=== PATIENT | female | born 1945 | race Caucasian/White ===

== ENCOUNTER → 2017-09-01 07:27 | Outpatient (CLI) | payer OTHER, SELFPAY ==
[2017-09-01 08:50] LABS: BUN Creatinine Ratio 25.4 (6-22); Calcium 8.9 mg/dL (8.4-10.2); Glucose 58 mg/dL (80-110); HEMOLYSIS < 15 (0-50); Potassium 3.4 mmol/L (3.4-5.1); Sodium 138 mmol/L (137-145)
== END ==
PROVIDERS: PCP Nurse Practitioner; Visit Provider Student in an Organized Health Care Education/Training Program
DX: I50.32 Chronic diastolic (congestive) heart failure (principal)
CPT/HCPCS: 36415; 80048; 83880

== ENCOUNTER → 2017-09-06 11:27 | Outpatient (CLI) | payer OTHER, SELFPAY ==
--- NOTE | 2017-09-06 | DI.RAD.S_ITS ---
PROCEDURE: XR CHEST 2V INDICATIONS: ESRD/LAB TECHNIQUE: 2 views of the chest were acquired. COMPARISON: [facility], , CHEST 1 VIEW, 09/22/2015, 19:28. [facility], , CHEST 1 VIEW, 09/06/2016, 0:11. [facility], , XR CHEST 1V, 08/09/2017, 16:41. FINDINGS: Surgical changes and devices: None. Lungs and pleura: No pleural effusions or pneumothorax. Increased bilateral widespread patchy groundglass opacities primarily involving the lung bases.. Mediastinum: Mediastinal contours are normal. Heart size is normal. Bones and chest wall: No suspicious bony abnormalities. Soft tissues appear unremarkable. IMPRESSION: Increased patchy and groundglass bibasilar opacities suggestive of pulmonary edema versus aspiration/atelectasis. Recommend clinical correlation to exclude superimposed infection. If further assessment is necessary, short interval serial chest radiographs could be performed. Dictated by: Juan Wray M.D. on 09/06/2017 at 14:30 Approved by: Juan Wray M.D. on 09/06/2017 at 14:32
[2017-09-06 12:56] LABS: Hepatitis B Surface Antigen NEGATIVE s/c (NEGATIVE)
[2017-09-06 13:09] LABS: Hep C Virus Ab w/Reflex Quant NEGATIVE s/c (NEGATIVE)
[2017-09-07 14:12] LABS: Hepatitis B Core Antibody Nonreactive (Nonreactive)
[2017-09-07 14:29] LABS: Hepatitis B Surf AB Imm QUANT < 5 mIU/mL (> 9)
== END ==
PROVIDERS: PCP Nurse Practitioner; Visit Provider Student in an Organized Health Care Education/Training Program
DX: N18.6 End stage renal disease (principal); R91.8 Other nonspecific abnormal finding of lung field
CPT/HCPCS: 36415; 71046; 86317; 86704; 86803; 87340

== ENCOUNTER → 2017-09-30 07:18 | Outpatient (CLI) | payer OTHER, SELFPAY ==
[2017-09-30 09:02] LABS: Hemoglobin A1C% w Est Avg Glu 6.7 % (4.0-6.0)
[2017-09-30 09:03] LABS: Add Manual Diff / Slide Review NO; Basophils Percent Auto 1.1 % (0-2); Eosinophils Percent Auto 2.5 % (2-4); Hematocrit 33.2 % (36-46); Hemoglobin 11.2 g/dL (12.0-16.0); Lymphocytes Percent Auto 14.7 % (25-40); Mean Corpuscular HGB Conc 33.8 % (30-36); Mean Corpuscular Hemoglobin 30.1 PG (26-34); Mean Corpuscular Volume 89.1 fL (80-100); Monocytes Percent Auto 11.8 % (3-14); Neutrophils Absolute Auto 3800 /uL (3000-5900); Neutrophils Percent Auto 69.9 % (50-75); Platelet Count 238 X10^3/uL (150-400); Red Blood Cell Count 3.73 X10^6/uL (4.0-5.2); Red Cell Distribution Width 15.4 % (11.6-14.8); White Blood Cell Count 5.5 X10^3/uL (4.5-11.0)
[2017-09-30 09:23] LABS: Alanine Aminotransferase 32 IU/L (9-52); Albumin 3.9 g/dL (3.5-5.0); Albumin Globulin Ratio 1.4 (1.0-2.8); Alkaline Phosphatase 98 U/L (38-126); Aspartate Aminotransferase 18 IU/L (14-36); BUN Creatinine Ratio 11.1 (6-22); Bilirubin Total 0.7 mg/dL (0.2-1.3); Blood Urea Nitrogen 21 mg/dL (7-17); Calcium 9.3 mg/dL (8.4-10.2); Carbon Dioxide 29 mmol/L (22-32); Chloride 94 mmol/L (98-107); Estimated Glomerular Filt Rate 25.8 mL/min (>60); Globulin 2.8 g/dL (1.7-4.1); Glucose 121 mg/dL (80-110); HEMOLYSIS 16 (0-50); Potassium 4.3 mmol/L (3.4-5.1); Sodium 136 mmol/L (137-145); Total Protein 6.7 g/dL (6.3-8.2)
== END ==
PROVIDERS: PCP Nurse Practitioner; Visit Provider Nurse Practitioner
DX: E11.22 Type 2 diabetes mellitus with diabetic chronic kidney disease (principal); N18.4 Chronic kidney disease, stage 4 (severe); Z79.4 Long term (current) use of insulin
CPT/HCPCS: 36415; 80053; 83036; 85025

== ENCOUNTER → 2018-01-04 07:10 | Outpatient (CLI) | payer OTHER, SELFPAY ==
[2018-01-04 09:26] LABS: Hemoglobin A1C% w Est Avg Glu 6.3 % (4.0-6.0)
[2018-01-04 09:44] LABS: BUN Creatinine Ratio 10.3 (6-22); Blood Urea Nitrogen 37 mg/dL (7-17); Calcium 8.9 mg/dL (8.4-10.2); Carbon Dioxide 32 mmol/L (22-32); Chloride 98 mmol/L (98-107); Estimated Glomerular Filt Rate 12.4 mL/min (>60); Glucose 91 mg/dL (80-110); HEMOLYSIS < 15 (0-50); Potassium 4.4 mmol/L (3.4-5.1); Sodium 144 mmol/L (137-145)
== END ==
PROVIDERS: PCP Nurse Practitioner; Visit Provider Nurse Practitioner
DX: E11.22 Type 2 diabetes mellitus with diabetic chronic kidney disease (principal); N18.6 End stage renal disease; Z99.2 Dependence on renal dialysis; Z79.4 Long term (current) use of insulin
CPT/HCPCS: 36415; 80048; 83036

== ENCOUNTER 2018-04-18 07:48 | Emergency (ER) | payer MEDICARE, SELFPAY ==
[2018-04-18 07:52] VITALS: BP 127/47; PULSE 94; RESP 14; TEMP 36.8; O2SAT 98
--- NOTE | 2018-04-18 07:57 | ED.WEAKNESS ---
HPI - Weakness General Chief complaint: Neuro Symptoms/Deficit Stated complaint: Weakness Time Seen by Provider: 04/18/18 07:55 Source: patient and EMS Mode of arrival: EMS Limitations: no limitations History of Present Illness HPI Narrative: This is a 73-year-old female comes to the emergency department with complaint of weakness. Patient states that she was getting out of bed when she slipped. She states she sort of did a slide to the floor. She denies any trauma to her head, no neck or back pain. She states she was feeling weakness particularly on her left side. States her hand was not working right she was having trouble using a spoon. She states when she went to bed she was not having this issue and when she woke up this morning it was present. Patient states that she did a lot of moving of boxes and thinks that that might have been the cause of her symptoms. Patient states that she does not normally lift that much removed that much. She is a end-stage renal disease patient on hemodialysis on Tuesday, and Tuesday. She has not been missing any dialysis she is due to have it at 9:00 a.m. today. She denies any headaches, no vision changes, no difficulty with speech although she is very thirsty. She denies any chest pain or pressure, no shortness of breath. Denies any nausea, vomiting or other new GI symptoms. She does state that she has her carvedilol secondary to hypotension. Related Data Home Medications Medication Instructions Recorded Confirmed fluticasone-salmeterol [Advair 1 puff INH BID #0 09/06/16 04/18/18 Diskus] gabapentin 200 mg PO DAILY #0 09/06/16 04/18/18 aspirin [Aspir-81] 81 mg PO DAILY 08/09/17 04/18/18 atorvastatin 20 mg PO QPM 08/09/17 04/18/18 carvedilol 6.25 mg PO BID 08/09/17 04/18/18 ciprofloxacin HCl 125 mg PO BEDTIME 08/09/17 04/18/18 docusate sodium 100 mg PO DAILY 08/09/17 04/18/18 lamotrigine 150 mg PO DAILY 08/09/17 04/18/18 omeprazole 40 mg PO BID 08/09/17 04/18/18 trazodone 150 mg PO BEDTIME 08/09/17 04/18/18 calcium acetate 1 cap PO DAILY 04/18/18 04/18/18 citalopram 20 mg PO DAILY 04/18/18 04/18/18 cranberry 1 dose PO DAILY 04/18/18 04/18/18 febuxostat [Uloric] 80 mg PO DAILY 04/18/18 04/18/18 furosemide 80 mg PO BID 04/18/18 04/18/18 iron 1 tab PO DAILY 04/18/18 04/18/18 multivitamin [Daily-Christiano] 1 tab PO DAILY 04/18/18 04/18/18 oxybutynin chloride 15 mg PO DAILY 04/18/18 04/18/18 potassium chloride 10 meq PO DAILY 04/18/18 04/18/18 Allergies Allergy/AdvReac Type Severity Reaction Status Date / Time NSAIDS (Non-Steroidal AdvReac Severe CAUSED Verified 08/09/17 16:58 Anti-Inflamma KIDNEY [NSAIDS (NON-STEROIDAL DISEASE ANTI-INFLAMMA] Review of Systems Review of Systems All systems reviewed & are unremarkable except as noted in HPI and below Constitutional Denies chills, Denies fever(s), Denies frequent falls, Denies headache(s), Denies lethargy and Denies weakness ENT Ears, Nose, Mouth, and Throat: Denies headache(s), Denies disequilibrium and Denies other (facial droop) Cardiovascular Denies chest pain, Denies irregular heart rhythm, Denies lightheadedness, Denies palpitations, Denies dyspnea and Denies dyspnea on exertion Respiratory Denies chest congestion, Denies cough, Denies dyspnea and Denies dyspnea on exertion Gastrointestinal Gastrointestinal: Denies abdominal pain, Denies change in bowel habits, Denies diarrhea, Denies nausea and Denies vomiting Musculoskeletal Reports muscle weakness and Denies numbness Neurologic Reports as per HPI, Denies abnormal speech, Denies confusion, Denies frequent falls, Denies headache(s), Reports focal weakness (left sided weakness), Denies numbness, Denies sensory deficit, Denies paresthesias, Denies disequilibrium and Denies weakness Psychiatric Denies confusion Endocrine Denies palpitations PFSH Medical History Bipolar 1 disorder (Acute) CKD (chronic kidney disease) stage 4, GFR 15-29 ml/min (Acute) Dyslipidemia (Acute) Hypertension (Acute) Surgically constructed arteriovenous fistula (Acute) Surgical History H/O: (Acute) S/P cholecystectomy (Acute) Social History Smoking Status: Never smoker Exam Narrative Exam Narrative: GEN: Obese, well-appearing female, alert and oriented x 3, patient appears to be in mild distress. HEENT: Atraumatic, pupils are equal round reactive to light, extraocular movements are intact, nares are clear, no facial droop. HEART: Regular rate and rhythm without murmur, clicks, rubs. LUNGS:Lungs clear to auscultation, no wheezes, rales, crackles, chest moves symmetrically ABD:bowel sounds normal, soft, non-tender, no guarding, rebound, rigidity, no masses noted, no hepatosplenomegaly :No CVA tenderness MSCL: Non-tender, no muscle atrophy, muscles strength 5/5 upper and lower extremities, full range of motion. Patient has a fistula left upper extremity with a thrill. NEURO:CN 2-12 intact, sensation normal, finger nose finger test normal, heel hennessy test normal Initial Vital Signs Initial Vital Signs: Vital Signs Temperature 98.3 F 04/18/18 07:52 Pulse Rate 94 H 04/18/18 07:52 Respiratory Rate 14 04/18/18 07:52 Blood Pressure 127/47 L 04/18/18 07:52 Pulse Oximetry 98 04/18/18 07:52 Scores NIH Stroke Scale Level of Conciousness: Alert, keenly responsive Ask month/age: Answers both questions correctly. Open/close eyes, close hand: Performs both tasks correctly Best gaze horizontal: Normal Visual billingsley: No visual loss Facial palsy: Normal symetrical movement Left arm drift: No drift for full 10 sec Right arm drift: No drift for full 10 sec Left leg drift: No drift for full 10 sec Right leg drift: No drift for full 10 sec Limb ataxia: Absent Sensory on face/arms/legs: Normal, no sensory loss Best language: No aphasia, normal Dysarthria: Normal Extinction or inattention: No abnormality Total NIH Stroke scale score: 0 Course Orders Ordered: ED Orders 04/18/18 07:56 EKG-12 Lead Stat 04/18/18 08:00 CT head/brain wo con Stat 04/18/18 08:30 Basic Metabolic Panel Stat Complete Blood Count AUTO DIFF Stat Partial Thromboplastin Time Stat Prothrombin Time INR Stat 04/18/18 09:00 Urinalysis and Microscopic Stat Urine Culture Stat Urine Drug Screen, Rapid Stat Discontinued Medications Dextrose (D50w) 25 gm IV NOW ONE Stop: 04/18/18 10:31 Last Admin: 04/18/18 11:00 Dose: 25 gm Calcium Gluconate 4.65 meq/ (Sodium Chloride) 60 mls @ 120 mls/hr IV NOW ONE Stop: 04/18/18 10:31 Last Admin: 04/18/18 10:56 Dose: 120 mls/hr Insulin Human Regular (Humulin R) 10 unit IV NOW ONE Stop: 04/18/18 10:31 Last Admin: 04/18/18 10:56 Dose: 10 unit Sodium Polystyrene Sulfonate (Kayexalate) 30 gm PO NOW ONE Stop: 04/18/18 10:31 Last Admin: 04/18/18 10:57 Dose: 30 gm Vital Signs - 8 hr 04/18/18 07:52 04/18/18 11:22 Temperature 98.3 F Pulse Rate 94 H 102 H Respiratory Rate 14 24 Blood Pressure 127/47 L Blood Pressure [Left Arm] 120/66 Pulse Oximetry 98 93 MDM - Weakness Lab Data Attestation: I reviewed the patient's lab results. Result diagrams: 04/18/18 08:30 04/18/18 08:30 Lab Results 04/18/18 04/18/18 04/18/18 Range/Units 08:30 08:30 08:30 WBC 10.2 (4.5-11.0) X10^3/uL RBC 3.25 L (4.0-5.2) X10^6/uL Hgb 10.8 L (12.0-16.0) g/dL Hct 32.6 L (36-46) % MCV 100.3 H (80-100) fL MCH 33.3 (26-34) PG MCHC 33.2 (30-36) % RDW 13.6 (11.6-14.8) % Plt Count 289 (150-400) X10^3/uL Neut % (Auto) 79.6 H (50-75) % Lymph % (Auto) 10.6 L (25-40) % [place] % (Auto) 8.2 (3-14) % Eos % (Auto) 0.9 L (2-4) % Baso % (Auto) 0.7 (0-2) % Neut # (Auto) 8100 H (0373-2177) /uL PT 11.3 (10.1-12.7) SECONDS INR 1.0 (0.9-1.3) APTT 30 (26.4-36.2) SECONDS Sodium 135 L (137-145) mmol/L Potassium 7.3 H* (3.4-5.1) mmol/L Chloride 95 L (98-107) mmol/L Carbon Dioxide 22 (22-32) mmol/L BUN 97 H (7-17) mg/dL Creatinine 8.90 H* (0.52-1.04) mg/dL Estimated GFR 4.3 L (>60) mL/min BUN/Creatinine Ratio 10.9 (6-22) Glucose 142 H (80-110) mg/dL Calcium 8.7 (8.4-10.2) mg/dL Urine Color Urine Appearance Urine pH (4.5-8.0) Ur Specific [place] (1.000-1.035) Urine Protein (Negative) Urine Glucose (UA) (Negative) g/dL Urine Ketones (NEGATIVE) Urine Occult Blood (Negative) Urine Nitrate (Negative) Urine Bilirubin (NEGATIVE) Urine Urobilinogen (0.2) E.U./dL Ur Leukocyte Esterase (NEGATIVE) Urine RBC (0-5/HPF) Urine WBC (0-5/HPF) Urine Bacteria (None) Ur Culture Indicated? Micro UA Comment Urine Opiates Screen (Negative) Ur Oxycodone Screen (Negative) Urine Methadone Screen (Negative) Ur Barbiturates Screen (Negative) U Tricyclic Antidepress (Negative) Ur Phencyclidine Scrn (Negative) Ur Amphetamines Screen (Negative) U Methamphetamines Scrn (Negative) Ur MDMA Scrn (Ecstasy) (Negative) U Benzodiazepines Scrn (Negative) Urine Cocaine Screen (Negative) U Marijuana (THC) Screen (Negative) 04/18/18 04/18/18 Range/Units 09:00 09:00 WBC (4.5-11.0) X10^3/uL RBC (4.0-5.2) X10^6/uL Hgb (12.0-16.0) g/dL Hct (36-46) % MCV (80-100) fL MCH (26-34) PG MCHC (30-36) % RDW (11.6-14.8) % Plt Count (150-400) X10^3/uL Neut % (Auto) (50-75) % Lymph % (Auto) (25-40) % [place] % (Auto) (3-14) % Eos % (Auto) (2-4) % Baso % (Auto) (0-2) % Neut # (Auto) (4023-3331) /uL PT (10.1-12.7) SECONDS INR (0.9-1.3) APTT (26.4-36.2) SECONDS Sodium (137-145) mmol/L Potassium (3.4-5.1) mmol/L Chloride (98-107) mmol/L Carbon Dioxide (22-32) mmol/L BUN (7-17) mg/dL Creatinine (0.52-1.04) mg/dL Estimated GFR (>60) mL/min BUN/Creatinine Ratio (6-22) Glucose (80-110) mg/dL Calcium (8.4-10.2) mg/dL Urine Color Yellow Urine Appearance Cloudy Urine pH 7.0 (4.5-8.0) Ur Specific [place] 1.015 (1.000-1.035) Urine Protein 1+ H (Negative) Urine Glucose (UA) Negative (Negative) g/dL Urine Ketones Negative (NEGATIVE) Urine Occult Blood 2+ H (Negative) Urine Nitrate Negative (Negative) Urine Bilirubin Negative (NEGATIVE) Urine Urobilinogen 0.2 (0.2) E.U./dL Ur Leukocyte Esterase 3+ H (NEGATIVE) Urine RBC 5-10/hpf H (0-5/HPF) Urine WBC >100/hpf H (0-5/HPF) Urine Bacteria Many (>30) H (None) Ur Culture Indicated? Specimen cultured Micro UA Comment Not Reportable Urine Opiates Screen Negative (Negative) Ur Oxycodone Screen Negative (Negative) Urine Methadone Screen Negative (Negative) Ur Barbiturates Screen Negative (Negative) U Tricyclic Antidepress Negative (Negative) Ur Phencyclidine Scrn Negative (Negative) Ur Amphetamines Screen Negative (Negative) U Methamphetamines Scrn Negative (Negative) Ur MDMA Scrn (Ecstasy) Negative (Negative) U Benzodiazepines Scrn Negative (Negative) Urine Cocaine Screen Negative (Negative) U Marijuana (THC) Screen Negative (Negative) Imaging Data CT scan - head: Radiologist's impression: [address] [address] [address] Scan Report Signed Patient: Manju Bergman MR#: [id number] : 1945 Acct:[id number] Age/Sex: 73 / F Date of Service: 04/18/18 Loc: ED Accession Number: [id number] Procedure: CT head/brain wo con Ordering Provider: Rody Yates D.O. PROCEDURE: CT HEAD/BRAIN WO CON INDICATIONS: weakness, patient states left sided arm, resolving TECHNIQUE: Noncontrast 4.5 mm thick angled axial sections acquired from the foramen magnum to the vertex, with coronal and sagittal reformats. For radiation dose reduction, the following was used: automated exposure control, adjustment of mA and/or kV according to patient size. COMPARISON: [facility], CT, HEAD WITHOUT CONTRAST, 09/05/2016, 23:54. [facility], CT, HEAD WITHOUT CONTRAST, 09/26/2015, 15:01. [facility], CT, HEAD WITHOUT CONTRAST, 04/29/2015, 3:09. FINDINGS: Image quality: Excellent. CSF spaces: Basal cisterns are patent. No extra-axial fluid collections. The ventricles are symmetric in size and shape. Brain: No intracranial bleeds or masses. There is cerebral volume loss for age, with resultant ventricular and sulcal prominence. There are periventricular and deep white matter chronic small vessel ischemic changes. There is intracranial internal carotid artery atherosclerosis. Skull and face: Calvarium and visualized facial bones appear intact, without suspicious lesions. Sinuses: Visualized sinuses and mastoids are clear. IMPRESSION: No acute intracranial abnormality. Dictated by: Anca Rand M.D. on 04/18/2018 at 8:56 Approved by: Anca Rand M.D. on 04/18/2018 at 8:57 ECG Data Attestation: I personally reviewed and interpreted this ECG as follows: Interpretation: Ventricular rate of 93 QRS of 168 QTC of 476. Patient has prior EKGs with wide QRS at 1:49 a.m. an similar rate in the 60s. They all appeared to be sinus rhythm. [facility] Narrative Medical decision making narrative: Patient's lab work shows an elevated potassium which is not unexpected given she is supposed to have dialysis this morning. It is high enough that it is concerning for possibly the cause of some of her symptoms Um and her EKG today did show with a little bit different than her past EKGs. Patient's urine also shows signs of infection. Patient is on Cipro every other day we discussed waiting for urine culture before changing any antibiotics she is not having any other major symptoms that are clearly caused from a urinary infection. Patient's head CT is negative. Otherwise she is asymptomatic and not having any other symptoms, her NIH is 0. Discussed her findings with her and her daughter plan to contact her account general manager to see if they can dialyze her today versus if she would need to be admitted as it seems like she would benefit from dialysis sooner rather than later. Patient was given calcium gluconate, IV insulin 10 units, D5 1 amp IV, Kayexalate p.o. discussed with patient she does not want to be resuscitated if she had a cardiac arrest, she does not want electric shock. She is comfortable with the plan to transfer for hemodialysis. Dr. Lombardi the electrical assembly supervisor at [facility] accepts. Patient has been stable while here in the department. Critical Care Time Critical Care Time: Yes Total Critical Care Time: 90 Attestation: The high probability of a clinically significant, sudden or life threatening deterioration of the [cardiac] system(s) required my full and direct attention, intervention and personal management. The aggregate critical care time was [90] minutes. This time is in addition to time spent performing reported procedures but includes the following: [x] Data Review and interpretation [x] Patient assessment and monitoring of vital signs [x] Documentation [x] Medication orders and management Discharge Plan Departure Patient Disposition: [facility] Clinical Impression: Weakness, UTI (urinary tract infection), Hyperkalemia, ESRD (end stage renal disease) on dialysis Discharge Date/Time: 04/18/18 12:07 Interventions: ED Discharge Assessment Last Done: 04/18/18 12:05 Prescriptions: No Action fluticasone-salmeterol [Advair Diskus] 250 MCG/50 MCG blister with device 1 puff INH BID Qty: 0 RF: 0 gabapentin 100 MG capsule 200 mg PO DAILY Qty: 0 RF: 0 atorvastatin 20 mg Tablet 20 mg PO QPM RF: 0 docusate sodium 100 mg Capsule 100 mg PO DAILY RF: 0 lamotrigine 150 mg Tablet 150 mg PO DAILY RF: 0 carvedilol 6.25 mg Tablet 6.25 mg PO BID RF: 0 ciprofloxacin HCl 250 mg Tablet 125 mg PO BEDTIME RF: 0 omeprazole 40 mg Capsule,Delayed Release(Dr/Ec) 40 mg PO BID RF: 0 aspirin [Aspir-81] 81 mg Tablet,Delayed Release (Dr/Ec) 81 mg PO DAILY RF: 0 trazodone 150 mg Tablet 150 mg PO BEDTIME RF: 0 multivitamin [Daily-Christiano] Tablet 1 tab PO DAILY RF: 0 oxybutynin chloride 15 mg tablet extended release 24hr 15 mg PO DAILY RF: 0 potassium chloride 10 mEq tablet extended release 10 meq PO DAILY RF: 0 citalopram 20 mg tablet 20 mg PO DAILY RF: 0 furosemide 80 mg tablet 80 mg PO BID RF: 0 febuxostat [Uloric] 80 mg tablet 80 mg PO DAILY RF: 0 calcium acetate 1 cap PO DAILY RF: 0 cranberry 1 dose PO DAILY RF: 0 iron 1 tab PO DAILY RF: 0 Referrals: Karen Mustafa ARNP [Primary Care Provider] -
--- NOTE | 2018-04-18 08:00 | DI.CT.S_ITS ---
PROCEDURE: CT HEAD/BRAIN WO CON INDICATIONS: weakness, patient states left sided arm, resolving TECHNIQUE: Noncontrast 4.5 mm thick angled axial sections acquired from the foramen magnum to the vertex, with coronal and sagittal reformats. For radiation dose reduction, the following was used: automated exposure control, adjustment of mA and/or kV according to patient size. COMPARISON: [facility], CT, HEAD WITHOUT CONTRAST, 09/05/2016, 23:54. [facility], CT, HEAD WITHOUT CONTRAST, 09/26/2015, 15:01. [facility], CT, HEAD WITHOUT CONTRAST, 04/29/2015, 3:09. FINDINGS: Image quality: Excellent. CSF spaces: Basal cisterns are patent. No extra-axial fluid collections. The ventricles are symmetric in size and shape. Brain: No intracranial bleeds or masses. There is cerebral volume loss for age, with resultant ventricular and sulcal prominence. There are periventricular and deep white matter chronic small vessel ischemic changes. There is intracranial internal carotid artery atherosclerosis. Skull and face: Calvarium and visualized facial bones appear intact, without suspicious lesions. Sinuses: Visualized sinuses and mastoids are clear. IMPRESSION: No acute intracranial abnormality. Dictated by: Anca Rand M.D. on 04/18/2018 at 8:56 Approved by: Anca Rand M.D. on 04/18/2018 at 8:57
--- NOTE | 2018-04-18 08:04 | ED_ITS ---
HPI - Weakness General Chief complaint: Neuro Symptoms/Deficit Stated complaint: Weakness Time Seen by Provider: 04/18/18 07:55 Source: patient and EMS Mode of arrival: EMS Limitations: no limitations History of Present Illness HPI Narrative: This is a 73-year-old female comes to the emergency department with complaint of weakness. Patient states that she was getting out of bed when she slipped. She states she sort of did a slide to the floor. She denies any trauma to her head, no neck or back pain. She states she was feeling weakness particularly on her left side. States her hand was not working right she was having trouble using a spoon. She states when she went to bed she was not having this issue and when she woke up this morning it was present. Patient states that she did a lot of moving of boxes and thinks that that might have been the cause of her symptoms. Patient states that she does not normally lift that much removed that much. She is a end-stage renal disease patient on hemodialysis on Tuesday, and Tuesday. She has not been missing any dialysis she is due to have it at 9:00 a.m. today. She denies any headaches, no vision changes, no difficulty with speech although she is very thirsty. She denies any chest pain or pressure, no shortness of breath. Denies any nausea, vomiting or other new GI symptoms. She does state that she has her carvedilol secondary to hypotension. Related Data Home Medications Medication Instructions Recorded Confirmed fluticasone-salmeterol [Advair 1 puff INH BID #0 09/06/16 04/18/18 Diskus] gabapentin 200 mg PO DAILY #0 09/06/16 04/18/18 aspirin [Aspir-81] 81 mg PO DAILY 08/09/17 04/18/18 atorvastatin 20 mg PO QPM 08/09/17 04/18/18 carvedilol 6.25 mg PO BID 08/09/17 04/18/18 ciprofloxacin HCl 125 mg PO BEDTIME 08/09/17 04/18/18 docusate sodium 100 mg PO DAILY 08/09/17 04/18/18 lamotrigine 150 mg PO DAILY 08/09/17 04/18/18 omeprazole 40 mg PO BID 08/09/17 04/18/18 trazodone 150 mg PO BEDTIME 08/09/17 04/18/18 calcium acetate 1 cap PO DAILY 04/18/18 04/18/18 citalopram 20 mg PO DAILY 04/18/18 04/18/18 cranberry 1 dose PO DAILY 04/18/18 04/18/18 febuxostat [Uloric] 80 mg PO DAILY 04/18/18 04/18/18 furosemide 80 mg PO BID 04/18/18 04/18/18 iron 1 tab PO DAILY 04/18/18 04/18/18 multivitamin [Daily-Christiano] 1 tab PO DAILY 04/18/18 04/18/18 oxybutynin chloride 15 mg PO DAILY 04/18/18 04/18/18 potassium chloride 10 meq PO DAILY 04/18/18 04/18/18 Allergies Allergy/AdvReac Type Severity Reaction Status Date / Time NSAIDS (Non-Steroidal AdvReac Severe CAUSED Verified 08/09/17 16:58 Anti-Inflamma KIDNEY [NSAIDS (NON-STEROIDAL DISEASE ANTI-INFLAMMA] Review of Systems Review of Systems All systems reviewed & are unremarkable except as noted in HPI and below Constitutional Denies chills, Denies fever(s), Denies frequent falls, Denies headache(s), Denies lethargy and Denies weakness ENT Ears, Nose, Mouth, and Throat: Denies headache(s), Denies disequilibrium and Denies other (facial droop) Cardiovascular Denies chest pain, Denies irregular heart rhythm, Denies lightheadedness, Denies palpitations, Denies dyspnea and Denies dyspnea on exertion Respiratory Denies chest congestion, Denies cough, Denies dyspnea and Denies dyspnea on exertion Gastrointestinal Gastrointestinal: Denies abdominal pain, Denies change in bowel habits, Denies diarrhea, Denies nausea and Denies vomiting Musculoskeletal Reports muscle weakness and Denies numbness Neurologic Reports as per HPI, Denies abnormal speech, Denies confusion, Denies frequent falls, Denies headache(s), Reports focal weakness (left sided weakness), Denies numbness, Denies sensory deficit, Denies paresthesias, Denies disequilibrium and Denies weakness Psychiatric Denies confusion Endocrine Denies palpitations PFSH Medical History Bipolar 1 disorder (Acute) CKD (chronic kidney disease) stage 4, GFR 15-29 ml/min (Acute) Dyslipidemia (Acute) Hypertension (Acute) Surgically constructed arteriovenous fistula (Acute) Surgical History H/O: (Acute) S/P cholecystectomy (Acute) Social History Smoking Status: Never smoker Exam Narrative Exam Narrative: GEN: Obese, well-appearing female, alert and oriented x 3, patient appears to be in mild distress. HEENT: Atraumatic, pupils are equal round reactive to light, extraocular movements are intact, nares are clear, no facial droop. HEART: Regular rate and rhythm without murmur, clicks, rubs. LUNGS:Lungs clear to auscultation, no wheezes, rales, crackles, chest moves symmetrically ABD:bowel sounds normal, soft, non-tender, no guarding, rebound, rigidity, no masses noted, no hepatosplenomegaly :No CVA tenderness MSCL: Non-tender, no muscle atrophy, muscles strength 5/5 upper and lower extremities, full range of motion. Patient has a fistula left upper extremity with a thrill. NEURO:CN 2-12 intact, sensation normal, finger nose finger test normal, heel hennessy test normal Initial Vital Signs Initial Vital Signs: Vital Signs Temperature 98.3 F 04/18/18 07:52 Pulse Rate 94 H 04/18/18 07:52 Respiratory Rate 14 04/18/18 07:52 Blood Pressure 127/47 L 04/18/18 07:52 Pulse Oximetry 98 04/18/18 07:52 Scores NIH Stroke Scale Level of Conciousness: Alert, keenly responsive Ask month/age: Answers both questions correctly. Open/close eyes, close hand: Performs both tasks correctly Best gaze horizontal: Normal Visual billingsley: No visual loss Facial palsy: Normal symetrical movement Left arm drift: No drift for full 10 sec Right arm drift: No drift for full 10 sec Left leg drift: No drift for full 10 sec Right leg drift: No drift for full 10 sec Limb ataxia: Absent Sensory on face/arms/legs: Normal, no sensory loss Best language: No aphasia, normal Dysarthria: Normal Extinction or inattention: No abnormality Total NIH Stroke scale score: 0 Course Orders Ordered: ED Orders 04/18/18 07:56 EKG-12 Lead Stat 04/18/18 08:00 CT head/brain wo con Stat 04/18/18 08:30 Basic Metabolic Panel Stat Complete Blood Count AUTO DIFF Stat Partial Thromboplastin Time Stat Prothrombin Time INR Stat 04/18/18 09:00 Urinalysis and Microscopic Stat Urine Culture Stat Urine Drug Screen, Rapid Stat Discontinued Medications Dextrose (D50w) 25 gm IV NOW ONE Stop: 04/18/18 10:31 Last Admin: 04/18/18 11:00 Dose: 25 gm Calcium Gluconate 4.65 meq/ (Sodium Chloride) 60 mls @ 120 mls/hr IV NOW ONE Stop: 04/18/18 10:31 Last Admin: 04/18/18 10:56 Dose: 120 mls/hr Insulin Human Regular (Humulin R) 10 unit IV NOW ONE Stop: 04/18/18 10:31 Last Admin: 04/18/18 10:56 Dose: 10 unit Sodium Polystyrene Sulfonate (Kayexalate) 30 gm PO NOW ONE Stop: 04/18/18 10:31 Last Admin: 04/18/18 10:57 Dose: 30 gm Vital Signs - 8 hr 04/18/18 07:52 04/18/18 11:22 Temperature 98.3 F Pulse Rate 94 H 102 H Respiratory Rate 14 24 Blood Pressure 127/47 L Blood Pressure [Left Arm] 120/66 Pulse Oximetry 98 93 MDM - Weakness Lab Data Attestation: I reviewed the patient's lab results. Result diagrams: 04/18/18 08:30 04/18/18 08:30 Lab Results 04/18/18 04/18/18 04/18/18 Range/Units 08:30 08:30 08:30 WBC 10.2 (4.5-11.0) X10^3/uL RBC 3.25 L (4.0-5.2) X10^6/uL Hgb 10.8 L (12.0-16.0) g/dL Hct 32.6 L (36-46) % MCV 100.3 H (80-100) fL MCH 33.3 (26-34) PG MCHC 33.2 (30-36) % RDW 13.6 (11.6-14.8) % Plt Count 289 (150-400) X10^3/uL Neut % (Auto) 79.6 H (50-75) % Lymph % (Auto) 10.6 L (25-40) % [place] % (Auto) 8.2 (3-14) % Eos % (Auto) 0.9 L (2-4) % Baso % (Auto) 0.7 (0-2) % Neut # (Auto) 8100 H (2472-7563) /uL PT 11.3 (10.1-12.7) SECONDS INR 1.0 (0.9-1.3) APTT 30 (26.4-36.2) SECONDS Sodium 135 L (137-145) mmol/L Potassium 7.3 H* (3.4-5.1) mmol/L Chloride 95 L (98-107) mmol/L Carbon Dioxide 22 (22-32) mmol/L BUN 97 H (7-17) mg/dL Creatinine 8.90 H* (0.52-1.04) mg/dL Estimated GFR 4.3 L (>60) mL/min BUN/Creatinine Ratio 10.9 (6-22) Glucose 142 H (80-110) mg/dL Calcium 8.7 (8.4-10.2) mg/dL Urine Color Urine Appearance Urine pH (4.5-8.0) Ur Specific Fenton (1.000-1.035) Urine Protein (Negative) Urine Glucose (UA) (Negative) g/dL Urine Ketones (NEGATIVE) Urine Occult Blood (Negative) Urine Nitrate (Negative) Urine Bilirubin (NEGATIVE) Urine Urobilinogen (0.2) E.U./dL Ur Leukocyte Esterase (NEGATIVE) Urine RBC (0-5/HPF) Urine WBC (0-5/HPF) Urine Bacteria (None) Ur Culture Indicated? Micro UA Comment Urine Opiates Screen (Negative) Ur Oxycodone Screen (Negative) Urine Methadone Screen (Negative) Ur Barbiturates Screen (Negative) U Tricyclic Antidepress (Negative) Ur Phencyclidine Scrn (Negative) Ur Amphetamines Screen (Negative) U Methamphetamines Scrn (Negative) Ur MDMA Scrn (Ecstasy) (Negative) U Benzodiazepines Scrn (Negative) Urine Cocaine Screen (Negative) U Marijuana (THC) Screen (Negative) 04/18/18 04/18/18 Range/Units 09:00 09:00 WBC (4.5-11.0) X10^3/uL RBC (4.0-5.2) X10^6/uL Hgb (12.0-16.0) g/dL Hct (36-46) % MCV (80-100) fL MCH (26-34) PG MCHC (30-36) % RDW (11.6-14.8) % Plt Count (150-400) X10^3/uL Neut % (Auto) (50-75) % Lymph % (Auto) (25-40) % [place] % (Auto) (3-14) % Eos % (Auto) (2-4) % Baso % (Auto) (0-2) % Neut # (Auto) (9761-7209) /uL PT (10.1-12.7) SECONDS INR (0.9-1.3) APTT (26.4-36.2) SECONDS Sodium (137-145) mmol/L Potassium (3.4-5.1) mmol/L Chloride (98-107) mmol/L Carbon Dioxide (22-32) mmol/L BUN (7-17) mg/dL Creatinine (0.52-1.04) mg/dL Estimated GFR (>60) mL/min BUN/Creatinine Ratio (6-22) Glucose (80-110) mg/dL Calcium (8.4-10.2) mg/dL Urine Color Yellow Urine Appearance Cloudy Urine pH 7.0 (4.5-8.0) Ur Specific Fenton 1.015 (1.000-1.035) Urine Protein 1+ H (Negative) Urine Glucose (UA) Negative (Negative) g/dL Urine Ketones Negative (NEGATIVE) Urine Occult Blood 2+ H (Negative) Urine Nitrate Negative (Negative) Urine Bilirubin Negative (NEGATIVE) Urine Urobilinogen 0.2 (0.2) E.U./dL Ur Leukocyte Esterase 3+ H (NEGATIVE) Urine RBC 5-10/hpf H (0-5/HPF) Urine WBC >100/hpf H (0-5/HPF) Urine Bacteria Many (>30) H (None) Ur Culture Indicated? Specimen cultured Micro UA Comment Not Reportable Urine Opiates Screen Negative (Negative) Ur Oxycodone Screen Negative (Negative) Urine Methadone Screen Negative (Negative) Ur Barbiturates Screen Negative (Negative) U Tricyclic Antidepress Negative (Negative) Ur Phencyclidine Scrn Negative (Negative) Ur Amphetamines Screen Negative (Negative) U Methamphetamines Scrn Negative (Negative) Ur MDMA Scrn (Ecstasy) Negative (Negative) U Benzodiazepines Scrn Negative (Negative) Urine Cocaine Screen Negative (Negative) U Marijuana (THC) Screen Negative (Negative) Imaging Data CT scan - head: Radiologist's impression: [address] [address] [address] Scan Report Signed Patient: Manju Bergman MR#: [id number] : 1945 Acct:[id number] Age/Sex: 73 / F Date of Service: 04/18/18 Loc: ED Accession Number: [id number] Procedure: CT head/brain wo con Ordering Provider: Rody Yates D.O. PROCEDURE: CT HEAD/BRAIN WO CON INDICATIONS: weakness, patient states left sided arm, resolving TECHNIQUE: Noncontrast 4.5 mm thick angled axial sections acquired from the foramen magnum to the vertex, with coronal and sagittal reformats. For radiation dose reduction, the following was used: automated exposure control, adjustment of mA and/or kV according to patient size. COMPARISON: [facility], CT, HEAD WITHOUT CONTRAST, 09/05/2016, 23:54. [facility], CT, HEAD WITHOUT CONTRAST, 09/26/2015, 15:01. [facility], CT, HEAD WITHOUT CONTRAST, 04/29/2015, 3:09. FINDINGS: Image quality: Excellent. CSF spaces: Basal cisterns are patent. No extra-axial fluid collections. The ventricles are symmetric in size and shape. Brain: No intracranial bleeds or masses. There is cerebral volume loss for age , with resultant ventricular and sulcal prominence. There are periventricular and deep white matter chronic small vessel ischemic changes. There is intracranial internal carotid artery atherosclerosis. Skull and face: Calvarium and visualized facial bones appear intact, without suspicious lesions. Sinuses: Visualized sinuses and mastoids are clear. IMPRESSION: No acute intracranial abnormality. Dictated by: Anca Rand M.D. on 04/18/2018 at 8:56 Approved by: Anca Rand M.D. on 04/18/2018 at 8:57 ECG Data Attestation: I personally reviewed and interpreted this ECG as follows: Interpretation: Ventricular rate of 93 QRS of 168 QTC of 476. Patient has prior EKGs with wide QRS at 1:49 a.m. an similar rate in the 60s. They all appeared to be sinus rhythm. [facility] Narrative Medical decision making narrative: Patient's lab work shows an elevated potassium which is not unexpected given she is supposed to have dialysis this morning. It is high enough that it is concerning for possibly the cause of some of her symptoms Um and her EKG today did show with a little bit different than her past EKGs. Patient's urine also shows signs of infection. Patient is on Cipro every other day we discussed waiting for urine culture before changing any antibiotics she is not having any other major symptoms that are clearly caused from a urinary infection. Patient's head CT is negative. Otherwise she is asymptomatic and not having any other symptoms, her NIH is 0. Discussed her findings with her and her daughter plan to contact her chemical applicator to see if they can dialyze her today versus if she would need to be admitted as it seems like she would benefit from dialysis sooner rather than later. Patient was given calcium gluconate, IV insulin 10 units, D5 1 amp IV, Kayexalate p.o. discussed with patient she does not want to be resuscitated if she had a cardiac arrest, she does not want electric shock. She is comfortable with the plan to transfer for hemodialysis. Dr. Lombardi the regional wildlife agent at [facility] accepts. Patient has been stable while here in the department. Critical Care Time Critical Care Time: Yes Total Critical Care Time: 90 Attestation: The high probability of a clinically significant, sudden or life threatening deterioration of the [cardiac] system(s) required my full and direct attention, intervention and personal management. The aggregate critical care time was [90] minutes. This time is in addition to time spent performing reported procedures but includes the following: [x] Data Review and interpretation [x] Patient assessment and monitoring of vital signs [x] Documentation [x] Medication orders and management Discharge Plan Departure Patient Disposition: [facility] Clinical Impression: Weakness, UTI (urinary tract infection), Hyperkalemia, ESRD (end stage renal disease) on dialysis Discharge Date/Time: 04/18/18 12:07 Interventions: ED Discharge Assessment Last Done: 04/18/18 12:05 Prescriptions: No Action fluticasone-salmeterol [Advair Diskus] 250 MCG/50 MCG blister with device 1 puff INH BID Qty: 0 RF: 0 gabapentin 100 MG capsule 200 mg PO DAILY Qty: 0 RF: 0 atorvastatin 20 mg Tablet 20 mg PO QPM RF: 0 docusate sodium 100 mg Capsule 100 mg PO DAILY RF: 0 lamotrigine 150 mg Tablet 150 mg PO DAILY RF: 0 carvedilol 6.25 mg Tablet 6.25 mg PO BID RF: 0 ciprofloxacin HCl 250 mg Tablet 125 mg PO BEDTIME RF: 0 omeprazole 40 mg Capsule,Delayed Release(Dr/Ec) 40 mg PO BID RF: 0 aspirin [Aspir-81] 81 mg Tablet,Delayed Release (Dr/Ec) 81 mg PO DAILY RF: 0 trazodone 150 mg Tablet 150 mg PO BEDTIME RF: 0 multivitamin [Daily-Christiano] Tablet 1 tab PO DAILY RF: 0 oxybutynin chloride 15 mg tablet extended release 24hr 15 mg PO DAILY RF: 0 potassium chloride 10 mEq tablet extended release 10 meq PO DAILY RF: 0 citalopram 20 mg tablet 20 mg PO DAILY RF: 0 furosemide 80 mg tablet 80 mg PO BID RF: 0 febuxostat [Uloric] 80 mg tablet 80 mg PO DAILY RF: 0 calcium acetate 1 cap PO DAILY RF: 0 cranberry 1 dose PO DAILY RF: 0 iron 1 tab PO DAILY RF: 0 Referrals: Karen Mustafa ARNP [Primary Care Provider] -
[2018-04-18 08:46] LABS: Add Manual Diff / Slide Review NO; Basophils Percent Auto 0.7 % (0-2); Eosinophils Percent Auto 0.9 % (2-4); Hematocrit 32.6 % (36-46); Hemoglobin 10.8 g/dL (12.0-16.0); Lymphocytes Percent Auto 10.6 % (25-40); Mean Corpuscular HGB Conc 33.2 % (30-36); Mean Corpuscular Hemoglobin 33.3 PG (26-34); Mean Corpuscular Volume 100.3 fL (80-100); Monocytes Percent Auto 8.2 % (3-14); Neutrophils Absolute Auto 8100 /uL (1500-7000); Neutrophils Percent Auto 79.6 % (50-75); Platelet Count 289 X10^3/uL (150-400); Red Blood Cell Count 3.25 X10^6/uL (4.0-5.2); Red Cell Distribution Width 13.6 % (11.6-14.8); White Blood Cell Count 10.2 X10^3/uL (4.5-11.0)
[2018-04-18 08:53] LABS: Prothrombin Time 11.3 SECONDS (10.1-12.7)
[2018-04-18 08:56] LABS: BUN Creatinine Ratio 10.9 (6-22); Blood Urea Nitrogen 97 mg/dL (7-17); Calcium 8.7 mg/dL (8.4-10.2); Carbon Dioxide 22 mmol/L (22-32); Chloride 95 mmol/L (98-107); Estimated Glomerular Filt Rate 4.3 mL/min (>60); Glucose 142 mg/dL (80-110); HEMOLYSIS < 15 (0-50); PTT Partial Thromboplastin Tim 30 SECONDS (26.4-36.2); Sodium 135 mmol/L (137-145)
[2018-04-18 09:09] LABS: Potassium 7.3 mmol/L (3.4-5.1)
[2018-04-18 09:19] LABS: Urine Amphetamines Negative (Negative); Urine Barbiturates Negative (Negative); Urine Benzodiazepines Negative (Negative); Urine Cocaine Negative (Negative); Urine MDMA Negative (Negative); Urine Methadone Negative (Negative); Urine Methamphetamines Negative (Negative); Urine Morphine/Opi cutoff 2000 Negative (Negative); Urine Oxycodone Negative (Negative); Urine Phencyclidine Negative (Negative); Urine Tetrahydrocannabinol Negative (Negative); Urine Tricyclic Antidepressant Negative (Negative)
[2018-04-18 09:22] LABS: Appearance Urine UA CLOUDY; Bilirubin Urine UA NEGATIVE (NEGATIVE); Color Urine UA YELLOW; Glucose Urine UA NEGATIVE (Negative); Ketones Urine UA NEGATIVE (NEGATIVE); Leukocyte Esterase Urine UA 3+ (NEGATIVE); Nitrite Urine UA NEGATIVE (Negative); Occult Blood Urine UA 2+ (Negative); Protein Urine UA 1+ (Negative); Specific Gravity Urine UA 1.015 (1.000-1.035); Urobilinogen Urine UA 0.2 E.U./dL (0.2)
[2018-04-18 09:30] LABS: Bacteria Urine Many (>30); Culture Indicated Urine Specimen Cultured; RBC Urine 5-10/HPF (0-5/HPF); WBC Urine >100/HPF (0-5/HPF)
--- NOTE | 2018-04-18 09:58 | PC.NURSE ---
dialysis shunt l arm
[2018-04-18] MEDS: INSULIN REGULAR 100 UNIT/ML 3 ML VIAL 10 UNIT IV (10:56)
[2018-04-18] MEDS: CALCIUM GLUCONATE 4.65 MEQ in SODIUM CHLORIDE 0.9% 50 ML 120 ML IV (10:56)
[2018-04-18] MEDS: SODIUM POLYSTYRENE SULFON/SORB 15 GM/60 ML CUP 30 GM PO (10:57)
[2018-04-18] MEDS: DEXTROSE 50 % IN WATER 25 GM/50 ML SYRINGE IV (11:00)
[2018-04-18 11:22] VITALS: BP 120/66; PULSE 102; RESP 24; O2SAT 93
--- NOTE | 2018-04-18 12:06 | PC.NURSE ---
clothes/ cell phone/ cane
--- NOTE | 2018-04-18 12:08 | PC.NURSE ---
report to ambulance / and called [facility] [phone]
--- NOTE | 2018-04-18 12:13 | PC.NURSE ---
report to rajeev in icu at [facility]
== END 2018-04-18 12:07 | disposition short-term general hospital (02) ==
PROVIDERS: Emergency Provider Emergency Medicine; PCP Nurse Practitioner
DX: G81.94 Hemiplegia, unspecified affecting left nondominant side (principal); N39.0 Urinary tract infection, site not specified; E87.5 Hyperkalemia; N18.6 End stage renal disease; Z99.2 Dependence on renal dialysis
CPT/HCPCS: 36591; 70450; 80048; 80305; 81001; 85025; 85610; 85730; 87077; 87086; 87186; 93005; 96365; 96375; 99283; 99285; J0610

== ENCOUNTER → 2018-04-28 09:18 | Outpatient (CLI) | payer MEDICARE, SELFPAY ==
[2018-04-28 10:16] LABS: BUN Creatinine Ratio 11.1 (6-22); Blood Urea Nitrogen 51 mg/dL (7-17); Carbon Dioxide 26 mmol/L (22-32); Chloride 97 mmol/L (98-107); Estimated Glomerular Filt Rate 9.3 mL/min (>60); Glucose 128 mg/dL (80-110); HEMOLYSIS < 15 (0-50); Sodium 139 mmol/L (137-145)
[2018-04-28 10:28] LABS: Hemoglobin A1C% w Est Avg Glu 6.3 % (4.0-6.0)
== END ==
PROVIDERS: PCP Nurse Practitioner; Visit Provider Nurse Practitioner
DX: E11.22 Type 2 diabetes mellitus with diabetic chronic kidney disease (principal); N18.6 End stage renal disease; Z99.2 Dependence on renal dialysis; Z79.4 Long term (current) use of insulin
CPT/HCPCS: 36415; 80048; 83036

== ENCOUNTER 2018-05-02 10:00 | Emergency (ER) | payer MEDICARE, SELFPAY ==
[2018-05-02 10:09] VITALS: BP 115/68; PULSE 78; RESP 18; TEMP 36.6; O2SAT 94; BMI 48.3
--- NOTE | 2018-05-02 10:13 | ED.RECABL ---
HPI - Recheck/Abnormal Lab/Rx General Chief Complaint: Recheck/Abnormal Lab/Rx Stated Complaint: Dizziness Time Seen by Provider: 05/02/18 10:04 Source: patient Mode of arrival: EMS Limitations: no limitations History of Present Illness HPI narrative: Patient is a 73-year-old female on dialysis who receives treatments on Tuesday and Saturdays. She received a full treatment last Tuesday. She states that for several weeks if not the past month she has had dizziness with standing. She saw her primary doctor and also her workers compensation legal secretary yesterday. She states that her primary doctor was taking her off of the Cipro, carvedilol and potassium. Her workers compensation legal secretary plan was to take less fluid off during her dialysis treatments. Patient states that today she was at the dialysis center. She had not received any dialysis when they were getting low blood pressure readings. EMS was called. EMS stated that they never had a hypotension reading during their time with her. Patient has no change in any of her symptoms today. Related Data Home Medications Medication Instructions Recorded Confirmed fluticasone-salmeterol [Advair 1 puff INH BID #0 09/06/16 04/18/18 Diskus] gabapentin 200 mg PO DAILY #0 09/06/16 04/18/18 aspirin [Aspir-81] 81 mg PO DAILY 08/09/17 04/18/18 atorvastatin 20 mg PO QPM 08/09/17 04/18/18 carvedilol 6.25 mg PO BID 08/09/17 04/18/18 ciprofloxacin HCl 125 mg PO BEDTIME 08/09/17 04/18/18 docusate sodium 100 mg PO DAILY 08/09/17 04/18/18 lamotrigine 150 mg PO DAILY 08/09/17 04/18/18 omeprazole 40 mg PO BID 08/09/17 04/18/18 trazodone 150 mg PO BEDTIME 08/09/17 04/18/18 calcium acetate 1 cap PO DAILY 04/18/18 04/18/18 citalopram 20 mg PO DAILY 04/18/18 04/18/18 cranberry 1 dose PO DAILY 04/18/18 04/18/18 febuxostat [Uloric] 80 mg PO DAILY 04/18/18 04/18/18 furosemide 80 mg PO BID 04/18/18 04/18/18 iron 1 tab PO DAILY 04/18/18 04/18/18 multivitamin [Daily-Christiano] 1 tab PO DAILY 04/18/18 04/18/18 oxybutynin chloride 15 mg PO DAILY 04/18/18 04/18/18 potassium chloride 10 meq PO DAILY 04/18/18 04/18/18 Allergies Allergy/AdvReac Type Severity Reaction Status Date / Time NSAIDS (Non-Steroidal AdvReac Severe CAUSED Verified 05/02/18 10:09 Anti-Inflamma KIDNEY [NSAIDS (NON-STEROIDAL DISEASE ANTI-INFLAMMA] Review of Systems Constitutional Denies fever(s) and Denies headache(s) ENT Ears, Nose, Mouth, and Throat: Denies vertigo, Reports dizziness, Denies headache(s) and Reports disequilibrium Cardiovascular Denies chest pain, Denies syncope and Denies dyspnea Respiratory Denies dyspnea Gastrointestinal Gastrointestinal: Denies abdominal pain Integumentary/Breasts Denies rash Neurologic Denies confusion, Denies vertigo, Reports dizziness, Denies syncope, Denies headache(s) and Reports disequilibrium Psychiatric Denies confusion [facility] Social History Smoking Status: Never smoker Exam Initial Vital Signs Initial Vital Signs: Vital Signs Temperature 97.9 F 05/02/18 10:09 Pulse Rate 78 05/02/18 10:09 Respiratory Rate 18 05/02/18 10:09 Blood Pressure 115/68 05/02/18 10:09 Pulse Oximetry 94 05/02/18 10:09 Const General: cooperative, comfortable, well developed, well groomed and No acute distress Orientation: alert, awake and oriented x3 Resp Effort & Inspection: normal respiratory effort Auscultation: clear to auscultation bilaterally Cardio Rate: regular rate Rhythm: regular rhythm GI Inspection: non-distended Palpation: soft Skin Lesions: no lesions Rashes: no rashes Neuro General: alert, awake and oriented x3 Extrem Other: Dialysis fistula left upper extremity with a good thrill Psych Appearance: grossly normal and well kempt Course Vital Signs - 8 hr 05/02/18 10:09 Temperature 97.9 F Pulse Rate 78 Respiratory Rate 18 Blood Pressure 115/68 Pulse Oximetry 94 MDM - Recheck/Abnormal Lab/Rx MDM Narrative Medical decision making narrative: Patient was not orthostatic. Blood pressure 132/45 laying with a heart rate of 88. Blood pressure 126/52 with a heart rate of 77 sitting blood pressure 114/49 with a heart rate of 80 standing. Patient ambulated around the emergency department at any problems. Here in the emergency department blood pressure is never less than 110 systolic. Patient is seen her primary doctor and also her workers compensation legal secretary regarding her symptoms as recent as yesterday. They have made changes to some of her medications and her dialysis to try to help the symptoms. Will hold on making any further changes today. Will discharge the patient. She was given return precautions. She expressed understanding and agreement with plan. Discharge Plan Departure Patient Disposition: Home Clinical Impression: Hypotension, End stage renal disease on dialysis Instructions: DI for Orthostatic Hypotension Activity Restrictions/Additional Instructions: I recommend that you keep going to your dialysis as directed. Make all other medicine changes that you have already discussed with your primary doctor and also your kidney doctor. Return to the emergency department for any new or worsening symptoms Prescriptions: No Action fluticasone-salmeterol [Advair Diskus] 250 MCG/50 MCG blister with device 1 puff INH BID Qty: 0 RF: 0 gabapentin 100 MG capsule 200 mg PO DAILY Qty: 0 RF: 0 atorvastatin 20 mg Tablet 20 mg PO QPM RF: 0 docusate sodium 100 mg Capsule 100 mg PO DAILY RF: 0 lamotrigine 150 mg Tablet 150 mg PO DAILY RF: 0 carvedilol 6.25 mg Tablet 6.25 mg PO BID RF: 0 ciprofloxacin HCl 250 mg Tablet 125 mg PO BEDTIME RF: 0 omeprazole 40 mg Capsule,Delayed Release(Dr/Ec) 40 mg PO BID RF: 0 aspirin [Aspir-81] 81 mg Tablet,Delayed Release (Dr/Ec) 81 mg PO DAILY RF: 0 trazodone 150 mg Tablet 150 mg PO BEDTIME RF: 0 multivitamin [Daily-Chritsiano] Tablet 1 tab PO DAILY RF: 0 oxybutynin chloride 15 mg tablet extended release 24hr 15 mg PO DAILY RF: 0 potassium chloride 10 mEq tablet extended release 10 meq PO DAILY RF: 0 citalopram 20 mg tablet 20 mg PO DAILY RF: 0 furosemide 80 mg tablet 80 mg PO BID RF: 0 febuxostat [Uloric] 80 mg tablet 80 mg PO DAILY RF: 0 calcium acetate 1 cap PO DAILY RF: 0 cranberry 1 dose PO DAILY RF: 0 iron 1 tab PO DAILY RF: 0
[2018-05-02 11:00] VITALS: PULSE 70; RESP 15
--- NOTE | 2018-05-02 11:05 | PC.NURSE ---
1045 orthostatics completed and were negative. Pt experienced minimal dizziness during process and no EKG changes were seen on the monitor. Laying vitals: 13/45 88; sitting vitals 126/52 77; standing vitals 114/49 80. After patient walded down cantu and back (without dizziness and at normal pace per patient) vitals were 110/42 72.
--- NOTE | 2018-05-02 11:08 | PC.NURSE ---
phone number for dialysis to patient to arrange for re-scheduling of dialysis
[2018-05-02 11:19] VITALS: BP 102/39; PULSE 77; RESP 17; O2SAT 97
[2018-05-02 11:25] VITALS: BP 102/39
== END 2018-05-02 11:24 | disposition home or self-care (01) ==
PROVIDERS: Emergency Provider Emergency Medicine; PCP Nurse Practitioner
DX: N18.6 End stage renal disease (principal); I95.9 Hypotension, unspecified; Z99.2 Dependence on renal dialysis
CPT/HCPCS: 99282

== ENCOUNTER → 2018-08-02 07:15 | Outpatient (CLI) | payer MEDICARE, SELFPAY ==
[2018-08-02 09:10] LABS: Alanine Aminotransferase 21 IU/L (9-52); Albumin 4.3 g/dL (3.5-5.0); Albumin Globulin Ratio 1.5 (1.0-2.8); Alkaline Phosphatase 108 U/L (38-126); Aspartate Aminotransferase 20 IU/L (14-36); BUN Creatinine Ratio 7.5 (6-22); Bilirubin Total 0.4 mg/dL (0.2-1.3); Blood Urea Nitrogen 33 mg/dL (7-17); Carbon Dioxide 28 mmol/L (22-32); Chloride 95 mmol/L (98-107); Cholesterol 147 mg/dL (140-199); Estimated Glomerular Filt Rate 9.8 mL/min (>60); Globulin 2.8 g/dL (1.7-4.1); Glucose 110 mg/dL (80-110); HDL Cholesterol 49 mg/dL (40-60); HEMOLYSIS < 15 (0-50); LDL Cholesterol Calculated 76 mg/dL (<100); Potassium 4.4 mmol/L (3.4-5.1); Sodium 138 mmol/L (137-145); Total Protein 7.1 g/dL (6.3-8.2); Triglycerides 112 mg/dL (35-150)
== END ==
PROVIDERS: PCP Nurse Practitioner; Visit Provider Nurse Practitioner
DX: E11.22 Type 2 diabetes mellitus with diabetic chronic kidney disease (principal); N18.6 End stage renal disease; Z99.2 Dependence on renal dialysis; Z79.4 Long term (current) use of insulin
CPT/HCPCS: 36415; 80053; 80061; 83036

== ENCOUNTER → 2018-08-25 11:57 | Outpatient (CLI) | payer MEDICARE, SELFPAY ==
--- NOTE | 2018-08-25 | DI.MG.S_ITS ---
BILATERAL DIGITAL SCREENING MAMMOGRAM 3D/2D WITH CAD: 08/25/2018 CLINICAL: Routine screening. Comparison is made to exams dated: 07/28/2017 mammogram, 05/18/2016 mammogram, and 05/15/2015 mammogram - [facility]. The tissue of both breasts is heterogeneously dense. This may lower the sensitivity of mammography. Current study was also evaluated with a Computer Aided Detection (CAD) system. No significant masses, calcifications, or other findings are seen in either breast. There has been no significant interval change. IMPRESSION: NEGATIVE There is no mammographic evidence of malignancy. A 1 year screening mammogram is recommended. This exam was interpreted at Station ID: [id number]. NOTE: For mammograms, a report in lay terms will be sent to the patient. Approximately 15% of breast malignancies will not be visualized mammographically. In the management of a palpable breast mass, a negative mammogram must not discourage biopsy of a clinically suspicious lesion. Electronically Signed By: Marta acn/helene:08/25/2018 14:16:31 letter sent: Normal Exam ACR BI-RADS Category 1: Negative [id number]
== END ==
PROVIDERS: PCP Nurse Practitioner; Visit Provider Nurse Practitioner
DX: Z12.31 Encounter for screening mammogram for malignant neoplasm of breast (principal)
CPT/HCPCS: 77063; 77067

== ENCOUNTER → 2019-05-30 07:12 | Outpatient (CLI) | payer MEDICARE, SELFPAY ==
[2019-05-30 08:35] LABS: Hemoglobin A1C% w Est Avg Glu 7.7 % (4.0-6.0)
== END ==
PROVIDERS: PCP Nurse Practitioner; Referring Provider Nurse Practitioner; Visit Provider Nurse Practitioner
DX: E11.22 Type 2 diabetes mellitus with diabetic chronic kidney disease (principal); N18.6 End stage renal disease; Z99.2 Dependence on renal dialysis; Z79.4 Long term (current) use of insulin
CPT/HCPCS: 36415; 83036

== ENCOUNTER → 2019-09-07 07:08 | Outpatient (CLI) | payer MEDICARE, SELFPAY ==
[2019-09-07 08:19] LABS: Hemoglobin A1C% w Est Avg Glu 7.4 % (4.0-6.0)
[2019-09-07 08:20] LABS: Cholesterol 135 mg/dL (140-199); HDL Cholesterol 59 mg/dL (40-60); LDL Cholesterol Calculated 55 mg/dL (<100); Triglycerides 107 mg/dL (35-150); Uric Acid 3.4 mg/dL (2.5-6.2)
== END ==
PROVIDERS: PCP Nurse Practitioner; Referring Provider Physician Assistant Medical; Visit Provider Physician Assistant Medical
DX: E11.42 Type 2 diabetes mellitus with diabetic polyneuropathy (principal); M1A.09X0 Idiopathic chronic gout, multiple sites, without tophus (tophi)
CPT/HCPCS: 36415; 80061; 83036; 84550

== ENCOUNTER 2019-12-26 08:40 | Emergency (ER) | payer MEDICARE, SELFPAY ==
[2019-12-26] VITALS (11 sets, daily range): BP systolic 92–145; BP diastolic 39–65; PULSE 62–74; RESP 18; TEMP 36.4; O2SAT 93–99
--- NOTE | 2019-12-26 10:01 | ED.ABDPAIN ---
HPI - Abdominal Pain General Chief Complaint: Abdominal Pain Stated Complaint: dyalysis pt/constipation x2 days Time Seen by Provider: 12/26/19 09:12 Source: patient Mode of arrival: Wheelchair Limitations: no limitations History of Present Illness HPI narrative: 74-year-old woman with complaints of severe rectal pain and constipation. She did have a small very hard partial bowel movement yesterday. She has been passing gas. She is finding that she is having so much pain that is difficult for her to try to pass any stool. Her sales service technician had given her some lactulose that she has been using it sparingly worried about diarrhea as a consequence. Patient is a dialysis patient and dialyzes Tuesday and Tuesday. Aside from the rectal pain and discomfort from constipation she has no additional concerns at this time Related Data Home Medications Medication Instructions Recorded Confirmed fluticasone propion-salmeterol 1 puff INH BID #0 09/06/16 04/18/18 [Advair Diskus] gabapentin 200 mg PO DAILY #0 09/06/16 04/18/18 aspirin [Aspir-81] 81 mg PO DAILY 08/09/17 04/18/18 atorvastatin 20 mg PO QPM 08/09/17 04/18/18 carvedilol 6.25 mg PO BID 08/09/17 04/18/18 ciprofloxacin HCl 125 mg PO BEDTIME 08/09/17 04/18/18 docusate sodium 100 mg PO DAILY 08/09/17 04/18/18 lamotrigine 150 mg PO DAILY 08/09/17 04/18/18 omeprazole 40 mg PO BID 08/09/17 04/18/18 trazodone 150 mg PO BEDTIME 08/09/17 04/18/18 calcium acetate 1 cap PO DAILY 04/18/18 04/18/18 citalopram 20 mg PO DAILY 04/18/18 04/18/18 cranberry 1 dose PO DAILY 04/18/18 04/18/18 febuxostat [Uloric] 80 mg PO DAILY 04/18/18 04/18/18 furosemide 80 mg PO BID 04/18/18 04/18/18 iron 1 tab PO DAILY 04/18/18 04/18/18 multivitamin [Daily-Christiano] 1 tab PO DAILY 04/18/18 04/18/18 oxybutynin chloride 15 mg PO DAILY 04/18/18 04/18/18 potassium chloride 10 meq PO DAILY 04/18/18 04/18/18 Previous Rx's Medication Instructions Recorded oxycodone-acetaminophen [Percocet] 1 tab PO Q6H PRN #10 tab 12/26/19 Allergies Allergy/AdvReac Type Severity Reaction Status Date / Time NSAIDS (Non-Steroidal AdvReac Severe CAUSED Verified 05/02/18 10:09 Anti-Inflamma KIDNEY [NSAIDS (NON-STEROIDAL DISEASE ANTI-INFLAMMA] Review of Systems Review of Systems Narrative: Pertinent positive and negative findings as per HPI Remainder of review of systems is otherwise unremarkable for Constitutional: Fevers, chills, weakness ENT: No sore throat, neck pain, ear pain CV: Chest pain, palpitations, dyspnea on exertion Respiratory: Cough, wheeze, dyspnea GI: Nausea, vomiting, diarrhea, : Dysuria, hematuria, flank pain MS: Muscle weakness, numbness, joint swelling or warmth Patient History Medical History (Updated 12/26/19 @ 12:07 by Kourtney Alvarado MD) Bipolar 1 disorder (Acute) CKD (chronic kidney disease) stage 4, GFR 15-29 ml/min (Acute) Dyslipidemia (Acute) Hypertension (Acute) Renal failure (ARF), acute on chronic (Acute) Surgically constructed arteriovenous fistula (Acute) Surgical History H/O: (Acute) S/P cholecystectomy (Acute) Social History Smoking Status: Never smoker Smoking Status: Never smoker alcohol intake frequency: 0-2 drinks per day Substance Use Type: does not use Exam Narrative Exam Narrative: General: Alert appropriate in no acute distress Respiratory: Able to speak in full sentences, no obvious respiratory distress Skin: No obvious rashes, warm and dry Neurologic: Grossly intact no obvious asymmetries or abnormalities Psych, appropriate insight and affect, cooperative Rectal exam: She has a 3 cm thrombosed external hemorrhoid Initial Vital Signs Initial Vital Signs: Vital Signs Temperature 97.6 F 12/26/19 09:20 Pulse Rate 74 12/26/19 09:20 Respiratory Rate 18 12/26/19 09:20 Blood Pressure 142/62 H 12/26/19 09:20 Pulse Oximetry 94 12/26/19 09:20 Procedures [facility] [place] Procedure Name of Procedure: Evacuation of thrombosed hemorrhoid Location: 3 cm external hemorrhoid Technique/Description of procedure performed: 8 cc of 1% lidocaine with epinephrine was injected at the base of the hemorrhoid. Area was cleaned with water and chlorhexidine swab Eleven blade scalpel was used to incise the hemorrhoid and approximately 5 cc clot was removed Patient tolerated procedure: Well Complications: none Course Orders Ordered: Discontinued Medications Hydromorphone HCl (Dilaudid) 1 mg IM NOW ONE Stop: 12/26/19 10:16 Last Admin: 12/26/19 10:30 Dose: 1 mg Documented by: NAHUM Mineral Oil (Mineral Oil Enema) 1 each SC NOW ONE Stop: 12/26/19 12:04 Vital Signs Vital signs: Vital Signs - 8 hr 12/26/19 09:20 12/26/19 10:06 12/26/19 10:30 Temperature 97.6 F Pulse Rate 74 69 68 Respiratory Rate 18 Blood Pressure 142/62 H Pulse Oximetry 94 97 95 12/26/19 10:31 12/26/19 11:00 12/26/19 11:01 Temperature Pulse Rate 68 68 Respiratory Rate Blood Pressure 145/65 H 126/57 L Pulse Oximetry 94 95 12/26/19 11:30 12/26/19 11:31 12/26/19 12:01 Temperature Pulse Rate 63 62 71 Respiratory Rate Blood Pressure 118/53 L 104/44 L Pulse Oximetry 94 93 MDM - Abdominal Pain Medical Records Attestation: I reviewed the patient's medical records. [facility] Narrative Medical decision making narrative: Increasing constipation is 74-year-old woman on dialysis with thrombosed hemorrhoid causing exquisite pain exacerbating the constipation. Clot is extravasated from the hemorrhoid today patient tolerated this well. A mineral oil enema was done in the emergency department to soften up some of the firm stool in the rectum. She has lactulose available at home as prescribed by her sales service technician. Will ask her to drink 45 cc of the lactulose as soon as she gets home to try to do a more thorough bowel cleanse to try and prevent further straining and exacerbation of her already inflamed hemorrhoids. Because of the severe perianal pain will give her a short course of narcotic along with a discussion of continuing to use 15 cc of lactulose daily to twice a day to prevent recurrent constipation and make sure she is having soft bowel movements while those hemorrhoids are continuing to heal She is safe for home discharge Discharge Plan Departure Patient Disposition: Home Clinical Impression: External hemorrhoid, thrombosed Constipation Qualifiers: Constipation type: unspecified constipation type Qualified Code(s): K59.00 - Constipation, unspecified Instructions: DI for Hemorrhoids Activity Restrictions/Additional Instructions: Thank you for coming in today I am sorry that you are hurting so much. This severe pain that you are experiencing is because of a blood clot that was in 1 of your external hemorrhoids. I was able to get most of that clot out today and I think that will help with the dramatic pain. You do still have irritated both internal and external hemorrhoids. You are also still constipated. We have given you a mineral oil enema in the emergency department to try to remove some of the really hard stool. When you get home today please drink 45ml (3 times the daily dose) of the lactulose/Enulose to try and clean out your entire bowel. The goal is loose runny stool for today. I will send you home with a prescription for Percocet. You can take 1 every 6 hours as needed for severe pain. This will make your constipation worse. Please make sure that you take 15 mL of lactulose/Enulose every day that you use a narcotic to prevent constipation. Similarly, for the next week you need to use the lactulose/Enulose at least once a day to keep your stool soft and allow your hemorrhoids to heal. If you still having had a bowel movement during the day please do a 2nd dose of the 15 mg of Enulose at night too I wish you the very best Prescriptions: New oxycodone-acetaminophen [Percocet] 5-325 mg tablet 1 tab PO Q6H PRN (Reason: pain) Qty: 10 RF: 0 No Action fluticasone propion-salmeterol [Advair Diskus] 250 MCG/50 MCG blister with device 1 puff INH BID Qty: 0 RF: 0 gabapentin 100 MG capsule 200 mg PO DAILY Qty: 0 RF: 0 atorvastatin 20 mg Tablet 20 mg PO QPM RF: 0 docusate sodium 100 mg Capsule 100 mg PO DAILY RF: 0 lamotrigine 150 mg Tablet 150 mg PO DAILY RF: 0 carvedilol 6.25 mg Tablet 6.25 mg PO BID RF: 0 ciprofloxacin HCl 250 mg Tablet 125 mg PO BEDTIME RF: 0 omeprazole 40 mg Capsule,Delayed Release(Dr/Ec) 40 mg PO BID RF: 0 aspirin [Aspir-81] 81 mg Tablet,Delayed Release (Dr/Ec) 81 mg PO DAILY RF: 0 trazodone 150 mg Tablet 150 mg PO BEDTIME RF: 0 multivitamin [Daily-Christiano] Tablet 1 tab PO DAILY RF: 0 oxybutynin chloride 15 mg tablet extended release 24hr 15 mg PO DAILY RF: 0 potassium chloride 10 mEq tablet extended release 10 meq PO DAILY RF: 0 citalopram 20 mg tablet 20 mg PO DAILY RF: 0 furosemide 80 mg tablet 80 mg PO BID RF: 0 febuxostat [Uloric] 80 mg tablet 80 mg PO DAILY RF: 0 calcium acetate 1 cap PO DAILY RF: 0 cranberry 1 dose PO DAILY RF: 0 iron 1 tab PO DAILY RF: 0 Referrals: Karen Mustafa ARNP [Primary Care Provider] -
[2019-12-26] MEDS: HYDROMORPHONE 1 MG INJ IM (10:30)
[2019-12-26] MEDS: MINERAL OIL 1 EACH ENEMA PR (12:16)
== END 2019-12-26 13:06 | disposition home or self-care (01) ==
PROVIDERS: Emergency Provider Emergency Medicine; PCP Nurse Practitioner
DX: K64.5 Perianal venous thrombosis (principal); K59.00 Constipation, unspecified
CPT/HCPCS: 46083; 96372; 99283; 99284; J1170

== ENCOUNTER 2019-12-27 13:01 | Emergency (ER) | payer MEDICARE, SELFPAY ==
[2019-12-27 13:10] VITALS: BP 124/74; PULSE 71; RESP 18; TEMP 36.7; O2SAT 95; BMI 49.6
--- NOTE | 2019-12-27 13:44 | ED.ABDPAIN ---
HPI - Abdominal Pain General Chief Complaint: Abdominal Pain Stated Complaint: Hemmorhoid pain Time Seen by Provider: 12/27/19 13:29 Source: patient Mode of arrival: EMS Limitations: no limitations History of Present Illness HPI narrative: Patient is a 74-year-old female on dialysis who presents with abdominal pain constipation. She was actually seen evaluated here yesterday she had a hemorrhoid lanced and was given an enema which was unsuccessful and discharged home with lactulose. She says she feels pressure and stool in her bottom but it cannot come out. She sees skid nielson on her pad. She has increased abdominal pain she denies any nausea or vomiting. She is quite uncomfortable and in significant amount of pain. MD complaint: abdominal pain Pain Consistency: constant Severity: severe Quality: fullness Related Data Home Medications Medication Instructions Recorded Confirmed fluticasone propion-salmeterol 1 puff INH BID #0 09/06/16 04/18/18 [Advair Diskus] gabapentin 200 mg PO DAILY #0 09/06/16 04/18/18 aspirin [Aspir-81] 81 mg PO DAILY 08/09/17 04/18/18 atorvastatin 20 mg PO QPM 08/09/17 04/18/18 carvedilol 6.25 mg PO BID 08/09/17 04/18/18 ciprofloxacin HCl 125 mg PO BEDTIME 08/09/17 04/18/18 docusate sodium 100 mg PO DAILY 08/09/17 04/18/18 lamotrigine 150 mg PO DAILY 08/09/17 04/18/18 omeprazole 40 mg PO BID 08/09/17 04/18/18 trazodone 150 mg PO BEDTIME 08/09/17 04/18/18 calcium acetate 1 cap PO DAILY 04/18/18 04/18/18 citalopram 20 mg PO DAILY 04/18/18 04/18/18 cranberry 1 dose PO DAILY 04/18/18 04/18/18 febuxostat [Uloric] 80 mg PO DAILY 04/18/18 04/18/18 furosemide 80 mg PO BID 04/18/18 04/18/18 iron 1 tab PO DAILY 04/18/18 04/18/18 multivitamin [Daily-Christiano] 1 tab PO DAILY 04/18/18 04/18/18 oxybutynin chloride 15 mg PO DAILY 04/18/18 04/18/18 potassium chloride 10 meq PO DAILY 04/18/18 04/18/18 Previous Rx's Medication Instructions Recorded oxycodone-acetaminophen [Percocet] 1 tab PO Q6H PRN #10 tab 12/26/19 Allergies Allergy/AdvReac Type Severity Reaction Status Date / Time NSAIDS (Non-Steroidal AdvReac Severe CAUSED Verified 05/02/18 10:09 Anti-Inflamma KIDNEY [NSAIDS (NON-STEROIDAL DISEASE ANTI-INFLAMMA] Review of Systems Review of Systems Narrative: GENERAL: Denies chills, fatigue, malaise, fever, sweats, travel HEENT: Denies sinus pain, ear pain, sore throat, difficulty swallowing, neck pain RESPIRATORY: Denies dyspnea, cough, wheezing, hemoptysis, sputum. CARDIOVASCULAR: Denies chest pain, palpitations, orthopnea, edema GASTROINTESTINAL: See HPI Denies nausea, vomiting, diarrhea, melena. : Denies dysuria, frequency, incontinence, hematuria, urinary retention, flank pain. MUSCULOSKELETAL: Denies weakness, joint pain, or bony pain SKIN: No rash, no erythema, no pruritus NEUROLOGIC: Denies weakness, dizziness, headache, numbness, change in speech, confusion PSYCHIATRIC: No concerning psychosocial issues. 12 point review of systems is negative except for those stated above and HPI Patient History Medical History Bipolar 1 disorder (Acute) CKD (chronic kidney disease) stage 4, GFR 15-29 ml/min (Acute) Dyslipidemia (Acute) Hypertension (Acute) Renal failure (ARF), acute on chronic (Acute) Surgically constructed arteriovenous fistula (Acute) Surgical History H/O: (Acute) S/P cholecystectomy (Acute) Social History Smoking Status: Never smoker Smoking Status: Never smoker alcohol intake frequency: 0-2 drinks per day Substance Use Type: does not use Exam Initial Vital Signs Initial Vital Signs: Vital Signs Temperature 98.1 F 12/27/19 13:10 Pulse Rate 71 12/27/19 13:10 Respiratory Rate 18 12/27/19 13:10 Blood Pressure 124/74 12/27/19 13:10 Pulse Oximetry 95 12/27/19 13:10 GENERAL: Well-appearing, well-nourished and in no acute distress. HEENT: Head atraumatic,EOMI, pupils reactive, face symmetric, moist mucous membranes CARDIOVASCULAR: Regular rate and rhythm without murmurs, rubs or gallops. RESPIRATORY: Breath sounds equal bilaterally, no wheezes rales or rhonchi. ABDOMEN: Soft, mildly tender RECTAL: Hemoccult-positive, no hemorrhoids, nontender EXTREMITIES: Normal range of motion, no clubbing or edema. Neurovascularly intact NEUROLOGICAL: Alert and oriented x4.Normal gait and speech. Cranial nerves II through XII grossly intact. SKIN: Warm, dry, no laceration, no petechiae, no rashes or lesions. Course Orders Ordered: Discontinued Medications Hydromorphone HCl (Dilaudid) 0.5 mg IV NOW ONE Stop: 12/27/19 13:54 Last Admin: 12/27/19 14:11 Dose: 0.5 mg Documented by: JAMEY Lidocaine HCl (Urojet) 5 ml TOP NOW ONE Stop: 12/27/19 16:21 Last Admin: 12/27/19 16:41 Dose: 5 ml Documented by: JAMEY Mineral Oil (Mineral Oil Enema) 1 each NE NOW ONE Stop: 12/27/19 13:54 Last Admin: 12/27/19 14:11 Dose: 1 each Documented by: JAMEY Vital Signs Vital signs: Vital Signs - 8 hr 12/27/19 13:10 Temperature 98.1 F Pulse Rate 71 Respiratory Rate 18 Blood Pressure 124/74 Pulse Oximetry 95 MDM - Abdominal Pain Lab Data Attestation: I reviewed the patient's lab results. Result diagrams: 12/27/19 14:05 12/27/19 14:05 Labs: Lab Results 12/27/19 12/27/19 Range/Units 14:05 14:05 WBC 10.3 (4.5-11.0) X10^3/uL RBC 3.12 L (4.0-5.2) X10^6/uL Hgb 10.4 L (12.0-16.0) g/dL Hct 30.8 L (36-46) % MCV 98.7 (80-100) fL MCH 33.2 (26-34) PG MCHC 33.7 (30-36) % RDW 13.9 (11.6-14.8) % Plt Count 302 (150-400) X10^3/uL Neut % (Auto) 72.7 (50-75) % Lymph % (Auto) 16.1 L (25-40) % [place] % (Auto) 9.1 (3-14) % Eos % (Auto) 1.3 L (2-4) % Baso % (Auto) 0.8 (0-2) % Neut # (Auto) 7500 H (7369-2152) /uL Lymph # (Auto) 1700 (4103-5806) /uL [place] # (Auto) 900 (0-900) /uL Eos # (Auto) 100 (0-450) /uL Baso # (Auto) 100 (0-100) /uL Sodium 129 L (137-145) mmol/L Potassium 4.8 (3.4-5.1) mmol/L Chloride 91 L (98-107) mmol/L Carbon Dioxide 24 (22-32) mmol/L BUN 37 H (7-17) mg/dL Creatinine 5.93 H (0.52-1.04) mg/dL Estimated GFR 6.9 L (>60) mL/min BUN/Creatinine Ratio 6.2 (6-22) Glucose 148 H (80-110) mg/dL Calcium 9.9 (8.4-10.2) mg/dL Total Bilirubin 0.7 (0.2-1.3) mg/dL AST 30 (14-36) IU/L ALT 15 (<35) IU/L Alkaline Phosphatase 79 (38-126) U/L Total Protein 6.9 (6.3-8.2) g/dL Albumin 4.0 (3.5-5.0) g/dL Globulin 2.9 (1.7-4.1) g/dL Albumin/Globulin Ratio 1.4 (1.0-2.8) Lipase 13 L (23-300) U/L MDM Narrative Medical decision making narrative: Patient had large bowel movement with enema. However she still feels like something is in her rectum. After evaluation she actually has a small prolapsed rectum in no stool is felt. Sugars placed over the prolapse and it quickly resolved. Patient overall feels much better. Discharge Plan Departure Patient Disposition: Home Clinical Impression: Partial rectal prolapse Constipation Qualifiers: Constipation type: unspecified constipation type Qualified Code(s): K59.00 - Constipation, unspecified Discharge Date/Time: 12/27/19 17:18 Instructions: Rectal Prolapse Activity Restrictions/Additional Instructions: *You have been diagnosed with constipation and rectal prolapse *What to do: Recommend taking daily stool softeners every day. Lactulose will likely make you have diarrhea recommend taking that on off dialysis days *Continue to take medications as directed *Follow up with your primary care provider in 2-3 days *Return to ER if you should have increased pain nausea, vomiting, or any new, worsening or concerning symptoms Prescriptions: No Action fluticasone propion-salmeterol [Advair Diskus] 250 MCG/50 MCG blister with device 1 puff INH BID Qty: 0 RF: 0 gabapentin 100 MG capsule 200 mg PO DAILY Qty: 0 RF: 0 atorvastatin 20 mg Tablet 20 mg PO QPM RF: 0 docusate sodium 100 mg Capsule 100 mg PO DAILY RF: 0 lamotrigine 150 mg Tablet 150 mg PO DAILY RF: 0 carvedilol 6.25 mg Tablet 6.25 mg PO BID RF: 0 ciprofloxacin HCl 250 mg Tablet 125 mg PO BEDTIME RF: 0 omeprazole 40 mg Capsule,Delayed Release(Dr/Ec) 40 mg PO BID RF: 0 aspirin [Aspir-81] 81 mg Tablet,Delayed Release (Dr/Ec) 81 mg PO DAILY RF: 0 trazodone 150 mg Tablet 150 mg PO BEDTIME RF: 0 oxycodone-acetaminophen [Percocet] 5-325 mg tablet 1 tab PO Q6H PRN (Reason: pain) Qty: 10 RF: 0 multivitamin [Daily-Christiano] Tablet 1 tab PO DAILY RF: 0 oxybutynin chloride 15 mg tablet extended release 24hr 15 mg PO DAILY RF: 0 potassium chloride 10 mEq tablet extended release 10 meq PO DAILY RF: 0 citalopram 20 mg tablet 20 mg PO DAILY RF: 0 furosemide 80 mg tablet 80 mg PO BID RF: 0 febuxostat [Uloric] 80 mg tablet 80 mg PO DAILY RF: 0 calcium acetate 1 cap PO DAILY RF: 0 cranberry 1 dose PO DAILY RF: 0 iron 1 tab PO DAILY RF: 0 Referrals: Karen Mustafa ARNP [Primary Care Provider] -
[2019-12-27] MEDS: HYDROMORPHONE 0.5 MG INJ IV (14:11)
[2019-12-27] MEDS: MINERAL OIL 1 EACH ENEMA PR (14:11)
[2019-12-27 14:13] LABS: Add Manual Diff / Slide Review NO; Basophils Absolute Auto 100 /uL (0-100); Basophils Percent Auto 0.8 % (0-2); Eosinophils Absolute Auto 100 /uL (0-450); Eosinophils Percent Auto 1.3 % (2-4); Hematocrit 30.8 % (36-46); Hemoglobin 10.4 g/dL (12.0-16.0); Lymphocytes Absolute Auto 1700 /uL (1100-4500); Lymphocytes Percent Auto 16.1 % (25-40); Mean Corpuscular HGB Conc 33.7 % (30-36); Mean Corpuscular Hemoglobin 33.2 PG (26-34); Mean Corpuscular Volume 98.7 fL (80-100); Monocytes Absolute Auto 900 /uL (0-900); Monocytes Percent Auto 9.1 % (3-14); Neutrophils Absolute Auto 7500 /uL (1500-7000); Neutrophils Percent Auto 72.7 % (50-75); Platelet Count 302 X10^3/uL (150-400); Red Blood Cell Count 3.12 X10^6/uL (4.0-5.2); Red Cell Distribution Width 13.9 % (11.6-14.8); White Blood Cell Count 10.3 X10^3/uL (4.5-11.0)
[2019-12-27 14:32] LABS: Alanine Aminotransferase 15 IU/L (<35); Albumin Globulin Ratio 1.4 (1.0-2.8); Alkaline Phosphatase 79 U/L (38-126); Aspartate Aminotransferase 30 IU/L (14-36); BUN Creatinine Ratio 6.2 (6-22); Bilirubin Total 0.7 mg/dL (0.2-1.3); Blood Urea Nitrogen 37 mg/dL (7-17); Calcium 9.9 mg/dL (8.4-10.2); Carbon Dioxide 24 mmol/L (22-32); Chloride 91 mmol/L (98-107); Estimated Glomerular Filt Rate 6.9 mL/min (>60); Globulin 2.9 g/dL (1.7-4.1); Glucose 148 mg/dL (80-110); Lipase 13 U/L (23-300); Potassium 4.8 mmol/L (3.4-5.1); Sodium 129 mmol/L (137-145); Total Protein 6.9 g/dL (6.3-8.2)
[2019-12-27 14:33] LABS: HEMOLYSIS 65 (0-50)
[2019-12-27] MEDS: LIDOCAINE 2% (UROJET) 5 ML GEL TOP (16:41)
[2019-12-27 17:16] VITALS: BP 163/69; PULSE 52; RESP 12; O2SAT 95
== END 2019-12-27 17:18 | disposition home or self-care (01) ==
PROVIDERS: Emergency Provider Emergency Medicine; PCP Nurse Practitioner
DX: K62.3 Rectal prolapse (principal); K59.00 Constipation, unspecified; N18.9 Chronic kidney disease, unspecified; Z99.2 Dependence on renal dialysis
CPT/HCPCS: 36415; 80053; 83690; 85025; 96374; 99284; J1170

== ENCOUNTER → 2020-01-07 07:09 | Outpatient (CLI) | payer MEDICARE, SELFPAY ==
[2020-01-07 08:12] LABS: Hemoglobin A1C% w Est Avg Glu 6.8 % (4.0-6.0)
== END ==
PROVIDERS: PCP Nurse Practitioner; Referring Provider Nurse Practitioner; Visit Provider Nurse Practitioner
DX: E11.22 Type 2 diabetes mellitus with diabetic chronic kidney disease (principal); N18.6 End stage renal disease; Z99.2 Dependence on renal dialysis; Z79.4 Long term (current) use of insulin
CPT/HCPCS: 36415; 83036

== ENCOUNTER → 2020-01-14 07:10 | Outpatient (CLI) | payer MEDICARE, SELFPAY ==
[2020-01-14 07:44] LABS: Add Manual Diff / Slide Review NO; Basophils Absolute Auto 100 /uL (0-100); Basophils Percent Auto 1.1 % (0-2); Eosinophils Absolute Auto 300 /uL (0-450); Eosinophils Percent Auto 4.8 % (2-4); Hematocrit 30.7 % (36-46); Hemoglobin 10.2 g/dL (12.0-16.0); Lymphocytes Absolute Auto 1500 /uL (1100-4500); Lymphocytes Percent Auto 23.5 % (25-40); Mean Corpuscular HGB Conc 33.2 % (30-36); Mean Corpuscular Hemoglobin 32.5 PG (26-34); Mean Corpuscular Volume 97.8 fL (80-100); Monocytes Absolute Auto 700 /uL (0-900); Monocytes Percent Auto 10.8 % (3-14); Neutrophils Absolute Auto 3700 /uL (1500-7000); Neutrophils Percent Auto 59.8 % (50-75); Platelet Count 304 X10^3/uL (150-400); Red Blood Cell Count 3.14 X10^6/uL (4.0-5.2); White Blood Cell Count 6.3 X10^3/uL (4.5-11.0)
[2020-01-14 08:02] LABS: BUN Creatinine Ratio 6.7 (6-22); Blood Urea Nitrogen 36 mg/dL (7-17); Calcium 9.9 mg/dL (8.4-10.2); Carbon Dioxide 32 mmol/L (22-32); Chloride 97 mmol/L (98-107); Estimated Glomerular Filt Rate 7.7 mL/min (>60); Glucose 129 mg/dL (80-110); HEMOLYSIS < 15 (0-50); Potassium 4.5 mmol/L (3.4-5.1); Sodium 136 mmol/L (137-145)
== END ==
PROVIDERS: PCP Nurse Practitioner; Referring Provider Nurse Practitioner; Visit Provider Nurse Practitioner
DX: R42 Dizziness and giddiness (principal)
CPT/HCPCS: 36415; 80048; 85025

== ENCOUNTER 2020-04-04 12:57 | Emergency (ER) | payer MEDICARE, SELFPAY ==
[2020-04-04] VITALS (19 sets, daily range): BP systolic 79–130; BP diastolic 56–92; PULSE 67–94; RESP 20–31; TEMP 37.8; O2SAT 88–98
--- NOTE | 2020-04-04 13:02 | DI.CT.S_ITS ---
PROCEDURE: CT HEAD/BRAIN WO CON INDICATIONS: altered, possible fall TECHNIQUE: Noncontrast 4.5 mm thick angled axial sections acquired from the foramen magnum to the vertex, with coronal and sagittal reformats. For radiation dose reduction, the following was used: automated exposure control, adjustment of mA and/or kV according to patient size. COMPARISON: [facility], MR, BRAIN W&WO CONTRAST, 08/21/2013, 15:44. [facility], CT, HEAD WITHOUT CONTRAST, 09/26/2015, 15:01. [facility], CT, HEAD WITHOUT CONTRAST, 09/05/2016, 23:54. [facility], CR, XR CHEST 1V, 04/04/2020, 13:04. [facility], CT, CT HEAD/BRAIN WO CON, 04/18/2018, 8:37. FINDINGS: Image quality: Excellent. CSF spaces: Basal cisterns are patent. No extra-axial fluid collections. The ventricles are symmetric in size and shape. Brain: No intracranial bleeds or masses. There is cerebral volume loss for age, with resultant ventricular and sulcal prominence. There are periventricular and deep white matter chronic small vessel ischemic changes. There is intracranial internal carotid artery atherosclerosis. Skull and face: Calvarium and visualized facial bones appear intact, without suspicious lesions. Sinuses: Visualized sinuses and mastoids are clear. IMPRESSION: No acute intracranial process is seen. No acute intracranial hemorrhage is seen. Note is made of age-appropriate brain parenchymal volume loss and chronic small vessel ischemic changes. Dictated by: Ananda Maza M.D. on 04/04/2020 at 12:27 Approved by: Ananda Maza M.D. on 04/04/2020 at 12:29
--- NOTE | 2020-04-04 13:02 | DI.RAD.S_ITS ---
PROCEDURE: XR CHEST 1V INDICATIONS: weakness TECHNIQUE: One view of the chest was acquired. COMPARISON: [facility], CR, CHEST 1 VIEW, 09/06/2016, 0:11. [facility], CR, XR CHEST 1V, 08/09/2017, 16:41. [facility], CR, XR CHEST 2V, 09/06/2017, 11:32. FINDINGS: Surgical changes and devices: None. Lungs and pleura: An incomplete inspiratory result is noted, causing a crowded appearance to the lung markings. Generalized interstitial prominence is seen. No pneumothorax or significant pleural effusions are seen. Mediastinum: The cardiac contours are mildly enlarged. The aorta demonstrates calcification and tortuosity. Bones and chest wall: No suspicious bony lesions. Age-appropriate bony degenerative changes are seen. Overlying soft tissues appear unremarkable. IMPRESSION: Low lung volumes with generalized interstitial prominence. There is mild cardiomegaly. Please correlate with patient presentation, physical examination findings, and laboratory values for congestive heart failure. Dictated by: Ananda Maza M.D. on 04/04/2020 at 12:25 Approved by: Ananda Maza M.D. on 04/04/2020 at 12:26
[2020-04-04 13:18] LABS: Add Manual Diff / Slide Review NO; Basophils Absolute Auto 200 /uL (0-100); Eosinophils Absolute Auto 0 /uL (0-450); Eosinophils Percent Auto 0.2 % (2-4); Hematocrit 39.3 % (36-46); Lymphocytes Absolute Auto 1600 /uL (1100-4500); Lymphocytes Percent Auto 10.3 % (25-40); Mean Corpuscular Hemoglobin 32.6 PG (26-34); Mean Corpuscular Volume 98.7 fL (80-100); Monocytes Absolute Auto 1400 /uL (0-900); Monocytes Percent Auto 8.9 % (3-14); Neutrophils Absolute Auto 12100 /uL (1500-7000); Neutrophils Percent Auto 79.6 % (50-75); Platelet Count 306 X10^3/uL (150-400); Red Blood Cell Count 3.98 X10^6/uL (4.0-5.2); Red Cell Distribution Width 15.1 % (11.6-14.8); White Blood Cell Count 15.1 X10^3/uL (4.5-11.0)
[2020-04-04 13:31] LABS: Alanine Aminotransferase 15 IU/L (<35); Albumin 4.3 g/dL (3.5-5.0); Albumin Globulin Ratio 1.5 (1.0-2.8); Alkaline Phosphatase 105 U/L (38-126); Aspartate Aminotransferase 18 IU/L (14-36); BUN Creatinine Ratio 6.2 (6-22); Bilirubin Total 0.5 mg/dL (0.2-1.3); Blood Urea Nitrogen 43 mg/dL (7-17); Calcium 10.3 mg/dL (8.4-10.2); Carbon Dioxide 28 mmol/L (22-32); Chloride 94 mmol/L (98-107); Creatine Kinase 22 U/L (30-135); Estimated Glomerular Filt Rate 5.7 mL/min (>60); Globulin 2.9 g/dL (1.7-4.1); Glucose 137 mg/dL (80-110); HEMOLYSIS < 15 (0-50); Magnesium 2.7 mg/dL (1.6-2.3); Sodium 133 mmol/L (137-145); Total Protein 7.2 g/dL (6.3-8.2)
[2020-04-04 13:33] LABS: Potassium 5.7 mmol/L (3.4-5.1)
--- NOTE | 2020-04-04 13:39 | ED_ITS ---
HPI - Altered Mental Status General Chief Complaint: Altered Mental Status Stated Complaint: confusion Time Seen by Provider: 04/04/20 13:00 Source: EMS Mode of arrival: EMS Limitations: altered mental status History of Present Illness HPI narrative: 75-year-old female nonsmoker with history of chronic kidney disease, receives dialysis Tuesday presents by EMS for evaluation of altered mental status and confusion. She had done her normal dialysis on Tuesday and made a phone call to her daughter last night which suggested she had fallen on the ground. It is unclear how long she was on the ground but her daughter checked on her today when she was running late for [place] festivities and found her to be confused. EMS arrived to found her standing, using a cane and completely naked, acting very confused and stating that her was outside playing with friends (she does not live with her ) and that another friend was in the backyard playing with her children which is also not the case. She denies any specific pain or injury and is otherwise well and free of complaint, or so had seen based on her report. MD complaint: altered mental status and confusion Onset (ago): hour(s) Timing confirmed by: family member Severity: moderate Consistency of symptoms: unknown Associated symptoms: denies other symptoms Related Data Home Medications Medication Instructions Recorded Confirmed fluticasone propion-salmeterol 1 puff INH BID #0 09/06/16 04/18/18 [Advair Diskus] gabapentin 200 mg PO DAILY #0 09/06/16 04/18/18 aspirin [Aspir-81] 81 mg PO DAILY 08/09/17 04/18/18 atorvastatin 20 mg PO QPM 08/09/17 04/18/18 carvedilol 6.25 mg PO BID 08/09/17 04/18/18 ciprofloxacin HCl 125 mg PO BEDTIME 08/09/17 04/18/18 docusate sodium 100 mg PO DAILY 08/09/17 04/18/18 lamotrigine 150 mg PO DAILY 08/09/17 04/18/18 omeprazole 40 mg PO BID 08/09/17 04/18/18 trazodone 150 mg PO BEDTIME 08/09/17 04/18/18 calcium acetate 1 cap PO DAILY 04/18/18 04/18/18 citalopram 20 mg PO DAILY 04/18/18 04/18/18 cranberry 1 dose PO DAILY 04/18/18 04/18/18 febuxostat [Uloric] 80 mg PO DAILY 04/18/18 04/18/18 furosemide 80 mg PO BID 04/18/18 04/18/18 iron 1 tab PO DAILY 04/18/18 04/18/18 multivitamin [Daily-Christiano] 1 tab PO DAILY 04/18/18 04/18/18 oxybutynin chloride 15 mg PO DAILY 04/18/18 04/18/18 potassium chloride 10 meq PO DAILY 04/18/18 04/18/18 Previous Rx's Medication Instructions Recorded oxycodone-acetaminophen [Percocet] 1 tab PO Q6H PRN #10 tab 12/26/19 Allergies Allergy/AdvReac Type Severity Reaction Status Date / Time NSAIDS (Non-Steroidal AdvReac Severe CAUSED Verified 05/02/18 10:09 Anti-Inflamma KIDNEY [NSAIDS (NON-STEROIDAL DISEASE ANTI-INFLAMMA] Review of Systems Review of Systems Narrative: patient is confused, ROS is per her,m she has no complaints Constitutional Constitutional: Denies chills, Denies fatigue, Denies fever(s), Denies frequent falls, Denies lethargy and Denies weakness Eyes Eyes: Denies change in vision, Denies eye discharge, Denies irritation and Denies loss of vision ENT Ears, Nose, Mouth, and Throat: Denies change in voice, Denies dizziness, Denies neck pain, Denies sore throat and Denies throat swelling Cardiovascular Cardiovascular: Denies chest pain, Denies irregular heart rhythm, Denies lightheadedness, Denies palpitations, Denies dyspnea, Denies dyspnea on exertion and Denies orthopnea Respiratory Respiratory: Denies cough, Denies dyspnea, Denies dyspnea on exertion and Denies wheezing Gastrointestinal Gastrointestinal: Denies abdominal pain, Denies change in bowel habits, Denies diarrhea, Denies nausea and Denies vomiting Musculoskeletal Musculoskeletal: Denies neck pain and Denies numbness Integumentary/Breasts Skin/Breast: Denies pruritus, Denies erythema, Denies rash and Denies wounds Neurologic Neurologic: Denies behavioral changes, Denies confusion, Denies dizziness, Denies frequent falls, Denies loss of vision, Denies numbness and Denies weakness Psychiatric Psychiatric: Denies anxiety, Denies behavioral changes, Denies confusion, Denies depression, Denies homicidal ideation and Denies suicidal ideation Endocrine Endocrine: Denies fatigue, Denies flushing and Denies palpitations Hematologic/Lymphatic Hematologic/Lymphatic: Denies easy bruising Allergic/Immunologic Allergic/Immunologic: Denies urticaria, Denies throat swelling and Denies wheezing Patient History Medical History (Updated 04/04/20 @ 19:30 by Anthony Padilla DO) Bipolar 1 disorder CKD (chronic kidney disease) stage 4, GFR 15-29 ml/min Dyslipidemia Hypertension Renal failure (ARF), acute on chronic Surgically constructed arteriovenous fistula Surgical History H/O: S/P cholecystectomy Social History Smoking Status: Never smoker Smoking Status: Never smoker alcohol intake frequency: 0-2 drinks per day Substance Use Type: does not use Exam Narrative Exam Narrative: GENERAL: [75] year old patient appears stated age. Well- nourished, well-developed patient, in mild distress. Confused HEAD: Atraumatic. Normocephalic. EYES: Pupils equal round and reactive. Extraocular motions intact. No scleral icterus. No injection or drainage. ENT: Nose without bleeding, purulent drainage. Throat without erythema, tonsillar hypertrophy or exudate. Airway patent. NECK: Trachea midline. Non tender CARDIOVASCULAR: Regular rate and rhythm without murmurs, gallops, or rubs. RESPIRATORY: Crackles in bilateral bases GASTROINTESTINAL: Abdomen soft, non-tender, nondistended. EXTREMITIES: 1+ edema in bilateral lower extremities BACK: Nontender without deformity or crepitance. No flank tenderness. NEURO: Awake, no focal findings. SKIN: No rash or erythema of visible areas Initial Vital Signs Initial Vital Signs: Vital Signs Blood Pressure 117/56 L 04/04/20 13:01 Course Orders Ordered: ED Orders 04/04/20 13:00 Complete Blood Count AUTO DIFF Stat Comprehensive Metabolic Panel Stat Magnesium Stat NT-proBNP (BNP-Adult 18+) Stat Procalcitonin Stat Prothrombin Time INR Stat Troponin & CK Cardiac Panel Stat 04/04/20 13:02 CT head/brain wo con Stat XR chest 1V Stat 04/04/20 13:29 COVID19 Stat 04/04/20 13:45 Lactate (Lactic Acid) Stat 04/04/20 13:50 Blood Culture Stat Discontinued Medications Ceftriaxone Sodium/Dextrose (Rocephin) 2 gm in 50 mls @ 100 mls/hr IV NOW ONE Stop: 04/04/20 14:50 Last Infusion: 04/04/20 15:02 Dose: 0 mls/hr Documented by: Admin: 04/04/20 14:26 Dose: 100 mls/hr Documented by: JANESSA Reevaluation(s) Reevaluation #1: patient continues to have desaturations when off nasal cannula, down to the mid 80s. She does not use oxygen at home. Consultations Consultation #1: call to on-call nephrology, recommends transfer and will likely need HD tomorrow Consultation #2: hospitalist at [facility] ([place]) happy to accept. Vital Signs Vital signs: Vital Signs - 8 hr 04/04/20 13:01 04/04/20 13:14 04/04/20 13:27 Temperature Pulse Rate 94 H 87 Respiratory Rate 27 H Blood Pressure 117/56 L 117/56 L 124/60 Pulse Oximetry 88 L 91 04/04/20 13:30 04/04/20 13:53 04/04/20 14:00 Temperature Pulse Rate 81 83 78 Respiratory Rate 20 31 H 26 H Blood Pressure 119/60 113/92 H Pulse Oximetry 91 91 98 04/04/20 14:01 04/04/20 14:08 04/04/20 14:19 Temperature 100.0 F H Pulse Rate 78 79 Respiratory Rate 27 H 28 H Blood Pressure 79/57 L 130/60 Pulse Oximetry 98 97 04/04/20 14:30 04/04/20 14:41 04/04/20 14:50 Temperature Pulse Rate 79 76 78 Respiratory Rate 27 H 28 H Blood Pressure 125/57 L 118/56 L Pulse Oximetry 97 98 97 04/04/20 15:00 04/04/20 15:30 04/04/20 15:56 Temperature Pulse Rate 68 80 73 Respiratory Rate 27 H 26 H Blood Pressure 82/59 L Pulse Oximetry 98 97 96 04/04/20 16:00 04/04/20 16:26 04/04/20 16:27 Temperature Pulse Rate 67 75 76 Respiratory Rate 27 H 28 H Blood Pressure 113/58 L Pulse Oximetry 97 98 97 04/04/20 16:30 Temperature Pulse Rate 74 Respiratory Rate 24 Blood Pressure Pulse Oximetry 98 MDM - Altered Mental Status Lab Data Result diagrams: 04/04/20 13:00 04/04/20 13:00 Labs: Lab Results 04/04/20 04/04/20 04/04/20 Range/Units 13:00 13:00 13:00 WBC 15.1 H (4.5-11.0) X10^3/uL RBC 3.98 L (4.0-5.2) X10^6/uL Hgb 13.0 (12.0-16.0) g/dL Hct 39.3 (36-46) % MCV 98.7 (80-100) fL MCH 32.6 (26-34) PG MCHC 33.0 (30-36) % RDW 15.1 H (11.6-14.8) % Plt Count 306 (150-400) X10^3/uL Neut % (Auto) 79.6 H (50-75) % Lymph % (Auto) 10.3 L (25-40) % [place] % (Auto) 8.9 (3-14) % Eos % (Auto) 0.2 L (2-4) % Baso % (Auto) 1.0 (0-2) % Neut # (Auto) 23195 H (4645-6152) /uL Lymph # (Auto) 1600 (2595-4308) /uL [place] # (Auto) 1400 H (0-900) /uL Eos # (Auto) 0 (0-450) /uL Baso # (Auto) 200 H (0-100) /uL PT 12.0 (10.1-12.7) SECONDS INR 1.0 (0.9-1.3) Sodium 133 L (137-145) mmol/L Potassium 5.7 H (3.4-5.1) mmol/L Chloride 94 L (98-107) mmol/L Carbon Dioxide 28 (22-32) mmol/L BUN 43 H (7-17) mg/dL Creatinine 6.96 H (0.52-1.04) mg/dL Estimated GFR 5.7 L (>60) mL/min BUN/Creatinine Ratio 6.2 (6-22) Glucose 137 H (80-110) mg/dL Lactate (0.7-2.1) mmol/L Calcium 10.3 H (8.4-10.2) mg/dL Magnesium 2.7 H (1.6-2.3) mg/dL Total Bilirubin 0.5 (0.2-1.3) mg/dL AST 18 (14-36) IU/L ALT 15 (<35) IU/L Alkaline Phosphatase 105 (38-126) U/L Total Creatine Kinase 22 L (30-135) U/L CK-MB (CK-2) TNP CK-MB (CK-2) Rel Index TNP Troponin I < 0.012 (0.01-0.034) ng/mL NT-Pro-B Natriuret Pep 99229 H (<450) pg/mL Total Protein 7.2 (6.3-8.2) g/dL Albumin 4.3 (3.5-5.0) g/dL Globulin 2.9 (1.7-4.1) g/dL Albumin/Globulin Ratio 1.5 (1.0-2.8) Procalcitonin (<0.5) ng/mL COVID-19 PCR (Negative) 04/04/20 04/04/20 04/04/20 Range/Units 13:00 13:29 13:45 WBC (4.5-11.0) X10^3/uL RBC (4.0-5.2) X10^6/uL Hgb (12.0-16.0) g/dL Hct (36-46) % MCV (80-100) fL MCH (26-34) PG MCHC (30-36) % RDW (11.6-14.8) % Plt Count (150-400) X10^3/uL Neut % (Auto) (50-75) % Lymph % (Auto) (25-40) % [place] % (Auto) (3-14) % Eos % (Auto) (2-4) % Baso % (Auto) (0-2) % Neut # (Auto) (2699-1235) /uL Lymph # (Auto) (6138-9011) /uL [place] # (Auto) (0-900) /uL Eos # (Auto) (0-450) /uL Baso # (Auto) (0-100) /uL PT (10.1-12.7) SECONDS INR (0.9-1.3) Sodium (137-145) mmol/L Potassium (3.4-5.1) mmol/L Chloride (98-107) mmol/L Carbon Dioxide (22-32) mmol/L BUN (7-17) mg/dL Creatinine (0.52-1.04) mg/dL Estimated GFR (>60) mL/min BUN/Creatinine Ratio (6-22) Glucose (80-110) mg/dL Lactate 1.9 (0.7-2.1) mmol/L Calcium (8.4-10.2) mg/dL Magnesium (1.6-2.3) mg/dL Total Bilirubin (0.2-1.3) mg/dL AST (14-36) IU/L ALT (<35) IU/L Alkaline Phosphatase (38-126) U/L Total Creatine Kinase (30-135) U/L CK-MB (CK-2) CK-MB (CK-2) Rel Index Troponin I (0.01-0.034) ng/mL NT-Pro-B Natriuret Pep (<450) pg/mL Total Protein (6.3-8.2) g/dL Albumin (3.5-5.0) g/dL Globulin (1.7-4.1) g/dL Albumin/Globulin Ratio (1.0-2.8) Procalcitonin 0.54 H (<0.5) ng/mL COVID-19 PCR Negative (Negative) Critical Care Time Critical Care Time Critical Care Time: Yes Total Critical Care Time: 35 Attestation: The high probability of a clinically significant, sudden or life threatening deterioration of the [CV] system(s) required my full and direct attention, intervention and personal management. The aggregate critical care time was [35] minutes. This time is in addition to time spent performing reported procedures but includes the following: [x] Data Review and interpretation [x] Patient assessment and monitoring of vital signs [x] Documentation [x] Medication orders and management Discharge Plan Departure Patient Disposition: [facility] Clinical Impression: Acute hyperkalemia Pulmonary edema Qualifiers: Chronicity: acute Qualified Code(s): J81.0 - Acute pulmonary edema Prescriptions: No Action fluticasone propion-salmeterol [Advair Diskus] 250 MCG/50 MCG blister with device 1 puff INH BID Qty: 0 RF: 0 gabapentin 100 MG capsule 200 mg PO DAILY Qty: 0 RF: 0 atorvastatin 20 mg Tablet 20 mg PO QPM RF: 0 docusate sodium 100 mg Capsule 100 mg PO DAILY RF: 0 lamotrigine 150 mg Tablet 150 mg PO DAILY RF: 0 carvedilol 6.25 mg Tablet 6.25 mg PO BID RF: 0 ciprofloxacin HCl 250 mg Tablet 125 mg PO BEDTIME RF: 0 omeprazole 40 mg Capsule,Delayed Release(Dr/Ec) 40 mg PO BID RF: 0 aspirin [Aspir-81] 81 mg Tablet,Delayed Release (Dr/Ec) 81 mg PO DAILY RF: 0 trazodone 150 mg Tablet 150 mg PO BEDTIME RF: 0 oxycodone-acetaminophen [Percocet] 5-325 mg tablet 1 tab PO Q6H PRN (Reason: pain) Qty: 10 RF: 0 multivitamin [Daily-Christiano] Tablet 1 tab PO DAILY RF: 0 oxybutynin chloride 15 mg tablet extended release 24hr 15 mg PO DAILY RF: 0 potassium chloride 10 mEq tablet extended release 10 meq PO DAILY RF: 0 citalopram 20 mg tablet 20 mg PO DAILY RF: 0 furosemide 80 mg tablet 80 mg PO BID RF: 0 febuxostat [Uloric] 80 mg tablet 80 mg PO DAILY RF: 0 calcium acetate 1 cap PO DAILY RF: 0 cranberry 1 dose PO DAILY RF: 0 iron 1 tab PO DAILY RF: 0 Referrals: Karen Mustafa ARNP [Primary Care Provider] -
[2020-04-04 13:42] LABS: NT-proBNP (BNP-Adult 18+) 17100 pg/mL (<450); Troponin I < 0.012 ng/mL (0.01-0.034)
[2020-04-04 13:46] LABS: Procalcitonin 0.54 ng/mL (<0.5)
[2020-04-04 13:50] LABS: COVID19 -Nasal RAPID Negative (Negative)
--- NOTE | 2020-04-04 13:55 | PC.NURSE ---
Patient O2 saturation 88%-90% on room air. Patient placed on 2L NC and oxygenation improved to 97%.
[2020-04-04 14:08] LABS: Lactate (Lactic Acid) 1.9 mmol/L (0.7-2.1)
--- NOTE | 2020-04-04 14:10 | PC.NURSE ---
Patient BP 79/57. No change in mentation and HR remains at 78 bpm. Provider notified and aware of findings. No new orders at this time. Will continue to monitor.
[2020-04-04] MEDS: CEFTRIAXONE 2 GM/50 ML FROZ.PIGGY IV (14:26)
== END 2020-04-04 17:00 | disposition short-term general hospital (02) ==
PROVIDERS: Emergency Provider Emergency Medicine; PCP Nurse Practitioner
DX: E87.5 Hyperkalemia (principal); J81.0 Acute pulmonary edema; N17.9 Acute kidney failure, unspecified; I12.9 Hypertensive chronic kidney disease with stage 1 through stage 4 chronic kidney disease, or unspecified chronic kidney disease; N18.9 Chronic kidney disease, unspecified; Z99.2 Dependence on renal dialysis; F31.9 Bipolar disorder, unspecified; E78.5 Hyperlipidemia, unspecified
CPT/HCPCS: 36415; 70450; 71045; 80053; 82550; 83605; 83735; 83880; 84145; 84484; 85025; 85610; 87040; 87635; 96365; 99285; 99291; J0696

== ENCOUNTER 2020-04-10 16:09 | Emergency (ER) | payer MEDICARE, SELFPAY ==
[2020-04-10 16:33] VITALS: BP 179/77; PULSE 70; RESP 19; TEMP 36.6; O2SAT 97
--- NOTE | 2020-04-10 16:45 | DI.RAD.S_ITS ---
PROCEDURE: XR CHEST 1V INDICATIONS: chest pain TECHNIQUE: One view of the chest was acquired. COMPARISON: [facility], CR, XR CHEST 1V, 04/04/2020, 13:04. FINDINGS: Surgical changes and devices: None. Lungs and pleura: Lungs are clear. No pleural effusions or pneumothorax. Mediastinum: Mediastinal contours appear normal. Heart size is enlarged. Bones and chest wall: No suspicious bony lesions. Overlying soft tissues appear unremarkable. IMPRESSION: No acute cardiopulmonary pathology. Dictated by: Eduin Ram M.D. on 04/10/2020 at 17:11 Approved by: Eduin Ram M.D. on 04/10/2020 at 17:12
[2020-04-10 17:24] VITALS: PULSE 68; RESP 24; O2SAT 94
[2020-04-10 17:30] VITALS: BP 118/57; PULSE 68; RESP 22; O2SAT 92
[2020-04-10 17:32] LABS: Alanine Aminotransferase 23 IU/L (<35); Albumin 4.1 g/dL (3.5-5.0); Albumin Globulin Ratio 1.4 (1.0-2.8); Alkaline Phosphatase 101 U/L (38-126); Aspartate Aminotransferase 33 IU/L (14-36); BUN Creatinine Ratio 6.8 (6-22); Bilirubin Total 0.6 mg/dL (0.2-1.3); Blood Urea Nitrogen 28 mg/dL (7-17); Calcium 8.7 mg/dL (8.4-10.2); Carbon Dioxide 33 mmol/L (22-32); Chloride 91 mmol/L (98-107); Creatine Kinase 89 U/L (30-135); Estimated Glomerular Filt Rate 10.5 mL/min (>60); Globulin 2.9 g/dL (1.7-4.1); Glucose 115 mg/dL (80-110); HEMOLYSIS < 15 (0-50); Potassium 3.9 mmol/L (3.4-5.1); Sodium 132 mmol/L (137-145)
[2020-04-10 17:36] LABS: Add Manual Diff / Slide Review NO; Basophils Absolute Auto 100 /uL (0-100); Eosinophils Absolute Auto 200 /uL (0-450); Eosinophils Percent Auto 2.8 % (2-4); Hematocrit 34.6 % (36-46); Hemoglobin 11.6 g/dL (12.0-16.0); Lymphocytes Absolute Auto 900 /uL (1100-4500); Lymphocytes Percent Auto 9.9 % (25-40); Mean Corpuscular HGB Conc 33.5 % (30-36); Mean Corpuscular Hemoglobin 32.5 PG (26-34); Mean Corpuscular Volume 96.8 fL (80-100); Monocytes Absolute Auto 900 /uL (0-900); Monocytes Percent Auto 10.3 % (3-14); Neutrophils Absolute Auto 6600 /uL (1500-7000); Platelet Count 303 X10^3/uL (150-400); Red Blood Cell Count 3.57 X10^6/uL (4.0-5.2); Red Cell Distribution Width 14.7 % (11.6-14.8); White Blood Cell Count 8.6 X10^3/uL (4.5-11.0)
[2020-04-10 17:38] LABS: INR 1.1 (0.9-1.3); Prothrombin Time 12.4 SECONDS (10.1-12.7)
[2020-04-10 17:41] LABS: PTT Partial Thromboplastin Tim 31 SECONDS (26.4-36.2)
--- NOTE | 2020-04-10 17:41 | PC.NURSE ---
Pt fell this morning 0400, was assisted by son and went to dialysis as scheduled. Dizziness present before she fell. Bruising present on top of nose. Left sided extremity pain. Bilateral knee pain.
[2020-04-10 17:43] LABS: Troponin I < 0.012 ng/mL (0.01-0.034)
[2020-04-10 18:00] VITALS: PULSE 74; RESP 18; O2SAT 92
--- NOTE | 2020-04-10 18:13 | ED.FALL ---
HPI - Fall General Chief Complaint: Fall Stated Complaint: fall, left sided pains Time Seen by Provider: 04/10/20 18:13 Source: patient and family Mode of arrival: Wheelchair Limitations: no limitations History of Present Illness HPI Narrative: This is a 75-year-old female comes emergency department with complaint of fall. Patient states she has chronic balance issues. She felt sort of dizzy and had increasing sensation of dizziness and shock through the back of her head. Patient states that she did lose consciousness but she did fall the floor. She describes herself as a very large woman and states that she does not think she broke anything but she hurts all over. She describes generalized back pain and neck pain but states it does not hurt in the bony areas. She denies a headache. She denies current vision changes. No chest pain or shortness of breath. No nausea, no vomiting. No new GI or urinary symptoms. She states she has chronic enlargement of her legs but they have not been swollen and she states that is more her body habitus than swelling. Patient was late for her dialysis today because of her fall, she spent about 20 minutes on the floor before family member arrived to take her to dialysis. They assisted her up she did go to dialysis she had an almost is entirety except for 15 minutes. The staff discussed the events of today with her director of public health, Dr. Wilde, and was instructed to come for evaluation. Patient was just recently discharged in the last 2 days from [facility] for metabolic encephalopathy and had a diagnosis of diverticulitis and is currently taking Cipro and Flagyl and they had stopped her Lasix. Patient denies any anticoagulants. She denies any new numbness, tingling or weakness in her extremities, no facial droop or difficulty with speech. Related Data Home Medications Medication Instructions Recorded Confirmed fluticasone propion-salmeterol 1 puff INH BID #0 09/06/16 04/18/18 [Advair Diskus] gabapentin 200 mg PO DAILY #0 09/06/16 04/18/18 aspirin [Aspir-81] 81 mg PO DAILY 08/09/17 04/18/18 atorvastatin 20 mg PO QPM 08/09/17 04/18/18 carvedilol 6.25 mg PO BID 08/09/17 04/18/18 ciprofloxacin HCl 125 mg PO BEDTIME 08/09/17 04/18/18 docusate sodium 100 mg PO DAILY 08/09/17 04/18/18 lamotrigine 150 mg PO DAILY 08/09/17 04/18/18 omeprazole 40 mg PO BID 08/09/17 04/18/18 trazodone 150 mg PO BEDTIME 08/09/17 04/18/18 calcium acetate 1 cap PO DAILY 04/18/18 04/18/18 citalopram 20 mg PO DAILY 04/18/18 04/18/18 cranberry 1 dose PO DAILY 04/18/18 04/18/18 febuxostat [Uloric] 80 mg PO DAILY 04/18/18 04/18/18 furosemide 80 mg PO BID 04/18/18 04/18/18 iron 1 tab PO DAILY 04/18/18 04/18/18 multivitamin [Daily-Christiano] 1 tab PO DAILY 04/18/18 04/18/18 oxybutynin chloride 15 mg PO DAILY 04/18/18 04/18/18 potassium chloride 10 meq PO DAILY 04/18/18 04/18/18 Previous Rx's Medication Instructions Recorded oxycodone-acetaminophen [Percocet] 1 tab PO Q6H PRN #10 tab 12/26/19 lidocaine [Lidoderm] 1 patch TOPICAL DAILY #15 ea 04/10/20 Allergies Allergy/AdvReac Type Severity Reaction Status Date / Time NSAIDS (Non-Steroidal AdvReac Severe CAUSED Verified 05/02/18 10:09 Anti-Inflamma KIDNEY [NSAIDS (NON-STEROIDAL DISEASE ANTI-INFLAMMA] Review of Systems Review of Systems ROS Unobtainable: All systems reviewed & are unremarkable except as noted in HPI and below Patient History Medical History (Updated 04/10/20 @ 19:39 by Rody Yates DO) Bipolar 1 disorder CKD (chronic kidney disease) stage 4, GFR 15-29 ml/min Dyslipidemia Hypertension Renal failure (ARF), acute on chronic Surgically constructed arteriovenous fistula Surgical History H/O: S/P cholecystectomy Social History Smoking Status: Never smoker Smoking Status: Never smoker alcohol intake frequency: 0-2 drinks per day Substance Use Type: does not use Exam Narrative Exam Narrative: GEN: Patient appears in mild distress. Patient is sitting in a wheelchair. HEAD: No evidence of trauma, no raccoon/[place] sign. NECK: Nontender, painless range of motion, trachea midline Negative for Nexus criteria, there is no mid line tenderness, distracting injury, altered mental status, neuro deficit, recent EtOH. EYES: PERRLA, EOMI ENT: External inspection normal, trachea is midline, TM's are normal no hemotypanum, Nares are clear, no dental or oral injury, airway is normal and with normal occlusion, No bony tenderness RESP: Chest is nontender and has symmetric movement, no ecchymosis, breath sounds are normal no crackles, wheezes or rales CVS: Heart sounds are normal, no murmur noted, No JVD. ABG/GI: Nontender, soft, normal bowel sounds, no distention, no organomegaly, pelvic rock is negative. NEURO: Oriented AOx3, neuro is grossly intact, sensation and motor is normal all 4 extremities moving, cranial nerves II through XII are intact, GCS is 15 PSYCH: Normal mood and affect SKIN: Intact, warm and dry, no crepitus and without decubitus BACK: No CVA tenderness, no vertebral tenderness, no step-off's, no crepitus EXT: Atraumatic, hips are nontender, no pedal edema, normal color and temperature, normal range of motion of upper extremities. Initial Vital Signs Initial Vital Signs: Vital Signs Temperature 98 F 04/10/20 16:33 Pulse Rate 70 04/10/20 16:33 Respiratory Rate 19 04/10/20 16:33 Blood Pressure 179/77 H 04/10/20 16:33 Pulse Oximetry 97 04/10/20 16:33 Scores GCS Lizeth coma scale eye opening: Spontaneous Lizeth coma scale verbal response: Orientated Lizeth coma scale motor response: [place]bey commands [place] coma scale total score: 15 Course Orders Ordered: Discontinued Medications Acetaminophen (Acetaminophen 325 Mg Tablet) 975 mg PO NOW ONE Stop: 04/10/20 18:43 Last Admin: 04/10/20 18:54 Dose: 975 mg Documented by: BELEM Lidocaine (Lidocaine Patch 1 Each Adh..Patch) 1 each TOP NOW ONE Stop: 04/10/20 19:51 Last Admin: 04/10/20 20:08 Dose: 1 each Documented by: MAIA Vital Signs Vital signs: Vital Signs - 8 hr 04/10/20 16:33 04/10/20 17:24 04/10/20 17:30 Temperature 98 F Pulse Rate 70 68 68 Respiratory Rate 19 24 22 Blood Pressure 179/77 H 118/57 L Pulse Oximetry 97 94 92 04/10/20 18:00 Temperature Pulse Rate 74 Respiratory Rate 18 Blood Pressure Pulse Oximetry 92 MDM - Fall Lab Data Attestation: I reviewed the patient's lab results. Result diagrams: 04/10/20 17:10 04/10/20 17:10 Labs: Lab Results 04/10/20 04/10/20 04/10/20 Range/Units 17:10 17:10 17:10 WBC 8.6 (4.5-11.0) X10^3/uL RBC 3.57 L (4.0-5.2) X10^6/uL Hgb 11.6 L (12.0-16.0) g/dL Hct 34.6 L (36-46) % MCV 96.8 (80-100) fL MCH 32.5 (26-34) PG MCHC 33.5 (30-36) % RDW 14.7 (11.6-14.8) % Plt Count 303 (150-400) X10^3/uL Neut % (Auto) 76.0 H (50-75) % Lymph % (Auto) 9.9 L (25-40) % [place] % (Auto) 10.3 (3-14) % Eos % (Auto) 2.8 (2-4) % Baso % (Auto) 1.0 (0-2) % Neut # (Auto) 6600 (0792-1896) /uL Lymph # (Auto) 900 L (7609-3315) /uL [place] # (Auto) 900 (0-900) /uL Eos # (Auto) 200 (0-450) /uL Baso # (Auto) 100 (0-100) /uL PT 12.4 (10.1-12.7) SECONDS INR 1.1 (0.9-1.3) APTT 31 (26.4-36.2) SECONDS Sodium 132 L (137-145) mmol/L Potassium 3.9 D (3.4-5.1) mmol/L Chloride 91 L (98-107) mmol/L Carbon Dioxide 33 H (22-32) mmol/L BUN 28 H (7-17) mg/dL Creatinine 4.13 H (0.52-1.04) mg/dL Estimated GFR 10.5 L (>60) mL/min BUN/Creatinine Ratio 6.8 (6-22) Glucose 115 H (80-110) mg/dL Calcium 8.7 (8.4-10.2) mg/dL Total Bilirubin 0.6 (0.2-1.3) mg/dL AST 33 (14-36) IU/L ALT 23 (<35) IU/L Alkaline Phosphatase 101 (38-126) U/L Total Creatine Kinase 89 (30-135) U/L CK-MB (CK-2) TNP CK-MB (CK-2) Rel Index TNP Troponin I < 0.012 (0.01-0.034) ng/mL Total Protein 7.0 (6.3-8.2) g/dL Albumin 4.1 (3.5-5.0) g/dL Globulin 2.9 (1.7-4.1) g/dL Albumin/Globulin Ratio 1.4 (1.0-2.8) Imaging Data Chest x-ray: Radiologist's Impression: [address] [id number] ReportSigned Patient: Manju Bergman GMR#: [id number]: 3Acct:[id number]/Sex: 75 / FDate of Service: 04/10/20Loc: EDAccession Number: [id number] Procedure: XR chest 1V Ordering Provider: Vee Bang D.O. PROCEDURE: XR CHEST 1V INDICATIONS: chest pain TECHNIQUE: One view of the chest was acquired. COMPARISON: [facility], , XR CHEST 1V, 04/04/2020, 13:04. FINDINGS: Surgical changes and devices: None. Lungs and pleura: Lungs are clear. No pleural effusions or pneumothorax. Mediastinum: Mediastinal contours appear normal. Heart size is enlarged. Bones and chest wall: No suspicious bony lesions. Overlying soft tissues appear unremarkable. IMPRESSION: No acute cardiopulmonary pathology. Dictated by: Eduin Ram M.D. on 04/10/2020 at 17:11 Approved by: Eduin Ram M.D. on 04/10/2020 at 17:12 ECG Data Attestation: I personally reviewed and interpreted this ECG as follows: Prior ECG tracings: available for review Interpretation: And a rate of 71, ME 220, QRS of 118 QTC 480. Left axis deviation. First-degree AV block. Patient has prior EKG from 08/09/2017 which appears similar. MDM Narrative Medical decision making narrative: 75-year-old female comes with complaint of dizziness and fall. Patient states the dizziness has resolved. She states this has been a chronic situation and does not appear to be acutely worsened. She has been a little bit more frail state with a recent hospitalization for metabolic encephalopathy. Patient feels safe to return home. Her imaging does not show any acute changes. Patient has anemia which appears baseline, no leukocytosis but a little bit of a left shift. Patient's renal function appears improved electrolytes she has mild hyponatremia, no hyper or hypokalemia. Troponin is negative. Patient had Tylenol here in the department which she found helpful. We did discuss trying some Lidoderm patches as she is uncomfortable and adding a narcotic pain medication it may increase her fall risk. Patient feels comfortable with this plan and plan to discharge home at this time. Discharge Plan Departure Patient Disposition: Home Clinical Impression: Fall, Dizziness Instructions: How to Prevent Falls Activity Restrictions/Additional Instructions: Follow-up with your physician in the next week for recheck. You may take Tylenol up to 1000 mg every 8 hours as needed for pain. Use lidocaine patches as prescribed remove the initial patch when you replace it with a new one. Return to the emergency department for severe headaches, new vision changes, altered recent mental status, passing out or recurrent falls, new chest pain, shortness of breath, persistent vomiting, new back, neck pain, numbness tingling or weakness or other new or concerning symptoms. Prescriptions: New lidocaine [Lidoderm] 5 % adhesive patch,medicated 1 patch topical DAILY Qty: 15 RF: 0 No Action fluticasone propion-salmeterol [Advair Diskus] 250 MCG/50 MCG blister with device 1 puff INH BID Qty: 0 RF: 0 gabapentin 100 MG capsule 200 mg PO DAILY Qty: 0 RF: 0 atorvastatin 20 mg Tablet 20 mg PO QPM RF: 0 docusate sodium 100 mg Capsule 100 mg PO DAILY RF: 0 lamotrigine 150 mg Tablet 150 mg PO DAILY RF: 0 carvedilol 6.25 mg Tablet 6.25 mg PO BID RF: 0 ciprofloxacin HCl 250 mg Tablet 125 mg PO BEDTIME RF: 0 omeprazole 40 mg Capsule,Delayed Release(Dr/Ec) 40 mg PO BID RF: 0 aspirin [Aspir-81] 81 mg Tablet,Delayed Release (Dr/Ec) 81 mg PO DAILY RF: 0 trazodone 150 mg Tablet 150 mg PO BEDTIME RF: 0 oxycodone-acetaminophen [Percocet] 5-325 mg tablet 1 tab PO Q6H PRN (Reason: pain) Qty: 10 RF: 0 multivitamin [Daily-Christiano] Tablet 1 tab PO DAILY RF: 0 oxybutynin chloride 15 mg tablet extended release 24hr 15 mg PO DAILY RF: 0 potassium chloride 10 mEq tablet extended release 10 meq PO DAILY RF: 0 citalopram 20 mg tablet 20 mg PO DAILY RF: 0 furosemide 80 mg tablet 80 mg PO BID RF: 0 febuxostat [Uloric] 80 mg tablet 80 mg PO DAILY RF: 0 calcium acetate 1 cap PO DAILY RF: 0 cranberry 1 dose PO DAILY RF: 0 iron 1 tab PO DAILY RF: 0 Referrals: Karen Mustafa ARNP [Primary Care Provider] -
--- NOTE | 2020-04-10 18:30 | DI.CT.S_ITS ---
PROCEDURE: CT HEAD/BRAIN WO CON INDICATIONS: fall, ? hit head TECHNIQUE: Noncontrast 4.5 mm thick angled axial sections acquired from the foramen magnum to the vertex, with coronal and sagittal reformats. For radiation dose reduction, the following was used: automated exposure control, adjustment of mA and/or kV according to patient size. COMPARISON: [facility], CT, CT HEAD/BRAIN WO CON, 04/04/2020, 13:02. FINDINGS: Image quality: Excellent. CSF spaces: Basal cisterns are patent. No extra-axial fluid collections. The ventricles are symmetric in size and shape. Brain: No intracranial bleeds or masses. There is cerebral volume loss for age, with resultant ventricular and sulcal prominence. There are periventricular and deep white matter chronic small vessel ischemic changes. There is intracranial internal carotid artery atherosclerosis. Skull and face: Calvarium and visualized facial bones appear intact, without suspicious lesions. Sinuses: Visualized sinuses and mastoids are clear. IMPRESSION: No CT evidence of acute intracranial pathology. No significant changes from previous study. No gross acute skull fracture. Dictated by: Eduin Ram M.D. on 04/10/2020 at 18:46 Approved by: Eduni Ram M.D. on 04/10/2020 at 18:47
[2020-04-10] MEDS: ACETAMINOPHEN 325 MG TABLET 975 MG PO (18:54)
[2020-04-10] MEDS: LIDOCAINE PATCH 1 EACH ADH..PATCH TOP (20:08)
== END 2020-04-10 20:08 | disposition home or self-care (01) ==
PROVIDERS: Emergency Medicine; Emergency Provider Emergency Medicine; PCP Nurse Practitioner
DX: S09.90XA Unspecified injury of head, initial encounter (principal); R42 Dizziness and giddiness; W19.XXXA Unspecified fall, initial encounter; N18.4 Chronic kidney disease, stage 4 (severe); Z99.2 Dependence on renal dialysis; E78.5 Hyperlipidemia, unspecified; I10 Essential (primary) hypertension; F31.9 Bipolar disorder, unspecified; R07.9 Chest pain, unspecified
CPT/HCPCS: 36415; 70450; 71045; 80053; 82550; 84484; 85025; 85610; 85730; 93005; 99283; 99284

== ENCOUNTER 2020-07-03 14:53 | Emergency (ER) | payer MEDICARE, SELFPAY ==
[2020-07-03] VITALS (11 sets, daily range): BP systolic 109–142; BP diastolic 46–59; PULSE 64–73; RESP 15–24; O2SAT 92–94
--- NOTE | 2020-07-03 14:59 | DI.RAD.S_ITS ---
PROCEDURE: XR CHEST 1V INDICATIONS: chest pain TECHNIQUE: One view of the chest was acquired. COMPARISON: [facility], CR, XR CHEST 1V, 04/10/2020, 16:47. [facility], CR, XR CHEST 1V, 04/04/2020, 13:04. FINDINGS: Surgical changes and devices: None. Lungs and pleura: Lungs are clear. No pleural effusions or pneumothorax. Mediastinum: Mediastinal contours appear normal but the pulmonary arteries bilaterally appear prominent in size as has been previously the case.. Heart size is normal. Bones and chest wall: No suspicious bony lesions. Overlying soft tissues appear unremarkable. IMPRESSION: A definite source of acute chest pain is not found. Suspect pulmonary artery hypertension given the prominence of the pulmonary arteries centrally, better seen on the right than the left. Dictated by: Cristino Hernandez M.D. on 07/03/2020 at 15:42 Approved by: Cristino Hernandez M.D. on 07/03/2020 at 15:43
[2020-07-03 15:22] LABS: Add Manual Diff / Slide Review NO; Basophils Absolute Auto 100 /uL (0-100); Eosinophils Absolute Auto 100 /uL (0-450); Eosinophils Percent Auto 2.2 % (2-4); Hematocrit 30.3 % (36-46); Hemoglobin 10.2 g/dL (12.0-16.0); Lymphocytes Absolute Auto 700 /uL (1100-4500); Lymphocytes Percent Auto 11.2 % (25-40); Mean Corpuscular HGB Conc 33.7 % (30-36); Mean Corpuscular Hemoglobin 32.2 PG (26-34); Mean Corpuscular Volume 95.6 fL (80-100); Monocytes Absolute Auto 600 /uL (0-900); Monocytes Percent Auto 9.8 % (3-14); Neutrophils Absolute Auto 4700 /uL (1500-7000); Neutrophils Percent Auto 75.8 % (50-75); Platelet Count 237 X10^3/uL (150-400); Red Blood Cell Count 3.17 X10^6/uL (4.0-5.2); Red Cell Distribution Width 15.9 % (11.6-14.8); White Blood Cell Count 6.2 X10^3/uL (4.5-11.0)
[2020-07-03 15:27] LABS: INR 1.1 (0.9-1.3); Prothrombin Time 12.4 SECONDS (10.1-12.7)
[2020-07-03 15:29] LABS: PTT Partial Thromboplastin Tim 36 SECONDS (26.4-36.2)
[2020-07-03 15:33] LABS: Alanine Aminotransferase 14 IU/L (<35); Albumin 3.9 g/dL (3.5-5.0); Albumin Globulin Ratio 1.7 (1.0-2.8); Alkaline Phosphatase 104 U/L (38-126); Aspartate Aminotransferase 18 IU/L (14-36); Bilirubin Total 0.5 mg/dL (0.2-1.3); Blood Urea Nitrogen 15 mg/dL (7-17); Calcium 8.6 mg/dL (8.4-10.2); Carbon Dioxide 32 mmol/L (22-32); Chloride 93 mmol/L (98-107); Creatine Kinase 47 U/L (30-135); Estimated Glomerular Filt Rate 15.2 mL/min (>60); Globulin 2.3 g/dL (1.7-4.1); Glucose 210 mg/dL (80-110); HEMOLYSIS < 15 (0-50); Lipase 22 U/L (23-300); Magnesium 1.8 mg/dL (1.6-2.3); Potassium 4.4 mmol/L (3.4-5.1); Sodium 132 mmol/L (137-145); Total Protein 6.2 g/dL (6.3-8.2)
--- NOTE | 2020-07-03 15:39 | PC.NURSE ---
Was at home after dialysis and was getting up out of chair. Had syncopal episode, reports she hit her head on the coffee table. Has bump on top left of head, skin intact. Reports neck pain on the left and dizziness when she turns her head. C collar placed. Denies need for pain medicine at this time.
[2020-07-03 15:43] LABS: Troponin I < 0.012 ng/mL (0.01-0.034)
--- NOTE | 2020-07-03 16:00 | DI.RAD.S_ITS ---
PROCEDURE: XR KNEE LT 3V INDICATIONS: left knee pain, fall TECHNIQUE: 3 views of the knee were acquired. COMPARISON: [facility], , KNEE 3V LEFT, 09/06/2016, 0:11. FINDINGS: Bones: No acute fractures or dislocations. No suspicious bony lesions. Mild joint space narrowing is seen in the medial femorotibial compartment. Enthesophyte is seen at the distal quadriceps tendon insertion. Soft tissues: No joint effusion. No suspicious soft tissue calcifications. Arterial vascular calcifications are present. IMPRESSION: No acute osseous abnormality. If clinical suspicion and/or symptoms persist, additional imaging with repeat plain films, or advanced imaging (e.g. CT, MRI) may be helpful for further assessment. Dictated by: Sammy Wilson M.D. on 07/03/2020 at 15:41 Approved by: Sammy Wilson M.D. on 07/03/2020 at 15:42
--- NOTE | 2020-07-03 16:00 | DI.RAD.S_ITS ---
PROCEDURE: XR KNEE RT 3V INDICATIONS: right knee pain, fall TECHNIQUE: 3 views of the knee were acquired. COMPARISON: [facility], , KNEE 3V LEFT, 09/06/2016, 0:11. FINDINGS: Bones: No acute fractures or dislocations. No suspicious bony lesions. There is mild narrowing of the medial femorotibial compartment. An enthesophyte is seen at the distal quadriceps tendon insertion. Soft tissues: No joint effusion. No suspicious soft tissue calcifications. Arterial vascular calcifications are present. IMPRESSION: No acute osseous abnormality. If clinical suspicion and/or symptoms persist, additional imaging with repeat plain films, or advanced imaging (e.g. CT, MRI) may be helpful for further assessment. Dictated by: Sammy Wilson M.D. on 07/03/2020 at 15:43 Approved by: Sammy Wilson M.D. on 07/03/2020 at 15:44
--- NOTE | 2020-07-03 16:00 | DI.CT.S_ITS ---
PROCEDURE: CT HEAD/BRAIN WO CON INDICATIONS: Trauma, fall and hit head on coffee table TECHNIQUE: Noncontrast 4.5 mm thick angled axial sections acquired from the foramen magnum to the vertex, with coronal and sagittal reformats. For radiation dose reduction, the following was used: automated exposure control, adjustment of mA and/or kV according to patient size. COMPARISON: None. FINDINGS: Image quality: Excellent. CSF spaces: Basal cisterns are patent. No extra-axial fluid collections. Ventricles are normal in size and shape. Brain: No midline shift. No intracranial masses or hemorrhage. [place]-white matter interface is normal. Skull and face: Calvarium and visualized facial bones are intact, without suspicious lesions. Sinuses: Visualized sinuses and mastoids are clear. IMPRESSION: No acute intracranial abnormality. Dictated by: Hoang De León M.D. on 07/03/2020 at 16:26 Approved by: Hoang De León M.D. on 07/03/2020 at 16:28
--- NOTE | 2020-07-03 16:00 | DI.CT.S_ITS ---
PROCEDURE: CT CERVICAL SPINE WO CON INDICATIONS: fall, hit head on coffee table, mid cervial tenderness TECHNIQUE: Noncontrast 3 mm thick sections acquired from the skull base to the T4 level. Sagittal and coronal reformats were then constructed. For radiation dose reduction, the following was used: automated exposure control, adjustment of mA and/or kV according to patient size. COMPARISON: None. FINDINGS: Image quality: Excellent. Bones: Straightening of the usual cervical lordosis. Otherwise normal alignment without listhesis. The facets are congruent without subluxation or dislocation. There is no fracture demonstrated. Soft tissues: Prevertebral soft tissues are normal in thickness. No paravertebral hematomas. IMPRESSION: No CT evidence of acute traumatic cervical spine injury. Dictated by: Hoang De León M.D. on 07/03/2020 at 16:28 Approved by: Hoang De León M.D. on 07/03/2020 at 16:32
--- NOTE | 2020-07-03 16:00 | DI.RAD.S_ITS ---
PROCEDURE: XR HIP W PEL IF DONE SHALONDA MIN 4V INDICATIONS: left hip/groin pain TECHNIQUE: AP view of the pelvis and frogleg lateral views of each hip. COMPARISON: None. FINDINGS: Bones: No acute fractures or dislocations. Pelvic ring appears intact. No suspicious bony lesions. Mild joint space narrowing and marginal osteophyte formation is seen in both hips. Soft tissues: The visualized bowel gas pattern is normal. No suspicious soft tissue calcifications. Arterial vascular calcifications are present. IMPRESSION: No acute osseous abnormality. Mild symmetric hip osteoarthrosis bilaterally. If clinical suspicion and/or symptoms persist, additional imaging with repeat plain films, or advanced imaging (e.g. CT, MRI) may be helpful for further assessment. Dictated by: Sammy Wilson M.D. on 07/03/2020 at 15:39 Approved by: Sammy Wilson M.D. on 07/03/2020 at 15:40
[2020-07-03] MEDS: ACETAMINOPHEN 325 MG TABLET 650 MG PO (16:33)
--- NOTE | 2020-07-03 20:27 | ED_ITS ---
HPI - Syncope <KEESHA Platt - Last Filed: 07/03/20 21:18> General Chief Complaint: Syncope Stated Complaint: syncope Time Seen by Provider: 07/03/20 15:34 Source: patient and EMS Mode of arrival: EMS Limitations: no limitations History of Present Illness HPI narrative: This is a 75-year-old female, nonsmoker, with past medical history significant for hyperlipidemia, renal failure who is on dialysis 3 times a week, hyponatremia, pneumonia, multiple falls and near syncope presents to ED with EMS after she had syncope. Patient reports usually she does not feel well after dialysis treatment which she received today and described as freezing to and exhausted. She had something to eat at home and slept in a chair bundled in a blanket. She states had a fall from syncopal episode whe she stood up and hit her head very hard on a coffee table. She had difficult time getting up and crawled to get her phone to make a phone call to get help. Patient required 3 persons EMS assistance. She reports pain in right upper head, left side neck, bilteral knee, mid chest wall and left hip/groin. Patient usually uses a walker for ambulation. Patient denies having chest pain, breathing difficulty, lightheadedness before the fall. She lives alone. Patient takes baby aspirin daily. Related Data Home Medications Medication Instructions Recorded Confirmed fluticasone propion-salmeterol 1 puff INH BID #0 09/06/16 04/18/18 [Advair Diskus] gabapentin 200 mg PO DAILY #0 09/06/16 04/18/18 aspirin [Aspir-81] 81 mg PO DAILY 08/09/17 04/18/18 atorvastatin 20 mg PO QPM 08/09/17 04/18/18 carvedilol 6.25 mg PO BID 08/09/17 04/18/18 ciprofloxacin HCl 125 mg PO BEDTIME 08/09/17 04/18/18 docusate sodium 100 mg PO DAILY 08/09/17 04/18/18 lamotrigine 150 mg PO DAILY 08/09/17 04/18/18 omeprazole 40 mg PO BID 08/09/17 04/18/18 trazodone 150 mg PO BEDTIME 08/09/17 04/18/18 calcium acetate 1 cap PO DAILY 04/18/18 04/18/18 citalopram 20 mg PO DAILY 04/18/18 04/18/18 cranberry 1 dose PO DAILY 04/18/18 04/18/18 febuxostat [Uloric] 80 mg PO DAILY 04/18/18 04/18/18 furosemide 80 mg PO BID 04/18/18 04/18/18 iron 1 tab PO DAILY 04/18/18 04/18/18 multivitamin [Daily-Christiano] 1 tab PO DAILY 04/18/18 04/18/18 oxybutynin chloride 15 mg PO DAILY 04/18/18 04/18/18 potassium chloride 10 meq PO DAILY 04/18/18 04/18/18 Previous Rx's Medication Instructions Recorded oxycodone-acetaminophen [Percocet] 1 tab PO Q6H PRN #10 tab 12/26/19 lidocaine [Lidoderm] 1 patch TOPICAL DAILY #15 ea 04/10/20 Allergies Allergy/AdvReac Type Severity Reaction Status Date / Time NSAIDS (Non-Steroidal AdvReac Severe CAUSED Verified 07/03/20 14:58 Anti-Inflamma KIDNEY [NSAIDS (NON-STEROIDAL DISEASE ANTI-INFLAMMA] Review of Systems <KEESHA Platt - Last Filed: 07/03/20 21:18> Review of Systems Narrative: General: See HPI HEENT: See HPI Respiratory: Denies dyspnea, cough, wheezing, hemoptysis, sputum. Cardiovascular: Denies chest pain, palpitations, orthopnea, edema. Gastrointestinal: Denies nausea, vomiting, abdominal pain, diarrhea, constipation, melena. : Denies dysuria, frequency, incontinence, hematuria, urinary retention. Musculoskeletal: See HPI Skin: Denies rash, skin lesions, or other. Neurologic: See HPI Psychiatric: No concerning psychosocial issues. 12-point review of systems is negative except for those stated above. Patient History <KEESHA Platt - Last Filed: 07/03/20 21:18> Medical History Bipolar 1 disorder CKD (chronic kidney disease) stage 4, GFR 15-29 ml/min Dyslipidemia Hypertension Renal failure (ARF), acute on chronic Surgically constructed arteriovenous fistula Surgical History H/O: S/P cholecystectomy Social History Smoking Status: Never smoker Smoking Status: Never smoker alcohol intake frequency: 0-2 drinks per day Substance Use Type: does not use Exam <KEESHA Platt - Last Filed: 07/03/20 21:18> Narrative Exam Narrative: GEN: Alert, oriented x 3, obese, and in no acute distress. Patient has rigid C-collar in placed by EMS prior to coming into ED. Head: Left parietal lobe swelling which is tender to palpate. EYES: Pupils are equal, round, and reactive to light and accommodation. Extraocular muscles are intact bilaterally. There is no subconjunctival hemorrhage, exudate and sclera non-icteric. ENT: Bilateral auditory canals and tympanic membranes clear without drainage or hemotympanum. Hearing grossly intact. Nose without bleeding, purulent discharge or deviation. Facial sinuses nontender to palpate. Mucous membrane moist, no mucosal lesion. Throat without erythema, tonsillar hypertrophy or exudate. Uvula in midline, airway patent. Neck: Trachea in midline. No JVD, non-tender without lymphadenopathy. No masses or thyroid megaly. Left and mid cervical tenderness to palpate. CARDIAC: Normal regular rate and rhythm without murmurs, gallops, or rubs. Mid chest wall tenderness to palpate. No peripheral edema, cyanosis or pallor. Capillary refill is less than 2 seconds. RESPIRATORY: Lungs are clear to auscultate bilaterally. No cough, wheezes, rales, or rhonchi. No stridor, respiratory distress, increase work of breathing, or accessary muscle used. ABD: Abdomen soft, nontender and non-distended. No guarding or rebound tenderness to palpate. Bowel sounds are normal in all 4 quadrants. There is no palpable masses or organomegaly. EXT: Bilateral knee pain without significant swelling, deformity, crepitus, or ecchymosis. Patient has equal strength and sensation bilaterally in upper and lower extremities. Bilateral hip tenderness with deep palpation and squeeze. Le ft groin pain with leg raise. SKIN: Warm, dry, normal color for patient. No erythema, lesions or rash over visible areas. BACK: Nontender without deformity or crepitance. No flank tenderness. NEUROLOGICAL: Alert and oriented to place, time and person. Sensation and motor function intact bilaterally. No facial droops, dysphasia. PSYCHIATRIC: Good judgement and reason, without hallucinations, abnormal affect or abnormal behaviors during the examination. Patient is not suicidal. Initial Vital Signs Initial Vital Signs: Vital Signs Pulse Rate 72 07/03/20 14:58 Respiratory Rate 22 07/03/20 14:58 Pulse Oximetry 94 07/03/20 14:58 <Kourtney Alvarado MD - Last Filed: 07/06/20 05:24> Initial Vital Signs Initial Vital Signs: Vital Signs Pulse Rate 72 07/03/20 14:58 Respiratory Rate 22 07/03/20 14:58 Pulse Oximetry 94 07/03/20 14:58 Scores <KEESHA Platt - Last Filed: 07/03/20 21:18> GCS [place] coma scale eye opening: Spontaneous Lizeth coma scale verbal response: Orientated [place] coma scale motor response: Obey commands [place] coma scale total score: 15 Course <KEESHA Platt - Last Filed: 07/03/20 21:18> Orders Ordered: Discontinued Medications Acetaminophen (Acetaminophen 325 Mg Tablet) 650 mg PO NOW ONE Stop: 07/03/20 16:01 Last Admin: 07/03/20 16:33 Dose: 650 mg Documented by: BELEM Vital Signs Vital signs: Vital Signs - 8 hr 07/03/20 14:58 07/03/20 14:59 07/03/20 15:00 Pulse Rate 72 66 67 Respiratory Rate 22 19 15 Blood Pressure 129/56 L Pulse Oximetry 94 92 94 07/03/20 15:30 07/03/20 16:00 07/03/20 16:01 Pulse Rate 66 65 65 Respiratory Rate 19 22 22 Blood Pressure 116/46 L 109/51 L Pulse Oximetry 07/03/20 16:35 07/03/20 16:37 07/03/20 17:00 Pulse Rate 66 64 Respiratory Rate 22 20 18 Blood Pressure 112/47 L 116/51 L Pulse Oximetry 07/03/20 17:17 07/03/20 17:19 Pulse Rate 69 73 Respiratory Rate 22 24 Blood Pressure 125/54 L 142/59 H Pulse Oximetry <Kourtney Alvarado MD - Last Filed: 07/06/20 05:24> Orders Ordered: Discontinued Medications Acetaminophen (Acetaminophen 325 Mg Tablet) 650 mg PO NOW ONE Stop: 07/03/20 16:01 Last Admin: 07/03/20 16:33 Dose: 650 mg Documented by: BELEM Vital Signs Vital signs: Vital Signs - 8 hr 07/03/20 14:58 07/03/20 14:59 07/03/20 15:00 Pulse Rate 72 66 67 Respiratory Rate 22 19 15 Blood Pressure 129/56 L Pulse Oximetry 94 92 94 07/03/20 15:30 07/03/20 16:00 07/03/20 16:01 Pulse Rate 66 65 65 Respiratory Rate 19 22 22 Blood Pressure 116/46 L 109/51 L Pulse Oximetry 07/03/20 16:35 07/03/20 16:37 07/03/20 17:00 Pulse Rate 66 64 Respiratory Rate 22 20 18 Blood Pressure 112/47 L 116/51 L Pulse Oximetry 07/03/20 17:17 07/03/20 17:19 Pulse Rate 69 73 Respiratory Rate 22 24 Blood Pressure 125/54 L 142/59 H Pulse Oximetry MDM - Syncope <KEESHA Platt - Last Filed: 07/03/20 21:18> Differential Diagnosis Differential diagnosis: Likely syncope due to orthostatic hypotension and other (Dehydration, ICH, abnormal labs, fractures/contusion in ribs, pelvis, knees; C- spine fracture, neck strain, arrhythmia) Medical Records Attestation: I reviewed the patient's medical records. Lab Data Attestation: I reviewed the patient's lab results. Result diagrams: 07/03/20 15:14 07/03/20 15:14 Labs: Lab Results 07/03/20 07/03/20 07/03/20 Range/Units 15:14 15:14 15:14 WBC 6.2 (4.5-11.0) X10^3/uL RBC 3.17 L (4.0-5.2) X10^6/uL Hgb 10.2 L (12.0-16.0) g/dL Hct 30.3 L (36-46) % MCV 95.6 (80-100) fL MCH 32.2 (26-34) PG MCHC 33.7 (30-36) % RDW 15.9 H (11.6-14.8) % Plt Count 237 (150-400) X10^3/uL Neut % (Auto) 75.8 H (50-75) % Lymph % (Auto) 11.2 L (25-40) % [place] % (Auto) 9.8 (3-14) % Eos % (Auto) 2.2 (2-4) % Baso % (Auto) 1.0 (0-2) % Neut # (Auto) 4700 (9263-8313) /uL Lymph # (Auto) 700 L (0627-3495) /uL [place] # (Auto) 600 (0-900) /uL Eos # (Auto) 100 (0-450) /uL Baso # (Auto) 100 (0-100) /uL PT 12.4 (10.1-12.7) SECONDS INR 1.1 (0.9-1.3) APTT 36 D (26.4-36.2) SECONDS Sodium 132 L (137-145) mmol/L Potassium 4.4 (3.4-5.1) mmol/L Chloride 93 L (98-107) mmol/L Carbon Dioxide 32 (22-32) mmol/L BUN 15 (7-17) mg/dL Creatinine 2.99 H (0.52-1.04) mg/dL Estimated GFR 15.2 L (>60) mL/min BUN/Creatinine Ratio 5.0 L (6-22) Glucose 210 H (80-110) mg/dL Calcium 8.6 (8.4-10.2) mg/dL Magnesium 1.8 (1.6-2.3) mg/dL Total Bilirubin 0.5 (0.2-1.3) mg/dL AST 18 (14-36) IU/L ALT 14 (<35) IU/L Alkaline Phosphatase 104 (38-126) U/L Total Creatine Kinase 47 (30-135) U/L CK-MB (CK-2) TNP CK-MB (CK-2) Rel Index TNP Troponin I < 0.012 (0.01-0.034) ng/mL Total Protein 6.2 L (6.3-8.2) g/dL Albumin 3.9 (3.5-5.0) g/dL Globulin 2.3 (1.7-4.1) g/dL Albumin/Globulin Ratio 1.7 (1.0-2.8) Lipase 22 L (23-300) U/L Imaging Data CT scan - head: Radiologist's Impression: [address] [id number] Scan ReportSigned Patient: Manju Bergman GMR#: [id number]: 1945cct:[id number]/Sex: 75 / FDate of Service: 07/03/20Loc: EDAccession Number: [id number] Procedure: CT head/brain wo con Ordering Provider: Gene McraeP PROCEDURE: CT HEAD/BRAIN WO CON INDICATIONS: Trauma, fall and hit head on coffee table TECHNIQUE: Noncontrast 4.5 mm thick angled axial sections acquired from the foramen magnum to the vertex, with coronal and sagittal reformats. For radiation dose reduction, the following was used: automated exposure control, adjustment of mA and/or kV according to patient size. COMPARISON: None. FINDINGS: Image quality: Excellent. CSF spaces: Basal cisterns are patent. No extra-axial fluid collections. Ventricles are normal in size and shape. Brain: No midline shift. No intracranial masses or hemorrhage. [place]-white matter interface is normal. Skull and face: Calvarium and visualized facial bones are intact, without suspicious lesions. Sinuses: Visualized sinuses and mastoids are clear. IMPRESSION: No acute intracranial abnormality. Dictated by: Hoang De León M.D. on 07/03/2020 at 16:26 Approved by: Hoang De León M.D. on 07/03/2020 at 16:28 CT-C spine: Radiologist's Impression: [address] [id number] Scan ReportSigned Patient: Manju Bergman GMR#: [id number]: 3Acct:[id number]/Sex: 75 / FDate of Service: 07/03/20Loc: EDAccession Number: [id number] Procedure: CT cervical spine wo con Ordering Provider: Gene Mcrae [facility] PROCEDURE: CT CERVICAL SPINE WO CON INDICATIONS: fall, hit head on coffee table, mid cervial tenderness TECHNIQUE: Noncontrast 3 mm thick sections acquired from the skull base to the T4 level. Sagittal and coronal reformats were then constructed. For radiation dose reduction, the following was used: automated exposure control, adjustment of mA and/or kV according to patient size. COMPARISON: None. FINDINGS: Image quality: Excellent. Bones: Straightening of the usual cervical lordosis. Otherwise normal alignment without listhesis. The facets are congruent without subluxation or dislocation. There is no fracture demonstrated. Soft tissues: Prevertebral soft tissues are normal in thickness. No paravertebral hematomas. IMPRESSION: No CT evidence of acute traumatic cervical spine injury. Dictated by: Hoang De León M.D. on 07/03/2020 at 16:28 Approved by: Hoang De León M.D. on 07/03/2020 at 16:32 Chest x-ray: Radiologist's Impression: [address] [id number] ReportSigned Patient: Manju Bergman GMR#: [id number]: 3Acct:[id number]/Sex: 75 / FDate of Service: 07/03/20Loc: EDAccession Number: [id number] Procedure: XR chest 1V Ordering Provider: Kourtney Alvarado MD PROCEDURE: XR CHEST 1V INDICATIONS: chest pain TECHNIQUE: One view of the chest was acquired. COMPARISON: [facility], CR, XR CHEST 1V, 04/10/2020, 16:47. [facility], , XR CHEST 1V, 04/04/2020, 13:04. FINDINGS: Surgical changes and devices: None. Lungs and pleura: Lungs are clear. No pleural effusions or pneumothorax. Mediastinum: Mediastinal contours appear normal but the pulmonary arteries bilaterally appear prominent in size as has been previously the case.. Heart size is normal. Bones and chest wall: No suspicious bony lesions. Overlying soft tissues appear unremarkable. IMPRESSION: A definite source of acute chest pain is not found. Suspect pulmonary artery hypertension given the prominence of the pulmonary arteries centrally, better seen on the right than the left. Dictated by: Cristino Hernandez M.D. on 07/03/2020 at 15:42 Approved by: Cristino Hernandez M.D. on 07/03/2020 at 15:43 XR-Hip/pelvis: Radiologist's Impression: [address] [id number] ReportSigned Patient: Manju Bergman R#: [id number]: 1945cct:[id number]/Sex: 75 / FDate of Service: 07/03/20Lo: EDAccession Number: [id number] Procedure: XR hip w pel if done SHALONDA 3to4V Ordering Provider: Gene McraeP PROCEDURE: XR HIP W PEL IF DONE SHALONDA MIN 4V INDICATIONS: left hip/groin pain TECHNIQUE: AP view of the pelvis and frogleg lateral views of each hip. COMPARISON: None. FINDINGS: Bones: No acute fractures or dislocations. Pelvic ring appears intact. No suspicious bony lesions. Mild joint space narrowing and marginal osteophyte formation is seen in both hips. Soft tissues: The visualized bowel gas pattern is normal. No suspicious soft tissue calcifications. Arterial vascular calcifications are present. IMPRESSION: No acute osseous abnormality. Mild symmetric hip osteoarthrosis bilaterally. If clinical suspicion and/or symptoms persist, additional imaging with repeat plain films, or advanced imaging (e.g. CT, MRI) may be helpful for further assessment. Dictated by: Sammy Wilson M.D. on 07/03/2020 at 15:39 Approved by: Sammy Wilson M.D. on 07/03/2020 at 15:40 XR-Knee RT: Radiologist's Impression: [address] [id number] ReportSigned Patient: Manju Bergman GMR#: [id number]: 3Acct:[id number]/Sex: 75 / FDate of Service: 07/03/20Loc: EDAccession Number: [id number] Procedure: XR knee RT 3V Ordering Provider: Gene Mcrae [facility] PROCEDURE: XR KNEE RT 3V INDICATIONS: right knee pain, fall TECHNIQUE: 3 views of the knee were acquired. COMPARISON: [facility], KNEE 3V LEFT, 09/06/2016, 0:11. FINDINGS: Bones: No acute fractures or dislocations. No suspicious bony lesions. There is mild narrowing of the medial femorotibial compartment. An enthesophyte is seen at the distal quadriceps tendon insertion. Soft tissues: No joint effusion. No suspicious soft tissue calcifications. Arterial vascular calcifications are present. IMPRESSION: No acute osseous abnormality. If clinical suspicion and/or symptoms persist, additional imaging with repeat plain films, or advanced imaging (e.g. CT, MRI) may be helpful for further assessment. Dictated by: Sammy Wilson M.D. on 07/03/2020 at 15:43 Approved by: Sammy Wilson M.D. on 07/03/2020 at 15:44 XR-Knee LT: Radiologist's Impression: [address] [id number] ReportSigned Patient: Manju Bergman GMR#: [id number]: 1945cct:[id number]/Sex: 75 / FDate of Service: 07/03/20Loc: EDAccession Number: [id number] Procedure: XR knee LT 3V Ordering Provider: Gene Mcrae PROCEDURE: XR KNEE LT 3V INDICATIONS: left knee pain, fall TECHNIQUE: 3 views of the knee were acquired. COMPARISON: [facility], , KNEE 3V LEFT, 09/06/2016, 0:11. FINDINGS: Bones: No acute fractures or dislocations. No suspicious bony lesions. Mild joint space narrowing is seen in the medial femorotibial compartment. Enthesophyte is seen at the distal quadriceps tendon insertion. Soft tissues: No joint effusion. No suspicious soft tissue calcifications. Arterial vascular calcifications are present. IMPRESSION: No acute osseous abnormality. If clinical suspicion and/or symptoms persist, additional imaging with repeat plain films, or advanced imaging (e.g. CT, MRI) may be helpful for further assessment. Dictated by: Sammy Wilson M.D. on 07/03/2020 at 15:41 Approved by: Sammy Wilson M.D. on 07/03/2020 at 15:42 ECG Data Attestation: I personally reviewed and interpreted this ECG as follows: Prior ECG tracings: available for review Interpretation: Sinus rhythm with sinus arrhythmia with first-degree AV block rate at 62. LA interval 212, QRS duration 124, QT/QTC 404/410 Q-waves in septal and lateral leads. No acute ST elevation Similar to previous EKG in March 2020. [facility] Narrative Medical decision making narrative: This is a 75-year-old female who has past medical history significant for renal failure and goes to dialysis for 3 times a week, hypertension, hyperlipidemia, frequent falls and syncopal episode presents to ED with local EMS after she had another syncopal episode after dialysis at home and had closed head injury after hitting her head on a coffee table with mid cervical and left neck tenderness with mother musculoskeletal pain with palpation during exam. Patient is alert and oriented x4 and neurologically intact. EKG sinus rhythm with first-degree AV block without acute ST changes or EKG changes from previous EKG tracing. Anemia with H&H 10.2/30.3 which is near patient's baseline. No leukocytosis. Normal coag. Mild sodium of 132 and chloride of 93. Creatinine of 2.99 which has improved from previous kidney function test which was 4.13. BUN 15. Estimated GFR today's 15.2. Serum glucose 210. Cardiac enzymes were negative. CT of head and neck with negative for acute findings. Imaging tests on chest, bilateral knees, hips and pelvis also negative for acute findings. Patient was able to flex and rotate neck after C-collar removed without difficulty. No neurological deficit in upper extremities. She was able to ambulate a few steps with a walker in ED. provided Tylenol for pain management which patient found to be helpful. Patient feels comfortable with going home with return precautions. Discussed with patient that using a walker may be more stable and try to take time with changing in positions. Return precautions discussed and she verbalized understanding in agreement with the treatment plan. <Kourtney Alvarado MD - Last Filed: 07/06/20 05:24> Lab Data Labs: Lab Results 07/03/20 07/03/20 07/03/20 Range/Units 15:14 15:14 15:14 WBC 6.2 (4.5-11.0) X10^3/uL RBC 3.17 L (4.0-5.2) X10^6/uL Hgb 10.2 L (12.0-16.0) g/dL Hct 30.3 L (36-46) % MCV 95.6 (80-100) fL MCH 32.2 (26-34) PG MCHC 33.7 (30-36) % RDW 15.9 H (11.6-14.8) % Plt Count 237 (150-400) X10^3/uL Neut % (Auto) 75.8 H (50-75) % Lymph % (Auto) 11.2 L (25-40) % [place] % (Auto) 9.8 (3-14) % Eos % (Auto) 2.2 (2-4) % Baso % (Auto) 1.0 (0-2) % Neut # (Auto) 4700 (3886-4925) /uL Lymph # (Auto) 700 L (7843-3517) /uL [place] # (Auto) 600 (0-900) /uL Eos # (Auto) 100 (0-450) /uL Baso # (Auto) 100 (0-100) /uL PT 12.4 (10.1-12.7) SECONDS INR 1.1 (0.9-1.3) APTT 36 D (26.4-36.2) SECONDS Sodium 132 L (137-145) mmol/L Potassium 4.4 (3.4-5.1) mmol/L Chloride 93 L (98-107) mmol/L Carbon Dioxide 32 (22-32) mmol/L BUN 15 (7-17) mg/dL Creatinine 2.99 H (0.52-1.04) mg/dL Estimated GFR 15.2 L (>60) mL/min BUN/Creatinine Ratio 5.0 L (6-22) Glucose 210 H (80-110) mg/dL Calcium 8.6 (8.4-10.2) mg/dL Magnesium 1.8 (1.6-2.3) mg/dL Total Bilirubin 0.5 (0.2-1.3) mg/dL AST 18 (14-36) IU/L ALT 14 (<35) IU/L Alkaline Phosphatase 104 (38-126) U/L Total Creatine Kinase 47 (30-135) U/L CK-MB (CK-2) TNP CK-MB (CK-2) Rel Index TNP Troponin I < 0.012 (0.01-0.034) ng/mL Total Protein 6.2 L (6.3-8.2) g/dL Albumin 3.9 (3.5-5.0) g/dL Globulin 2.3 (1.7-4.1) g/dL Albumin/Globulin Ratio 1.7 (1.0-2.8) Lipase 22 L (23-300) U/L Discharge Plan Departure Patient Disposition: Home Clinical Impression: Fall Qualifiers: Encounter type: initial encounter Qualified Code(s): W19.XXXA - Unspecified fall, initial encounter CHI (closed head injury) Qualifiers: Encounter type: initial encounter Qualified Code(s): S09.90XA - Unspecified injury of head, initial encounter Syncope Qualifiers: Syncope type: unspecified Qualified Code(s): R55 - Syncope and collapse Neck strain Qualifiers: Encounter type: initial encounter Qualified Code(s): S16.1XXA - Strain of muscle, fascia and tendon at neck level, initial encounter Instructions: DI for Syncope in Adults (Fainting), How to Prevent Falls, DI for Closed Head Injury, DI for Neck Pain, DI for Musculoskeletal Pain Activity Restrictions/Additional Instructions: You have been diagnosed with [syncope episode likely dehydration after dialysis cause closed head injury, neck strain, musculoskeletal pain. CT test of head and neck was negative. No acute findings in chest x-ray, bilateral hips/pelvis, bilateral knees.]. What to do: *Take your medications as directed. You can take [id number] Tylenol as needed for discomfort. *Follow up with your primary care provider in 2-3 days, call for an appointment. Let them know you were seen in the ED and that we asked you to be seen in follow up. *Return to ED if you have any new, worsening, or concerning symptoms, such as [chest pain, breathing difficulty, unusual behaviors, seizure activities, weakness/numbness/ tingling to extremities, syncope or any acute concerns]. Prescriptions: No Action fluticasone propion-salmeterol [Advair Diskus] 250 MCG/50 MCG blister with device 1 puff INH BID Qty: 0 RF: 0 gabapentin 100 MG capsule 200 mg PO DAILY Qty: 0 RF: 0 atorvastatin 20 mg Tablet 20 mg PO QPM RF: 0 docusate sodium 100 mg Capsule 100 mg PO DAILY RF: 0 lamotrigine 150 mg Tablet 150 mg PO DAILY RF: 0 carvedilol 6.25 mg Tablet 6.25 mg PO BID RF: 0 ciprofloxacin HCl 250 mg Tablet 125 mg PO BEDTIME RF: 0 omeprazole 40 mg Capsule,Delayed Release(Dr/Ec) 40 mg PO BID RF: 0 aspirin [Aspir-81] 81 mg Tablet,Delayed Release (Dr/Ec) 81 mg PO DAILY RF: 0 trazodone 150 mg Tablet 150 mg PO BEDTIME RF: 0 oxycodone-acetaminophen [Percocet] 5-325 mg tablet 1 tab PO Q6H PRN (Reason: pain) Qty: 10 RF: 0 multivitamin [Daily-Christiano] Tablet 1 tab PO DAILY RF: 0 oxybutynin chloride 15 mg tablet extended release 24hr 15 mg PO DAILY RF: 0 potassium chloride 10 mEq tablet extended release 10 meq PO DAILY RF: 0 citalopram 20 mg tablet 20 mg PO DAILY RF: 0 furosemide 80 mg tablet 80 mg PO BID RF: 0 febuxostat [Uloric] 80 mg tablet 80 mg PO DAILY RF: 0 calcium acetate 1 cap PO DAILY RF: 0 cranberry 1 dose PO DAILY RF: 0 iron 1 tab PO DAILY RF: 0 lidocaine [Lidoderm] 5 % adhesive patch,medicated 1 patch topical DAILY Qty: 15 RF: 0 Referrals: Karen Mustafa ARNP [Primary Care Provider] - <Kourtney Alvarado MD - Last Filed: 07/06/20 05:24> [facility] Att[facility]: I was immediately available in the department for consultation throughout this patient's visit. I agree with documentation as above. Kourtney Alvarado MD
== END 2020-07-03 17:48 | disposition home or self-care (01) ==
PROVIDERS: Emergency Medicine; Emergency Provider Nurse Practitioner Family; PCP Nurse Practitioner
DX: R55 Syncope and collapse (principal); N17.9 Acute kidney failure, unspecified; N18.9 Chronic kidney disease, unspecified; Z99.2 Dependence on renal dialysis; R29.6 Repeated falls; I44.0 Atrioventricular block, first degree; S16.1XXA Strain of muscle, fascia and tendon at neck level, initial encounter; S09.90XA Unspecified injury of head, initial encounter; W18.30XA Fall on same level, unspecified, initial encounter; W22.09XA Striking against other stationary object, initial encounter; Y92.009 Unspecified place in unspecified non-institutional (private) residence as the place of occurrence of the external cause
CPT/HCPCS: 36415; 70450; 71045; 72125; 73522; 73562; 80053; 82550; 83690; 83735; 84484; 85025; 85610; 85730; 93005; 93010; 99284

== ENCOUNTER → 2020-08-29 06:55 | Outpatient (CLI) | payer MEDICARE, SELFPAY ==
[2020-08-29 08:05] LABS: Add Manual Diff / Slide Review NO; Basophils Absolute Auto 100 /uL (0-100); Eosinophils Absolute Auto 100 /uL (0-450); Eosinophils Percent Auto 2.5 % (2-4); Hematocrit 33.6 % (36-46); Hemoglobin 11.2 g/dL (12.0-16.0); Lymphocytes Absolute Auto 1100 /uL (1100-4500); Lymphocytes Percent Auto 22.7 % (25-40); Mean Corpuscular HGB Conc 33.3 % (30-36); Mean Corpuscular Hemoglobin 32.2 PG (26-34); Mean Corpuscular Volume 96.7 fL (80-100); Monocytes Absolute Auto 600 /uL (0-900); Monocytes Percent Auto 12.5 % (3-14); Neutrophils Absolute Auto 3000 /uL (1500-7000); Neutrophils Percent Auto 61.3 % (50-75); Platelet Count 246 X10^3/uL (150-400); Red Blood Cell Count 3.48 X10^6/uL (4.0-5.2); Red Cell Distribution Width 15.7 % (11.6-14.8); White Blood Cell Count 4.9 X10^3/uL (4.5-11.0)
[2020-08-29 08:14] LABS: Hemoglobin A1C% w Est Avg Glu 6.2 % (4.0-6.0)
[2020-08-29 08:17] LABS: Alanine Aminotransferase 18 IU/L (<35); Albumin 4.3 g/dL (3.5-5.0); Albumin Globulin Ratio 1.7 (1.0-2.8); Alkaline Phosphatase 120 U/L (38-126); Aspartate Aminotransferase 22 IU/L (14-36); BUN Creatinine Ratio 5.1 (6-22); Bilirubin Total 0.4 mg/dL (0.2-1.3); Blood Urea Nitrogen 21 mg/dL (7-17); Calcium 9.8 mg/dL (8.4-10.2); Carbon Dioxide 30 mmol/L (22-32); Chloride 93 mmol/L (98-107); Cholesterol 91 mg/dL (140-199); Estimated Glomerular Filt Rate 10.5 mL/min (>60); Globulin 2.6 g/dL (1.7-4.1); Glucose 135 mg/dL (80-110); HDL Cholesterol 60 mg/dL (40-60); HEMOLYSIS < 15 (0-50); LDL Cholesterol Calculated 15 mg/dL (<100); Potassium 3.9 mmol/L (3.4-5.1); Sodium 134 mmol/L (137-145); Total Protein 6.9 g/dL (6.3-8.2); Triglycerides 82 mg/dL (35-150)
== END ==
PROVIDERS: PCP Nurse Practitioner; Referring Provider Nurse Practitioner; Visit Provider Nurse Practitioner
DX: E11.22 Type 2 diabetes mellitus with diabetic chronic kidney disease (principal); N18.6 End stage renal disease; Z99.2 Dependence on renal dialysis; Z79.4 Long term (current) use of insulin
CPT/HCPCS: 36415; 80053; 80061; 83036; 85025

== ENCOUNTER 2020-11-19 02:25 | Emergency (ER) | payer MEDICARE, SELFPAY ==
[2020-11-19] VITALS (48 sets, daily range): BP systolic 100–147; BP diastolic 54–97; PULSE 59–109; RESP 15–36; TEMP 36.6; O2SAT 81–100; BMI 42.9
--- NOTE | 2020-11-19 02:20 | ED.WEAKNESS ---
HPI - Weakness <Anthony DO Randy - Last Filed: 11/20/20 01:34> General Chief complaint: Fall Stated complaint: GLF, on floor since 1300 Time Seen by Provider: 11/19/20 02:25 History of Present Illness HPI Narrative: 75-year-old female nonsmoker with history of end-stage renal disease with dialysis on Tuesdays and Saturdays, hypertension, hyperlipidemia presents by EMS for evaluation. She had gone to her normally scheduled dialysis earlier today and got home around 03 10. She had ambulated to the bathroom and had a syncopal episode which resulted in her lying on the ground. She was not wearing her alert button and as a result has been crawling around on the floor and unable to get up for the past 15 hours or so. It is unclear she hit her head but assumed given some dried blood on her glasses. There is no obvious injury. She complains of multiple superficial abrasions on her elbows and knees and complains largely of right hip pain. She was found many feet away from where she had her fall and had been crawling around much of the day. She denies fever or chills. She denies chest pain or shortness of breath. She is not dizzy nor weak or lightheaded. She does not make urine. She denies any numbness, tingling or weakness of her extremities. Patient activated as a modified trauma given her age greater than 65 and suspected injury Related Data Home Medications Medication Instructions Recorded Confirmed gabapentin 100 mg capsule 300 mg PO 3XW #0 09/06/16 11/19/20 aspirin 81 mg tablet,delayed 81 mg PO DAILY 08/09/17 11/19/20 release (Aspir-) atorvastatin 20 mg tablet 20 mg PO QPM 08/09/17 11/19/20 docusate sodium 100 mg capsule 100 mg PO DAILY 08/09/17 11/19/20 lamotrigine 150 mg tablet 100 mg PO DAILY 08/09/17 11/19/20 omeprazole 40 mg capsule,delayed 40 mg PO BID 08/09/17 11/19/20 release citalopram 20 mg tablet 20 mg PO DAILY 04/18/18 11/19/20 cranberry 2 dose PO DAILY 04/18/18 11/19/20 oxybutynin chloride 15 mg 15 mg PO DAILY 04/18/18 11/19/20 tablet,extended release 24 hr Dialyvite 1 tab PO DAILY 11/19/20 11/19/20 fluticasone 250 mcg-salmeterol 50 2 inh INHALATION PRN PRN 11/19/20 11/19/20 mcg/dose blistr powdr for inhalation (Advair Diskus) gabapentin 100 mg capsule 200 mg PO 4XW 11/19/20 11/19/20 insulin glargine 100 unit/mL (3 See Rx Instructions .ROUTE .COMPLEX 11/19/20 11/19/20 mL) subcutaneous pen (Lantus Solostar U-100 Insulin) insulin lispro protamine-lispro 7 unit SUBCUT BEDTIME 11/19/20 11/19/20 100 unit/mL (75-25) subcutaneous pen (Humalog Mix 75-25 KwikPen) ketoconazole 2 % topical cream 1 applic TOPICAL BID 11/19/20 11/19/20 lactulose 10 gram/15 mL oral 45 ml PO TID 11/19/20 11/19/20 solution (Enulose) midodrine 10 mg tablet 20 mg PO TID 11/19/20 11/19/20 patiromer calcium sorbitex 8.4 8.4 g PO DAILY 11/19/20 11/19/20 gram oral powder packet (Veltassa) ropinirole 1 mg tablet 1 mg PO TID 11/19/20 11/19/20 sevelamer carbonate 800 mg tablet 1,600 mg PO TID 11/19/20 11/19/20 trazodone 150 mg tablet 150 mg PO BEDTIME 11/19/20 11/19/20 Allergies Allergy/AdvReac Type Severity Reaction Status Date / Time NSAIDS (Non-Steroidal AdvReac Severe CAUSED Verified 07/03/20 14:58 Anti-Inflamma KIDNEY [NSAIDS (NON-STEROIDAL DISEASE ANTI-INFLAMMA] Review of Systems <Anthony Padilla, DO - Last Filed: 11/20/20 01:34> Review of Systems Narrative: GENERAL: See HPI HEENT: Denies sinus pain, ear pain, sore throat, difficulty swallowing, dizziness. RESPIRATORY: Denies dyspnea, cough, wheezing, hemoptysis, sputum. CARDIOVASCULAR: Denies chest pain, palpitations, orthopnea, edema, GASTROINTESTINAL: Denies nausea, vomiting, abdominal pain, diarrhea, constipation, melena. : Denies dysuria, frequency, incontinence, hematuria, urinary retention. MUSCULOSKELETAL: See HPI SKIN: Denies rash, skin lesions, or other NEUROLOGIC: Denies weakness, headache, numbness, change in speech, confusion, seizures, incoordination. PSYCHIATRIC: No concerning psychosocial issues. 12 point review of systems is negative except for those stated above Patient History <Anthony Padilla DO - Last Filed: 11/20/20 01:34> Medical History (Updated 11/19/20 @ 17:23 by Christian Acosta DO) Bipolar 1 disorder CKD (chronic kidney disease) stage 4, GFR 15-29 ml/min Dyslipidemia Hypertension Renal failure (ARF), acute on chronic Surgically constructed arteriovenous fistula Surgical History H/O: S/P cholecystectomy Social History household members: none Smoking Status: Never smoker Exam <Anthony Padilla DO - Last Filed: 11/20/20 01:34> Narrative Exam Narrative: GENERAL: [75] year old patient appears stated age. Well-developed patient, in mild distress. GCS 15 HEAD: Atraumatic. Normocephalic. No obvious contusion, laceration or abrasion, there is dried blood noted on her glasses EYES: Pupils equal round and reactive. Extraocular motions intact. No scleral icterus. No injection or drainage. ENT: Nose without bleeding, purulent drainage. Throat without erythema, tonsillar hypertrophy or exudate. Airway patent. NECK: Trachea midline. Non tender CARDIOVASCULAR: Regular rate and rhythm without murmurs, gallops, or rubs. RESPIRATORY: Clear to auscultation. Breath sounds equal bilaterally. No wheezes, rales, or rhonchi. GASTROINTESTINAL: Abdomen soft, non-tender, nondistended. EXTREMITIES: Superficial abrasions on bilateral elbows. No edema or joint tenderness. Patient has full, painless range of motion of right hip, no shortening or external rotation BACK: Nontender without deformity or crepitance. No flank tenderness. NEURO: AOx3. SKIN: No rash or erythema of visible areas Initial Vital Signs Initial Vital Signs: Vital Signs Temperature 97.8 F 11/19/20 02:25 Pulse Rate 74 11/19/20 02:25 Respiratory Rate 17 11/19/20 02:25 Blood Pressure 147/65 H 11/19/20 02:25 Pulse Oximetry 98 11/19/20 02:25 <Christian Acosta DO - Last Filed: 11/19/20 17:23> Initial Vital Signs Initial Vital Signs: Vital Signs Temperature 97.8 F 11/19/20 02:25 Pulse Rate 74 11/19/20 02:25 Respiratory Rate 17 11/19/20 02:25 Blood Pressure 147/65 H 11/19/20 02:25 Pulse Oximetry 98 11/19/20 02:25 Course <Anthony Padilla DO - Last Filed: 11/20/20 01:34> Orders Ordered: Discontinued Medications Hydrocodone Bitart/Acetaminophen (Hydrocodone/Acet 5/325 Tablet) 1 tab PO NOW ONE Stop: 11/19/20 06:41 Last Admin: 11/19/20 06:59 Dose: 1 tab Documented by: HAILEY Hydrocodone Bitart/Acetaminophen (Hydrocodone/Acet 5/325 Tablet) 1 tab PO NOW ONE Stop: 11/19/20 11:41 Last Admin: 11/19/20 11:43 Dose: 1 tab Documented by: TONY Ondansetron HCl (Ondansetron 4 Mg/2 Ml Inj) 4 mg IV NOW ONE Stop: 11/19/20 10:24 Last Admin: 11/19/20 10:33 Dose: 4 mg Documented by: TONY Pantoprazole Sodium (Pantoprazole 40 Mg Vial) 40 mg IV NOW ONE Stop: 11/19/20 10:24 Last Admin: 11/19/20 10:33 Dose: 40 mg Documented by: TONY Reevaluation(s) Reevaluation #1: patient requesting to try to ambulate. With assistants at her side (not helping, just ready if she needs it) she is able to make it a lap in the ED with a few stops for dizziness or SOB, but makes it without incident or assistance Reevaluation #2: patient becomes too dizzy and weak to make it to the bathroom, requests bedside commode. Consultations Consultation #1: call to Nephrology at [facility]. Recommends against fluid hydration given lack of ability to transfer for HD. Recommends holding in ED, repeating labs over the day Time: 04:09 Consultation #2: call to cardiology. Dr. Lin agrees there is no acute concern for troponin. No specific recommendations or treatments, just trend enzymes. Time: 04:18 Consultation #3: call to [place] [facility]. Request fax to Vital Signs Vital signs: Vital Signs - 8 hr 11/19/20 09:30 11/19/20 09:31 11/19/20 09:55 Pulse Rate 88 88 89 Respiratory Rate 23 Blood Pressure 135/67 131/60 Pulse Oximetry 96 95 96 11/19/20 10:00 11/19/20 10:30 11/19/20 11:00 Pulse Rate 89 86 88 Respiratory Rate 21 18 Blood Pressure 128/63 128/58 L Pulse Oximetry 97 95 93 11/19/20 11:30 11/19/20 11:31 11/19/20 12:00 Pulse Rate 83 84 84 Respiratory Rate Blood Pressure 123/60 Pulse Oximetry 94 93 95 11/19/20 12:01 11/19/20 12:30 11/19/20 13:00 Pulse Rate 84 86 86 Respiratory Rate 24 Blood Pressure 134/77 Pulse Oximetry 92 99 98 11/19/20 13:34 11/19/20 13:35 11/19/20 14:00 Pulse Rate 93 H 95 H 90 Respiratory Rate 28 H Blood Pressure 125/59 L Pulse Oximetry 92 100 96 11/19/20 14:30 11/19/20 15:15 11/19/20 15:17 Pulse Rate 85 109 H 88 Respiratory Rate 22 15 Blood Pressure 133/97 H Pulse Oximetry 95 85 L 96 11/19/20 15:30 11/19/20 15:31 11/19/20 16:00 Pulse Rate 86 81 85 Respiratory Rate 20 20 Blood Pressure 113/77 Pulse Oximetry 100 99 91 11/19/20 16:05 11/19/20 16:30 11/19/20 16:31 Pulse Rate 86 85 84 Respiratory Rate 18 Blood Pressure 102/58 L Pulse Oximetry 98 98 96 <Christian Acosta DO - Last Filed: 11/19/20 17:23> Orders Ordered: Discontinued Medications Hydrocodone Bitart/Acetaminophen (Hydrocodone/Acet 5/325 Tablet) 1 tab PO NOW ONE Stop: 11/19/20 06:41 Last Admin: 11/19/20 06:59 Dose: 1 tab Documented by: HAILEY Hydrocodone Bitart/Acetaminophen (Hydrocodone/Acet 5/325 Tablet) 1 tab PO NOW ONE Stop: 11/19/20 11:41 Last Admin: 11/19/20 11:43 Dose: 1 tab Documented by: TONY Ondansetron HCl (Ondansetron 4 Mg/2 Ml Inj) 4 mg IV NOW ONE Stop: 11/19/20 10:24 Last Admin: 11/19/20 10:33 Dose: 4 mg Documented by: TONY Pantoprazole Sodium (Pantoprazole 40 Mg Vial) 40 mg IV NOW ONE Stop: 11/19/20 10:24 Last Admin: 11/19/20 10:33 Dose: 40 mg Documented by: TONY Vital Signs Vital signs: Vital Signs - 8 hr 11/19/20 09:30 11/19/20 09:31 11/19/20 09:55 Pulse Rate 88 88 89 Respiratory Rate 23 Blood Pressure 135/67 131/60 Pulse Oximetry 96 95 96 11/19/20 10:00 11/19/20 10:30 11/19/20 11:00 Pulse Rate 89 86 88 Respiratory Rate 21 18 Blood Pressure 128/63 128/58 L Pulse Oximetry 97 95 93 11/19/20 11:30 11/19/20 11:31 11/19/20 12:00 Pulse Rate 83 84 84 Respiratory Rate Blood Pressure 123/60 Pulse Oximetry 94 93 95 11/19/20 12:01 11/19/20 12:30 11/19/20 13:00 Pulse Rate 84 86 86 Respiratory Rate 24 Blood Pressure 134/77 Pulse Oximetry 92 99 98 11/19/20 13:34 11/19/20 13:35 11/19/20 14:00 Pulse Rate 93 H 95 H 90 Respiratory Rate 28 H Blood Pressure 125/59 L Pulse Oximetry 92 100 96 11/19/20 14:30 11/19/20 15:15 11/19/20 15:17 Pulse Rate 85 109 H 88 Respiratory Rate 22 15 Blood Pressure 133/97 H Pulse Oximetry 95 85 L 96 11/19/20 15:30 11/19/20 15:31 11/19/20 16:00 Pulse Rate 86 81 85 Respiratory Rate 20 20 Blood Pressure 113/77 Pulse Oximetry 100 99 91 11/19/20 16:05 11/19/20 16:30 11/19/20 16:31 Pulse Rate 86 85 84 Respiratory Rate 18 Blood Pressure 102/58 L Pulse Oximetry 98 98 96 MDM - Weakness <Anthony Padilla, DO - Last Filed: 11/20/20 01:34> Lab Data Result diagrams: 11/19/20 02:50 11/19/20 15:54 Labs: Lab Results 11/19/20 11/19/20 11/19/20 Range/Units 02:50 02:50 04:15 WBC 11.1 H (4.5-11.0) X10^3/uL RBC 4.29 (4.0-5.2) X10^6/uL Hgb 13.5 (12.0-16.0) g/dL Hct 41.2 (36-46) % MCV 96.1 (80-100) fL MCH 31.4 (26-34) PG MCHC 32.7 (30-36) % RDW 15.8 H (11.6-14.8) % Plt Count 282 (150-400) X10^3/uL Neut % (Auto) 82.0 H (50-75) % Lymph % (Auto) 9.5 L (25-40) % [place] % (Auto) 7.7 (3-14) % Eos % (Auto) 0.2 L (2-4) % Baso % (Auto) 0.6 (0-2) % Neut # (Auto) 9100 H (1481-1763) /uL Lymph # (Auto) 1000 L (2064-6040) /uL [place] # (Auto) 900 (0-900) /uL Eos # (Auto) 0 (0-450) /uL Baso # (Auto) 100 (0-100) /uL Sodium 134 L (137-145) mmol/L Potassium 4.3 (3.4-5.1) mmol/L Chloride 96 L (98-107) mmol/L Carbon Dioxide 24 (22-32) mmol/L BUN 32 H (7-17) mg/dL Creatinine 4.72 H (0.52-1.04) mg/dL Estimated GFR 9.0 L (>60) mL/min BUN/Creatinine Ratio 6.8 (6-22) Glucose 221 H (80-110) mg/dL Calcium 10.0 (8.4-10.2) mg/dL Phosphorus 2.6 L (2.8-4.1) mg/dL Magnesium 2.0 (1.6-2.3) mg/dL Total Bilirubin 0.6 (0.2-1.3) mg/dL AST 116 H (14-36) IU/L ALT 44 H (<35) IU/L Alkaline Phosphatase 104 (38-126) U/L Total Creatine Kinase 4701 H (30-135) U/L CK-MB (CK-2) 11.70 H (<2.37) ng/mL CK-MB (CK-2) Rel Index 0.2 L (1.5-5.0) % Troponin I 0.149 H* (0.01-0.034) ng/mL NT-Pro-B Natriuret Pep 73157 H (<450) pg/mL Total Protein 6.7 (6.3-8.2) g/dL Albumin 4.1 (3.5-5.0) g/dL Globulin 2.6 (1.7-4.1) g/dL Albumin/Globulin Ratio 1.6 (1.0-2.8) Lipase 31 (23-300) U/L SARS-CoV-2 (PCR) Negative (Negative) 11/19/20 11/19/20 11/19/20 Range/Units 05:15 11:15 15:54 WBC (4.5-11.0) X10^3/uL RBC (4.0-5.2) X10^6/uL Hgb (12.0-16.0) g/dL Hct (36-46) % MCV (80-100) fL MCH (26-34) PG MCHC (30-36) % RDW (11.6-14.8) % Plt Count (150-400) X10^3/uL Neut % (Auto) (50-75) % Lymph % (Auto) (25-40) % [place] % (Auto) (3-14) % Eos % (Auto) (2-4) % Baso % (Auto) (0-2) % Neut # (Auto) (2643-8552) /uL Lymph # (Auto) (4631-9664) /uL [place] # (Auto) (0-900) /uL Eos # (Auto) (0-450) /uL Baso # (Auto) (0-100) /uL Sodium 135 L 134 L 133 L (137-145) mmol/L Potassium 4.6 4.9 4.8 (3.4-5.1) mmol/L Chloride 97 L 95 L 94 L (98-107) mmol/L Carbon Dioxide 24 24 25 (22-32) mmol/L BUN 34 H 40 H 44 H (7-17) mg/dL Creatinine 4.90 H 5.38 H 5.72 H (0.52-1.04) mg/dL Estimated GFR 8.6 L 7.7 L 7.2 L (>60) mL/min BUN/Creatinine Ratio 6.9 7.4 7.7 (6-22) Glucose 168 H 246 H 203 H (80-110) mg/dL Calcium 10.0 10.2 10.1 (8.4-10.2) mg/dL Phosphorus (2.8-4.1) mg/dL Magnesium (1.6-2.3) mg/dL Total Bilirubin (0.2-1.3) mg/dL AST (14-36) IU/L ALT (<35) IU/L Alkaline Phosphatase (38-126) U/L Total Creatine Kinase 7249 H D 7384 H 6616 H (30-135) U/L CK-MB (CK-2) 16.50 H D 20.70 H 19.70 H (<2.37) ng/mL CK-MB (CK-2) Rel Index 0.2 L 0.3 L 0.3 L (1.5-5.0) % Troponin I 0.191 H* 0.220 H* 0.224 H* (0.01-0.034) ng/mL NT-Pro-B Natriuret Pep (<450) pg/mL Total Protein (6.3-8.2) g/dL Albumin (3.5-5.0) g/dL Globulin (1.7-4.1) g/dL Albumin/Globulin Ratio (1.0-2.8) Lipase (23-300) U/L SARS-CoV-2 (PCR) (Negative) Point of Care Testing Glucose POC [address] scan - head: Radiologist Impression: No acute intracranial process Chest x-ray: Radiologist Impression: Severe cardiomegaly with bilateral pulmonary vascular prominence ECG Data Interpretation: Normal sinus rhythm with rate of 78, nonspecific interventricular conduction delay with QRS 126, no obvious ST segmental elevations or depressions, no T-wave abnormalities. Unchanged from prior <Christian AcostaDO - Last Filed: 11/19/20 17:23> Lab Data Labs: Lab Results 11/19/20 11/19/20 11/19/20 Range/Units 02:50 02:50 04:15 WBC 11.1 H (4.5-11.0) X10^3/uL RBC 4.29 (4.0-5.2) X10^6/uL Hgb 13.5 (12.0-16.0) g/dL Hct 41.2 (36-46) % MCV 96.1 (80-100) fL MCH 31.4 (26-34) PG MCHC 32.7 (30-36) % RDW 15.8 H (11.6-14.8) % Plt Count 282 (150-400) X10^3/uL Neut % (Auto) 82.0 H (50-75) % Lymph % (Auto) 9.5 L (25-40) % [place] % (Auto) 7.7 (3-14) % Eos % (Auto) 0.2 L (2-4) % Baso % (Auto) 0.6 (0-2) % Neut # (Auto) 9100 H (9961-9063) /uL Lymph # (Auto) 1000 L (5673-8834) /uL [place] # (Auto) 900 (0-900) /uL Eos # (Auto) 0 (0-450) /uL Baso # (Auto) 100 (0-100) /uL Sodium 134 L (137-145) mmol/L Potassium 4.3 (3.4-5.1) mmol/L Chloride 96 L (98-107) mmol/L Carbon Dioxide 24 (22-32) mmol/L BUN 32 H (7-17) mg/dL Creatinine 4.72 H (0.52-1.04) mg/dL Estimated GFR 9.0 L (>60) mL/min BUN/Creatinine Ratio 6.8 (6-22) Glucose 221 H (80-110) mg/dL Calcium 10.0 (8.4-10.2) mg/dL Phosphorus 2.6 L (2.8-4.1) mg/dL Magnesium 2.0 (1.6-2.3) mg/dL Total Bilirubin 0.6 (0.2-1.3) mg/dL AST 116 H (14-36) IU/L ALT 44 H (<35) IU/L Alkaline Phosphatase 104 (38-126) U/L Total Creatine Kinase 4701 H (30-135) U/L CK-MB (CK-2) 11.70 H (<2.37) ng/mL CK-MB (CK-2) Rel Index 0.2 L (1.5-5.0) % Troponin I 0.149 H* (0.01-0.034) ng/mL NT-Pro-B Natriuret Pep 83027 H (<450) pg/mL Total Protein 6.7 (6.3-8.2) g/dL Albumin 4.1 (3.5-5.0) g/dL Globulin 2.6 (1.7-4.1) g/dL Albumin/Globulin Ratio 1.6 (1.0-2.8) Lipase 31 (23-300) U/L SARS-CoV-2 (PCR) Negative (Negative) 11/19/20 11/19/20 11/19/20 Range/Units 05:15 11:15 15:54 WBC (4.5-11.0) X10^3/uL RBC (4.0-5.2) X10^6/uL Hgb (12.0-16.0) g/dL Hct (36-46) % MCV (80-100) fL MCH (26-34) PG MCHC (30-36) % RDW (11.6-14.8) % Plt Count (150-400) X10^3/uL Neut % (Auto) (50-75) % Lymph % (Auto) (25-40) % [place] % (Auto) (3-14) % Eos % (Auto) (2-4) % Baso % (Auto) (0-2) % Neut # (Auto) (9825-3792) /uL Lymph # (Auto) (6715-7686) /uL [place] # (Auto) (0-900) /uL Eos # (Auto) (0-450) /uL Baso # (Auto) (0-100) /uL Sodium 135 L 134 L 133 L (137-145) mmol/L Potassium 4.6 4.9 4.8 (3.4-5.1) mmol/L Chloride 97 L 95 L 94 L (98-107) mmol/L Carbon Dioxide 24 24 25 (22-32) mmol/L BUN 34 H 40 H 44 H (7-17) mg/dL Creatinine 4.90 H 5.38 H 5.72 H (0.52-1.04) mg/dL Estimated GFR 8.6 L 7.7 L 7.2 L (>60) mL/min BUN/Creatinine Ratio 6.9 7.4 7.7 (6-22) Glucose 168 H 246 H 203 H (80-110) mg/dL Calcium 10.0 10.2 10.1 (8.4-10.2) mg/dL Phosphorus (2.8-4.1) mg/dL Magnesium (1.6-2.3) mg/dL Total Bilirubin (0.2-1.3) mg/dL AST (14-36) IU/L ALT (<35) IU/L Alkaline Phosphatase (38-126) U/L Total Creatine Kinase 7249 H D 7384 H 6616 H (30-135) U/L CK-MB (CK-2) 16.50 H D 20.70 H 19.70 H (<2.37) ng/mL CK-MB (CK-2) Rel Index 0.2 L 0.3 L 0.3 L (1.5-5.0) % Troponin I 0.191 H* 0.220 H* 0.224 H* (0.01-0.034) ng/mL NT-Pro-B Natriuret Pep (<450) pg/mL Total Protein (6.3-8.2) g/dL Albumin (3.5-5.0) g/dL Globulin (1.7-4.1) g/dL Albumin/Globulin Ratio (1.0-2.8) Lipase (23-300) U/L SARS-CoV-2 (PCR) (Negative) Point of Care Testing Glucose POC 176 MDM Narrative Medical decision making narrative: Dr acosta: Received turned over. Reviewed patient's history and physical. I performed my own independent evaluation. Currently waiting for transfer for dialysis/rhabdo my lysis and elevating troponins. Patient has had no chest pain and no shortness of breath since arrival here to the ER. She actually has improved somewhat and has been able to ambulate to the bathroom with a walker. She normally only uses a cane. Was seen by social work. Was seen by Physical therapy who stated that she does need a walker in order to ambulate. Patient is still feeling somewhat weak. We have been monitoring her labs throughout the day. Her potassium has remained unremarkable. Her CK initially increased but that seems to have plateaued. Her troponin also increased but this plateaued as well. She had no significant changes on her EKG. I did discuss the case with hospitalist at [facility]. They have accepted the patient in transfer. Patient understands the need for transport. She understands the need to be at a facility that has dialysis/cardiology/nephrology. Patient is currently stable for transport Discharge Plan Departure Patient Disposition: [facility] Clinical Impression: End stage renal disease on dialysis Rhabdomyolysis Qualifiers: Rhabdomyolysis type: non-traumatic Qualified Code(s): M62.82 - Rhabdomyolysis Prescriptions: No Action gabapentin 100 MG capsule 300 mg PO 3XW Qty: 0 RF: 0 atorvastatin 20 mg Tablet 20 mg PO QPM RF: 0 docusate sodium 100 mg Capsule 100 mg PO DAILY RF: 0 lamotrigine 150 mg Tablet 100 mg PO DAILY RF: 0 omeprazole 40 mg Capsule,Delayed Release(Dr/Ec) 40 mg PO BID RF: 0 aspirin [Aspir-81] 81 mg Tablet,Delayed Release (Dr/Ec) 81 mg PO DAILY RF: 0 fluticasone propion-salmeterol [Advair Diskus] 250-50 mcg/dose blister with device 2 inh INHALATION PRN PRN (Reason: Shortness Of Breath Or Wheezing) RF: 0 ropinirole 1 mg tablet 1 mg PO TID RF: 0 gabapentin 100 mg capsule 200 mg PO 4XW RF: 0 ketoconazole 2 % cream 1 applic TOPICAL BID RF: 0 midodrine 10 mg tablet 20 mg PO TID RF: 0 insulin lispro protamin-lispro [Humalog Mix 75-25 KwikPen] 100 unit/mL (75-25) Insulin Pen 7 unit SUBCUT BEDTIME RF: 0 lactulose [Enulose] 10 gram/15 mL solution 45 ml PO TID RF: 0 Lantus Solostar U-100 Insulin 100 unit/mL (3 mL) Insulin Pen See Rx Instructions .ROUTE .COMPLEX RF: 0 sevelamer carbonate 800 mg tablet 1,600 mg PO TID RF: 0 Veltassa 8.4 gram powder in packet 8.4 g PO DAILY RF: 0 Dialyvite 1 tab PO DAILY RF: 0 trazodone 150 mg tablet 150 mg PO BEDTIME RF: 0 oxybutynin chloride 15 mg tablet extended release 24hr 15 mg PO DAILY RF: 0 citalopram 20 mg tablet 20 mg PO DAILY RF: 0 cranberry 2 dose PO DAILY RF: 0 Referrals: Karen Mustafa ARNP [Primary Care Provider] -
--- NOTE | 2020-11-19 02:36 | DI.CT.S_ITS ---
PROCEDURE: CT HEAD/BRAIN WO CON INDICATIONS: fall with possible head injury TECHNIQUE: Noncontrast 4.5 mm thick angled axial sections acquired from the foramen magnum to the vertex, with coronal and sagittal reformats. For radiation dose reduction, the following was used: automated exposure control, adjustment of mA and/or kV according to patient size. COMPARISON: [facility], CT, CT HEAD/BRAIN WO CON, 07/03/2020, 16:08. FINDINGS: Image quality: Excellent. CSF spaces: Basal cisterns are patent. No extra-axial fluid collections. The ventricles are symmetric in size and shape. Brain: No intracranial bleeds or masses. There is cerebral volume loss for age, with resultant ventricular and sulcal prominence. There are periventricular and deep white matter chronic small vessel ischemic changes. There is intracranial internal carotid artery atherosclerosis. Skull and face: Calvarium and visualized facial bones appear intact, without suspicious lesions. Sinuses: Visualized sinuses and mastoids are clear. IMPRESSION: 1. No acute intracranial process. 2. Moderate atrophy and chronic microvascular ischemic changes. The above findings are concordant with preliminary report. Dictated by: Elysia Villalobos M.D. on 11/19/2020 at 7:34 Approved by: Elysia Villalobos M.D. on 11/19/2020 at 7:35
--- NOTE | 2020-11-19 02:36 | DI.RAD.S_ITS ---
PROCEDURE: XR CHEST 1V INDICATIONS: fall with possible injury TECHNIQUE: One view of the chest was acquired. COMPARISON: Located [facility], CR, XR CHEST 1V, 07/03/2020, 15:13. Located Within [facility], CR, XR CHEST 1V, 04/10/2020, 16:47. FINDINGS: Surgical changes and devices: None. Lungs and pleura: Prominent interstitial markings. No pleural effusions or pneumothorax. Mediastinum: Mediastinal contours appear unchanged. Prominent hilar markings. Calcifications at the aortic arch. Heart size is enlarged. Bones and chest wall: No suspicious bony lesions. No fracture identified. Overlying soft tissues appear unremarkable. IMPRESSION: No fracture identified. Pulmonary vasculature engorgement. Cardiomegaly. This report is concordant with the overnight preliminary interpretation. Dictated by: Alberto Paz M.D. on 11/19/2020 at 8:05 Approved by: Alberto Paz M.D. on 11/19/2020 at 8:07
--- NOTE | 2020-11-19 02:36 | DI.CT.S_ITS ---
PROCEDURE: CT PEL WO CON INDICATIONS: fall with hip injury TECHNIQUE: Noncontrast 3 mm axial sections acquired through the bony pelvis, with coronal and sagittal reformatting. COMPARISON: None. FINDINGS: Image quality: Excellent. Bones: Decreased mineralization. No fractures. Moderate, symmetric degenerative joint space loss and spurring in the femoroacetabular joints. Mild spurring and sclerosis at both sacroiliac joints. Soft tissues: No soft tissue hematoma. Increased quantity of solid rectal stool. Partially imaged normal appendix. Prior hysterectomy. Heavy multivessel atherosclerotic calcification. IMPRESSION: 1. No pelvic or hip fracture. 2. No significant soft tissue injury or fluid collection. 3. Heavy atherosclerotic calcification. 4. Concordant with preliminary report. Dictated by: Marta Ibrahim M.D. on 11/19/2020 at 8:19 Approved by: Marta Ibrahim M.D. on 11/19/2020 at 8:27
[2020-11-19 03:01] LABS: Add Manual Diff / Slide Review NO; Basophils Absolute Auto 100 /uL (0-100); Basophils Percent Auto 0.6 % (0-2); Eosinophils Absolute Auto 0 /uL (0-450); Eosinophils Percent Auto 0.2 % (2-4); Hematocrit 41.2 % (36-46); Hemoglobin 13.5 g/dL (12.0-16.0); Lymphocytes Absolute Auto 1000 /uL (1100-4500); Lymphocytes Percent Auto 9.5 % (25-40); Mean Corpuscular HGB Conc 32.7 % (30-36); Mean Corpuscular Hemoglobin 31.4 PG (26-34); Mean Corpuscular Volume 96.1 fL (80-100); Monocytes Absolute Auto 900 /uL (0-900); Monocytes Percent Auto 7.7 % (3-14); Neutrophils Absolute Auto 9100 /uL (1500-7000); Platelet Count 282 X10^3/uL (150-400); Red Blood Cell Count 4.29 X10^6/uL (4.0-5.2); Red Cell Distribution Width 15.8 % (11.6-14.8); White Blood Cell Count 11.1 X10^3/uL (4.5-11.0)
[2020-11-19 03:11] LABS: Alanine Aminotransferase 44 IU/L (<35); Albumin 4.1 g/dL (3.5-5.0); Albumin Globulin Ratio 1.6 (1.0-2.8); Alkaline Phosphatase 104 U/L (38-126); Aspartate Aminotransferase 116 IU/L (14-36); BUN Creatinine Ratio 6.8 (6-22); Bilirubin Total 0.6 mg/dL (0.2-1.3); Blood Urea Nitrogen 32 mg/dL (7-17); Carbon Dioxide 24 mmol/L (22-32); Chloride 96 mmol/L (98-107); Globulin 2.6 g/dL (1.7-4.1); Glucose 221 mg/dL (80-110); HEMOLYSIS < 15 (0-50); Lipase 31 U/L (23-300); Phosphorous 2.6 mg/dL (2.8-4.1); Potassium 4.3 mmol/L (3.4-5.1); Sodium 134 mmol/L (137-145); Total Protein 6.7 g/dL (6.3-8.2)
[2020-11-19 03:25] LABS: NT-proBNP (BNP-Adult 18+) 34300 pg/mL (<450)
[2020-11-19 03:27] LABS: Creatine Kinase 4701 U/L (30-135)
[2020-11-19 03:43] LABS: CKMB % Relative Index 0.2 % (1.5-5.0)
[2020-11-19 03:44] LABS: Troponin I 0.149 ng/mL (0.01-0.034)
[2020-11-19 05:01] LABS: COVID19 - ADMIT (NP swab/PCR) Negative (Negative)
--- NOTE | 2020-11-19 05:22 | PC.NURSE ---
Got pt up with the assistance of a walker after standing for a few second tokk to small step and became dizzy and had to lean on me and bed to prevent from falling she proceeded to sit back in the chair.
--- NOTE | 2020-11-19 05:28 | PC.NURSE ---
pt ambulated around the [place] of the ER with walker, she was steady through lap but did need to rest twice during lap.
[2020-11-19 05:30] LABS: BUN Creatinine Ratio 6.9 (6-22); Blood Urea Nitrogen 34 mg/dL (7-17); Carbon Dioxide 24 mmol/L (22-32); Chloride 97 mmol/L (98-107); Estimated Glomerular Filt Rate 8.6 mL/min (>60); Glucose 168 mg/dL (80-110); HEMOLYSIS 15 (0-50); Potassium 4.6 mmol/L (3.4-5.1); Sodium 135 mmol/L (137-145)
[2020-11-19 05:48] LABS: Creatine Kinase 7249 U/L (30-135)
[2020-11-19 06:05] LABS: CKMB % Relative Index 0.2 % (1.5-5.0)
[2020-11-19 06:06] LABS: Troponin I 0.191 ng/mL (0.01-0.034)
[2020-11-19] MEDS: HYDROCODONE/ACET 5/325 TABLET 1 TAB PO ×2 (06:59→11:43)
[2020-11-19] MEDS: ONDANSETRON 4 MG/2 ML INJ IV (10:33)
[2020-11-19] MEDS: PANTOPRAZOLE 40 MG VIAL IV (10:33)
[2020-11-19 11:37] LABS: BUN Creatinine Ratio 7.4 (6-22); Blood Urea Nitrogen 40 mg/dL (7-17); Calcium 10.2 mg/dL (8.4-10.2); Carbon Dioxide 24 mmol/L (22-32); Chloride 95 mmol/L (98-107); Estimated Glomerular Filt Rate 7.7 mL/min (>60); Glucose 246 mg/dL (80-110); Potassium 4.9 mmol/L (3.4-5.1); Sodium 134 mmol/L (137-145)
[2020-11-19 11:58] LABS: HEMOLYSIS 15 (0-50)
[2020-11-19 12:02] LABS: Creatine Kinase 7384 U/L (30-135)
[2020-11-19 12:14] LABS: CKMB % Relative Index 0.3 % (1.5-5.0)
--- NOTE | 2020-11-19 14:25 | PT.IIE ---
Medical History (Last Reviewed 11/19/20 @ 02:41 by Anthony Padilla DO) Bipolar 1 disorder CKD (chronic kidney disease) stage 4, GFR 15-29 ml/min Dyslipidemia Hypertension Renal failure (ARF), acute on chronic Surgically constructed arteriovenous fistula Physical Therapy Inpatient Evaluation/Re-Eval M1 PT/OT-IP Prior Functional Status Start: 11/19/20 16:06 Freq: Status: Active Protocol: Document 11/19/20 14:25 AB (Rec: 11/19/20 16:25 AB [id number]) Medical Review Prior Functional Status Medical History Reviewed Yes Communication able to make needs known Mobility and Gait pt stated that she is modified independent with all mobilities and ambulation using SPC indoors but occasionally without AD; uses a 4WW for outdoor mobility pt stated that she is able to drive and go to dialysis 3x/ week Social History Household Members none Living Arrangements House Number of Floors (Floors) One Floor Number of Stairs To Enter/Railing? 1 step to enter Home Environment Standard Height Toilet,Tub/ Shower Home Equipment Four Wheel Walker,Straight Cane,Shower Seat without Backrest,Hand Held Shower,Grab Bars Near Toilet,Grab Bars In Shower Additional Social History Comment pt sleeps on a recliner M2 PT-IP Current Condition Start: 11/19/20 16:06 Freq: Status: Active Protocol: Document 11/19/20 14:25 AB (Rec: 11/19/20 16:25 AB [id number]) Physical Therapy Current Condition Current Condition Evaluation Date 11/19/20 Treatment Diagnosis rhabdomyolysis; difficulty in walking Onset Date 11/19/20 Precautions Other Precautions falls M3 PT-IP Subjective Start: 11/19/20 16:06 Freq: Status: Active Protocol: Document 11/19/20 14:25 AB (Rec: 11/19/20 16:25 AB [id number]) Subjective Physical Therapy Visit Type Type Initial Evaluation Visit Start Time 14:25 Visit Stop Time 14:50 Total Visit Minutes 25 Notes PT eval ordered from ER to determine pt's mobility assistance and safety for d/c home. per Dr. Acosta, recommending pt to go to another facility for dialysis but at this time, no beds are available and if unsuccessful, pt might just need to go home and go for dialysis outpt and needs PT eval to assess. asked the doctor regarding troponin concerns and stated that troponin is high due to pt needing dialysis and that pt is not having an UT and cleared to do PT. Number of VAPOR COATER Visits 0 Physical Therapy Visit Comments Patient Comments pt is agreeable to do PT; stated that she still feels shaky M4 PT-IP Mobility and Gait Start: 11/19/20 16:06 Freq: Status: Active Protocol: Document 11/19/20 14:25 AB (Rec: 11/19/20 16:25 AB [id number]) PT-Transfer Assessment Sit to and From Stand Sit to and from Stand Standby Assistance,1 Person Assistance Equipment Transfer Assistive Device Gait Belt,Front Wheeled Walker Orthotic/Prosthetic Devices or Brace: No Transfer Ability Level of Assist Standby Assistance,Use of Upper Extremities Comments Mobility Comments pt sitting on chair. completed sit to stand SBA. ambulated ~ 50 ft using FWW SBA. pt has a 4WW at home and stated that it will not fit inside the house but the FWW will fit in. agreed to use FWW at home. informed pt that one can be dispensed to her if pt goes home. assisted pt on chair and positioned. call light and table placed within reach. informed nurse Ayah regarding pt's mobility and need of FWW if pt goes home. Gait Assessment Gait Gait Assistance Required: Standby Assistance Distance (Feet) 50 Able to Maintain Weight Bearing Status Yes During Gait Assistive Devices Assistive Device Gait Belt,Front Wheeled Walker Orthotic/Prosthetic Devices or Brace: No Gait Deviations General Gait Pattern Decreased Stride Length, Decreased Feet Clearance,Step- to Gait Factors Limiting Gait Function Factors Limiting Gait Function Decreased Activity Tolerance, Decreased Strength,Poor Balance Comments Gait Comments pls refer to mobility section for details PT-Balance Assessment Sitting Balance and Reactions Static Sitting Balance Ability Good Dynamic Sitting Balance Ability Good Standing Balance and Reactions Static Standing Balance Ability Fair Dynamic Standing Balance Ability Fair Device Used FWW M5 PT-IP Objective Assessments Start: 11/19/20 16:06 Freq: Status: Active Protocol: Document 11/19/20 14:25 AB (Rec: 11/19/20 16:25 AB [id number]) Orientation Orientation/Cognition Level of Alertness Alert Orientation Name,Place,Situation Language Function Ability No Deficits Noted Safety Awareness Understands Safety Issues Memory Description No Deficits Noted Gross Range of Motion Lower Extremity ROM Assessment Within Functional Limits Strength Lower Extremity Strength Assessment Within Functional Limits Muscle Tone Muscle Tone WNL Yes M6 PT-IP Treatment Start: 11/19/20 16:06 Freq: Status: Active Protocol: Document 11/19/20 14:25 AB (Rec: 11/19/20 16:25 AB [id number]) Physical Therapy Treatment Education Education Provided Safety M7 PT-IP Assessment and Plan Start: 11/19/20 16:06 Freq: Status: Active Protocol: Document 11/19/20 14:25 AB (Rec: 11/19/20 16:25 AB [id number]) PT Summary Assessment and Plan Potential Rehabilitation Potential Fair Status of Condition at Evaluation Stable Summary Impairments Pain,ROM,Strength,Balance, Coordination,Sensation,Tone, Cognition,Bed Mobility, Transfers,Gait,Activity Tolerance Assessment Summary Received PT eval to determine pt's mobility assistance and safety to d/c home. pt requiring SBA with mobility using FWW. recommending use of FWW at this time. Pt agreed and stated that she feels steadier with the FWW. informed nurse and understood that FWW should be dispensed to pt if pt goes home instead of going to another facility. pt stated that her daughter will be able to assist her if needed but cannot stay with her. If pt stays here in the hospital, PT to continue to improve activity tolerance and ambulation training to improve independence. Goals Bed Mobility Goal Independent Transfer Goal Independent,Front Wheeled Walker,Four Wheeled Walker Gait Goal Independent,Front Wheel Walker ,Four Wheel Walker Gait Distance 150 Other Goals up/down 1 step using FWW/4WW SBA ambulation using SPC 75 ft mod I Days to Meet Goals 5 Frequency of Treatment Frequency Of Treatment Once a Day Treatment Plan Physical Therapy Treatment Plan Bed Mobility Training,Transfer Training,Gait Training, Therapeutic Exercise,Balance Retraining,Discharge Planning, Neuromuscular Re-ed, Coordination Retraining Recommendations To Nursing Amount of Assist Needed 1 Person Assist Discharge Recommendations PT Discharge Recommendations Home with Assistance,Home Health Equipment Needed for Home Before FWW Discharge Transportation Needs at Discharge Private Vehicle,Wheelchair/ Cabulance
--- NOTE | 2020-11-19 14:32 | CM.SWNOTE ---
CASH CHECKER Note CASH CHECKER receives consult and enters room. Patient presents to the ED with concern after recent GLF. Patient is 75 y/o female with hx of end-stage renal disease with scheduled dialysis three days a week. Patient endorses that she has dialysis scheduled for tomorrow. Patient endorses she has a FWW with seat at home for ambulation and has had her home assessed by OT for safety. Patient endorses she has done HH before and is not interested in HH. CASH CHECKER discusses caregivers at home and CASH CHECKER provides patient with senior resource guide and list of DME providers. Patient endorses that she drives independently but does not feel comfortable driving right now due to her current weakness. Patient endorses that she has good friends and supports, patient endorses her daughter lives near by and can drive her if needed. CASH CHECKER discusses that patient is awaiting a PT to evaulate her and the ED provider will assess if patient can d/c to home or transfer to another hospital. Patient endorses she would like to find out today to coordinate or reschedule her dialysis appt tomorrow. Plan: CASH CHECKER to f/u with patient after PT eval and with ED provider for POC DRAKE Nguyen
[2020-11-19 16:13] LABS: BUN Creatinine Ratio 7.7 (6-22); Blood Urea Nitrogen 44 mg/dL (7-17); Calcium 10.1 mg/dL (8.4-10.2); Carbon Dioxide 25 mmol/L (22-32); Chloride 94 mmol/L (98-107); Estimated Glomerular Filt Rate 7.2 mL/min (>60); Glucose 203 mg/dL (80-110); HEMOLYSIS 18 (0-50); Potassium 4.8 mmol/L (3.4-5.1); Sodium 133 mmol/L (137-145)
[2020-11-19 16:27] LABS: Troponin I 0.224 ng/mL (0.01-0.034)
[2020-11-19 16:28] LABS: Creatine Kinase 6616 U/L (30-135)
[2020-11-19 16:44] LABS: CKMB % Relative Index 0.3 % (1.5-5.0)
== END 2020-11-19 17:37 | disposition short-term general hospital (02) ==
PROVIDERS: Emergency Medicine; Emergency Provider Emergency Medicine; PCP Nurse Practitioner
DX: N18.6 End stage renal disease (principal); Z99.2 Dependence on renal dialysis; M62.82 Rhabdomyolysis; Z20.822 Contact with and (suspected) exposure to COVID-19
CPT/HCPCS: 36415; 70450; 71045; 72192; 80048; 80053; 82550; 82553; 82962; 83690; 83735; 83880; 84100; 84484; 85025; 87635; 93005; 96374; 96375; 97161; 99285; C9803; C9113; J2405

== ENCOUNTER 2020-11-25 11:30 | Emergency (ER) | payer MEDICARE, SELFPAY ==
[2020-11-25] VITALS (61 sets, daily range): BP systolic 62–163; BP diastolic 27–90; PULSE 34–90; RESP 16–40; TEMP 36.6; O2SAT 86–98; BMI 43.2
--- NOTE | 2020-11-25 12:03 | ED_ITS ---
HPI - Arrhythmia/Palpitations General Chief Complaint: Arrhythmia/Palpitations Stated Complaint: Bradycardia Time Seen by Provider: 11/25/20 11:36 Source: patient and EMS Mode of arrival: EMS History of Present Illness HPI narrative: Patient is a 75-year-old female who is brought in by EMS for evaluation of fatigue. Patient was seen in this emergency department approximately 1 week ago after sustaining a fall at home. She did have rhab domyolysis. She is end-stage renal disease on dialysis. She was eventually transferred to [facility] where she was discharged yesterday early afternoon. During that time she did receive dialysis. She did have a short course of dialysis yesterday just remove extra fluid. She is scheduled to have dialysis today. She was also being worked up for a low heart rate. She does have a monitor on for this. She states that yesterday she was discharged feeling just like what she is feeling today. She is stating that she is having some chest discomfort and shortness of breath but the shortness of breath is not new for her. Related Data Home Medications Medication Instructions Recorded Confirmed gabapentin 100 mg capsule 300 mg PO 3XW #0 09/06/16 11/19/20 aspirin 81 mg tablet,delayed 81 mg PO DAILY 08/09/17 11/19/20 release (Aspir-) atorvastatin 20 mg tablet 20 mg PO QPM 08/09/17 11/19/20 docusate sodium 100 mg capsule 100 mg PO DAILY 08/09/17 11/19/20 lamotrigine 150 mg tablet 100 mg PO DAILY 08/09/17 11/19/20 omeprazole 40 mg capsule,delayed 40 mg PO BID 08/09/17 11/19/20 release citalopram 20 mg tablet 20 mg PO DAILY 04/18/18 11/19/20 cranberry 2 dose PO DAILY 04/18/18 11/19/20 oxybutynin chloride 15 mg 15 mg PO DAILY 04/18/18 11/19/20 tablet,extended release 24 hr Dialyvite 1 tab PO DAILY 11/19/20 11/19/20 fluticasone 250 mcg-salmeterol 50 2 inh INHALATION PRN PRN 11/19/20 11/19/20 mcg/dose blistr powdr for inhalation (Advair Diskus) gabapentin 100 mg capsule 200 mg PO 4XW 11/19/20 11/19/20 insulin glargine 100 unit/mL (3 See Rx Instructions .ROUTE .COMPLEX 11/19/20 11/19/20 mL) subcutaneous pen (Lantus Solostar U-100 Insulin) insulin lispro protamine-lispro 7 unit SUBCUT BEDTIME 11/19/20 11/19/20 100 unit/mL (75-25) subcutaneous pen (Humalog Mix 75-25 KwikPen) ketoconazole 2 % topical cream 1 applic TOPICAL BID 11/19/20 11/19/20 lactulose 10 gram/15 mL oral 45 ml PO TID 11/19/20 11/19/20 solution (Enulose) midodrine 10 mg tablet 20 mg PO TID 11/19/20 11/19/20 patiromer calcium sorbitex 8.4 8.4 g PO DAILY 11/19/20 11/19/20 gram oral powder packet (Veltassa) ropinirole 1 mg tablet 1 mg PO TID 11/19/20 11/19/20 sevelamer carbonate 800 mg tablet 1,600 mg PO TID 11/19/20 11/19/20 trazodone 150 mg tablet 150 mg PO BEDTIME 11/19/20 11/19/20 Allergies Allergy/AdvReac Type Severity Reaction Status Date / Time NSAIDS (Non-Steroidal AdvReac Severe CAUSED Verified 07/03/20 14:58 Anti-Inflamma KIDNEY [NSAIDS (NON-STEROIDAL DISEASE ANTI-INFLAMMA] Review of Systems Constitutional Constitutional: Reports as per HPI, Reports chills, Reports fatigue and Denies fever(s) Cardiovascular Cardiovascular: Reports as per HPI Respiratory Respiratory: Reports as per HPI Gastrointestinal Gastrointestinal: Reports system reviewed and no additional complaints, except as documented Musculoskeletal Musculoskeletal: Reports system reviewed and no additional complaints, except as documented Integumentary/Breasts Skin/Breast: Reports system reviewed and no additional complaints, except as documented Neurologic Neurologic: Reports system reviewed and no additional complaints, except as documented Endocrine Endocrine: Reports fatigue Hematologic/Lymphatic On Anticoagulants: No Allergic/Immunologic Allergic/Immunologic: Reports system reviewed and no additional complaints, except as documented Patient History Medical History (Updated 11/25/20 @ 14:44 by Christian Acosta DO) Bipolar 1 disorder CKD (chronic kidney disease) stage 4, GFR 15-29 ml/min Dyslipidemia Hypertension Renal failure (ARF), acute on chronic Surgically constructed arteriovenous fistula Surgical History H/O: S/P cholecystectomy Social History household members: none Smoking Status: Never smoker Smoking Status: Never smoker alcohol intake frequency: 0-2 drinks per day Substance Use Type: does not use Exam Initial Vital Signs Initial Vital Signs: Vital Signs Pulse Rate 38 L 11/25/20 11:39 Respiratory Rate 33 H 11/25/20 11:39 Pulse Oximetry 92 11/25/20 11:39 Const General: cooperative and comfortable HENMT Head: normal to inspection and normocephalic Eyes General: appearance normal, both eyes and all related structures Resp Effort & Inspection: normal respiratory effort Auscultation: clear to auscultation bilaterally Cardio Rate: bradycardic Rhythm: regular rhythm Skin General: no rashes or lesions noted Neuro General: patient alert, patient awake and patient oriented x3 Extrem General: capillary refill normal Psych Appearance: well kempt Course Orders Ordered: ED Orders 11/25/20 11:38 EKG-12 Lead Stat 11/25/20 12:12 COVID19 -Nasal swab/Pre-Proc Stat 11/25/20 12:43 Complete Blood Count AUTO DIFF Stat Lactate (Lactic Acid) Stat 11/25/20 13:29 Comprehensive Metabolic Panel Stat Ethanol (ETOH) Stat Lipase Stat 11/25/20 13:43 CT angio chest abdomen pelvis Stat CT head/brain wo con Stat Dopamine HCl/Dextrose (Dopamine 400 Mg-D5w 250 Ml) 400 mg in 250 mls @ 21.432 mls/hr IV TITRATE JASON; Protocol Last Titration: 11/25/20 14:27 Dose: 5 mcg/kg/min, 21.432 mls/hr Documented by: Titration: 11/25/20 14:22 Dose: 2 mcg/kg/min, 8.573 mls/hr Documented by: Titration: 11/25/20 13:41 Dose: 0 mcg/kg/min, 0 mls/hr Documented by: Admin: 11/25/20 13:34 Dose: 5 mcg/kg/min, 21.432 mls/hr Documented by: ZULEIMA Discontinued Medications Albuterol (Albuterol 2.5 Mg/3 Ml Neb (Adult)) 5 mg INH NOW ONE Stop: 11/25/20 14:09 Last Admin: 11/25/20 14:31 Dose: 5 mg Documented by: ZULEIMA Atropine Sulfate (Atropine 1 Mg/10 Ml Syringe) 0.5 mg IV NOW ONE Stop: 11/25/20 12:36 Last Admin: 11/25/20 12:37 Dose: 0.5 mg Documented by: NAHUM Atropine Sulfate (Atropine 1 Mg/10 Ml Syringe) 0.5 mg IV NOW ONE Stop: 11/25/20 13:06 Last Admin: 11/25/20 13:01 Dose: 0.5 mg Documented by: NAHUM Calcium Gluconate 4.65 meq/ (Sodium Chloride) 60 mls @ 180 mls/hr IV NOW ONE Stop: 11/25/20 14:27 Last Titration: 11/25/20 15:01 Dose: Infused Documented by: Insulin Human Regular (Insulin Regular 100 Unit/Ml 3 Ml Vial) 5 unit IV NOW ONE Stop: 11/25/20 14:10 Last Admin: 11/25/20 14:34 Dose: 5 unit Documented by: Vital Signs Vital signs: Vital Signs - 8 hr 11/25/20 11:39 11/25/20 11:40 11/25/20 11:45 Temperature 97.9 F Pulse Rate 38 L 38 L 37 L Respiratory Rate 33 H 30 H 29 H Blood Pressure 99/37 L Pulse Oximetry 92 90 L 88 L 11/25/20 11:50 11/25/20 11:55 11/25/20 12:00 Temperature Pulse Rate 38 L 35 L 36 L Respiratory Rate 25 H 27 H 26 H Blood Pressure Pulse Oximetry 92 87 L 96 11/25/20 12:02 11/25/20 12:05 11/25/20 12:10 Temperature Pulse Rate 36 L 36 L 36 L Respiratory Rate 30 H 28 H 26 H Blood Pressure 91/45 L Pulse Oximetry 97 96 96 11/25/20 12:15 11/25/20 12:20 11/25/20 12:25 Temperature Pulse Rate 35 L 35 L 35 L Respiratory Rate 26 H 27 H 24 Blood Pressure Pulse Oximetry 97 97 97 11/25/20 12:30 11/25/20 12:31 11/25/20 12:35 Temperature Pulse Rate 34 L 35 L 35 L Respiratory Rate 26 H 25 H 24 Blood Pressure 67/29 L Pulse Oximetry 97 97 98 11/25/20 12:37 11/25/20 12:40 11/25/20 12:45 Temperature Pulse Rate 45 L 47 L 46 L Respiratory Rate 26 H 27 H 25 H Blood Pressure 75/38 L Pulse Oximetry 98 96 96 11/25/20 12:46 11/25/20 12:58 11/25/20 13:00 Temperature Pulse Rate 45 L 44 L 45 L Respiratory Rate 25 H 27 H 28 H Blood Pressure 106/47 L 69/44 L Pulse Oximetry 95 94 94 11/25/20 13:05 11/25/20 13:06 11/25/20 13:10 Temperature Pulse Rate 46 L 45 L 44 L Respiratory Rate 27 H 26 H 25 H Blood Pressure 74/38 L Pulse Oximetry 94 95 93 11/25/20 13:11 11/25/20 13:15 11/25/20 13:16 Temperature Pulse Rate 45 L 45 L 44 L Respiratory Rate 26 H 24 25 H Blood Pressure 109/64 109/51 L Pulse Oximetry 94 96 95 11/25/20 13:20 11/25/20 13:21 11/25/20 13:25 Temperature Pulse Rate 43 L 44 L 42 L Respiratory Rate 23 24 24 Blood Pressure 73/38 L Pulse Oximetry 94 92 96 11/25/20 13:26 11/25/20 13:30 11/25/20 13:35 Temperature Pulse Rate 43 L 41 L 41 L Respiratory Rate 24 25 H 25 H Blood Pressure 81/40 L 62/27 L Pulse Oximetry 96 94 95 11/25/20 13:36 11/25/20 13:40 11/25/20 13:41 Temperature Pulse Rate 42 L 69 74 Respiratory Rate 24 29 H 27 H Blood Pressure 97/52 L 163/60 H Pulse Oximetry 94 91 87 L 11/25/20 13:45 11/25/20 13:50 11/25/20 13:55 Temperature Pulse Rate 80 54 L 50 L Respiratory Rate 29 H 26 H 25 H Blood Pressure 136/60 135/60 Pulse Oximetry 87 L 88 L 89 L 11/25/20 13:57 11/25/20 14:00 11/25/20 14:05 Temperature Pulse Rate 53 L 51 L 48 L Respiratory Rate 32 H 29 H 30 H Blood Pressure 72/36 L 79/41 L Pulse Oximetry 91 91 95 11/25/20 14:10 11/25/20 14:14 11/25/20 14:15 Temperature Pulse Rate 43 L 49 L 47 L Respiratory Rate 25 H 28 H 26 H Blood Pressure 90/30 L Pulse Oximetry 95 96 95 11/25/20 14:20 11/25/20 14:23 11/25/20 14:25 Temperature Pulse Rate 46 L 45 L 44 L Respiratory Rate 26 H 25 H 23 Blood Pressure 69/29 L Pulse Oximetry 95 96 96 11/25/20 14:27 11/25/20 14:30 11/25/20 14:35 Temperature Pulse Rate 45 L 67 89 Respiratory Rate 23 26 H 27 H Blood Pressure 80/41 L 93/46 L Pulse Oximetry 95 93 91 11/25/20 14:39 11/25/20 14:40 11/25/20 14:41 Temperature Pulse Rate 87 87 86 Respiratory Rate 27 H 29 H 28 H Blood Pressure 123/90 132/73 Pulse Oximetry 93 92 92 11/25/20 14:45 11/25/20 14:50 11/25/20 14:55 Temperature Pulse Rate 90 88 87 Respiratory Rate 40 H 28 H 29 H Blood Pressure 136/61 126/58 L 124/56 L Pulse Oximetry 91 90 L 89 L 11/25/20 15:00 11/25/20 15:01 Temperature 98 F Pulse Rate 83 83 Respiratory Rate 28 H 27 H Blood Pressure 140/61 Pulse Oximetry 88 L 88 L MDM - Arrhythmia/Palpitations Medical Records Attestation: I reviewed the patient's medical records. Lab Data Attestation: I reviewed the patient's lab results. Result diagrams: 11/25/20 12:43 11/25/20 13:29 Labs: Lab Results 11/25/20 11/25/20 11/25/20 Range/Units 12:12 12:43 12:43 WBC 12.3 H (4.5-11.0) X10^3/uL RBC 3.45 L (4.0-5.2) X10^6/uL Hgb 11.0 L (12.0-16.0) g/dL Hct 34.4 L (36-46) % MCV 99.8 D (80-100) fL MCH 31.9 (26-34) PG MCHC 32.0 (30-36) % RDW 16.3 H (11.6-14.8) % Plt Count 216 (150-400) X10^3/uL Neut % (Auto) 75.2 H (50-75) % Lymph % (Auto) 12.0 L (25-40) % [place] % (Auto) 12.0 (3-14) % Eos % (Auto) 0.2 L (2-4) % Baso % (Auto) 0.6 (0-2) % Neut # (Auto) 9200 H (3476-5572) /uL Lymph # (Auto) 1500 (4363-7904) /uL [place] # (Auto) 1500 H (0-900) /uL Eos # (Auto) 0 (0-450) /uL Baso # (Auto) 100 (0-100) /uL Sodium (137-145) mmol/L Potassium (3.4-5.1) mmol/L Chloride (98-107) mmol/L Carbon Dioxide (22-32) mmol/L BUN (7-17) mg/dL Creatinine (0.52-1.04) mg/dL Estimated GFR (>60) mL/min BUN/Creatinine Ratio (6-22) Glucose (80-110) mg/dL Lactate 3.2 H (0.7-2.1) mmol/L Calcium (8.4-10.2) mg/dL Total Bilirubin (0.2-1.3) mg/dL AST (14-36) IU/L ALT (<35) IU/L Alkaline Phosphatase (38-126) U/L Total Protein (6.3-8.2) g/dL Albumin (3.5-5.0) g/dL Globulin (1.7-4.1) g/dL Albumin/Globulin Ratio (1.0-2.8) Lipase (23-300) U/L Ethyl Alcohol ( - 10) mg/dL SARS-CoV-2 (PCR) Negative (Negative) 11/25/20 Range/Units 13:29 WBC (4.5-11.0) X10^3/uL RBC (4.0-5.2) X10^6/uL Hgb (12.0-16.0) g/dL Hct (36-46) % MCV (80-100) fL MCH (26-34) PG MCHC (30-36) % RDW (11.6-14.8) % Plt Count (150-400) X10^3/uL Neut % (Auto) (50-75) % Lymph % (Auto) (25-40) % [place] % (Auto) (3-14) % Eos % (Auto) (2-4) % Baso % (Auto) (0-2) % Neut # (Auto) (6338-0936) /uL Lymph # (Auto) (2933-8431) /uL [place] # (Auto) (0-900) /uL Eos # (Auto) (0-450) /uL Baso # (Auto) (0-100) /uL Sodium 129 L (137-145) mmol/L Potassium 6.7 H* D (3.4-5.1) mmol/L Chloride 91 L (98-107) mmol/L Carbon Dioxide 26 (22-32) mmol/L BUN 61 H (7-17) mg/dL Creatinine 7.01 H (0.52-1.04) mg/dL Estimated GFR 5.7 L (>60) mL/min BUN/Creatinine Ratio 8.7 (6-22) Glucose 198 H (80-110) mg/dL Lactate (0.7-2.1) mmol/L Calcium 10.1 (8.4-10.2) mg/dL Total Bilirubin 0.6 (0.2-1.3) mg/dL AST 203 H (14-36) IU/L ALT 236 H (<35) IU/L Alkaline Phosphatase 154 H (38-126) U/L Total Protein 6.1 L (6.3-8.2) g/dL Albumin 3.7 (3.5-5.0) g/dL Globulin 2.4 (1.7-4.1) g/dL Albumin/Globulin Ratio 1.5 (1.0-2.8) Lipase 38 (23-300) U/L Ethyl Alcohol < 10 ( - 10) mg/dL SARS-CoV-2 (PCR) (Negative) Point of Care Testing Glucose POC [address] scan - head: Radiologist's Impresson: [address] [id number] Scan ReportSigned Patient: Manju Bergman GMR#: [id number]: [id number]:[id number]/Sex: 75 / FDate of Service: 11/25/20Lo: EDAccession Number: [id number] Procedure: CT head/brain wo con Ordering Provider: Christian Acosta D.O. PROCEDURE: CT HEAD/BRAIN WO CON INDICATIONS: Headache TECHNIQUE: Noncontrast 4.5 mm thick angled axial sections acquired from the foramen magnum to the vertex, with coronal and sagittal reformats. For radiation dose reduction, the following was used: automated exposure control, adjustment of mA and/or kV according to patient size. COMPARISON: None. FINDINGS: Image quality: Excellent. CSF spaces: Basal cisterns are patent. No extra-axial fluid collections. The ventricles are symmetric in size and shape. Brain: No intracranial bleeds or masses. There is cerebral volume loss for age, with resultant ventricular and sulcal prominence. There are periventricular and deep white matter chronic small vessel ischemic changes. There is intracranial internal carotid artery atherosclerosis. Skull and face: Calvarium and visualized facial bones appear intact, without s uspicious lesions. Sinuses: Visualized sinuses and mastoids are clear. IMPRESSION: No acute finding. Dictated by: Hoang De León M.D. on 11/25/2020 at 14:29 Approved by: Hoang De León M.D. on 11/25/2020 at 14:29 CT chest/abd/pelvis: Radiologist's Impresson: [address] Scan ReportSigned Patient: Manju Bergman [facility]#: [id number]: 1945cct:[id number]/Sex: 75 / FDate of Service: 11/25/20Lo: EDAccession Number: [id number] Procedure: CT angio chest abdomen pelvis Ordering Provider: Christian Acosta D.O. PROCEDURE: CT ANGIO CHEST ABDOMEN PELVIS INDICATIONS: Back pain TECHNIQUE: Precontrast 5 mm thick sections acquired from the lung apices to the iliac crests. After the administration of intravenous contrast, 2.5 mm thick sections again acquired from the lung apices to the iliac crests. Maximum intensity projection (MIP) oblique sa gittal and coronal reformats were then acquired. For radiation dose reduction, the following was used: automated exposure control. COMPARISON: CT, THORAX WITHOUT CONTRAST, 01/30/2014, 9:44. CT, ABDOMEN/PELVIS WITH CONTRAST, 08/17/2013, 16:37. FINDINGS: Image quality: Excellent. AORTA: Intramural hematoma: Absent Maximum hematoma thickness: Not applicable Focal contrast enhancement: Intramural blood pool (< 2 mm neck or imperceptible communication with aortic lumen): Absent. Ulcer-like projection (broad communication with aortic lumen > 3 mm): Absent . Dissection: Absent Jack classification: Not applicable Maximum aortic diameter: No aneurysmal dilatation found. Periaortic hematoma: Absent . CHEST: Lungs and pleura: No acute airspace opacities. No pleural effusions or pneumothorax. Central and peripheral airways are patent and normal in caliber. Mediastinum: Heart size is normal. No pericardial effusion. No mediastinal or hilar adenopathy by size criteria. Central pulmonary arteries are normal in size. Esophagus is normal in caliber. No hiatal hernias. Bones and chest wall: No axillary adenopathy by size criteria. Thyroid gland is not well seen . No suspicious bony lesions. No vertebral body compression fractures. ABDOMEN: Vasculature: Celiac trunk and mesenteric arteries are patent. Renal arteries are also patent. Solid organs: Liver is moderately enlarged in size and normal in enhancement. Gallbladder is surgically absent. Biliary system is non dilated. Pancreas enhances normally. Spleen is normal in size and enhancement. No adrenal nodules. Both kidneys are normal in size and enhancement, without hydronephrosis. Peritoneum and bowel: No free fluid or air. Bowel loops are normal in caliber and wall thickness. Nodes and vessels: No retroperitoneal or mesenteric adenopathy by size criteria. Inferior vena cava is normal in morphology. Miscellaneous: No ventral hernias. PELVIS: Genitourinary: Bladder wall thickness is normal. Miscellaneous: No inguinal hernias or adenopathy. No ventral hernias. Bones: No suspicious bony lesions. No vertebral body compression fractures. IMPRESSION: No aneurysm, dissection, or embolic disease is found. No underlying infection or neoplasm is found. Note is made of mild to moderate hepatomegaly with the maximal craniocaudad length of the liver measured at 20.8 cm. Dictated by: Cristino Hernandez M.D. on 11/25/2020 at 14:54 Approved by: Cristino Hernandez M.D. on 11/25/2020 at 15:00 ECG Data Attestation: I personally reviewed and interpreted this ECG as follows: Interpretation: Junctional rhythm Ventricular rate of 38 Left axis deviation QRS duration [address] T wave changes MDM Narrative Medical decision making narrative: Patient arrived bradycardic. Initially blood pressure had a systolic in the mid 90s had a mean arterial pressure in the mid 60s. She was alert oriented x3. Stated that she was feeling fatigued. No ch est pain. She states she was feeling today like which she was feeling yesterday when she was discharged from the hospital. It appeared that she did have issues with bradycardia while at [facility]. She does have a heart monitor on her anterior chest which she states that was placed because of this bradycardia. She was not bradycardic when she was here 1 week ago. She did get dialyzed yest erday. Was only a partial treatment. It appears that this was just to remove fluid. During her time here in the emergency department she did have episodes of hypotension. She was never altered during this time. She was given 0.5 mg atropine which did improve her heart rate to the mid 40s and improve her systolic blood pressure to the mid 90s. We were able to place a midline in the left upper extremity. She did require a 2nd dose of 0.5 mg of atropine when she again became hypotensive and bradycardic.. Initial labs that were drawn were hemolyzed. They had to be repeated. She was started on dopamine. This did improve her vital signs somewhat. She then developed a sudden onset of headache and upper back pain. Her heart rate then increased to the 70s and she became hypertensive. The dopamine was subsequently stopped. Head CT was ordered. A CT scan of the chest abdomen pelvis was ordered for dissection. When she returned from the CT scan she was again bradycardic and hypotensive. The dopamine was restarted. We then received her lab results. She was hyperkalemic. For calcium gluconate was ordered. Patient was given insulin. We will hold on glucose for now because she was hyperglycemic to begin with. She was also started on an albuterol neb. Attempted to contact multiple places to include [facility], [facility], [facility], [facility] where she was just discharged from, [facility] and [facility]. All of which had no ICU/cardiac bed availability. I then discussed the case with Dr. Mcduffie with the intensive care unit at [facility] who accepts the patient in transfer. Will send the patient by air. Patient is currently stable for transport. Patient did express the desire for a DNR/DNI but was okay with medications and treatment for her current symptoms and also dialysis. Critical Care Time Critical Care Time Critical Care Time: Yes Total Critical Care Time: 75 Attestation: The high probability of a clinically significant, sudden or life threatening deterioration of the cardiovascular system(s) required my full and direct attention, intervention and personal management. The aggregate critical care time was 75 minutes. This time is in addition to time spent performing reported procedures but includes the following: [x] Data Review and interpretation [x] Patient assessment and monitoring of vital signs [x] Documentation [x] Medication orders and management Discharge Plan Departure Patient Disposition: [facility] Clinical Impression: Hyperkalemia, End stage renal disease on dialysis, Third degree heart block, Bradycardia, Fatigue, Hypotension Prescriptions: No Action gabapentin 100 MG capsule 300 mg PO 3XW Qty: 0 RF: 0 atorvastatin 20 mg Tablet 20 mg PO QPM RF: 0 docusate sodium 100 mg Capsule 100 mg PO DAILY RF: 0 lamotrigine 150 mg Tablet 100 mg PO DAILY RF: 0 omeprazole 40 mg Capsule,Delayed Release(Dr/Ec) 40 mg PO BID RF: 0 aspirin [Aspir-81] 81 mg Tablet,Delayed Release (Dr/Ec) 81 mg PO DAILY RF: 0 fluticasone propion-salmeterol [Advair Diskus] 250-50 mcg/dose blister with device 2 inh INHALATION PRN PRN (Reason: Shortness Of Breath Or Wheezing) RF: 0 ropinirole 1 mg tablet 1 mg PO TID RF: 0 gabapentin 100 mg capsule 200 mg PO 4XW RF: 0 ketoconazole 2 % cream 1 applic TOPICAL BID RF: 0 midodrine 10 mg tablet 20 mg PO TID RF: 0 insulin lispro protamin-lispro [Humalog Mix 75-25 KwikPen] 100 unit/mL (75-25) Insulin Pen 7 unit SUBCUT BEDTIME RF: 0 lactulose [Enulose] 10 gram/15 mL solution 45 ml PO TID RF: 0 Lantus Solostar U-100 Insulin 100 unit/mL (3 mL) Insulin Pen See Rx Instructions .ROUTE .COMPLEX RF: 0 sevelamer carbonate 800 mg tablet 1,600 mg PO TID RF: 0 Veltassa 8.4 gram powder in packet 8.4 g PO DAILY RF: 0 Dialyvite 1 tab PO DAILY RF: 0 trazodone 150 mg tablet 150 mg PO BEDTIME RF: 0 oxybutynin chloride 15 mg tablet extended release 24hr 15 mg PO DAILY RF: 0 citalopram 20 mg tablet 20 mg PO DAILY RF: 0 cranberry 2 dose PO DAILY RF: 0 Referrals: Karen Mustafa ARNP [Primary Care Provider] -
[2020-11-25 12:34] LABS: COVID19 -Nasal RAPID Negative (Negative)
[2020-11-25] MEDS: ATROPINE 1 MG/10 ML SYRINGE 0.5 MG IV ×2 (12:37→13:01)
[2020-11-25 12:50] LABS: Add Manual Diff / Slide Review NO; Basophils Absolute Auto 100 /uL (0-100); Basophils Percent Auto 0.6 % (0-2); Eosinophils Absolute Auto 0 /uL (0-450); Eosinophils Percent Auto 0.2 % (2-4); Hematocrit 34.4 % (36-46); Lymphocytes Absolute Auto 1500 /uL (1100-4500); Mean Corpuscular Hemoglobin 31.9 PG (26-34); Mean Corpuscular Volume 99.8 fL (80-100); Monocytes Absolute Auto 1500 /uL (0-900); Neutrophils Absolute Auto 9200 /uL (1500-7000); Neutrophils Percent Auto 75.2 % (50-75); Platelet Count 216 X10^3/uL (150-400); Red Blood Cell Count 3.45 X10^6/uL (4.0-5.2); Red Cell Distribution Width 16.3 % (11.6-14.8); White Blood Cell Count 12.3 X10^3/uL (4.5-11.0)
--- NOTE | 2020-11-25 13:14 | PC.NURSE ---
Yokasta Leiva at bedside for PICC insertion. Pt moved to trauma 1. BP at this time 109/64 HR 45 after 0.5mg atropine given x 2. Dopamine ordered and primed. Pt drowsy yet rousable to verbal. ETCO2 41. Pt denies h/o SARAH BETH however has intermittent pauses of apnea. RR 24
[2020-11-25] MEDS: DOPAMINE HCL IN DEXTROSE 5 % 400 MG/250 ML PLAST..BAG 21.432 MG IV (13:34)
[2020-11-25 13:35] LABS: Lactate (Lactic Acid) 3.2 mmol/L (0.7-2.1)
--- NOTE | 2020-11-25 13:43 | DI.CT.S_ITS ---
PROCEDURE: CT HEAD/BRAIN WO CON INDICATIONS: Headache TECHNIQUE: Noncontrast 4.5 mm thick angled axial sections acquired from the foramen magnum to the vertex, with coronal and sagittal reformats. For radiation dose reduction, the following was used: automated exposure control, adjustment of mA and/or kV according to patient size. COMPARISON: None. FINDINGS: Image quality: Excellent. CSF spaces: Basal cisterns are patent. No extra-axial fluid collections. The ventricles are symmetric in size and shape. Brain: No intracranial bleeds or masses. There is cerebral volume loss for age, with resultant ventricular and sulcal prominence. There are periventricular and deep white matter chronic small vessel ischemic changes. There is intracranial internal carotid artery atherosclerosis. Skull and face: Calvarium and visualized facial bones appear intact, without suspicious lesions. Sinuses: Visualized sinuses and mastoids are clear. IMPRESSION: No acute finding. Dictated by: Hoang De León M.D. on 11/25/2020 at 14:29 Approved by: Hoang De León M.D. on 11/25/2020 at 14:29
--- NOTE | 2020-11-25 13:43 | DI.CT.S_ITS ---
PROCEDURE: CT ANGIO CHEST ABDOMEN PELVIS INDICATIONS: Back pain TECHNIQUE: Precontrast 5 mm thick sections acquired from the lung apices to the iliac crests. After the administration of intravenous contrast, 2.5 mm thick sections again acquired from the lung apices to the iliac crests. Maximum intensity projection (MIP) oblique sagittal and coronal reformats were then acquired. For radiation dose reduction, the following was used: automated exposure control. COMPARISON: CT, THORAX WITHOUT CONTRAST, 01/30/2014, 9:44. CT, ABDOMEN/PELVIS WITH CONTRAST, 08/17/2013, 16:37. FINDINGS: Image quality: Excellent. AORTA: Intramural hematoma: Absent Maximum hematoma thickness: Not applicable Focal contrast enhancement: Intramural blood pool (< 2 mm neck or imperceptible communication with aortic lumen): Absent. Ulcer-like projection (broad communication with aortic lumen > 3 mm): Absent . Dissection: Absent [place] classification: Not applicable Maximum aortic diameter: No aneurysmal dilatation found. Periaortic hematoma: Absent . CHEST: Lungs and pleura: No acute airspace opacities. No pleural effusions or pneumothorax. Central and peripheral airways are patent and normal in caliber. Mediastinum: Heart size is normal. No pericardial effusion. No mediastinal or hilar adenopathy by size criteria. Central pulmonary arteries are normal in size. Esophagus is normal in caliber. No hiatal hernias. Bones and chest wall: No axillary adenopathy by size criteria. Thyroid gland is not well seen . No suspicious bony lesions. No vertebral body compression fractures. ABDOMEN: Vasculature: Celiac trunk and mesenteric arteries are patent. Renal arteries are also patent. Solid organs: Liver is moderately enlarged in size and normal in enhancement. Gallbladder is surgically absent. Biliary system is non dilated. Pancreas enhances normally. Spleen is normal in size and enhancement. No adrenal nodules. Both kidneys are normal in size and enhancement, without hydronephrosis. Peritoneum and bowel: No free fluid or air. Bowel loops are normal in caliber and wall thickness. Nodes and vessels: No retroperitoneal or mesenteric adenopathy by size criteria. Inferior vena cava is normal in morphology. Miscellaneous: No ventral hernias. PELVIS: Genitourinary: Bladder wall thickness is normal. Miscellaneous: No inguinal hernias or adenopathy. No ventral hernias. Bones: No suspicious bony lesions. No vertebral body compression fractures. IMPRESSION: No aneurysm, dissection, or embolic disease is found. No underlying infection or neoplasm is found. Note is made of mild to moderate hepatomegaly with the maximal craniocaudad length of the liver measured at 20.8 cm. Dictated by: Cristino Hernandez M.D. on 11/25/2020 at 14:54 Approved by: Cristino Hernandez M.D. on 11/25/2020 at 15:00
--- NOTE | 2020-11-25 13:45 | PC.NURSE ---
PICC successfully inserted in [place]. 1334: dopamine started per MAR at 5mcg/kg/min. Within 5 min pt started to desaturate while on 2L O2 from 99% to 87%. BP increased to 163/60 from 60's systolic and pt c/o intense occipital head and midline neck and upper back pain. dopamine stopped and Dr Acosta made aware. immeadiate transfer to CT.
[2020-11-25 13:55] LABS: Alanine Aminotransferase 236 IU/L (<35); Albumin 3.7 g/dL (3.5-5.0); Albumin Globulin Ratio 1.5 (1.0-2.8); Alkaline Phosphatase 154 U/L (38-126); Aspartate Aminotransferase 203 IU/L (14-36); BUN Creatinine Ratio 8.7 (6-22); Bilirubin Total 0.6 mg/dL (0.2-1.3); Blood Urea Nitrogen 61 mg/dL (7-17); Calcium 10.1 mg/dL (8.4-10.2); Carbon Dioxide 26 mmol/L (22-32); Chloride 91 mmol/L (98-107); Estimated Glomerular Filt Rate 5.7 mL/min (>60); Ethanol (ETOH) < 10 mg/dL; Globulin 2.4 g/dL (1.7-4.1); Glucose 198 mg/dL (80-110); HEMOLYSIS < 15 (0-50); Lipase 38 U/L (23-300); Sodium 129 mmol/L (137-145); Total Protein 6.1 g/dL (6.3-8.2)
[2020-11-25 13:59] LABS: Potassium 6.7 mmol/L (3.4-5.1)
[2020-11-25] MEDS: ALBUTEROL 2.5 MG/3 ML NEB (ADULT) 5 MG INH (14:31)
[2020-11-25] MEDS: INSULIN REGULAR 100 UNIT/ML 3 ML VIAL IV (14:34)
[2020-11-25] MEDS: CALCIUM GLUCONATE 4.65 MEQ in SODIUM CHLORIDE 0.9% 50 ML 180 ML IV (14:38)
--- NOTE | 2020-11-25 14:53 | PC.NURSE ---
Called and spoke with daughter; verbalized understanding and agreement of plan of care to transfer to [facility] via [facility].
--- NOTE | 2020-11-25 15:17 | PC.NURSE ---
called to place picc. Unable to pass line up basicllic vein. Midline placed. After CT midline not working unable to draw blood or infuse flush. Replaced Bard midline, which is 8cm 20g power line. Line flushed well and able to draw back blood with no problems. Heather DE LA ROSA nurse
[2020-11-25 15:25] LABS: Reflexed Lactate in 2 Hours Y
--- NOTE | 2020-11-25 17:15 | PC.NURSE ---
Pt departed ED at 1530 with [facility] with Dopamine infusion running at 5 mcg/kg/min.
== END 2020-11-25 15:30 | disposition short-term general hospital (02) ==
PROVIDERS: Emergency Provider Emergency Medicine; PCP Nurse Practitioner
DX: I44.2 Atrioventricular block, complete (principal); E87.5 Hyperkalemia; N18.6 End stage renal disease; Z99.2 Dependence on renal dialysis; R00.1 Bradycardia, unspecified; R53.83 Other fatigue; I95.9 Hypotension, unspecified; Z20.822 Contact with and (suspected) exposure to COVID-19; R06.02 Shortness of breath; R51.9 Headache, unspecified
CPT/HCPCS: 70450; 71275; 74174; 80053; 80320; 82962; 83605; 83690; 85025; 87635; 93005; 93010; 96374; 96375; 99285; 99291; 99292; C9803; J0461; J0610; J7613

== ENCOUNTER 2021-01-11 07:14 | Inpatient (IN) | payer MEDICARE, SELFPAY ==
[2021-01-11] VITALS (27 sets, daily range): BP systolic 96–183; BP diastolic 37–76; PULSE 65–97; RESP 12–28; TEMP 35.7–37.5; O2SAT 91–100; BMI 42.4; BMI 47.7
--- NOTE | 2021-01-11 07:23 | DI.CT.S_ITS ---
PROCEDURE: CT ABDOMEN PELVIS WO CON INDICATIONS: epigastric buldge, abdominal pain TECHNIQUE: Axial sections were acquired from the lung bases to the pubic symphysis. Coronal and sagittal reformats were performed. For radiation dose reduction, the following was used: automated exposure control, adjustment of mA and/or kV according to patient size. COMPARISON: None. FINDINGS: Lower thorax: Heart size enlarged. Pacer wires noted. Liver: Normal in size and attenuation. No contour deformity present. Biliary system: Cholecystectomy. No intra or extrahepatic bile duct dilation. Pancreas: Unremarkable without mass or inflammation evident. Spleen: Normal in size and density. Adrenals: Normal morphology and density. Reproductive system: Unremarkable as visualized. Urinary system: Bilateral renal atrophy without hydronephrosis. Small bilateral renal likely cysts measure less than 1.5 cm. Gastrointestinal system: The bowel appears unremarkable with no evidence of bowel obstruction or inflammation. The stomach appears unremarkable. Appendix: No findings to suggest acute appendicitis. Peritoneal spaces: No mesenteric or retroperitoneal adenopathy. No free air. No free fluid. Vasculature: Aortic atherosclerotic vascular calcification noted without evidence of aneurysm. Diffuse atherosclerotic vascular calcification of the smaller visceral vessels in the abdomen noted as well. Musculoskeletal: Midline epigastric ventral hernia contains of a loop of small bowel without evidence of incarceration. Hernia sac measures 7.5 cm. Small ovoid subcutaneous nodules noted in the lower ventral abdominal pannus measuring up to 1.9 x 1.2 cm, consistent with subcutaneous lymph nodes. Degenerative disc disease and arthropathy noted in lower lumbar spine. IMPRESSION: 1. Abdominal midline epigastric ventral hernia contains a loop of small bowel without evidence of obstruction or incarceration. 2. Cardiomegaly diffuse atherosclerotic vascular calcification without aneurysm. 3. Subcutaneous ovoid lymph nodes in ventral abdominal pannus measure up to 1.9 x 1.2 cm Approved by: Nawaf Chan M.D. on 01/11/2021 at 7:41
--- NOTE | 2021-01-11 07:25 | DI.RAD.S_ITS ---
PROCEDURE: XR CHEST 1V INDICATIONS: chest pain TECHNIQUE: One view of the chest was acquired. COMPARISON: [facility], CR, XR CHEST 1V, 11/19/2020, 2:47. FINDINGS: Surgical changes and devices: Are right-sided dual-chamber pacemaker present. Lungs and pleura: Left basilar atelectasis and infiltrate ExoSeal aerated with blunting left costophrenic angle. Right lung and pleural space clear. Mediastinum: Heart size enlarged, and there is mild vascular congestion present. No auto text arch Bones and chest wall: No suspicious bony lesions. Overlying soft tissues appear unremarkable. IMPRESSION: Cardiomegaly, mild vascular congestion and left pleural effusion with basilar atelectasis and infiltrate. Approved by: Nawaf Chan M.D. on 01/11/2021 at 7:42
[2021-01-11] MEDS: MORPHINE 2 MG/ML INJ IV (07:37)
[2021-01-11] MEDS: ONDANSETRON 4 MG/2 ML INJ IV (07:37)
--- NOTE | 2021-01-11 07:39 | ED_ITS ---
HPI - Abdominal Pain General Chief Complaint: Abdominal Pain Stated Complaint: Abd pain x 2 days Time Seen by Provider: 01/11/21 07:15 Source: patient, EMS and other Mode of arrival: EMS Limitations: no limitations History of Present Illness HPI narrative: Patient is a 75-year-old female with history of bradycardia, pacemaker, end-stage renal disease on dialysis (T,, Sa Dr. Crane), presenting today with abdominal bulge. She states it started 2 days ago. sHe is currently in a rehab facility trying to get her strength back after falling in November, then seen a week later needing a pacemaker for bradycardia she has been increasing her exercise. She thinks maybe that is what caused this bulge in her epigastric area. She says it is become intensely painful. She is still having bowel movements she is not nauseous or vomiting. But there is an obvious bulge in her abdomen. She denies any dizziness lightheadedness or chest pain. Not had any fever or chills. She previously had cholecystectomy this may be related. She says that she has had a very small bulge since her cholecystectomy a number of years ago however has been stable until 2 days ago. It is exquisitely tender. She denies is any nausea or vomiting. Related Data Home Medications Medication Instructions Recorded Confirmed gabapentin 100 mg capsule 300 mg PO 3XW #0 09/06/16 01/11/21 aspirin 81 mg tablet,delayed 81 mg PO DAILY 08/09/17 01/11/21 release (Aspir-) atorvastatin 20 mg tablet 20 mg PO QPM 08/09/17 01/11/21 docusate sodium 100 mg capsule 100 mg PO DAILY 08/09/17 01/11/21 lamotrigine 150 mg tablet 100 mg PO DAILY 08/09/17 01/11/21 omeprazole 40 mg capsule,delayed 40 mg PO BID 08/09/17 01/11/21 release citalopram 20 mg tablet 20 mg PO DAILY 04/18/18 01/11/21 cranberry 2 dose PO DAILY 04/18/18 01/11/21 oxybutynin chloride 15 mg 15 mg PO DAILY 04/18/18 01/11/21 tablet,extended release 24 hr Dialyvite 1 tab PO DAILY 11/19/20 01/11/21 fluticasone 250 mcg-salmeterol 50 2 inh INHALATION PRN PRN 11/19/20 01/11/21 mcg/dose blistr powdr for inhalation (Advair Diskus) gabapentin 100 mg capsule 200 mg PO 4XW 11/19/20 01/11/21 insulin glargine 100 unit/mL (3 See Rx Instructions .ROUTE .COMPLEX 11/19/20 01/11/21 mL) subcutaneous pen (Lantus Solostar U-100 Insulin) insulin lispro protamine-lispro 7 unit SUBCUT BEDTIME 11/19/20 01/11/21 100 unit/mL (75-25) subcutaneous pen (Humalog Mix 75-25 KwikPen) lactulose 10 gram/15 mL oral 45 ml PO TID 11/19/20 01/11/21 solution (Enulose) midodrine 10 mg tablet 20 mg PO TID 11/19/20 01/11/21 patiromer calcium sorbitex 8.4 8.4 g PO DAILY 11/19/20 01/11/21 gram oral powder packet (Veltassa) ropinirole 1 mg tablet 1 mg PO TID 11/19/20 01/11/21 sevelamer carbonate 800 mg tablet 1,600 mg PO TID 11/19/20 01/11/21 trazodone 150 mg tablet 150 mg PO BEDTIME 11/19/20 01/11/21 Allergies Allergy/AdvReac Type Severity Reaction Status Date / Time NSAIDS (Non-Steroidal AdvReac Severe CAUSED Verified 07/03/20 14:58 Anti-Inflamma KIDNEY [NSAIDS (NON-STEROIDAL DISEASE ANTI-INFLAMMA] Review of Systems Review of Systems Narrative: GENERAL: Denies chills, fatigue, malaise, fever, sweats, travel HEENT: Denies sinus pain, ear pain, sore throat, difficulty swallowing, neck pain RESPIRATORY: Denies dyspnea, cough, wheezing, hemoptysis, sputum. CARDIOVASCULAR: Denies chest pain, palpitations, orthopnea, edema GASTROINTESTINAL: See HPI : Denies dysuria, frequency, incontinence, hematuria, urinary retention, flank pain. MUSCULOSKELETAL: Denies weakness, joint pain, or bony pain SKIN: No rash, no erythema, no pruritus NEUROLOGIC: Denies weakness, dizziness, headache, numbness, change in speech, confusion PSYCHIATRIC: No concerning psychosocial issues. 12 point review of systems is negative except for those stated above and HPI Patient History Medical History (Updated 01/11/21 @ 11:10 by Angel Smith MD) Bipolar 1 disorder CKD (chronic kidney disease) stage 4, GFR 15-29 ml/min Dyslipidemia Hypertension Renal failure (ARF), acute on chronic Surgically constructed arteriovenous fistula Surgical History H/O: S/P cholecystectomy Social History household members: none Smoking Status: Never smoker alcohol intake: never Smoking Status: Never smoker alcohol intake frequency: 0-2 drinks per day Substance Use Type: does not use Exam Initial Vital Signs Initial Vital Signs: Vital Signs Temperature 98.2 F 01/11/21 07:15 Pulse Rate 84 01/11/21 07:15 Respiratory Rate 18 01/11/21 07:15 Blood Pressure 151/68 H 01/11/21 07:15 Pulse Oximetry 95 01/11/21 07:15 GENERAL: Alert 75-year-old female BMI 42 HEENT: Head atraumatic,EOMI, pupils reactive, face symmetric, moist mucous membranes CARDIOVASCULAR: Regular rate and rhythm without murmurs, rubs or gallops. RESPIRATORY: Breath sounds equal bilaterally, no wheezes rales or rhonchi. ABDOMEN: Soft, obvious large epigastric bulge that is non pulsatile, but tender to touch EXTREMITIES: Normal range of motion, no clubbing or edema. Neurovascularly intact NEUROLOGICAL: Alert and oriented x4.Normal gait and speech. Cranial nerves II through XII grossly intact. SKIN: Warm, dry, no laceration, no petechiae, no rashes or lesions. Course Orders Ordered: ED Orders 01/11/21 07:23 CT abdomen pelvis wo con Stat 01/11/21 07:24 EKG-12 Lead Stat 01/11/21 07:25 XR chest 1V Stat 01/11/21 07:59 Complete Blood Count AUTO DIFF Stat Comprehensive Metabolic Panel Stat Lactate (Lactic Acid) Stat Lipase Stat 01/11/21 09:37 COVID19 - ADMIT ([employer] swab/PCR) Stat Al Hydrox/Mg Hydrox/Simethicone (Mag Hydrox/Alum/Simeth 30 Ml Udc) 30 ml PO Q6HR PRN PRN Reason: Dyspepsia Albuterol (Albuterol 2.5 Mg/3 Ml Neb (Adult)) 2.5 mg INH NOW PRN PRN Reason: Coughing, Wheezing, Dyspnea Albuterol (Albuterol 2.5 Mg/3 Ml Neb (Adult)) 2.5 mg INH Q4HRWA [facility] Albuterol (Albuterol 2.5 Mg/3 Ml Neb (Adult)) 2.5 mg INH Q2H PRN PRN Reason: Shortness Of Breath Or Wheezing Aspirin (Aspirin Ec 81 Mg Tablet) 81 mg PO DAILY [facility] Atorvastatin Calcium (Atorvastatin 20 Mg Tablet) 20 mg PO QPM [facility] Budesonide (Budesonide 0.5 Mg/2 Ml Neb) 0.5 mg INH RTBID [facility] Calcium Carbonate (Calcium Carbonate 500 Mg Tab) 1,000 mg PO Q4HR PRN PRN Reason: Dyspepsia Cefazolin Sodium (Cefazolin 1 Gm Vial) 1 gm IV Q12H [facility] Citalopram Hydrobromide (Citalopram 10 Mg Tablet) 20 mg PO DAILY [facility] Fentanyl (Fentanyl 100 Mcg/2 Ml Inj) 0 mcg IV Q5MIN PRN PRN Reason: Pain, Severe (7-10) Gabapentin (Gabapentin 300 Mg Capsule) 300 mg PO MoWeFr@0900 [facility] Heparin Sodium (Porcine) (Heparin 5,000 Unit/Ml Vial) 7,500 unit SUBCUT Q8HR [facility] Hydromorphone HCl (Hydromorphone 2 Mg Inj) 0 mg IV Q5MIN PRN PRN Reason: Pain, Mild (1-3) Hydromorphone HCl (Hydromorphone 0.5 Mg Inj) 0.5 mg IV Q3H PRN PRN Reason: Pain, Moderate (4-6) Lactated Ringer's (Lactated Ringers) 1,000 mls @ 42 mls/hr IV NOW ONE Stop: 01/12/21 11:04 Last Infusion: 01/11/21 13:10 Dose: 0 mls/hr Documented by: Admin: 01/11/21 11:16 Dose: 42 mls/hr Documented by: EDWIN Insulin Human Lispro (Insulin Lispro 100 Unit/Ml 3ml Vial) 0 unit SUBCUT Q6H [facility]; Protocol Last Admin: 01/11/21 13:52 Dose: Not Given Documented by: LUIS Lactulose (Lactulose 20 Gm/30 Ml Solution) 30 gm PO TID [facility] Last Admin: 01/11/21 14:03 Dose: 30 gm Documented by: LUIS Lamotrigine (Lamotrigine 100 Mg Tablet) 100 mg PO DAILY [facility] Midodrine (Midodrine Hcl 5 Mg Tablet) 20 mg PO TID [facility] Last Admin: 01/11/21 14:03 Dose: 20 mg Documented by: LUIS Naloxone HCl (Naloxone 0.4 Mg/Ml Vial) 0.2 mg IV Q2MIN PRN PRN Reason: Opiate Reversal Sevelamer Carbonate (800 Mg Tablet) 1,600 mg PO TID [facility] Last Admin: 01/11/21 14:05 Dose: Not Given Documented by: LUIS Ondansetron HCl (Ondansetron 4 Mg/2 Ml Inj) 4 mg IV Q8HR PRN PRN Reason: Nausea And Vomiting Oxybutynin Chloride (Oxybutynin 5 Mg Er Tab) 15 mg PO DAILY [facility] Oxycodone HCl (Oxycodone Ir 5 Mg Tablet) 5 mg PO [place] PRN PRN Reason: Mild or moderate pain Oxycodone HCl (Oxycodone Ir 5 Mg Tablet) 5 mg PO Q6HR PRN PRN Reason: Pain, Moderate (4-6) Last Admin: 01/11/21 13:55 Dose: 5 mg Documented by: LUIS Pantoprazole Sodium (Pantoprazole Dr 40 Mg Tablet) 40 mg PO 0700,2100 [facility] Trazodone HCl (Trazodone 50 Mg Tablet) 150 mg PO BEDTIME [facility] Discontinued Medications Albuterol/Ipratropium (Albuterol/Ipratropium 3 Ml Ampul) 3 ml INH NOW ONE Stop: 01/11/21 11:20 Last Admin: 01/11/21 11:19 Dose: 3 ml Documented by: EDWIN Bupivacaine HCl (Bupivacaine 0.25% (Pf) Vial) 30 ml INJ NOW ONE Stop: 01/11/21 11:58 Last Admin: 01/11/21 11:58 Dose: 30 ml Documented by: RICK Cefazolin Sodium (Cefazolin 1 Gm Vial) 2 gm IV NOW ONE Stop: 01/11/21 11:02 Last Admin: 01/11/21 11:46 Dose: 2 gm Documented by: SACHA Enoxaparin Sodium (Enoxaparin 30 Mg/0.3 Ml Syringe) 30 mg SUBCUT DAILY [facility]ASON Hydromorphone HCl (Hydromorphone 2 Mg Inj) 1 mg SUBCUT NOW ONE Stop: 01/11/21 08:39 Last Admin: 01/11/21 08:44 Dose: 1 mg Documented by: JAMEY Influenza Virus Vaccine (Influenza Vaccine Qiv 0.5 Ml Syringe) 0.5 ml IM .ONCE ONE Stop: 01/11/21 14:32 Morphine Sulfate (Morphine 2 Mg/Ml Inj) 2 mg IV NOW ONE Stop: 01/11/21 07:24 Last Admin: 01/11/21 07:37 Dose: 2 mg Documented by: JAMEY Ondansetron HCl (Ondansetron 4 Mg/2 Ml Inj) 4 mg IV NOW ONE Stop: 01/11/21 07:24 Last Admin: 01/11/21 07:37 Dose: 4 mg Documented by: JAMEY Vital Signs Vital signs: Vital Signs - 8 hr 01/11/21 08:30 01/11/21 09:00 01/11/21 09:01 Pulse Rate 75 79 78 Respiratory Rate 12 13 12 Blood Pressure 183/74 H 183/76 H Pulse Oximetry 100 100 100 01/11/21 09:30 01/11/21 09:34 01/11/21 10:00 Pulse Rate 72 76 80 Respiratory Rate 16 28 H 21 Blood Pressure 149/74 H Pulse Oximetry 100 100 100 01/11/21 10:11 Pulse Rate 74 Respiratory Rate 12 Blood Pressure 122/56 L Pulse Oximetry 100 MDM - Abdominal Pain Lab Data Result diagrams: 01/11/21 07:59 01/11/21 07:59 Labs: Lab Results 01/11/21 01/11/21 01/11/21 Range/Units 07:59 07:59 07:59 WBC 6.3 (4.5-11.0) X10^3/uL RBC 3.30 L (4.0-5.2) X10^6/uL Hgb 10.8 L (12.0-16.0) g/dL Hct 32.6 L (36-46) % MCV 98.8 (80-100) fL MCH 32.9 (26-34) PG MCHC 33.2 (30-36) % RDW 14.2 (11.6-14.8) % Plt Count 248 (150-400) X10^3/uL Neut % (Auto) 64.2 (50-75) % Lymph % (Auto) 22.0 L (25-40) % Jerome % (Auto) 10.7 (3-14) % Eos % (Auto) 1.9 L (2-4) % Baso % (Auto) 1.2 (0-2) % Neut # (Auto) 4100 (0493-3294) /uL Lymph # (Auto) 1400 (3115-0557) /uL Jerome # (Auto) 700 (0-900) /uL Eos # (Auto) 100 (0-450) /uL Baso # (Auto) 100 (0-100) /uL Sodium 131 L (137-145) mmol/L Potassium 4.0 (3.4-5.1) mmol/L Chloride 92 L (98-107) mmol/L Carbon Dioxide 32 (22-32) mmol/L BUN 19 H (7-17) mg/dL Creatinine 3.35 H (0.52-1.04) mg/dL Estimated GFR 13.3 L (>60) mL/min BUN/Creatinine Ratio 5.7 L (6-22) Glucose 94 (80-110) mg/dL Lactate 1.0 (0.7-2.1) mmol/L Calcium 9.2 (8.4-10.2) mg/dL Total Bilirubin 0.6 (0.2-1.3) mg/dL AST 20 (14-36) IU/L ALT 12 (<35) IU/L Alkaline Phosphatase 106 (38-126) U/L Total Protein 6.4 (6.3-8.2) g/dL Albumin 3.9 (3.5-5.0) g/dL Globulin 2.5 (1.7-4.1) g/dL Albumin/Globulin Ratio 1.6 (1.0-2.8) Lipase 50 (23-300) U/L SARS-CoV-2 (PCR) (Negative) 01/11/21 Range/Units 09:37 WBC (4.5-11.0) X10^3/uL RBC (4.0-5.2) X10^6/uL Hgb (12.0-16.0) g/dL Hct (36-46) % MCV (80-100) fL MCH (26-34) PG MCHC (30-36) % RDW (11.6-14.8) % Plt Count (150-400) X10^3/uL Neut % (Auto) (50-75) % Lymph % (Auto) (25-40) % Jerome % (Auto) (3-14) % Eos % (Auto) (2-4) % Baso % (Auto) (0-2) % Neut # (Auto) (0682-3221) /uL Lymph # (Auto) (0217-2629) /uL Jerome # (Auto) (0-900) /uL Eos # (Auto) (0-450) /uL Baso # (Auto) (0-100) /uL Sodium (137-145) mmol/L Potassium (3.4-5.1) mmol/L Chloride (98-107) mmol/L Carbon Dioxide (22-32) mmol/L BUN (7-17) mg/dL Creatinine (0.52-1.04) mg/dL Estimated GFR (>60) mL/min BUN/Creatinine Ratio (6-22) Glucose (80-110) mg/dL Lactate (0.7-2.1) mmol/L Calcium (8.4-10.2) mg/dL Total Bilirubin (0.2-1.3) mg/dL AST (14-36) IU/L ALT (<35) IU/L Alkaline Phosphatase (38-126) U/L Total Protein (6.3-8.2) g/dL Albumin (3.5-5.0) g/dL Globulin (1.7-4.1) g/dL Albumin/Globulin Ratio (1.0-2.8) Lipase (23-300) U/L SARS-CoV-2 (PCR) Negative (Negative) Imaging Data CT scan - abdomen/pelvis: Radiologist's Impression: PROCEDURE:? CT ABDOMEN PELVIS WO CON ? INDICATIONS:? epigastric buldge, abdominal pain ? TECHNIQUE:? Axial sections were acquired from the lung bases to the pubic symphysis.? Coronal and sagittal reformats were performed.? For radiation dose reduction, the following was used: ?automated exposure control, adjustment of mA and/or kV according to patient size.? ? COMPARISON:? ? None. ? FINDINGS: ? Lower thorax:? Heart size enlarged.? Pacer wires noted. ? Liver:? Normal in size and attenuation. No contour deformity present. ? Biliary system:? Cholecystectomy.? No intra or extrahepatic bile duct dilation. ? Pancreas:? Unremarkable without mass or inflammation evident. ? Spleen:? Normal in size and density. ? Adrenals:? Normal morphology and density. ? Reproductive system:? Unremarkable as visualized. ? Urinary system:? Bilateral renal atrophy without hydronephrosis.? Small bi lateral renal likely cysts measure less than 1.5 cm. ? Gastrointestinal system:? The bowel appears unremarkable with no evidence of bowel obstruction or inflammation. The stomach appears unremarkable. ? Appendix:? No findings to suggest acute appendicitis. ? Peritoneal spaces:? No mesenteric or retroperitoneal adenopathy.? No free air.? No free fluid.? ? Vasculature:? Aortic atherosclerotic vascular calcification noted without evidence of aneurysm.? Diffuse atherosclerotic vascular calcification of the smaller visceral vessels in the abdomen noted as well. ? Musculoskeletal:? Midline epigastric ventral hernia contains of a loop of small bowel without evidence of incarceration.? Hernia sac measures 7.5 cm.? Small ovoid subcutaneous nodules noted in the lower ventral abdominal pannus measuring up to 1.9 x 1.2 cm, consistent with subcutaneous lymph nodes.? Degenerative disc disease and arth ropathy noted in lower lumbar spine. ? IMPRESSION: ? 1. Abdominal midline epigastric ventral hernia contains a loop of small bowel without evidence of obstruction or incarceration. ? 2. Cardiomegaly diffuse atherosclerotic vascular calcification without aneurysm. ? 3. Subcutaneous ovoid lymph nodes in ventral abdominal pannus measure up to 1.9 x 1.2 cm ? ? Approved by: Nawaf Chan M.D. on 01/11/2021 at 7:41? ECG Data Interpretation: Normal sinus rhythm rate 80 p.r. interval 210 QRS 126 QTC 4-[address] changes improved from previous EKG MDM Narrative Medical decision making narrative: The patient has an obvious large nonpulsatile mass in her epigastric region. Bedside ultrasound does not show pulsatile mass. CT confirms epigastric ventral hernia. I have attempted to reduce hernia myself at bedside however unable to do so. Patient is extremely hard IV stick. Patient received dialysis yesterday she is next due in [address] Smith surgery states that patient should have surgery if she is tender and it contains a loop of bowel which it does. hospitalist is agreeable to keep patient postoperative, and will transfer if needed for dialysis later. Discharge Plan Departure Patient Disposition: Admitted As Inpatient Clinical Impression: Hernia, ventral Qualifiers: Obstruction and gangrene presence: with obstruction but without gangrene Qualified Code(s): K43.6 - Other and unspecified ventral hernia with obstruction, without gangrene Admit Date/Time: 01/11/21 10:33 Admit Provider: Angel Smith
[2021-01-11 08:08] LABS: Add Manual Diff / Slide Review NO; Basophils Absolute Auto 100 /uL (0-100); Basophils Percent Auto 1.2 % (0-2); Eosinophils Absolute Auto 100 /uL (0-450); Eosinophils Percent Auto 1.9 % (2-4); Hematocrit 32.6 % (36-46); Hemoglobin 10.8 g/dL (12.0-16.0); Lymphocytes Absolute Auto 1400 /uL (1100-4500); Mean Corpuscular HGB Conc 33.2 % (30-36); Mean Corpuscular Hemoglobin 32.9 PG (26-34); Mean Corpuscular Volume 98.8 fL (80-100); Monocytes Absolute Auto 700 /uL (0-900); Monocytes Percent Auto 10.7 % (3-14); Neutrophils Absolute Auto 4100 /uL (1500-7000); Neutrophils Percent Auto 64.2 % (50-75); Platelet Count 248 X10^3/uL (150-400); Red Cell Distribution Width 14.2 % (11.6-14.8); White Blood Cell Count 6.3 X10^3/uL (4.5-11.0)
[2021-01-11 08:17] LABS: Alanine Aminotransferase 12 IU/L (<35); Albumin 3.9 g/dL (3.5-5.0); Albumin Globulin Ratio 1.6 (1.0-2.8); Alkaline Phosphatase 106 U/L (38-126); Aspartate Aminotransferase 20 IU/L (14-36); BUN Creatinine Ratio 5.7 (6-22); Bilirubin Total 0.6 mg/dL (0.2-1.3); Blood Urea Nitrogen 19 mg/dL (7-17); Calcium 9.2 mg/dL (8.4-10.2); Carbon Dioxide 32 mmol/L (22-32); Chloride 92 mmol/L (98-107); Estimated Glomerular Filt Rate 13.3 mL/min (>60); Globulin 2.5 g/dL (1.7-4.1); Glucose 94 mg/dL (80-110); HEMOLYSIS < 15 (0-50); Lipase 50 U/L (23-300); Sodium 131 mmol/L (137-145); Total Protein 6.4 g/dL (6.3-8.2)
[2021-01-11] MEDS: HYDROMORPHONE 2 MG INJ 1 MG SUBCUT (08:44)
--- NOTE | 2021-01-11 10:34 | PC.NURSE ---
glucose 84
[2021-01-11 10:35] LABS: COVID19 - ADMIT (NP swab/PCR) Negative (Negative)
--- NOTE | 2021-01-11 11:01 | PM.CN ---
History of Present Illness Consult details Date Patient Seen: 01/11/21 Time Patient Seen: 11:02 Chief complaint: Abd pain x 2 days Reason for consult: Ventral hernia Narrative: Lynne is a 75-year-old woman seen in consultation for incarcerated incisional ventral hernia. Remote history of open cholecystectomy. Over the past 2 days she has had pain in her epigastric region. She presented from rehab to the emergency room today for evaluation. Afebrile vital signs within normal limits. CT abdomen pelvis demonstrates a incisional ventral hernia near the epigastric region containing small bowel. The hernia was unable to be reduced in the emergency room. She has normal bowel function no emesis or obstipation. No chest pain currently has exertional apnea. No anticoagulation however takes aspirin.No anesthetic issues with previous surgery. Nonsmoker. Relevant perioperative history 1. Chronic renal failure-hemodialysis last session 01/10 via 2. Pacemaker-placed Nov 2020 3. Obesity BMI 42 4. Insulin dependent diabetes 5. HTN 6. Asthma Meds Home Medications and Allergies Home Medications Medication Instructions Recorded Confirmed Type gabapentin 100 mg capsule 300 mg PO 3XW #0 09/06/16 11/19/20 History aspirin 81 mg tablet,delayed 81 mg PO DAILY 08/09/17 11/19/20 History release (Aspir-) atorvastatin 20 mg tablet 20 mg PO QPM 08/09/17 11/19/20 History docusate sodium 100 mg capsule 100 mg PO DAILY 08/09/17 11/19/20 History lamotrigine 150 mg tablet 100 mg PO DAILY 08/09/17 11/19/20 History omeprazole 40 mg capsule,delayed 40 mg PO BID 08/09/17 11/19/20 History release citalopram 20 mg tablet 20 mg PO DAILY 04/18/18 11/19/20 History cranberry 2 dose PO DAILY 04/18/18 11/19/20 History oxybutynin chloride 15 mg 15 mg PO DAILY 04/18/18 11/19/20 History tablet,extended release 24 hr Dialyvite 1 tab PO DAILY 11/19/20 11/19/20 History fluticasone 250 mcg-salmeterol 50 2 inh INHALATION PRN PRN 11/19/20 11/19/20 History mcg/dose blistr powdr for inhalation (Advair Diskus) gabapentin 100 mg capsule 200 mg PO 4XW 11/19/20 11/19/20 History insulin glargine 100 unit/mL (3 See Rx Instructions .ROUTE .COMPLEX 11/19/20 11/19/20 History mL) subcutaneous pen (Lantus Solostar U-100 Insulin) insulin lispro protamine-lispro 7 unit SUBCUT BEDTIME 11/19/20 11/19/20 History 100 unit/mL (75-25) subcutaneous pen (Humalog Mix 75-25 KwikPen) ketoconazole 2 % topical cream 1 applic TOPICAL BID 11/19/20 11/19/20 History lactulose 10 gram/15 mL oral 45 ml PO TID 11/19/20 11/19/20 History solution (Enulose) midodrine 10 mg tablet 20 mg PO TID 11/19/20 11/19/20 History patiromer calcium sorbitex 8.4 8.4 g PO DAILY 11/19/20 11/19/20 History gram oral powder packet (Veltassa) ropinirole 1 mg tablet 1 mg PO TID 11/19/20 11/19/20 History sevelamer carbonate 800 mg tablet 1,600 mg PO TID 11/19/20 11/19/20 History trazodone 150 mg tablet 150 mg PO BEDTIME 11/19/20 11/19/20 History Allergies Allergy/AdvReac Type Severity Reaction Status Date / Time NSAIDS (Non-Steroidal AdvReac Severe CAUSED Verified 07/03/20 14:58 Anti-Inflamma KIDNEY [NSAIDS (NON-STEROIDAL DISEASE ANTI-INFLAMMA] Exam Vital Signs (past 8 hours): - 01/11/21 07:15 01/11/21 07:42 01/11/21 08:00 Temperature 98.2 F Pulse Rate 84 78 75 Respiratory Rate 18 12 Blood Pressure 151/68 H Pulse Oximetry 95 97 98 01/11/21 08:30 01/11/21 09:00 01/11/21 09:01 Temperature Pulse Rate 75 79 78 Respiratory Rate 12 13 12 Blood Pressure 183/74 H 183/76 H Pulse Oximetry 100 100 100 01/11/21 09:30 01/11/21 09:34 01/11/21 10:00 Temperature Pulse Rate 72 76 80 Respiratory Rate 16 28 H 21 Blood Pressure 149/74 H Pulse Oximetry 100 100 100 01/11/21 10:11 Temperature Pulse Rate 74 Respiratory Rate 12 Blood Pressure 122/56 L Pulse Oximetry 100 Oxygen Delivery Method Nasal Cannula Oxygen Flow Rate 2 Narrative Exam Narrative: Constitutional-She is oriented to person, place and time. No apparent distress. BMI 42 Cardiovascular- regular rate, moderate peripheral edema Pulmonary-unlabored respiratory effort, no audible wheezing Abdominal-tender epigastric ventral hernia non reducible. No peritonitis Musculoskeletal-no cyanosis or clubbing Neurological-nonfocal, normal strength throughout, Skin-warm and dry Objective Labs Result Diagrams: 01/11/21 07:59 01/11/21 07:59 Labs: Laboratory Results - last 24 hr 01/11/21 01/11/21 01/11/21 07:59 07:59 07:59 WBC 6.3 RBC 3.30 L Hgb 10.8 L Hct 32.6 L MCV 98.8 MCH 32.9 MCHC 33.2 RDW 14.2 Plt Count 248 Neut % (Auto) 64.2 Lymph % (Auto) 22.0 L [place] % (Auto) 10.7 Eos % (Auto) 1.9 L Baso % (Auto) 1.2 Neut # (Auto) 4100 Lymph # (Auto) 1400 [place] # (Auto) 700 Eos # (Auto) 100 Baso # (Auto) 100 Sodium 131 L Potassium 4.0 Chloride 92 L Carbon Dioxide 32 BUN 19 H Creatinine 3.35 H Estimated GFR 13.3 L BUN/Creatinine Ratio 5.7 L Glucose 94 Lactate 1.0 Calcium 9.2 Total Bilirubin 0.6 AST 20 ALT 12 Alkaline Phosphatase 106 Total Protein 6.4 Albumin 3.9 Globulin 2.5 Albumin/Globulin Ratio 1.6 Lipase 50 SARS-CoV-2 (PCR) 01/11/21 09:37 WBC RBC Hgb Hct MCV MCH MCHC RDW Plt Count Neut % (Auto) Lymph % (Auto) [place] % (Auto) Eos % (Auto) Baso % (Auto) Neut # (Auto) Lymph # (Auto) [place] # (Auto) Eos # (Auto) Baso # (Auto) Sodium Potassium Chloride Carbon Dioxide BUN Creatinine Estimated GFR BUN/Creatinine Ratio Glucose Lactate Calcium Total Bilirubin AST ALT Alkaline Phosphatase Total Protein Albumin Globulin Albumin/Globulin Ratio Lipase SARS-CoV-2 (PCR) Negative [facility] Medical History (Updated 01/11/21 @ 11:10 by Angel Smith MD) Bipolar 1 disorder CKD (chronic kidney disease) stage 4, GFR 15-29 ml/min Dyslipidemia Hypertension Renal failure (ARF), acute on chronic Surgically constructed arteriovenous fistula Surgical History H/O: S/P cholecystectomy Social History household members: none Tobacco & Substance Use Smoking Status: Never smoker Assessment & Plan Assessment and plan (1) Incisional hernia of anterior abdominal wall without obstruction or gangrene: Status: Acute Assessment & Plan narrative: 75-year-old woman with chronic renal failure and recent pacemaker placement here with an incarcerated incisional hernia in the epigastric region containing small bowel. Personally reviewed her CT abdomen pelvis which we discussed which demonstrates a loop of small bowel within the hernia. She does not have peritonitis fever or leukocytosis and I suspect that the bowel is viable she does not have bowel obstruction. Recommended that we proceed to the operating room for an open ventral hernia repair. We discussed technical aspects of the operation. We discussed possibilities including potential for bowel resection possible placement of mesh. We discussed operative risks including perioperative complications bleeding, infection, intestinal injury, hernia recurrence. Her questions have been answered and she is in agreement with this plan. She will be admitted to the medical service secondary to her multiple comorbidities. She understands that she is at increased risk of perioperative morbidity and mortality secondary to her obesity insulin dependent diabetes, chronic renal failure, current aspirin use and cardiac disease. Time Spent With Patient Critical Care time: I spent a total of [] minutes of critical care time on this patient's care today; this time is exclusive of procedural time.
--- NOTE | 2021-01-11 11:14 | SUR.HOLD ---
Pt brought to PACU for preop and was soon sent to OR with Lucía and Dr. Crawford.
[2021-01-11] MEDS: LACTATED RINGERS 1,000 ML 42 ML IV (11:16)
[2021-01-11] MEDS: ALBUTEROL/IPRATROPIUM 3 ML AMPUL INH (11:19)
[2021-01-11] MEDS: CEFAZOLIN 1 GM VIAL 2 GM IV (11:46)
--- NOTE | 2021-01-11 11:52 | SUR.OPER ---
Supine on padded OR bed, head on pillow, arms secured on padded arm boards at <90 degrees abduction, legs uncrossed, safety belt at thigh, tape over blanket over lower legs.
[2021-01-11] MEDS: BUPIVACAINE 0.25% (PF) VIAL 30 ML INJ (11:58)
--- NOTE | 2021-01-11 12:44 | PM.OP.1 ---
Operative Date/Time/Diagnoses Date of procedure: 01/11/21 Time of procedure: 12:44 Pre-op diagnosis: Incarcerated incisional hernia Post-op diagnosis: same Procedure & Clinicians Procedure: Open ventral hernia repair with mesh. Lysis of adhesions Same procedure as scheduled: Yes Indications: Incarcerated incisional hernia in the epigastric region containing bowel Surgeon: Angel Smith Click Yes if Unassisted: Yes Anesthesia Type: General Operative Notes Findings: Viable bowel within the incisional defect. Specimen(s): none sent Estimated Blood Loss (mL): 20 Procedure in detail: Patient was brought to the operating room placed supine on the table. Bilateral lower extremity compression devices were applied. They received 2 g of Ancef prior to skin incision. Prepped and draped in sterile fashion. Time-out was performed. A midline incision was made over the epigastric hernia with knife. The subcutaneous tissue was divided to expose exposing the hernia sac. The fascia above and below the defect was opened for approximately 1 cm in order to reduce the hernia. The hernia sac was then opened and it contained viable colon. The hernia sac was resected. Lysis of all visceral adhesions was performed with sharp dissection. A towel was then placed over the visceral content to protect it out of harms way. The retromuscular plane was developed using electrocautery with care to protect the neurovascular structures. The retrorectus space was developed in the same fashion on the contralateral side. The spaces were then connected superiorly near the xiphoid and inferiorly near the umbilicus. The peritoneum was then closed in running fashion using Vicryl suture. A oval a by for cm Bard Ventralex hernia mesh was then placed over the peritoneum with the nonadhesive side down and posterior to the rectus muscle. The mesh was anchored with interrupted Ethibond in transfascial fashion in four quadrants using the chandu washington device such that the mesh lay under physiologic tension. The anterior sheath/ linea alba was then closed in interrupted fashion with Ethibond without tension. A 10 [place] flat drain was placed superficial to the anterior sheath brought out through the skin. Hemostasis was checked. The subcutaneous tissue was then reapproximated using Vicryl skin closed with trudy. Patient emerged from anesthesia was extubated and transferred to recovery room in stable condition. Post-operative Condition: stable Disposition: Acute Care Plan for aftercare: -Prophylactic antibiotic while drain in place -May discharge when pain is adequately controlled -Drain to be removed when output less than 50 ml/24 hr
--- NOTE | 2021-01-11 13:04 | SUR.PHASEI ---
L arm fistula checked pre op + bruit + thrill, limb alert armband placed. Pt arrived to PACU, nasal cannula placed for r/a sats in the 70's soon up to normal levels, see VS flow sheet. L arm fistula post op + bruit + thrill. Ice taken no nausea, denied pain dressing. Report attempted, RN to call back.
--- NOTE | 2021-01-11 13:23 | SUR.PHASEI ---
Cookie returned call, pt transported up to room via bed on 2/l nasal cannula.
--- NOTE | 2021-01-11 13:38 | PC.NURSE ---
Day shift: Pt on unit from PACu at approx 1330. She is A&Ox4. VS WNL. 2L NC 96%. ALTAF drain patent with approx 10ml of serosang present. Denies any pain or nausea. She is also aware the she is clear liquid diet at this time. Tele placed at this time as well. No [place]. Dressing on ABD is CDI. Ice pack in place. Oriented to room and call light.
--- NOTE | 2021-01-11 13:39 | SUR.PHASEI ---
Pt left with Sandy and Mau in stable condition, bed low, locked, SCD's on. callbell in reach, pt made aware not to get up w/o assist. Pt voiced an understanding.
[2021-01-11] MEDS: OXYCODONE IR 5 MG TABLET PO (13:55)
[2021-01-11] MEDS: MIDODRINE HCL 5 MG TABLET 20 MG PO ×2 (14:03→21:18)
[2021-01-11] MEDS: LACTULOSE 20 GM/30 ML SOLUTION 30 GM PO ×2 (14:03→21:17)
--- NOTE | 2021-01-11 16:47 | P.HP_ITS ---
History of Present Illness History of Present Illness Date Patient Seen: 01/11/21 Time Patient Seen: 16:00 Chief complaint: Abd pain x 2 days Narrative: Patient is 75-year-old female with end-stage renal disease on hemodialysis 3 days a week, hypertension, diabetes, history of orthostatic hypotension, pacemaker, cholecystectomy sent to emergency department due to abdominal bulge causing abdominal pain x2 days. She has been at [facility] to get her strength and mobility back after a fall in November. She had recent pacemaker for bradycardia. On ER exam noted to have obvious incarcerated incisional hernia in the epigastric region which was not reducible. Abdomen CT scan confirmed epigastric midline ventral hernia without obstruction or incarceration. Dr. Smith took her to the OR this afternoon for successful open ventral hernia repair with mesh. Postop she is noting significant improvement in presenting abdominal pain. She denies nausea or vomiting. She has not had fever, chills or cough. Labs are unremarkable with WBC 6.3, creatinine 3.35 consistent with known CKD on hemodialysis every Tuesday, and Tuesday. Chest x-ray from ED reported bilateral atelectasis and a left base infiltrate although she has not had respiratory symptoms, fevers or other signs of pneumonia. Patient History Medical History (Updated 01/11/21 @ 17:03 by Frankie Whitaker MD) Bipolar 1 disorder CKD (chronic kidney disease) stage 4, GFR 15-29 ml/min Diabetes Dyslipidemia Hypertension Pacemaker Renal failure (ARF), acute on chronic Surgically constructed arteriovenous fistula Surgical History H/O: S/P cholecystectomy Family & Social History Social History: household members none Prior Living Arrangements Skilled Nurse Facility Safety & Behavioral: Feels Safe in Current Yes Environment Been Physically Hurt or No Threatened By a Person Suicidal Ideation Description None Suicide Plan Description No Plan Tobacco & Substance use: Smoking Status Never smoker alcohol intake never alcohol intake frequency 0-2 drinks per day Substance Use Type does not use Meds Home Medications and Allergies Home Medications Medication Instructions Recorded Confirmed Type gabapentin 100 mg capsule 300 mg PO 3XW #0 09/06/16 01/11/21 History aspirin 81 mg tablet,delayed 81 mg PO DAILY 08/09/17 01/11/21 History release (Aspir-) atorvastatin 20 mg tablet 20 mg PO QPM 08/09/17 01/11/21 History docusate sodium 100 mg capsule 100 mg PO DAILY 08/09/17 01/11/21 History lamotrigine 150 mg tablet 100 mg PO DAILY 08/09/17 01/11/21 History omeprazole 40 mg capsule,delayed 40 mg PO BID 08/09/17 01/11/21 History release citalopram 20 mg tablet 20 mg PO DAILY 04/18/18 01/11/21 History cranberry 2 dose PO DAILY 04/18/18 01/11/21 History oxybutynin chloride 15 mg 15 mg PO DAILY 04/18/18 01/11/21 History tablet,extended release 24 hr Dialyvite 1 tab PO DAILY 11/19/20 01/11/21 History fluticasone 250 mcg-salmeterol 50 2 inh INHALATION PRN PRN 11/19/20 01/11/21 History mcg/dose blistr powdr for inhalation (Advair Diskus) gabapentin 100 mg capsule 200 mg PO 4XW 11/19/20 01/11/21 History insulin glargine 100 unit/mL (3 See Rx Instructions .ROUTE .COMPLEX 11/19/20 01/11/21 History mL) subcutaneous pen (Lantus Solostar U-100 Insulin) insulin lispro protamine-lispro 7 unit SUBCUT BEDTIME 11/19/20 01/11/21 History 100 unit/mL (75-25) subcutaneous pen (Humalog Mix 75-25 KwikPen) lactulose 10 gram/15 mL oral 45 ml PO TID 11/19/20 01/11/21 History solution (Enulose) midodrine 10 mg tablet 20 mg PO TID 11/19/20 01/11/21 History patiromer calcium sorbitex 8.4 8.4 g PO DAILY 11/19/20 01/11/21 History gram oral powder packet (Veltassa) ropinirole 1 mg tablet 1 mg PO TID 11/19/20 01/11/21 History sevelamer carbonate 800 mg tablet 1,600 mg PO TID 11/19/20 01/11/21 History trazodone 150 mg tablet 150 mg PO BEDTIME 11/19/20 01/11/21 History Allergies Allergy/AdvReac Type Severity Reaction Status Date / Time NSAIDS (Non-Steroidal AdvReac Severe CAUSED Verified 07/03/20 14:58 Anti-Inflamma KIDNEY [NSAIDS (NON-STEROIDAL DISEASE ANTI-INFLAMMA] Review of Systems Review of Systems Narrative: Complete ROS negative except as noted above. Exam Vital Signs (past 8 hours): - 01/11/21 09:00 01/11/21 09:01 01/11/21 09:30 Temperature Pulse Rate 79 78 72 Respiratory Rate 13 12 16 Blood Pressure 183/76 H Pulse Oximetry 100 100 100 01/11/21 09:34 01/11/21 10:00 01/11/21 10:11 Temperature Pulse Rate 76 80 74 Respiratory Rate 28 H 21 12 Blood Pressure 149/74 H 122/56 L Pulse Oximetry 100 100 100 01/11/21 10:59 01/11/21 12:44 01/11/21 12:50 Temperature 98.4 F 99.5 F Pulse Rate 77 78 65 Respiratory Rate 20 14 16 Blood Pressure 130/55 L 96/37 L 110/41 L Pulse Oximetry 98 98 98 01/11/21 12:55 01/11/21 13:02 01/11/21 13:11 Temperature 98.6 F 99.4 F Pulse Rate 71 80 71 Respiratory Rate 14 17 19 Blood Pressure 96/37 L 109/40 L 109/38 L Pulse Oximetry 100 99 95 01/11/21 13:30 01/11/21 14:00 01/11/21 14:08 Temperature 97.7 F 97.2 F L Pulse Rate 72 67 Respiratory Rate 16 18 Blood Pressure 114/48 L 110/48 L Pulse Oximetry 95 97 01/11/21 15:30 Temperature 96.3 F L Pulse Rate 72 Respiratory Rate 16 Blood Pressure 108/51 L Pulse Oximetry 96 Oxygen Delivery Method Nasal Cannula Oxygen Flow Rate 2 Narrative Exam Narrative: General: Patient is alert, pleasant seen postop and does not appear in acute distress HEENT: Nontraumatic, pupils equal Neck: No lymphadenopathy Lungs: Clear to auscultation Heart: Regular rate and rhythm, she has recent pacemaker surgical scar in the right chest Abdomen: Surgical dressing clean and dry, surgical drain noted Extremities: No edema Neurological: Affect normal, appears well oriented, speech normal Objective Labs Result Diagrams: 01/11/21 07:59 01/11/21 07:59 Labs: Laboratory Results - last 24 hr 01/11/21 01/11/21 01/11/21 07:59 07:59 07:59 WBC 6.3 RBC 3.30 L Hgb 10.8 L Hct 32.6 L MCV 98.8 MCH 32.9 MCHC 33.2 RDW 14.2 Plt Count 248 Neut % (Auto) 64.2 Lymph % (Auto) 22.0 L [place] % (Auto) 10.7 Eos % (Auto) 1.9 L Baso % (Auto) 1.2 Neut # (Auto) 4100 Lymph # (Auto) 1400 [place] # (Auto) 700 Eos # (Auto) 100 Baso # (Auto) 100 Sodium 131 L Potassium 4.0 Chloride 92 L Carbon Dioxide 32 BUN 19 H Creatinine 3.35 H Estimated GFR 13.3 L BUN/Creatinine Ratio 5.7 L Glucose 94 Lactate 1.0 Calcium 9.2 Total Bilirubin 0.6 AST 20 ALT 12 Alkaline Phosphatase 106 Total Protein 6.4 Albumin 3.9 Globulin 2.5 Albumin/Globulin Ratio 1.6 Lipase 50 SARS-CoV-2 (PCR) 01/11/21 09:37 WBC RBC Hgb Hct MCV MCH MCHC RDW Plt Count Neut % (Auto) Lymph % (Auto) [place] % (Auto) Eos % (Auto) Baso % (Auto) Neut # (Auto) Lymph # (Auto) [place] # (Auto) Eos # (Auto) Baso # (Auto) Sodium Potassium Chloride Carbon Dioxide BUN Creatinine Estimated GFR BUN/Creatinine Ratio Glucose Lactate Calcium Total Bilirubin AST ALT Alkaline Phosphatase Total Protein Albumin Globulin Albumin/Globulin Ratio Lipase SARS-CoV-2 (PCR) Negative Assessment & Plan Assessment & Plan narrative: 1. Incarcerated epigastric incisional hernia -status post repair with mesh by Dr. Smith -per surgery patient will be able to return home when pain controlled and taking p.o., drain can be removed when less than 50 cc per 24 hours -anticipate can discharge back to [facility] tomorrow if cleared by surgery 2. ESRD -lab stable -can resume HD Q Tuesday, and Tuesday -continue patient's usual medications 3. Status post recent pacemaker -stable, on EKG sinus rhythm with 1st degree AV block 4. Atelectasis -chest x-ray reported left lung infiltrate which I do not think represents pneumonia as patient without fever or respiratory symptoms -incentive spirometer 5. Diabetes insulin requiring -patient uses Lantus only when blood sugar significantly elevated otherwise on Humalog mix 7 units at bedtime -use low-dose sliding scale as ordered by surgery Time Spent With Patient Critical Care time: I spent a total of [] minutes of critical care time on this patient's care today; this time is exclusive of procedural time.
[2021-01-11] MEDS: ALBUTEROL 2.5 MG/3 ML NEB (ADULT) INH ×2 (16:54→19:31)
[2021-01-11] MEDS: ATORVASTATIN 20 MG TABLET PO (17:54)
[2021-01-11] MEDS: BUDESONIDE 0.5 MG/2 ML NEB INH (19:31)
[2021-01-11] MEDS: PANTOPRAZOLE DR 40 MG TABLET PO (21:16)
--- NOTE | 2021-01-11 21:55 | DI.CT.S_ITS ---
PROCEDURE: CT ABDOMEN PELVIS WO CON INDICATIONS: abdominal pain, s/p hernia repair TECHNIQUE: Noncontrast 5 mm thick sections acquired from the diaphragms to the symphysis. 5 mm coronal and sagittal reformats were then performed. For radiation dose reduction, the following was used: automated exposure control, adjustment of mA and/or kV according to patient size. COMPARISON: [facility], CT, CT ABDOMEN PELVIS WO CON, 01/11/2021, 8:18. FINDINGS: Image quality: Excellent. Lung bases: There is bibasilar atelectasis and small bilateral pleural effusions. Cardiac chambers are enlarged. Pacer wires are noted. Solid organs: Liver: The liver has no mass or intrahepatic biliary ductal dilatation. Biliary: Status post cholecystectomy. Pancreas: The pancreas has no mass or ductal dilatation. There is no surrounding inflammation. Spleen: Normal size. There are no masses. Adrenals: No hypertrophy or nodules. Kidneys: Both kidneys demonstrate atrophy. The right kidney has a 1.3 cm cyst. No solid mass identified, however is limited without IV contrast. Peritoneum and bowel: There is a small hiatal hernia. The small bowel demonstrates fluid with air-fluid levels. The right colon and proximal transverse colon are also distended with fluid with air-fluid levels. Just to the left of the mid transverse colon there is a transition point to normal caliber bowel. At this point the bowel has surrounding inflammatory changes. Nodes and vessels: No retroperitoneal or mesenteric adenopathy by size criteria. The aorta atherosclerotic calcifications dilatation. The splenic artery hepatic artery are heavily calcified. Miscellaneous: The patient is status post operative repair a previously seen epigastric ventral hernia. There is a drain in place with no surrounding fluid collection. Foci of air along anterior abdominal wall are consistent with recent surgery. There are also several foci of air anteriorly in the peritoneum, also likely postoperative changes. There is rectus diastasis in the lower abdomen. PELVIS: Genitourinary: The bladder has no wall thickening or mass. No bladder calcifications. Miscellaneous: No inguinal hernias or adenopathy. Bones: No suspicious bony lesions. Degenerative changes with no focal abnormality. Multilevel disc disease. IMPRESSION: Small and large bowel dilatation with with a transition point in the transverse colon just to the left of midline where inflammation surrounding the colon consistent with obstruction at this point. Dictated by: Marco Antonio Tong M.D. on 01/11/2021 at 23:21 Approved by: Marco Antonio Tong M.D. on 01/11/2021 at 23:34
[2021-01-11 22:06] LABS: Hematocrit 30.9 % (36-46); Hemoglobin 10.2 g/dL (12.0-16.0); Mean Corpuscular HGB Conc 33.1 % (30-36); Mean Corpuscular Hemoglobin 32.9 PG (26-34); Mean Corpuscular Volume 99.4 fL (80-100); Platelet Count 232 X10^3/uL (150-400); Red Blood Cell Count 3.11 X10^6/uL (4.0-5.2); Red Cell Distribution Width 14.4 % (11.6-14.8); White Blood Cell Count 7.2 X10^3/uL (4.5-11.0)
[2021-01-11 22:13] LABS: Alanine Aminotransferase 42 IU/L (<35); Albumin 3.5 g/dL (3.5-5.0); Albumin Globulin Ratio 1.3 (1.0-2.8); Alkaline Phosphatase 230 U/L (38-126); Aspartate Aminotransferase 74 IU/L (14-36); Bilirubin Total 0.5 mg/dL (0.2-1.3); Blood Urea Nitrogen 22 mg/dL (7-17); Calcium 9.1 mg/dL (8.4-10.2); Carbon Dioxide 33 mmol/L (22-32); Chloride 92 mmol/L (98-107); Estimated Glomerular Filt Rate 9.7 mL/min (>60); Globulin 2.6 g/dL (1.7-4.1); Glucose 112 mg/dL (80-110); HEMOLYSIS < 15 (0-50); Sodium 132 mmol/L (137-145); Total Protein 6.1 g/dL (6.3-8.2)
[2021-01-12] VITALS (17 sets, daily range): BP systolic 109–131; BP diastolic 48–92; PULSE 69–94; RESP 14–19; TEMP 36.2–38.3; O2SAT 89–98
[2021-01-12] MEDS: HEPARIN 5,000 UNIT/ML VIAL 7500 UNIT SUBCUT ×3 (06:29→20:08)
[2021-01-12] MEDS: PANTOPRAZOLE DR 40 MG TABLET PO ×2 (06:29→20:16)
[2021-01-12] MEDS: BUDESONIDE 0.5 MG/2 ML NEB INH ×2 (07:44→19:25)
[2021-01-12] MEDS: ALBUTEROL 2.5 MG/3 ML NEB (ADULT) INH ×3 (07:44→19:25)
[2021-01-12] MEDS: HYDROMORPHONE 0.5 MG INJ IV (07:54)
[2021-01-12] MEDS: INFLUENZA HD VACCINE 0.7 ML SYRINGE IM (08:24)
[2021-01-12] MEDS: HYDROMORPHONE 1 MG INJ IV (08:41)
[2021-01-12] MEDS: SODIUM CHLORIDE 0.9% 1,000 ML 42 ML IV (08:42)
--- NOTE | 2021-01-12 08:47 | CM.DANOTE ---
Addendum entered by Asha Patel R.N. 01/12/21 15:44: Lexy at [facility] called and stated, the team is uncomfortable taking patient back before she goes to her next dialysis, since there won't be that much time to assess her, and that there are not enough sufficient notes to indicate that she is stable'. Called and updated Dr. Whitaker, who indicated that he would not discharge her if she is not stable, and will see her before she leaves. He also indicated that he will put in more notes today regarding her current medical status. Updated Lexy at [facility], and she will look for updated notes. Dr. Whitaker indicated that she is passing flatus at this time. Addendum entered by Asha Patel R.N. 01/12/21 14:20: Patient most likely will return to [facility] as long as she is stable. Spoke to Elvis, nurse coordinator, and mentioned that they rescheduled patient's dialysis appointment, is at [facility] here in [place], and they changed it to 11:30 tomorrow. Updated Lexy at [facility], and she stated that they will need to work on getting patient there earlier so they can do her readmit. Asked Dr. Whitaker if she can have earlier morning orders, and he indicated that he would really like to see how she does at breakfast, and see her before discharging. Lexy will talk to team tomorrow about discharge and possible readmission. Addendum entered by Asha Patel R.N. 01/12/21 11:35: It is noted that patient will need to be transferred to [facility] for dialysis purposes, will not be able to go on an outpatient basis for dialysis and come back here. Transfer is pending. Original Note: DCP: Case received, EMR reviewed and met with patient. Introduced self and role. Was able to obtain information regarding patient's baseline activity status and current living situation prior to admission. DCP assessment completed with information currently available. Patient is a 75 year old female who admitted yesterday morning to the care of the hospitalist team. PCP: Dr. Mustafa. Payer: confirmed: Medicare/[employer]. Patient came to the hospital via ambulance secondary to having increased abdominal pain. Patient holds current diagnosis of incisional hernia. She had surgery yesterday, for hernia repair, but has had some complications, so she is not medically ready for discharge. Patient has been at [facility] since November for therapy from last hospital stay. She has hemodialysis three times a week, daughter has been taking her. She will need dialysis tomorrow, and hospitalist is attempting to see if she can go outpatient and return here, or if she will need to be transferred. Updated September at [facility] that patient is not medically ready to go today. Met with patient. She is alert and oriented. She has been at [facility] for rehab. She indicated, she has been trying to walk with her walker, but feels like she almost strained herself trying to do so. She is originally from [place], and her daughter also resides here and has been taking patient to dialysis early in the morning. P: DCP to continue to follow for any needs. Plan would be for her to return to [facility] when she is deemed medically stable. Asha Patel RN/Manipulator Operator Discharge Planning/Care Management Advanced directive, confirm from FAMILY Start: 01/11/21 14:28 Freq: Q24H Status: Active Protocol: Document 01/11/21 14:28 YAD (Rec: 01/11/21 14:30 [id number]) Advance Directive, confirm on record Time 14:29 Person contacted Pt Copy received No CM Discharge Assessment Start: 01/12/21 08:43 Freq: Status: Active Protocol: Document 01/12/21 08:43 VM (Rec: 01/12/21 08:46 [id number]) Discharge Planning Assessment Assigned Wood Cabinet Finisher Asha Patel RN/Manipulator Operator Advance Directives? Yes Advance Directives on File No History Provided By Patient,Medical Record Prior Living Arrangements Skilled Nurse Facility Comment Patient has been at [facility] for rehab Household Members none Type of transporation used prior to Relies on Others admit Facility Name Admitted From: [facility] Willing to Return to Facility? Yes Independent with ADL's Yes Is patient alert and oriented? Yes Needs Assistance With Bathing,Grooming,Meal Prep, Toileting,Managing Medications ,Home Chores / Shopping Caregiver for Another No DME Already Rented / Owned Wheelchair,FWW / Walker Patient/Family Preference Residential Facility Comment Plan is for patient to return to [facility] when stable Barriers to Discharge Yes Comment Patient will need dialysis tomorrow, and this hospital does not provide. Hospitalist is working on either outpatient dialysis at [facility] and coming back, or higher level hospital. Discharge Plan Residential Facility Transportation Arrangement Facility Referrals Initiated None needed Whiteboard Updated in Patient Room with Yes name and ext. # of Wood Cabinet Finisher Review Status In Process Next Review Type Continued Stay Review
[2021-01-12] MEDS: CEFAZOLIN 1 GM VIAL IV (10:14)
[2021-01-12 14:06] LABS: BUN Creatinine Ratio 4.6 (6-22); Blood Urea Nitrogen 25 mg/dL (7-17); Calcium 8.9 mg/dL (8.4-10.2); Carbon Dioxide 30 mmol/L (22-32); Chloride 93 mmol/L (98-107); Estimated Glomerular Filt Rate 7.5 mL/min (>60); Glucose 90 mg/dL (80-110); HEMOLYSIS < 15 (0-50); Phosphorous 4.7 mg/dL (2.8-4.1); Sodium 131 mmol/L (137-145)
--- NOTE | 2021-01-12 17:32 | P.PN_ITS ---
Subjective Subjective Date Patient Seen: 01/12/21 Time Patient Seen: 17:32 Interval history: had nausea overnight no emesis. incisional pain. no flatus or BM. Exam Vital Signs (past 8 hours): - 01/12/21 11:21 01/12/21 12:03 01/12/21 12:29 Temperature 98.9 F Pulse Rate 77 Respiratory Rate 16 Blood Pressure 126/54 L Pulse Oximetry 94 94 96 01/12/21 12:52 01/12/21 15:20 01/12/21 15:33 Temperature 98.8 F Pulse Rate 69 91 H Respiratory Rate 14 15 Blood Pressure 126/92 H Pulse Oximetry 97 89 L 92 Oxygen Delivery Method Nasal Cannula Oxygen Flow Rate 2 Narrative Exam Narrative: Gen-adult woman alert and oriented no acute distress abdomen-appropriately tender to palpation. Incision CDI drain SS Objective Labs Result Diagrams: 01/11/21 21:51 01/12/21 13:44 Labs: Laboratory Results - last 24 hr 01/11/21 01/11/21 01/12/21 21:51 21:51 13:44 WBC 7.2 RBC 3.11 L Hgb 10.2 L Hct 30.9 L MCV 99.4 MCH 32.9 MCHC 33.1 RDW 14.4 Plt Count 232 Sodium 132 L 131 L Potassium 4.0 4.0 Chloride 92 L 93 L Carbon Dioxide 33 H 30 BUN 22 H 25 H Creatinine 4.40 H 5.49 H Estimated GFR 9.7 L 7.5 L BUN/Creatinine Ratio 5.0 L 4.6 L Glucose 112 H 90 Calcium 9.1 8.9 Phosphorus 4.7 H Total Bilirubin 0.5 AST 74 H ALT 42 H Alkaline Phosphatase 230 H D Total Protein 6.1 L Albumin 3.5 Globulin 2.6 Albumin/Globulin Ratio 1.3 PFSH Medical History (Updated 01/11/21 @ 17:03 by Frankie Whitaker MD) Bipolar 1 disorder CKD (chronic kidney disease) stage 4, GFR 15-29 ml/min Diabetes Dyslipidemia Hypertension Pacemaker Renal failure (ARF), acute on chronic Surgically constructed arteriovenous fistula Surgical History H/O: S/P cholecystectomy Social History household members: none Smoking Status: Never smoker alcohol intake: never Assessment & Plan Post-op Postoperative Procedures: Procedures Operation Date: 01/11/21 11:00 Actual Procedure Side Surgeon p Hernia Repair Not Applicable Angel Smith MD Postoperative status narrative: POD 1 sp open ventral hernia repair of incarcert ed hernia. I reviewed the CT A/P from last night which was read as concerning for bowel obstruction. She now has flatus and I suspect that the CT was demonstrating ileus as the transverse colon was likely chronically incarcerated within the hernia. -Clear liquids advance as tolerated. -Drain to remain until output <50 ml/24 hrs -May discharge once tolerating diet
--- NOTE | 2021-01-12 17:35 | P.PN_ITS ---
Subjective Subjective Date Patient Seen: 01/12/21 Interval history: 75-year-old female with end-stage renal disease on hemodialysis 3 days a week, hypertension, diabetes, history of orthostatic hypotension, pacemaker, cholecystectomy sent to emergency department due to abdominal bulge causing abdominal pain x2 days.? She was found to have incarcerated epigastric incisional hernia. She is status post repair with Dr. Smith. Patient had increase in abdominal pain and distension overnight after her surgery. CT showed likely findings of transverse colon ileus probably from where her bowel wall was incarcerated in the hernia. She was made NPO. Subsequently her abdominal distension and pain has greatly improved and she is passing flatus. Dr. Smith assessed earlier today. She tolerated clear liquid diet and is eating a sandwich for dinner when I checked back on her this even ing. Exam Vital Signs (past 8 hours): - 01/12/21 11:21 01/12/21 12:03 01/12/21 12:29 Temperature 98.9 F Pulse Rate 77 Respiratory Rate 16 Blood Pressure 126/54 L Pulse Oximetry 94 94 96 01/12/21 12:52 01/12/21 15:20 01/12/21 15:33 Temperature 98.8 F Pulse Rate 69 91 H Respiratory Rate 14 15 Blood Pressure 126/92 H Pulse Oximetry 97 89 L 92 Oxygen Delivery Method Nasal Cannula Oxygen Flow Rate 2 Narrative Exam Narrative: General: Alert Lungs: Clear Abdomen: On exam this a.m. was distended and diffusely tender, on subsequent exam she is not distended and having expected incisional tenderness Extremities: No edema Objective Labs Result Diagrams: 01/11/21 21:51 01/12/21 13:44 Labs: Laboratory Results - last 24 hr 01/11/21 01/11/21 01/12/21 21:51 21:51 13:44 WBC 7.2 RBC 3.11 L Hgb 10.2 L Hct 30.9 L MCV 99.4 MCH 32.9 MCHC 33.1 RDW 14.4 Plt Count 232 Sodium 132 L 131 L Potassium 4.0 4.0 Chloride 92 L 93 L Carbon Dioxide 33 H 30 BUN 22 H 25 H Creatinine 4.40 H 5.49 H Estimated GFR 9.7 L 7.5 L BUN/Creatinine Ratio 5.0 L 4.6 L Glucose 112 H 90 Calcium 9.1 8.9 Phosphorus 4.7 H Total Bilirubin 0.5 AST 74 H ALT 42 H Alkaline Phosphatase 230 H D Total Protein 6.1 L Albumin 3.5 Globulin 2.6 Albumin/Globulin Ratio 1.3 PFSH Medical History (Updated 01/11/21 @ 17:03 by Frankie Whitaker MD) Bipolar 1 disorder CKD (chronic kidney disease) stage 4, GFR 15-29 ml/min Diabetes Dyslipidemia Hypertension Pacemaker Renal failure (ARF), acute on chronic Surgically constructed arteriovenous fistula Surgical History H/O: S/P cholecystectomy Social History household members: none Smoking Status: Never smoker alcohol intake: never Assessment & Plan Assessment & Plan narrative: 1.? Incarcerated epigastric incisional hernia -status post repair with mesh by Dr. Smith -per surgery patient will be able to return home when pain controlled and taking p.o., drain can be removed when less than 50 cc per 24 hours -she had temporary colonic ileus overnight which has resolved and patient tolerating a regular diet this evening -anticipate can discharge in the morning to dialysis center and subsequently back to [facility] 2. ESRD -HD Q Tuesday, and Tuesday here in town -continue patient's usual medications 3. Status post recent pacemaker -stable, on EKG sinus rhythm with 1st degree AV block 4. Atelectasis -chest x-ray reported left lung infiltrate which I do not think represents pneumonia as patient without fever or respiratory symptoms -incentive spirometer 5.? Diabetes insulin requiring -patient uses Lantus only when blood sugar significantly elevated otherwise on Humalog mix 7 units at bedtime -use low-dose sliding scale as ordered by surgery 6. Depression -stable mood and affect, continue medications DVT prophylaxis: SubQ heparin Time Spent With Patient Critical Care time: I spent a total of [] minutes of critical care time on this patient's care today; this time is exclusive of procedural time.
[2021-01-12] MEDS: MIDODRINE HCL 5 MG TABLET 20 MG PO (20:08)
[2021-01-12] MEDS: TRAZODONE 50 MG TABLET 150 MG PO (20:08)
[2021-01-12] MEDS: ATORVASTATIN 20 MG TABLET PO (20:08)
[2021-01-12] MEDS: LACTULOSE 20 GM/30 ML SOLUTION 30 GM PO (20:16)
--- NOTE | 2021-01-12 20:53 | DI.RAD.S_ITS ---
PROCEDURE: XR CHEST 1V INDICATIONS: fever TECHNIQUE: One view of the chest was acquired. COMPARISON: [facility], CR, XR CHEST 1V, 01/11/2021, 8:18. [facility], CR, XR CHEST 1V, 11/19/2020, 2:47. FINDINGS: Surgical changes and devices: Right pacemaker with right atrial and right ventricular leads. Cholecystectomy clips. Lungs and pleura: Low lung volumes. Multiple overlying leads. Suspect mild bibasilar opacity. Possible trace effusions. No pneumothorax. Mediastinum: Mediastinal contours appear grossly stable. Prominent perihilar markings. Heart size is enlarged. Bones and chest wall: No suspicious bony lesions. Overlying soft tissues appear unremarkable. IMPRESSION: Low lung volumes. Suspect mild bibasilar opacity. Most likely atelectasis rather than pneumonia based on its imaging appearance. Cardiomegaly. Suspect pulmonary vasculature engorgement. When clinically feasible two-view chest radiograph would be helpful for further evaluation. Dictated by: Alberto Paz M.D. on 01/12/2021 at 22:00 Approved by: Alberto Paz M.D. on 01/12/2021 at 22:03
[2021-01-12] MEDS: ACETAMINOPHEN 325 MG TABLET 650 MG PO (21:02)
[2021-01-12] MEDS: INSULIN LISPRO 100 UNIT/ML 3ML VIAL SUBCUT (21:09)
[2021-01-13] VITALS (7 sets, daily range): BP systolic 78–110; BP diastolic 42–53; PULSE 67–107; RESP 16–26; TEMP 36.6–39.1; O2SAT 94–97
[2021-01-13] MEDS: PIPERACILLIN/TAZO 2.25 GM in SODIUM CHLORIDE 0.9% 100 ML 25 ML IV (02:42)
[2021-01-13] MEDS: MIDODRINE HCL 5 MG TABLET 20 MG PO (06:51)
--- NOTE | 2021-01-13 07:46 | CM.DPC ---
DCP Cont: Patient was supposed to go back to [facility] today, but she has had some increased medical needs, and now is in the ICU. This manager rn case was informed that patient would not be discharging today, and they are in the process of getting patient transferred to another hospital for dialysis. Was asked by nurse coordinator to call [facility] to cancel her 11:30 appointment. Went ahead and called [facility] to cancel, and left Lexy a message at [facility] that patient would not be discharging. Lexy had originally voiced concerns of taking patient back since there were no updated nursing notes as to how she was doing. P: DCP to continue to follow, and will be available for any resources. Will update Lexy at [facility] when more information is known. Asha Patel RN/Christmas Tree Farmer
--- NOTE | 2021-01-13 07:55 | PC.NURSE ---
At approximately 0530, patients BP's were dropping with a low MAP and patient was difficult to arouse. Provider was notified and VS reported. Provider assessed patient and verbal orders were given for a bolus of 250 NS at 0650. Patient was transferred to ICU and report was given to ICU nurse at 0720.
[2021-01-13] MEDS: ALBUTEROL 2.5 MG/3 ML NEB (ADULT) INH (08:10)
--- NOTE | 2021-01-13 08:21 | DI.RAD.S_ITS ---
PROCEDURE: XR CHEST 1V INDICATIONS: Fever TECHNIQUE: One view of the chest was acquired. COMPARISON: [facility], CR, XR CHEST 1V, 01/12/2021, 20:58. FINDINGS: Surgical changes and devices: Right chest wall 2 lead cardiac pacing device. Lungs and pleura: Patchy bilateral airspace disease in the lung bases. No pleural effusions or pneumothorax. Mediastinum: Mediastinal contours appear normal. Heart size is normal. Bones and chest wall: No suspicious bony lesions. Overlying soft tissues appear unremarkable. IMPRESSION: Patchy airspace disease in the bilateral lung as seen on the prior study. This again may represent atelectasis of the lung volumes are low, however superimposed pneumonia cannot be strictly excluded. Dictated by: Hoang De León M.D. on 01/13/2021 at 9:04 Approved by: Hoang De León M.D. on 01/13/2021 at 9:05
[2021-01-13 08:51] LABS: Add Manual Diff / Slide Review NO; Basophils Absolute Auto 100 /uL (0-100); Basophils Percent Auto 0.8 % (0-2); Eosinophils Absolute Auto 0 /uL (0-450); Eosinophils Percent Auto 0.2 % (2-4); Hematocrit 28.4 % (36-46); Hemoglobin 9.3 g/dL (12.0-16.0); Lymphocytes Absolute Auto 600 /uL (1100-4500); Lymphocytes Percent Auto 6.8 % (25-40); Mean Corpuscular HGB Conc 32.6 % (30-36); Mean Corpuscular Hemoglobin 32.9 PG (26-34); Mean Corpuscular Volume 100.8 fL (80-100); Monocytes Absolute Auto 600 /uL (0-900); Monocytes Percent Auto 6.9 % (3-14); Neutrophils Absolute Auto 7700 /uL (1500-7000); Neutrophils Percent Auto 85.3 % (50-75); Platelet Count 165 X10^3/uL (150-400); Red Blood Cell Count 2.82 X10^6/uL (4.0-5.2); Red Cell Distribution Width 14.2 % (11.6-14.8)
[2021-01-13 09:06] LABS: BUN Creatinine Ratio 5.3 (6-22); Blood Urea Nitrogen 35 mg/dL (7-17); Calcium 8.9 mg/dL (8.4-10.2); Carbon Dioxide 25 mmol/L (22-32); Chloride 95 mmol/L (98-107); Estimated Glomerular Filt Rate 6.1 mL/min (>60); Glucose 199 mg/dL (80-110); HEMOLYSIS < 15 (0-50); Potassium 4.5 mmol/L (3.4-5.1); Sodium 130 mmol/L (137-145)
[2021-01-13 09:58] LABS: Procalcitonin 2.65 ng/mL (<0.5)
--- NOTE | 2021-01-13 11:10 | PM.DS.1 ---
History of Present Illness <Angel Smith MD - Last Filed: 01/13/21 11:11> History of Present Illness Chief complaint: Abd pain x 2 days <Frankie Whitaker MD - Last Filed: 01/13/21 11:35> History of Present Illness Narrative: Patient is 75-year-old female with end-stage renal disease on hemodialysis 3 days a week, hypertension, diabetes, history of orthostatic hypotension, pacemaker, cholecystectomy sent to emergency department due to abdominal bulge causing abdominal pain x2 days. She has been at [facility] to get her strength and mobility back after a fall in November. She had recent pacemaker for bradycardia. On ER exam noted to have obvious incarcerated incisional hernia in the epigastric region which was not reducible. Abdomen CT scan confirmed epigastric midline ventral hernia without obstruction or incarceration. Dr. Smith took her to the OR this afternoon for successful open ventral hernia repair with mesh. Postop she is noting significant improvement in presenting abdominal pain. She denies nausea or vomiting. She has not had fever, chills or cough. Labs are unremarkable with WBC 6.3, creatinine 3.35 consistent with known CKD on hemodialysis every Tuesday, and Tuesday. Chest x-ray from ED reported bilateral atelectasis and a left base infiltrate although she has not had respiratory symptoms, fevers or other signs of pneumonia. <Frankie Whitaker MD - Last Filed: 01/13/21 11:35> Provider Date of admission: 01/11/21 10:33 Discharge Date: 01/13/21 Primary care physician: KEESHA Campbell Discharge provider: Frankie Whitaker MD <Frankie Whitaker MD - Last Filed: 01/13/21 11:35> Hospital Course Discharge Diagnosis: 1 Incarcerated epigastric incisional hernia incarcerated epigastric incisional hernia, status post mesh repair 2. End-stage renal disease, hemodialysis dependent 3. Postop bacterial pneumonia 4. Postop fever 5. Episode of postop hypotension likely due to volume depletion 6. Recent pacemaker placement 7. Postop colonic ileus resolved. 8. Acute hypoxic respiratory failure postop secondary to pneumonia Procedure: Repair of epigastric incisional ventral hernia 01/11/[address] Angel Smith Patient presented with incarcerated ventral hernia and midline epigastric and had repair with mesh on January 11. The following day she had increased abdominal distension and discomfort with CT consistent with colonic ileus. Symptoms resolved during course of the day and patient tolerated an advanced diet last evening. She has not had BM but is passing flatus and abdomen is benign on exam. Early this morning patient had acute drop in her blood pressure with initial BP in the 40s on auto cuff but 70 systolic when checked manually. I do not think 40 systolic was accurate as patient had palpable femoral pulses and was alert and talking. Blood pressure responded to NS 250 cc bolus. Patient got 500 cc bolus total and currently on 50 cc/hour NS maintenance. Currently BP at about 110/70 with heart rate in the 70s. I think most likely patient was volume depleted as we had been very cautious in hydrating her due to end-stage renal disease and patient not making urine. I do not think she is septic. Patient also spiked temp to 102.4 overnight. Chest x-ray this morning shows patchy airspace disease bilaterally in the lung bases. X-ray findings were also noted on admission but at the time she was not having any fever or respiratory symptoms and it appeared more like atelectasis. At this point with a fever and x-ray findings are more consistent with postop pneumonia. Patient has not had vomiting to suggest aspiration pneumonia. Blood cultures from admission are negative. Repeat blood cultures were drawn today. Patient's abdominal surgical site appears benign and not indicative of wound infection. WBC is 9.0, procalcitonin 2.65. She was started on Zosyn and vancomycin for presumed pneumonia. She is currently on 3 L O2 NC with sat of 94% whereas yesterday she was 95% room air. Patient was recently hospitalized at [facility] for 6 weeks and had pacemaker placed. She is unable to give further information as to course of illness at [facility] and records have not yet been received. Patient gets hemodialyzed 3 days a week on Tuesdays, and Saturdays in [place]. Renal labs are stable with potassium 4.5, CO2 25, calcium 8.9, phosphorus 4.7. I think she will likely need to be hemodialyzed in the next 24 hours. Patient is being transferred to [facility] for continued inpatient management due to lack of dialysis availability at our hospital. She is stable at time of discharge. I have communicated with the accepting provider. Time Spent with Patient Time spent: Greater than 30 minutes <Frankie Whitaker MD - Last Filed: 10/05/21 11:35> Vital Signs (past 8 hours): - 01/13/21 06:00 01/13/21 08:00 01/13/21 08:11 Temperature 98.4 F 98.4 F Pulse Rate 88 86 107 H Respiratory Rate 16 26 H 20 Blood Pressure 78/42 L 107/44 L Pulse Oximetry 95 94 Oxygen Delivery Method Nasal Cannula Oxygen Flow Rate 3 Narrative Exam Narrative: General: Mildly lethargic, able to answer questions Lungs: Diminished in bases Heart: Regular Extremities: Warm, no edema, left arm AV fistula noted Objective <Angel Smith MD - Last Filed: 01/13/21 11:11> Labs Result Diagrams: 01/13/21 08:34 01/13/21 08:34 <Frankie Whitaker MD - Last Filed: 01/13/21 11:35> Labs Labs: Laboratory Results - last 24 hr 01/12/21 01/13/21 01/13/21 13:44 08:34 08:34 WBC 9.0 RBC 2.82 L Hgb 9.3 L Hct 28.4 L MCV 100.8 H MCH 32.9 MCHC 32.6 RDW 14.2 Plt Count 165 Neut % (Auto) 85.3 H Lymph % (Auto) 6.8 L Hardy % (Auto) 6.9 Eos % (Auto) 0.2 L Baso % (Auto) 0.8 Neut # (Auto) 7700 H Lymph # (Auto) 600 L Hardy # (Auto) 600 Eos # (Auto) 0 Baso # (Auto) 100 Sodium 131 L 130 L Potassium 4.0 4.5 Chloride 93 L 95 L Carbon Dioxide 30 25 BUN 25 H 35 H Creatinine 5.49 H 6.62 H Estimated GFR 7.5 L 6.1 L BUN/Creatinine Ratio 4.6 L 5.3 L Glucose 90 199 H D Calcium 8.9 8.9 Phosphorus 4.7 H Procalcitonin 01/13/21 08:34 WBC RBC Hgb Hct MCV MCH MCHC RDW Plt Count Neut % (Auto) Lymph % (Auto) Hardy % (Auto) Eos % (Auto) Baso % (Auto) Neut # (Auto) Lymph # (Auto) Hardy # (Auto) Eos # (Auto) Baso # (Auto) Sodium Potassium Chloride Carbon Dioxide BUN Creatinine Estimated GFR BUN/Creatinine Ratio Glucose Calcium Phosphorus Procalcitonin 2.65 H PFSH <Angel Smith MD - Last Filed: 01/13/21 11:11> Medical History (Updated 01/11/21 @ 17:03 by Frankie Whitaker MD) Bipolar 1 disorder CKD (chronic kidney disease) stage 4, GFR 15-29 ml/min Diabetes Dyslipidemia Hypertension Pacemaker Renal failure (ARF), acute on chronic Surgically constructed arteriovenous fistula Surgical History H/O: S/P cholecystectomy Social History household members: none Smoking Status: Never smoker alcohol intake: never Discharge Plan Discharge Plan Disposition: Xfer Acute Care Hospital Discharge Data Primary Care Provider: Karen Mustafa
[2021-01-13] MEDS: ASPIRIN EC 81 MG TABLET PO (11:30)
[2021-01-13] MEDS: CITALOPRAM 10 MG TABLET 20 MG PO (11:30)
[2021-01-13] MEDS: LACTULOSE 20 GM/30 ML SOLUTION 30 GM PO (11:30)
[2021-01-13] MEDS: VANCOMYCIN 1,500 MG/300 ML PIGGYBACK 200 MG IV (11:33)
[2021-01-13] MEDS: HEPARIN 5,000 UNIT/ML VIAL 7500 UNIT SUBCUT (11:34)
[2021-01-13] MEDS: CEFAZOLIN 1 GM VIAL IV (11:38)
[2021-01-13] MEDS: ALBUMIN HUMAN 12.5 GM/50 ML VIAL IV (11:42)
[2021-01-13] MEDS: PANTOPRAZOLE DR 40 MG TABLET PO (11:48)
[2021-01-13] MEDS: GABAPENTIN 300 MG CAPSULE PO (11:48)
[2021-01-13] MEDS: OXYCODONE IR 5 MG TABLET PO (11:49)
[2021-01-13] MEDS: INSULIN LISPRO 100 UNIT/ML 3ML VIAL SUBCUT (12:05)
--- NOTE | 2021-01-13 12:26 | PC.NURSE ---
PT TRANSFERRED TO [facility] FOR [facility] ( PER HER SCHEDULED DAY) 2ND DAY POST OP FROM INCARCERATED INCISION HERNIA- LESLYE DRAIN REMOVED, SHE RECEIVED ALBUMIN INSULIN AND ANCEF WELL VANCO INFUSING ALSO COMPLETED HER ZOSYN- LEFT HSOPTIAL AT 1230 PM- UPDATE TO DAUGHTER
== END 2021-01-13 12:32 | disposition short-term general hospital (02) | DRG 353 ==
LOC: ED 10:24 → AC 10:34 → ICU 01-13 07:34
PROVIDERS: Internal Medicine; Admitting Provider Surgery; Emergency Provider Emergency Medicine; PCP Nurse Practitioner; Referring Provider Emergency Medicine; Visit Provider Internal Medicine
PROC: 0WUF0JZ Supplement Abdominal Wall with Synthetic Substitute, Open Approach (ICD-10-PCS; principal; 2021-01-11 11:00)
DX: K43.0 Incisional hernia with obstruction, without gangrene (principal); N18.6 End stage renal disease; J96.01 Acute respiratory failure with hypoxia; J15.9 Unspecified bacterial pneumonia; I12.0 Hypertensive chronic kidney disease with stage 5 chronic kidney disease or end stage renal disease; Z68.42 Body mass index [BMI] 45.0-49.9, adult; K56.7 Ileus, unspecified; E11.22 Type 2 diabetes mellitus with diabetic chronic kidney disease; Z99.2 Dependence on renal dialysis; Z79.4 Long term (current) use of insulin; E66.9 Obesity, unspecified; I95.9 Hypotension, unspecified; E86.9 Volume depletion, unspecified; Z95.0 Presence of cardiac pacemaker; F32.A Depression, unspecified; Z20.822 Contact with and (suspected) exposure to COVID-19; Z23 Encounter for immunization
CPT/HCPCS: 36415; 49561; 71045; 74176; 80048; 80053; 82962; 83605; 83690; 84100; 84145; 85025; 85027; 87040; 87635; 87797; 90471; 90662; 93005; 94640; 94760; 96374; 96375; 99221; 99284; 99285; C1781; C9803; J0330; J0690; J1170; J1644; J1815; J2270; J2405; J2543; J2704; J3010; J7613; P9041

== ENCOUNTER → 2021-10-28 14:02 | Outpatient (CLI) | payer MEDICARE, SELFPAY ==
[2021-01-11 14:08] VITALS: BMI 47.7
--- NOTE | 2021-10-28 14:07 | DI.MG.S_ITS ---
BILATERAL DIGITAL SCREENING MAMMOGRAM 3D/2D WITH CAD: 10/28/2021 CLINICAL: Routine screening. Comparison is made to exams dated: 08/25/2018 mammogram, 07/28/2017 mammogram, 05/18/2016 mammogram, and 05/15/2015 mammogram - [facility]. The tissue of both breasts is heterogeneously dense. This may lower the sensitivity of mammography. Current study was also evaluated with a Computer Aided Detection (CAD) system. There are grouped heterogeneous calcifications in the right breast at 11 o'clock middle depth. These are increased in number. There are additional benign calcifications bilaterally. No other significant masses, calcifications, or other findings are seen in either breast. IMPRESSION: INCOMPLETE: NEEDS ADDITIONAL IMAGING EVALUATION The grouped heterogeneous calcifications in the right breast are indeterminate. Additional views are recommended. Based on the Tyrer Cuzick model (a risk assessment model) the patient's lifetime risk is 3.3% and her 10 year risk is 0.0%. According to the ACR, ACS, and NCCN guidelines, an annual breast MRI exam along with mammogram is recommended if the patient's lifetime risk is 20% or greater. This exam was interpreted at Station ID: [id number]. NOTE: For mammograms, a report in lay terms will be sent to the patient. Approximately 15% of breast malignancies will not be visualized mammographically. In the management of a palpable breast mass, a negative mammogram must not discourage biopsy of a clinically suspicious lesion. Electronically Signed By: Alberto Paz M.D. [facility] [place]/:10/28/2021 17:53:22 letter sent: Additional Imaging Needed ACR BI-RADS Category 0: Incomplete [id number]
== END ==
PROVIDERS: PCP Nurse Practitioner; Referring Provider Nurse Practitioner; Visit Provider Nurse Practitioner
DX: Z12.31 Encounter for screening mammogram for malignant neoplasm of breast (principal)
CPT/HCPCS: 77063; 77067

== ENCOUNTER → 2021-11-04 09:43 | Outpatient (CLI) | payer MEDICARE, SELFPAY ==
[2021-01-11 14:08] VITALS: BMI 47.7
[2021-11-04 11:07] LABS: Hemoglobin A1C% w Est Avg Glu 7.8 % (4.0-6.0)
[2021-11-04 11:20] LABS: Cholesterol 122 mg/dL (140-199); HDL Cholesterol 39 mg/dL (40-60); LDL Cholesterol Calculated 51 mg/dL (<100); Triglycerides 158 mg/dL (35-150)
== END ==
PROVIDERS: PCP Nurse Practitioner; Referring Provider Nurse Practitioner; Visit Provider Nurse Practitioner
DX: E11.22 Type 2 diabetes mellitus with diabetic chronic kidney disease (principal); N18.6 End stage renal disease; Z99.2 Dependence on renal dialysis; Z79.4 Long term (current) use of insulin
CPT/HCPCS: 36415; 80061; 83036

== ENCOUNTER → 2021-12-18 08:35 | Outpatient (CLI) | payer MEDICARE, SELFPAY ==
[2021-01-11 14:08] VITALS: BMI 47.7
--- NOTE | 2021-12-18 08:38 | DI.MG.S_ITS ---
UNILATERAL RIGHT DIGITAL DIAGNOSTIC MAMMOGRAM 3D/2D WITH ADDITIONAL VIEWS: 12/18/2021 CLINICAL: Additional evaluation requested from prior study. Comparison is made to exams dated: 10/28/2021 mammogram, 08/25/2018 mammogram, and 07/28/2017 mammogram - [facility]. The right breast is heterogeneously dense, which may obscure small masses (category c / 51-75% glandular tissue). There are grouped heterogeneous calcifications in the right breast at 11 o'clock middle depth. These are seen on additional views. These cacifications are grouped with adjacent benign appearing dystrophic calcifications. No other significant masses or calcifications are seen in the breast. IMPRESSION: PROBABLY BENIGN The grouped heterogeneous calcifications in the right breast may represent early dystrophic calcifications and are probably benign. A follow-up right mammogram in 6 months is recommended to re-evaluate these calcifications. Based on the Tyrer Cuzick model (a risk assessment model) the patient's lifetime risk is 3.3% and her 10 year risk is 0.0%. According to the ACR, ACS, and NCCN guidelines, an annual breast MRI exam along with mammogram is recommended if the patient's lifetime risk is 20% or greater. This exam was interpreted at Station ID: [id number]. NOTE: For mammograms, a report in lay terms will be sent to the patient. Approximately 15% of breast malignancies will not be visualized mammographically. In the management of a palpable breast mass, a negative mammogram must not discourage biopsy of a clinically suspicious lesion. Electronically Signed By: Veronica jensen/:12/18/2021 09:09:29 letter sent: Followup Recommended ACR BI-RADS Category 3: Probably benign [id number]
== END ==
PROVIDERS: PCP Nurse Practitioner; Referring Provider Nurse Practitioner; Visit Provider Nurse Practitioner
DX: R92.1 Mammographic calcification found on diagnostic imaging of breast (principal)
CPT/HCPCS: 77065; G0279

== ENCOUNTER → 2022-02-08 08:08 | Outpatient (CLI) | payer MEDICARE, SELFPAY ==
[2021-01-11 14:08] VITALS: BMI 47.7
[2022-02-08 09:33] LABS: Hemoglobin A1C% w Est Avg Glu 8.4 % (4.0-6.0)
== END ==
PROVIDERS: PCP Nurse Practitioner; Referring Provider Nurse Practitioner; Visit Provider Nurse Practitioner
DX: E11.22 Type 2 diabetes mellitus with diabetic chronic kidney disease (principal); N18.6 End stage renal disease; Z99.2 Dependence on renal dialysis; Z79.4 Long term (current) use of insulin
CPT/HCPCS: 36415; 83036

== ENCOUNTER → 2022-05-14 08:14 | Outpatient (CLI) | payer MEDICARE, SELFPAY ==
[2021-01-11 14:08] VITALS: BMI 47.7
[2022-05-14 09:15] LABS: Hemoglobin A1C% w Est Avg Glu 9.7 % (4.0-6.0)
== END ==
PROVIDERS: PCP Nurse Practitioner; Referring Provider Nurse Practitioner; Visit Provider Nurse Practitioner
DX: E11.22 Type 2 diabetes mellitus with diabetic chronic kidney disease (principal); N18.6 End stage renal disease; Z99.2 Dependence on renal dialysis; Z79.4 Long term (current) use of insulin
CPT/HCPCS: 36415; 83036

== ENCOUNTER → 2022-08-16 09:31 | Outpatient (CLI) | payer MEDICARE, SELFPAY ==
[2021-01-11 14:08] VITALS: BMI 47.7
[2022-08-17 07:08] LABS: x Labcorp Estim. Avg Glu (eAG) 200 mg/dL (.); x Labcorp Hemoglobin A1c 8.6 % (4.8-5.6)
== END ==
PROVIDERS: PCP Nurse Practitioner; Referring Provider Nurse Practitioner; Visit Provider Nurse Practitioner
DX: E11.22 Type 2 diabetes mellitus with diabetic chronic kidney disease (principal); N18.6 End stage renal disease; Z99.2 Dependence on renal dialysis; Z79.4 Long term (current) use of insulin
CPT/HCPCS: 36415; 83036

== ENCOUNTER → 2022-09-01 12:44 | Outpatient (CLI) | payer MEDICARE, SELFPAY ==
[2021-01-11 14:08] VITALS: BMI 47.7
--- NOTE | 2022-09-01 | DI.MG.S_ITS ---
BILATERAL DIGITAL DIAGNOSTIC MAMMOGRAM 3D/2D SHORT-TERM FOLLOW-UP: 09/01/2022 CLINICAL: Short term follow up of the right breast, due for bilateral imaging. Comparison is made to exams dated: 12/18/2021 mammogram, 10/28/2021 mammogram, and 08/25/2018 mammogram - [facility]. Both breasts are heterogeneously dense, which may obscure small masses (category c / 51-75% glandular tissue). There are stable grouped heterogeneous and round calcifications in the right breast at 11 o'clock middle depth. No other significant masses, calcifications, or other findings are seen in either breast. IMPRESSION: PROBABLY BENIGN Exam is technically difficult. Right lateral view is suboptimal and left lateral view could not be obtained. Stable appearing grouped heterogeneous and round calcifications in the right breast are probably benign. A follow-up mammogram in 6 months is recommended to demonstrate stability. Exam findings were conveyed to the patient. Based on the Tyrer Cuzick model (a risk assessment model) the patient's lifetime risk is 2.8% and her 10 year risk is 0.0%. According to the ACR, ACS, and NCCN guidelines, an annual breast MRI exam along with mammogram is recommended if the patient's lifetime risk is 20% or greater. This exam was interpreted at Station ID: [id number]. NOTE: For mammograms, a report in lay terms will be sent to the patient. Approximately 15% of breast malignancies will not be visualized mammographically. In the management of a palpable breast mass, a negative mammogram must not discourage biopsy of a clinically suspicious lesion. Electronically Signed By: Alberto Paz M.D. [facility]/:09/01/2022 13:29:56 letter sent: Followup Recommended ACR BI-RADS Category 3: Probably benign [id number]
== END ==
PROVIDERS: PCP Nurse Practitioner; Referring Provider Nurse Practitioner; Visit Provider Nurse Practitioner
DX: R92.1 Mammographic calcification found on diagnostic imaging of breast (principal)
CPT/HCPCS: 77066; G0279

== ENCOUNTER 2022-09-21 15:16 | Emergency (ER) | payer MEDICARE, SELFPAY ==
[2021-01-11 14:08] VITALS: BMI 47.7
[2022-09-21] VITALS (37 sets, daily range): BP systolic 106–161; BP diastolic 50–90; PULSE 63–88; RESP 17–39; TEMP 36.6; O2SAT 87–98; BMI 48.0
--- NOTE | 2022-09-21 15:40 | DI.RAD.S_ITS ---
PROCEDURE: XR CHEST 1V INDICATIONS: Shortness of breath TECHNIQUE: One view of the chest was acquired. COMPARISON: [facility], CR, XR CHEST 1V, 01/13/2021, 8:26. FINDINGS: Surgical changes and devices: Stable right chest wall cardiac pacer. Lungs and pleura: Lungs are clear. No pleural effusions or pneumothorax. Mediastinum: Mediastinal contours appear normal. Heart is enlarged. Bones and chest wall: No suspicious bony lesions. Overlying soft tissues appear unremarkable. IMPRESSION: No acute cardiopulmonary disease process. Dictated by: Thao Acuña MD, PhD on 09/21/2022 at 15:56 Approved by: Thao Acuña MD, PhD on 09/21/2022 at 15:56
[2022-09-21] MEDS: ALBUTEROL/IPRATROPIUM 3 ML AMPUL INH (16:13)
[2022-09-21 16:18] LABS: Add Manual Diff / Slide Review NO; Basophils Absolute Auto 100 /uL (0-100); Basophils Percent Auto 1.1 % (0-2); Eosinophils Absolute Auto 200 /uL (0-450); Eosinophils Percent Auto 2.3 % (2-4); Hematocrit 34.2 % (36-46); Hemoglobin 11.5 g/dL (12.0-16.0); Lymphocytes Absolute Auto 900 /uL (1100-4500); Lymphocytes Percent Auto 10.4 % (25-40); Mean Corpuscular HGB Conc 33.7 % (30-36); Mean Corpuscular Hemoglobin 33.8 PG (26-34); Mean Corpuscular Volume 100.2 fL (80-100); Monocytes Absolute Auto 900 /uL (0-900); Monocytes Percent Auto 10.9 % (3-14); Neutrophils Absolute Auto 6300 /uL (1500-7000); Neutrophils Percent Auto 75.3 % (50-75); Platelet Count 271 X10^3/uL (150-400); Red Blood Cell Count 3.41 X10^6/uL (4.0-5.2); Red Cell Distribution Width 13.6 % (11.6-14.8); White Blood Cell Count 8.3 X10^3/uL (4.5-11.0)
[2022-09-21 16:33] LABS: Prothrombin Time 11.6 SECONDS (10.1-12.7)
[2022-09-21 16:38] LABS: Lactate (Lactic Acid) 1.2 mmol/L (0.7-2.1)
[2022-09-21 16:40] LABS: Alanine Aminotransferase 25 IU/L (<35); Albumin 4.3 g/dL (3.5-5.0); Albumin Globulin Ratio 1.3 (1.0-2.8); Alkaline Phosphatase 111 U/L (38-126); Aspartate Aminotransferase 24 IU/L (14-36); BUN Creatinine Ratio 8.5 (6-22); Bilirubin Total 0.6 mg/dL (0.2-1.3); Blood Urea Nitrogen 33 mg/dL (7-17); Calcium 8.5 mg/dL (8.4-10.2); Carbon Dioxide 34 mmol/L (22-32); Chloride 88 mmol/L (98-107); Estimated Glomerular Filt Rate 11 mL/min (>60); Globulin 3.4 g/dL (1.7-4.1); Glucose 92 mg/dL (80-110); HEMOLYSIS < 15 (0-50); Potassium 3.9 mmol/L (3.4-5.1); Sodium 133 mmol/L (137-145); Total Protein 7.7 g/dL (6.3-8.2)
--- NOTE | 2022-09-21 16:45 | ED_ITS ---
HPI - SOB/Dyspnea <Vee Merritt, DO - Last Filed: 10/01/22 01:31> General Chief Complaint: Shortness of Breath/Dyspnea Stated Complaint: blisters on shins, difficulty breathing, dm Time Seen by Provider: 09/21/22 15:49 Source: patient and family Mode of arrival: Wheelchair Limitations: no limitations History of Present Illness HPI Narrative: Patient is a 77-year-old female history of chronic kidney disease on hemodialysis Tuesday with Dr. Crane presenting today after dialysis request of staff. Patient reports that she is actually had increasing shortness of breath for the last few days. She reports that at nighttime she had significant air hunger she open the windows and hope for the best. She reports that she wears oxygen during dialysis but not generally all the time. She is found to be 88-89% on room air. She denies fever or cough. No significant chest pain. She reports that she missed 2 dialysis sessions last week but had an extra 1 yesterday and had another 1 today. She reports that she is been chronically over her dry weight but is not sure what her dry weight is. He denies any abdominal pain nausea vomiting. She has some blisters on her right leg 1 popped yesterday it is mildly erythematous. Related Data Home Medications Medication Instructions Recorded Confirmed gabapentin 100 mg capsule 300 mg PO 3XW ##0 09/06/16 05/01/21 aspirin 81 mg tablet,delayed 81 mg PO DAILY 08/09/17 05/01/21 release (Aspir-) atorvastatin 20 mg tablet 20 mg PO QPM 08/09/17 05/01/21 docusate sodium 100 mg capsule 100 mg PO DAILY 08/09/17 05/01/21 lamotrigine 150 mg tablet 100 mg PO DAILY 08/09/17 05/01/21 omeprazole 40 mg capsule,delayed 40 mg PO BID 08/09/17 05/01/21 release citalopram 20 mg tablet 20 mg PO DAILY 04/18/18 05/01/21 cranberry 2 dose PO DAILY 04/18/18 05/01/21 oxybutynin chloride 15 mg 15 mg PO DAILY 04/18/18 05/01/21 tablet,extended release 24 hr Dialyvite 1 tab PO DAILY 11/19/20 05/01/21 fluticasone 250 mcg-salmeterol 50 2 inh inhalation PRN PRN Shortness 11/19/20 05/01/21 mcg/dose blistr powdr for Of Breath Or Wheezing inhalation (Advair Diskus) gabapentin 100 mg capsule 200 mg PO 4XW 11/19/20 05/01/21 insulin glargine 100 unit/mL (3 See Rx Instructions .Route .COMPLEX 11/19/20 05/01/21 mL) subcutaneous pen (Lantus Solostar U-100 Insulin) insulin lispro protamine-lispro 7 unit SUBCUT BEDTIME 11/19/20 05/01/21 100 unit/mL (75-25) subcutaneous pen (Humalog Mix 75-25 KwikPen) lactulose 10 gram/15 mL oral 45 ml PO TID 11/19/20 05/01/21 solution (Enulose) midodrine 10 mg tablet 20 mg PO TID 11/19/20 05/01/21 patiromer calcium sorbitex 8.4 8.4 g PO DAILY 11/19/20 05/01/21 gram oral powder packet (Veltassa) ropinirole 1 mg tablet 1 mg PO TID 11/19/20 05/01/21 sevelamer carbonate 800 mg tablet 1,600 mg PO TID 11/19/20 05/01/21 trazodone 150 mg tablet 150 mg PO BEDTIME 11/19/20 05/01/21 Allergies Allergy/AdvReac Type Severity Reaction Status Date / Time NSAIDS (Non-Steroidal AdvReac Severe CAUSED Verified 05/01/21 09:46 Anti-Inflamma KIDNEY [NSAIDS (NON-STEROIDAL DISEASE ANTI-INFLAMMA] oxycodone [From Percocet] AdvReac Severe Hallucinati Verified 09/21/22 15:27 ng Review of Systems <Vee Bang DO - Last Filed: 10/01/22 01:31> Review of Systems ROS Unobtainable: All systems reviewed & are unremarkable except as noted in HPI and below Patient History <Vee Bang DO - Last Filed: 10/01/22 01:31> Medical History Bipolar 1 disorder CKD (chronic kidney disease) stage 4, GFR 15-29 ml/min Diabetes Dyslipidemia Hypertension Pacemaker Renal failure (ARF), acute on chronic Surgically constructed arteriovenous fistula Surgical History H/O: S/P cholecystectomy Social History household members: none Smoking Status: Never smoker alcohol intake: never Smoking Status: Never smoker alcohol intake frequency: 0-2 drinks per day Substance Use Type: does not use Exam <DO Jesus Rodarte Last Filed: 10/01/22 01:31> Initial Vital Signs Initial Vital Signs: Vital Signs Temperature 97.9 F 09/21/22 15:28 Pulse Rate 64 09/21/22 15:28 Respiratory Rate 20 09/21/22 15:28 Blood Pressure 124/69 09/21/22 15:28 Pulse Oximetry 93 09/21/22 15:28 Oxygen Delivery Method Room Air 09/21/22 15:28 GENERAL: Alert pleasant 77-year-old female BMI 40 HEENT: Head atraumatic,EOMI, pupils reactive, face symmetric, moist mucous me mbranes CARDIOVASCULAR: Regular rate and rhythm without murmurs, rubs or gallops. RESPIRATORY: Breath sounds equal bilaterally, no wheezes rales or rhonchi. No conversational dyspnea ABDOMEN: Soft, nontender. Normoactive bowel sounds all 4 quadrants. No guarding or rebound. EXTREMITIES: Normal range of motion, no clubbing or edema. Neurovascularly intact NEUROLOGICAL: Alert and oriented x4. SKIN: Lower extremity erythema right leg blister <Christian Acosta DO - Last Filed: 09/21/22 21:59> Initial Vital Signs Initial Vital Signs: Vital Signs Temperature 97.9 F 09/21/22 15:28 Pulse Rate 64 09/21/22 15:28 Respiratory Rate 20 09/21/22 15:28 Blood Pressure 124/69 09/21/22 15:28 Pulse Oximetry 93 09/21/22 15:28 Oxygen Delivery Method Room Air 09/21/22 15:28 Course <DO Jesus Rodarte Last Filed: 10/01/22 01:31> Orders Ordered: Discontinued Medications Albuterol/Ipratropium (Albuterol/Ipratropium 3 Ml Ampul) 3 ml INH NOW ONE Stop: 09/21/22 16:11 Last Admin: 09/21/22 16:13 Dose: 3 ml Documented By: SIMÓN Vital Signs Vital signs: Vital Signs - 8 hr 09/21/22 15:28 09/21/22 15:45 09/21/22 15:46 Temperature 97.9 F Pulse Rate 64 78 Respiratory Rate 20 24 Blood Pressure 124/69 137/62 Pulse Oximetry 93 88 L Oxygen Delivery Method Room Air Room Air Oxygen Flow Rate 09/21/22 15:46 09/21/22 16:00 09/21/22 16:30 Temperature Pulse Rate 87 70 82 Respiratory Rate 22 22 23 Blood Pressure Pulse Oximetry 87 L 94 92 Oxygen Delivery Method Room Air Nasal Cannula Nasal Cannula Oxygen Flow Rate 3 3 09/21/22 16:41 09/21/22 16:41 09/21/22 16:44 Temperature Pulse Rate 74 73 Respiratory Rate 24 25 H Blood Pressure 123/73 Pulse Oximetry 91 91 Oxygen Delivery Method Nasal Cannula Nasal Cannula Oxygen Flow Rate 3 3 09/21/22 16:45 09/21/22 16:45 09/21/22 17:00 Temperature Pulse Rate 88 Respiratory Rate 23 Blood Pressure 135/79 135/71 Pulse Oximetry 94 Oxygen Delivery Method Nasal Cannula Oxygen Flow Rate 3 09/21/22 17:00 09/21/22 17:15 09/21/22 17:15 Temperature Pulse Rate 74 72 Respiratory Rate 25 H 24 Blood Pressure 136/73 Pulse Oximetry 87 L 90 L Oxygen Delivery Method High Flow Nasal Cannula High Flow Nasal Cannula Oxygen Flow Rate 45 45 09/21/22 17:30 09/21/22 17:31 09/21/22 17:31 Temperature Pulse Rate 75 71 Respiratory Rate 22 25 H Blood Pressure 129/61 Pulse Oximetry 93 94 Oxygen Delivery Method High Flow Nasal Cannula High Flow Nasal Cannula Oxygen Flow Rate 45 45 09/21/22 17:45 09/21/22 17:45 09/21/22 18:00 Temperature Pulse Rate 70 77 Respiratory Rate 23 25 H Blood Pressure 128/60 Pulse Oximetry 93 96 Oxygen Delivery Method High Flow Nasal Cannula Oxygen Flow Rate 45 09/21/22 18:01 09/21/22 18:01 09/21/22 18:28 Temperature Pulse Rate 78 78 Respiratory Rate 39 H 39 H Blood Pressure 161/90 H 161/90 H Pulse Oximetry 95 95 Oxygen Delivery Method High Flow Nasal Cannula Oxygen Flow Rate 45 09/21/22 18:29 09/21/22 18:16 09/21/22 18:16 Temperature Pulse Rate 78 74 Respiratory Rate 39 H 24 Blood Pressure 161/90 H 133/61 Pulse Oximetry 97 96 Oxygen Delivery Method Oxygen Flow Rate 09/21/22 18:30 09/21/22 18:30 09/21/22 18:46 Temperature Pulse Rate 72 Respiratory Rate 19 Blood Pressure 131/63 128/54 L Pulse Oximetry 96 Oxygen Delivery Method Oxygen Flow Rate 09/21/22 18:46 09/21/22 19:00 09/21/22 19:00 Temperature Pulse Rate 75 73 Respiratory Rate 24 21 Blood Pressure 142/60 H Pulse Oximetry 94 95 Oxygen Delivery Method Oxygen Flow Rate 09/21/22 19:16 09/21/22 19:16 09/21/22 19:30 Temperature Pulse Rate 74 72 Respiratory Rate 24 21 Blood Pressure 115/55 L Pulse Oximetry 94 97 Oxygen Delivery Method Oxygen Flow Rate 09/21/22 19:31 09/21/22 19:31 09/21/22 19:46 Temperature Pulse Rate 72 Respiratory Rate 20 Blood Pressure 117/57 L 116/58 L Pulse Oximetry 95 Oxygen Delivery Method Oxygen Flow Rate 09/21/22 19:46 09/21/22 20:00 09/21/22 20:00 Temperature Pulse Rate 79 71 Respiratory Rate 22 25 H Blood Pressure 106/52 L Pulse Oximetry 97 94 Oxygen Delivery Method High Flow Nasal Cannula Oxygen Flow Rate 10 09/21/22 20:23 09/21/22 20:23 09/21/22 20:30 Temperature Pulse Rate 75 70 Respiratory Rate 23 24 Blood Pressure 132/58 L Pulse Oximetry 95 96 Oxygen Delivery Method High Flow Nasal Cannula Oxygen Flow Rate 8 09/21/22 21:00 Temperature Pulse Rate 76 Respiratory Rate 24 Blood Pressure Pulse Oximetry 94 Oxygen Delivery Method Oxygen Flow Rate <Christian Acosta DO - Last Filed: 09/21/22 21:59> Orders Ordered: Discontinued Medications Albuterol/Ipratropium (Albuterol/Ipratropium 3 Ml Ampul) 3 ml INH NOW ONE Stop: 09/21/22 16:11 Last Admin: 09/21/22 16:13 Dose: 3 ml Documented By: SIMÓN Vital Signs Vital signs: Vital Signs - 8 hr 09/21/22 15:28 09/21/22 15:45 09/21/22 15:46 Temperature 97.9 F Pulse Rate 64 78 Respiratory Rate 20 24 Blood Pressure 124/69 137/62 Pulse Oximetry 93 88 L Oxygen Delivery Method Room Air Room Air Oxygen Flow Rate 09/21/22 15:46 09/21/22 16:00 09/21/22 16:30 Temperature Pulse Rate 87 70 82 Respiratory Rate 22 22 23 Blood Pressure Pulse Oximetry 87 L 94 92 Oxygen Delivery Method Room Air Nasal Cannula Nasal Cannula Oxygen Flow Rate 3 3 09/21/22 16:41 09/21/22 16:41 09/21/22 16:44 Temperature Pulse Rate 74 73 Respiratory Rate 24 25 H Blood Pressure 123/73 Pulse Oximetry 91 91 Oxygen Delivery Method Nasal Cannula Nasal Cannula Oxygen Flow Rate 3 3 09/21/22 16:45 09/21/22 16:45 09/21/22 17:00 Temperature Pulse Rate 88 Respiratory Rate 23 Blood Pressure 135/79 135/71 Pulse Oximetry 94 Oxygen Delivery Method Nasal Cannula Oxygen Flow Rate 3 09/21/22 17:00 09/21/22 17:15 09/21/22 17:15 Temperature Pulse Rate 74 72 Respiratory Rate 25 H 24 Blood Pressure 136/73 Pulse Oximetry 87 L 90 L Oxygen Delivery Method High Flow Nasal Cannula High Flow Nasal Cannula Oxygen Flow Rate 45 45 09/21/22 17:30 09/21/22 17:31 09/21/22 17:31 Temperature Pulse Rate 75 71 Respiratory Rate 22 25 H Blood Pressure 129/61 Pulse Oximetry 93 94 Oxygen Delivery Method High Flow Nasal Cannula High Flow Nasal Cannula Oxygen Flow Rate 45 45 09/21/22 17:45 09/21/22 17:45 09/21/22 18:00 Temperature Pulse Rate 70 77 Respiratory Rate 23 25 H Blood Pressure 128/60 Pulse Oximetry 93 96 Oxygen Delivery Method High Flow Nasal Cannula Oxygen Flow Rate 45 09/21/22 18:01 09/21/22 18:01 09/21/22 18:28 Temperature Pulse Rate 78 78 Respiratory Rate 39 H 39 H Blood Pressure 161/90 H 161/90 H Pulse Oximetry 95 95 Oxygen Delivery Method High Flow Nasal Cannula Oxygen Flow Rate 45 09/21/22 18:29 09/21/22 18:16 09/21/22 18:16 Temperature Pulse Rate 78 74 Respiratory Rate 39 H 24 Blood Pressure 161/90 H 133/61 Pulse Oximetry 97 96 Oxygen Delivery Method Oxygen Flow Rate 09/21/22 18:30 09/21/22 18:30 09/21/22 18:46 Temperature Pulse Rate 72 Respiratory Rate 19 Blood Pressure 131/63 128/54 L Pulse Oximetry 96 Oxygen Delivery Method Oxygen Flow Rate 09/21/22 18:46 09/21/22 19:00 09/21/22 19:00 Temperature Pulse Rate 75 73 Respiratory Rate 24 21 Blood Pressure 142/60 H Pulse Oximetry 94 95 Oxygen Delivery Method Oxygen Flow Rate 09/21/22 19:16 09/21/22 19:16 09/21/22 19:30 Temperature Pulse Rate 74 72 Respiratory Rate 24 21 Blood Pressure 115/55 L Pulse Oximetry 94 97 Oxygen Delivery Method Oxygen Flow Rate 09/21/22 19:31 09/21/22 19:31 09/21/22 19:46 Temperature Pulse Rate 72 Respiratory Rate 20 Blood Pressure 117/57 L 116/58 L Pulse Oximetry 95 Oxygen Delivery Method Oxygen Flow Rate 09/21/22 19:46 09/21/22 20:00 09/21/22 20:00 Temperature Pulse Rate 79 71 Respiratory Rate 22 25 H Blood Pressure 106/52 L Pulse Oximetry 97 94 Oxygen Delivery Method High Flow Nasal Cannula Oxygen Flow Rate 10 09/21/22 20:23 09/21/22 20:23 09/21/22 20:30 Temperature Pulse Rate 75 70 Respiratory Rate 23 24 Blood Pressure 132/58 L Pulse Oximetry 95 96 Oxygen Delivery Method High Flow Nasal Cannula Oxygen Flow Rate 8 09/21/22 21:00 Temperature Pulse Rate 76 Respiratory Rate 24 Blood Pressure Pulse Oximetry 94 Oxygen Delivery Method Oxygen Flow Rate MDM - SOB/Dyspnea <Vee Bang, DO - Last Filed: 10/01/22 01:31> Lab Data 09/21/22 16:00 09/21/22 16:00 Labs: Lab Results 09/21/22 09/21/22 09/21/22 Range/Units 16:00 16:00 16:00 WBC 8.3 (4.5-11.0) X10^3/uL RBC 3.41 L (4.0-5.2) X10^6/uL Hgb 11.5 L (12.0-16.0) g/dL Hct 34.2 L (36-46) % MCV 100.2 H (80-100) fL MCH 33.8 (26-34) PG MCHC 33.7 (30-36) % RDW 13.6 (11.6-14.8) % Plt Count 271 (150-400) X10^3/uL Neut % (Auto) 75.3 H (50-75) % Lymph % (Auto) 10.4 L (25-40) % [place] % (Auto) 10.9 (3-14) % Eos % (Auto) 2.3 (2-4) % Baso % (Auto) 1.1 (0-2) % Neut # (Auto) 6300 (1075-0905) /uL Lymph # (Auto) 900 L (2741-3783) /uL [place] # (Auto) 900 (0-900) /uL Eos # (Auto) 200 (0-450) /uL Baso # (Auto) 100 (0-100) /uL PT 11.6 (10.1-12.7) SECONDS INR 1.0 (0.9-1.3) Sodium 133 L (137-145) mmol/L Potassium 3.9 (3.4-5.1) mmol/L Chloride 88 L (98-107) mmol/L Carbon Dioxide 34 H (22-32) mmol/L BUN 33 H (7-17) mg/dL Creatinine 3.87 H (0.52-1.04) mg/dL Estimated GFR 11 L (>60) mL/min BUN/Creatinine Ratio 8.5 (6-22) Glucose 92 (80-110) mg/dL Lactate (0.7-2.1) mmol/L Calcium 8.5 (8.4-10.2) mg/dL Total Bilirubin 0.6 (0.2-1.3) mg/dL AST 24 (14-36) IU/L ALT 25 (<35) IU/L Alkaline Phosphatase 111 (38-126) U/L Troponin I 0.012 (0.01-0.034) ng/mL NT-Pro-B Natriuret Pep 8930 H (<450) pg/mL Total Protein 7.7 (6.3-8.2) g/dL Albumin 4.3 (3.5-5.0) g/dL Globulin 3.4 (1.7-4.1) g/dL Albumin/Globulin Ratio 1.3 (1.0-2.8) Chlamy pneumoniae PCR (Not Detect) Adenovirus (PCR) (Not Detect) B. pertussis DNA (PCR) (Not Detecte) B.parapertussis DNA PCR (Not Detecte) Coronavirus OC43 (PCR) (Not Detect) Coronavirus HKU1 (PCR) (Not Detect) Coronavirus 229E (PCR) (Not Detect) SARS-CoV-2 (PCR) (Not Detecte) Coronavirus NL63 (PCR) (Not Detect) Human Metapneumovir PCR (Not Detect) Influenza Type A (PCR) (Not Detect) Influenza Type B (PCR) (Not Detect) M. pneumoniae (PCR) (Not Detect) Parainfluenza 1 (PCR) (Not Detect) Parainfluenza 2 (PCR) (Not Detect) Parainfluenza 3 (PCR) (Not Detect) Parainfluenza 4 (PCR) (Not Detect) RSV (PCR) (Not Detect) Entero/Rhino (PCR) (Not Detect) 09/21/22 09/21/22 Range/Units 16:00 16:00 WBC (4.5-11.0) X10^3/uL RBC (4.0-5.2) X10^6/uL Hgb (12.0-16.0) g/dL Hct (36-46) % MCV (80-100) fL MCH (26-34) PG MCHC (30-36) % RDW (11.6-14.8) % Plt Count (150-400) X10^3/uL Neut % (Auto) (50-75) % Lymph % (Auto) (25-40) % [place] % (Auto) (3-14) % Eos % (Auto) (2-4) % Baso % (Auto) (0-2) % Neut # (Auto) (5157-0302) /uL Lymph # (Auto) (9132-9551) /uL [place] # (Auto) (0-900) /uL Eos # (Auto) (0-450) /uL Baso # (Auto) (0-100) /uL PT (10.1-12.7) SECONDS INR (0.9-1.3) Sodium (137-145) mmol/L Potassium (3.4-5.1) mmol/L Chloride (98-107) mmol/L Carbon Dioxide (22-32) mmol/L BUN (7-17) mg/dL Creatinine (0.52-1.04) mg/dL Estimated GFR (>60) mL/min BUN/Creatinine Ratio (6-22) Glucose (80-110) mg/dL Lactate 1.2 (0.7-2.1) mmol/L Calcium (8.4-10.2) mg/dL Total Bilirubin (0.2-1.3) mg/dL AST (14-36) IU/L ALT (<35) IU/L Alkaline Phosphatase (38-126) U/L Troponin I (0.01-0.034) ng/mL NT-Pro-B Natriuret Pep (<450) pg/mL Total Protein (6.3-8.2) g/dL Albumin (3.5-5.0) g/dL Globulin (1.7-4.1) g/dL Albumin/Globulin Ratio (1.0-2.8) Chlamy pneumoniae PCR Not detected (Not Detect) Adenovirus (PCR) Not detected (Not Detect) B. pertussis DNA (PCR) Not detected (Not Detecte) B.parapertussis DNA PCR Not detected (Not Detecte) Coronavirus OC43 (PCR) Not detected (Not Detect) Coronavirus HKU1 (PCR) Not detected (Not Detect) Coronavirus 229E (PCR) Not detected (Not Detect) SARS-CoV-2 (PCR) Not detected (Not Detecte) Coronavirus NL63 (PCR) Not detected (Not Detect) Human Metapneumovir PCR Not detected (Not Detect) Influenza Type A (PCR) Not detected (Not Detect) Influenza Type B (PCR) Not detected (Not Detect) M. pneumoniae (PCR) Not detected (Not Detect) Parainfluenza 1 (PCR) Not detected (Not Detect) Parainfluenza 2 (PCR) Not detected (Not Detect) Parainfluenza 3 (PCR) Not detected (Not Detect) Parainfluenza 4 (PCR) Not detected (Not Detect) RSV (PCR) Not detected (Not Detect) Entero/Rhino (PCR) Not detected (Not Detect) Imaging Data Chest x-ray: Radiologist's Impression: PROCEDURE:? XR CHEST 1V ? INDICATIONS:? Shortness of breath ? TECHNIQUE:? One view of the chest was acquired.? ? COMPARISON:? [facility], CR, XR CHEST 1V, 01/13/2021, 8:26. ? FINDINGS:? ? Surgical changes and devices:? Stable right chest wall cardiac pacer. ? Lungs and pleura:? Lungs are clear.? No pleural effusions or pneumothorax.? ? Mediastinum:? Mediastinal contours appear normal.? Heart is enlarged. ? Bones and chest wall:? No suspicious bony lesions.? Overlying soft tissues appear unremarkable.? ? IMPRESSION:? No acute cardiopulmonary disease process. ? ? Dictated by: Thao Acuña MD, PhD on 09/21/2022 at 15:56 ? ? ECG Data Interpretation: Paced rhythm rate 73 WA interval [address] changes similar to previous EKG in 20 MDM Narrative Medical decision making narrative: Patient is 77-year-old female history of hemodialysis presenting with increasing shortness of breath and hypoxia. She is on 4 L nasal cannula but taking shallow breaths. She is put on high-flow 40% 45 L. Respiratory panel is negative blood work overall reassuring unclear what current baseline is, today creatinine 3.87. BNP today 8900 previously 34,000. Possible fluid overload. CT angio is done none the less. CT report is pending. Patient is reporting that she is over her dry weight has missed at least 1 dialysis session last week tried to have a makeup session yesterday and 1 today. Patient is signed out to Dr. Acosta for further management <Christian Acosta, - Last Filed: 09/21/22 21:59> Lab Data Labs: Lab Results 09/21/22 09/21/22 09/21/22 Range/Units 16:00 16:00 16:00 WBC 8.3 (4.5-11.0) X10^3/uL RBC 3.41 L (4.0-5.2) X10^6/uL Hgb 11.5 L (12.0-16.0) g/dL Hct 34.2 L (36-46) % MCV 100.2 H (80-100) fL MCH 33.8 (26-34) PG MCHC 33.7 (30-36) % RDW 13.6 (11.6-14.8) % Plt Count 271 (150-400) X10^3/uL Neut % (Auto) 75.3 H (50-75) % Lymph % (Auto) 10.4 L (25-40) % [place] % (Auto) 10.9 (3-14) % Eos % (Auto) 2.3 (2-4) % Baso % (Auto) 1.1 (0-2) % Neut # (Auto) 6300 (4044-5692) /uL Lymph # (Auto) 900 L (5207-0840) /uL [place] # (Auto) 900 (0-900) /uL Eos # (Auto) 200 (0-450) /uL Baso # (Auto) 100 (0-100) /uL PT 11.6 (10.1-12.7) SECONDS INR 1.0 (0.9-1.3) Sodium 133 L (137-145) mmol/L Potassium 3.9 (3.4-5.1) mmol/L Chloride 88 L (98-107) mmol/L Carbon Dioxide 34 H (22-32) mmol/L BUN 33 H (7-17) mg/dL Creatinine 3.87 H (0.52-1.04) mg/dL Estimated GFR 11 L (>60) mL/min BUN/Creatinine Ratio 8.5 (6-22) Glucose 92 (80-110) mg/dL Lactate (0.7-2.1) mmol/L Calcium 8.5 (8.4-10.2) mg/dL Total Bilirubin 0.6 (0.2-1.3) mg/dL AST 24 (14-36) IU/L ALT 25 (<35) IU/L Alkaline Phosphatase 111 (38-126) U/L Troponin I 0.012 (0.01-0.034) ng/mL NT-Pro-B Natriuret Pep 8930 H (<450) pg/mL Total Protein 7.7 (6.3-8.2) g/dL Albumin 4.3 (3.5-5.0) g/dL Globulin 3.4 (1.7-4.1) g/dL Albumin/Globulin Ratio 1.3 (1.0-2.8) Chlamy pneumoniae PCR (Not Detect) Adenovirus (PCR) (Not Detect) B. pertussis DNA (PCR) (Not Detecte) B.parapertussis DNA PCR (Not Detecte) Coronavirus OC43 (PCR) (Not Detect) Coronavirus HKU1 (PCR) (Not Detect) Coronavirus 229E (PCR) (Not Detect) SARS-CoV-2 (PCR) (Not Detecte) Coronavirus NL63 (PCR) (Not Detect) Human Metapneumovir PCR (Not Detect) Influenza Type A (PCR) (Not Detect) Influenza Type B (PCR) (Not Detect) M. pneumoniae (PCR) (Not Detect) Parainfluenza 1 (PCR) (Not Detect) Parainfluenza 2 (PCR) (Not Detect) Parainfluenza 3 (PCR) (Not Detect) Parainfluenza 4 (PCR) (Not Detect) RSV (PCR) (Not Detect) Entero/Rhino (PCR) (Not Detect) 09/21/22 09/21/22 Range/Units 16:00 16:00 WBC (4.5-11.0) X10^3/uL RBC (4.0-5.2) X10^6/uL Hgb (12.0-16.0) g/dL Hct (36-46) % MCV (80-100) fL MCH (26-34) PG MCHC (30-36) % RDW (11.6-14.8) % Plt Count (150-400) X10^3/uL Neut % (Auto) (50-75) % Lymph % (Auto) (25-40) % [place] % (Auto) (3-14) % Eos % (Auto) (2-4) % Baso % (Auto) (0-2) % Neut # (Auto) (0245-8484) /uL Lymph # (Auto) (8134-9434) /uL [place] # (Auto) (0-900) /uL Eos # (Auto) (0-450) /uL Baso # (Auto) (0-100) /uL PT (10.1-12.7) SECONDS INR (0.9-1.3) Sodium (137-145) mmol/L Potassium (3.4-5.1) mmol/L Chloride (98-107) mmol/L Carbon Dioxide (22-32) mmol/L BUN (7-17) mg/dL Creatinine (0.52-1.04) mg/dL Estimated GFR (>60) mL/min BUN/Creatinine Ratio (6-22) Glucose (80-110) mg/dL Lactate 1.2 (0.7-2.1) mmol/L Calcium (8.4-10.2) mg/dL Total Bilirubin (0.2-1.3) mg/dL AST (14-36) IU/L ALT (<35) IU/L Alkaline Phosphatase (38-126) U/L Troponin I (0.01-0.034) ng/mL NT-Pro-B Natriuret Pep (<450) pg/mL Total Protein (6.3-8.2) g/dL Albumin (3.5-5.0) g/dL Globulin (1.7-4.1) g/dL Albumin/Globulin Ratio (1.0-2.8) Chlamy pneumoniae PCR Not detected (Not Detect) Adenovirus (PCR) Not detected (Not Detect) B. pertussis DNA (PCR) Not detected (Not Detecte) B.parapertussis DNA PCR Not detected (Not Detecte) Coronavirus OC43 (PCR) Not detected (Not Detect) Coronavirus HKU1 (PCR) Not detected (Not Detect) Coronavirus 229E (PCR) Not detected (Not Detect) SARS-CoV-2 (PCR) Not detected (Not Detecte) Coronavirus NL63 (PCR) Not detected (Not Detect) Human Metapneumovir PCR Not detected (Not Detect) Influenza Type A (PCR) Not detected (Not Detect) Influenza Type B (PCR) Not detected (Not Detect) M. pneumoniae (PCR) Not detected (Not Detect) Parainfluenza 1 (PCR) Not detected (Not Detect) Parainfluenza 2 (PCR) Not detected (Not Detect) Parainfluenza 3 (PCR) Not detected (Not Detect) Parainfluenza 4 (PCR) Not detected (Not Detect) RSV (PCR) Not detected (Not Detect) Entero/Rhino (PCR) Not detected (Not Detect) Imaging Data CT scan - chest: Radiologist's Impression: PROCEDURE:? CT ANGIO CHEST PE PROTOCOL ? INDICATIONS:? hypoxia ? TECHNIQUE:? After the administration of intravenous contrast, 2 mm thick sections acquired from the pulmonary apices to the posterior costophrenic angles.? 3-dimensional maximum intensity projection (MIP) coronal and sagittal reformats were then acquired through the thorax.? For radiation dose reduction, the following was used:? automated exposure control, adjustment of mA and/or kV according to patient size.? ? COMPARISON:? [facility], CT, CT ANGIO CHEST ABDOMEN PELVIS, 11/25/2020, 13:55.? [facility], CR, XR CHEST 1V, 09/21/2022, 15:40. ? FINDINGS:? Image quality:? Excellent.? ? Pulmonary arteries:? Pulmonary arteries demonstrate no intraluminal filling defects to suggest central pulmonary embolism.? ? Lower Neck: No lymphadenopathy by size criteria. Thyroid:? There is a hypoattenuating left thyroid nodule measuring up to 1.7 cm.? This appears similar in size compared to the prior study. Axillae: No lymphadenopathy by size criteria. Chest Wall:? There is a right chest wall pacemaker with leads extending into the right atrium and right ventricle.? Bones: Visualized osseous structures demonstrate no suspicious lesions. ? Lungs and Airways:? No acute consolidation.? There is dependent atelectasis bilaterally.? The trachea and central airways are patent. Pleura: No pneumothorax or pleural effusions.? ? Heart: Heart size is normal.? No pericardial effusion. Thoracic Vessels: The thoracic aorta is normal in size.? Mediastinum and [place]: No lymphadenopathy by size criteria. Esophagus: No wall thickening. No hiatal hernia. ? Abdomen:? Visualized upper abdomen demonstrates surgical absence of the gallbladder.? The visualized left kidney demonstrates cortical thinning. ? IMPRESSION:? ? 1. No evidence of pulmonary embolism. ? 2. Enlargement of the pulmonary arteries suggestive of pulmonary arterial hypertension. ? 3. Dependent atelectasis in the lungs without acute consolidation. MDM Narrative Medical decision making narrative: Patient is 77-year-old female history of hemodialysis presenting with increasing shortness of breath and hypoxia. She is on 4 L nasal cannula but taking shallow breaths. She is put on high-flow 40% 45 L. Respiratory panel is negative blood work overall reassuring unclear what current baseline is, today creatinine 3.87. BNP today 8900 previously 34,000. Possible fluid overload. CT angio is done none the less. CT report is pending. Patient is reporting that she is over her dry weight has missed at least 1 dialysis session last week tried to have a makeup session yesterday and 1 today. Patient is signed out to Dr. Acosta for further management Dr acosta: Received turned over. Reviewed patient's history and physical workup up to this point. Patient does not clinically fluid overloaded however is requiring oxygen by high-flow in order to maintain her oxygen saturations greater than 90%. She did receive dialysis today. The CT scan of her chest shows no signs of pulmonary embolism. Does have some indication of pulmonary hypertension. Patient is not on specific treatment for this. We are unable to care for the patient at this facility as we do not have dialysis capability, Cardiology, pulmonology. I did discuss the case with Dr. Knox hospitalist at [facility] who accepts the patient in transfer. Patient is stable for transport. Discharge Plan Departure Patient Disposition: [facility] Clinical Impression: Hypoxia, End stage renal disease on dialysis Prescriptions: No Action gabapentin 100 MG capsule 300 mg PO 3XW Qty: 0 atorvastatin 20 mg Tablet 20 mg PO QPM docusate sodium 100 mg Capsule 100 mg PO DAILY lamotrigine 150 mg Tablet 100 mg PO DAILY omeprazole 40 mg Capsule,Delayed Release(Dr/Ec) 40 mg PO BID aspirin [Aspir-81] 81 mg Tablet,Delayed Release (Dr/Ec) 81 mg PO DAILY fluticasone propion-salmeterol [Advair Diskus] 250-50 mcg/dose blister with device 2 inh INHALATION PRN PRN (Reason: Shortness Of Breath Or Wheezing) ropinirole 1 mg tablet 1 mg PO TID gabapentin 100 mg capsule 200 mg PO 4XW midodrine 10 mg tablet 20 mg PO TID Patient Comments: TAKE 2 TABLETS BY MOUTH THREE TIMES DAILY insulin lispro protamin-lispro [Humalog Mix 75-25 KwikPen] 100 unit/mL (75-25) Insulin Pen 7 unit SUBCUT BEDTIME Patient Comments: Has not been taking for a while because maintaining adequate control lactulose [Enulose] 10 gram/15 mL solution 45 ml PO TID Lantus Solostar U-100 Insulin 100 unit/mL (3 mL) Insulin Pen See Rx Instructions .ROUTE .COMPLEX Patient Comments: AM sugars below 175, does not take. AM sugars 175-210 takes 5 units. AM sugars greater 210 takes 10 units Rx Instructions: AM sugars below 175, does not take. AM sugars 175-210 takes 5 units. AM sugars greater 210 takes 10 units sevelamer carbonate 800 mg tablet 1,600 mg PO TID Patient Comments: With Meals Veltassa 8.4 gram powder in packet 8.4 g PO DAILY Patient Comments: DISSOLVE 1 PACKET AND DRINK BY MOUTH DAILY Dialyvite 1 tab PO DAILY trazodone 150 mg tablet 150 mg PO BEDTIME Patient Comments: TAKE 1 TABLET BY MOUTH EVERY EVENING oxybutynin chloride 15 mg tablet extended release 24hr 15 mg PO DAILY Patient Comments: TAKE ONE TABLET BY MOUTH EVERY DAY citalopram 20 mg tablet 20 mg PO DAILY Patient Comments: TAKE ONE TABLET BY MOUTH EVERY DAY cranberry 2 dose PO DAILY Referrals: Karen Mustafa ARNP [Primary Care Provider] -
[2022-09-21 16:51] LABS: NT-proBNP (BNP-Adult 18+) 8930 pg/mL (<450); Troponin I 0.012 ng/mL (0.01-0.034)
[2022-09-21 19:12] LABS: Adenovirus Not Detected (Not Detect); B. parapertussis Not Detected (Not Detecte); Bordetella pertussis Not Detected (Not Detecte); Chlamydophila pneumoniae Not Detected (Not Detect); Coronavirus 229E Not Detected (Not Detect); Coronavirus HKU1 Not Detected (Not Detect); Coronavirus NL 63 Not Detected (Not Detect); Coronavirus OC43 Not Detected (Not Detect); Human Metapneumovirus Not Detected (Not Detect); Human Rhinovirus/Enterovirus Not Detected (Not Detect); Influenza A Not Detected (Not Detect); Influenza B Not Detected (Not Detect); Mycoplasma pneumoniae Not Detected (Not Detect); Parainfluenza Virus 1 Not Detected (Not Detect); Parainfluenza Virus 2 Not Detected (Not Detect); Parainfluenza Virus 3 Not Detected (Not Detect); Parainfluenza Virus 4 Not Detected (Not Detect); Respiratory Syncytial Virus Not Detected (Not Detect); SARS- CoV-2 Not Detected (Not Detecte)
--- NOTE | 2022-09-21 19:20 | DI.CT.S_ITS ---
PROCEDURE: CT ANGIO CHEST PE PROTOCOL INDICATIONS: hypoxia TECHNIQUE: After the administration of intravenous contrast, 2 mm thick sections acquired from the pulmonary apices to the posterior costophrenic angles. 3-dimensional maximum intensity projection (MIP) coronal and sagittal reformats were then acquired through the thorax. For radiation dose reduction, the following was used: automated exposure control, adjustment of mA and/or kV according to patient size. COMPARISON: Merged With [facility], CT, CT ANGIO CHEST ABDOMEN PELVIS, 11/25/2020, 13:55. Merged With [facility], CR, XR CHEST 1V, 09/21/2022, 15:40. FINDINGS: Image quality: Excellent. Pulmonary arteries: Pulmonary arteries demonstrate no intraluminal filling defects to suggest central pulmonary embolism. Lower Neck: No lymphadenopathy by size criteria. Thyroid: There is a hypoattenuating left thyroid nodule measuring up to 1.7 cm. This appears similar in size compared to the prior study. Axillae: No lymphadenopathy by size criteria. Chest Wall: There is a right chest wall pacemaker with leads extending into the right atrium and right ventricle. Bones: Visualized osseous structures demonstrate no suspicious lesions. Lungs and Airways: No acute consolidation. There is dependent atelectasis bilaterally. The trachea and central airways are patent. Pleura: No pneumothorax or pleural effusions. Heart: Heart size is normal. No pericardial effusion. Thoracic Vessels: The thoracic aorta is normal in size. Mediastinum and Anny: No lymphadenopathy by size criteria. Esophagus: No wall thickening. No hiatal hernia. Abdomen: Visualized upper abdomen demonstrates surgical absence of the gallbladder. The visualized left kidney demonstrates cortical thinning. IMPRESSION: 1. No evidence of pulmonary embolism. 2. Enlargement of the pulmonary arteries suggestive of pulmonary arterial hypertension. 3. Dependent atelectasis in the lungs without acute consolidation. Dictated by: Roni Young M.D. on 09/21/2022 at 21:00 Approved by: Roni Young M.D. on 09/21/2022 at 21:11
== END 2022-09-22 00:09 | disposition short-term general hospital (02) ==
PROVIDERS: Emergency Provider Emergency Medicine; PCP Nurse Practitioner
DX: R09.02 Hypoxemia (principal); N18.6 End stage renal disease; Z99.2 Dependence on renal dialysis; Z79.899 Other long term (current) drug therapy; Z20.822 Contact with and (suspected) exposure to COVID-19
CPT/HCPCS: 36415; 71045; 71275; 80053; 83605; 83880; 84484; 85025; 85610; 87633; 93005; 99285; Q9967

== ENCOUNTER 2022-10-12 07:16 | Emergency (ER) | payer MEDICARE, SELFPAY ==
[2021-01-11 14:08] VITALS: BMI 47.7
[2022-10-12] VITALS (36 sets, daily range): BP systolic 86–147; BP diastolic 44–70; PULSE 59–104; RESP 13–20; TEMP 36.1; O2SAT 89–99
--- NOTE | 2022-10-12 07:32 | ED_ITS ---
HPI - General Adult General Chief complaint: Diabetic Problem Stated complaint: Hypoglycemic Time Seen by Provider: 10/12/22 07:16 History of Present Illness HPI narrative: 77-year-old female nonsmoker with history of diabetes and end-stage renal disease on dialysis presents by EMS for evaluation of hypoglycemia. This morning when taking her insulin she accidentally gave herself 50 units of Humalog instead of 3, she states she thought she was taking Lantus, but accidentally took the Humalog. She felt dizzy, weak, lightheaded and confused, EMS was activated and found her initial blood sugar to be in the 40s. They attempted improvement with orals and were unsuccessful, an IV was placed she was given D10 with improvement to the 80s by her arrival department. Related Data Home Medications Medication Instructions Recorded Confirmed gabapentin 100 mg capsule 300 mg PO 3XW ##0 09/06/16 05/01/21 aspirin 81 mg tablet,delayed 81 mg PO DAILY 08/09/17 05/01/21 release (Aspir-) atorvastatin 20 mg tablet 20 mg PO QPM 08/09/17 05/01/21 docusate sodium 100 mg capsule 100 mg PO DAILY 08/09/17 05/01/21 lamotrigine 150 mg tablet 100 mg PO DAILY 08/09/17 05/01/21 omeprazole 40 mg capsule,delayed 40 mg PO BID 08/09/17 05/01/21 release citalopram 20 mg tablet 20 mg PO DAILY 04/18/18 05/01/21 cranberry 2 dose PO DAILY 04/18/18 05/01/21 oxybutynin chloride 15 mg 15 mg PO DAILY 04/18/18 05/01/21 tablet,extended release 24 hr Dialyvite 1 tab PO DAILY 11/19/20 05/01/21 fluticasone 250 mcg-salmeterol 50 2 inh inhalation PRN PRN Shortness 11/19/20 05/01/21 mcg/dose blistr powdr for Of Breath Or Wheezing inhalation (Advair Diskus) gabapentin 100 mg capsule 200 mg PO 4XW 11/19/20 05/01/21 insulin glargine 100 unit/mL (3 See Rx Instructions .Route .COMPLEX 11/19/20 05/01/21 mL) subcutaneous pen (Lantus Solostar U-100 Insulin) insulin lispro protamine-lispro 7 unit SUBCUT BEDTIME 11/19/20 05/01/21 100 unit/mL (75-25) subcutaneous pen (Humalog Mix 75-25 KwikPen) lactulose 10 gram/15 mL oral 45 ml PO TID 11/19/20 05/01/21 solution (Enulose) midodrine 10 mg tablet 20 mg PO TID 11/19/20 05/01/21 patiromer calcium sorbitex 8.4 8.4 g PO DAILY 11/19/20 05/01/21 gram oral powder packet (Veltassa) ropinirole 1 mg tablet 1 mg PO TID 11/19/20 05/01/21 sevelamer carbonate 800 mg tablet 1,600 mg PO TID 11/19/20 05/01/21 trazodone 150 mg tablet 150 mg PO BEDTIME 11/19/20 05/01/21 Allergies Allergy/AdvReac Type Severity Reaction Status Date / Time NSAIDS (Non-Steroidal AdvReac Severe CAUSED Verified 05/01/21 09:46 Anti-Inflamma KIDNEY [NSAIDS (NON-STEROIDAL DISEASE ANTI-INFLAMMA] oxycodone [From Percocet] AdvReac Severe Hallucinati Verified 09/21/22 15:27 ng Review of Systems Review of Systems Narrative: GENERAL: See HPI HEENT: Denies sinus pain, ear pain, sore throat, difficulty swallowing, dizziness. RESPIRATORY: Denies dyspnea, cough, wheezing, hemoptysis, sputum. CARDIOVASCULAR: Denies chest pain, palpitations, orthopnea, edema, GASTROINTESTINAL: Denies nausea, vomiting, abdominal pain, diarrhea, constipation, melena. : Denies dysuria, frequency, incontinence, hematuria, urinary retention. MUSCULOSKELETAL: See HPI SKIN: Denies rash, skin lesions, or other NEUROLOGIC: Denies weakness, headache, numbness, change in speech, confusion, seizures, incoordination. PSYCHIATRIC: No concerning psychosocial issues. 12 point review of systems is negative except for those stated above Patient History Medical History Bipolar 1 disorder CKD (chronic kidney disease) stage 4, GFR 15-29 ml/min Diabetes Dyslipidemia Hypertension Pacemaker Renal failure (ARF), acute on chronic Surgically constructed arteriovenous fistula Surgical History H/O: S/P cholecystectomy Social History household members: none Smoking Status: Never smoker alcohol intake: never Smoking Status: Never smoker alcohol intake frequency: 0-2 drinks per day Substance Use Type: does not use Exam Narrative Exam Narrative: GENERAL: [77] year old patient appears stated age. Well-developed patient, in mild distress. HEAD: Atraumatic. Normocephalic. EYES: Pupils equal round and reactive. Extraocular motions intact. No scleral icterus. No injection or drainage. ENT: Nose without bleeding, purulent drainage. Throat without erythema, tonsillar hypertrophy or exudate. Airway patent. NECK: Trachea midline. Non tender CARDIOVASCULAR: Regular rate and rhythm without murmurs, gallops, or rubs. RESPIRATORY: Clear to auscultation. Breath sounds equal bilaterally. No wheezes, rales, or rhonchi. GASTROINTESTINAL: Abdomen soft, non-tender, nondistended. EXTREMITIES: No edema or joint tenderness. BACK: Nontender without deformity or crepitance. No flank tenderness. NEURO: AOx3. SKIN: No rash or erythema of visible areas Initial Vital Signs Initial Vital Signs: Vital Signs Temperature 96.9 F L 10/12/22 07:27 Pulse Rate 60 10/12/22 07:27 Respiratory Rate 18 10/12/22 07:27 Blood Pressure 109/49 L 10/12/22 07:27 Pulse Oximetry 93 10/12/22 07:27 Oxygen Delivery Method Nasal Cannula 10/12/22 07:27 Oxygen Flow Rate 3 10/12/22 07:27 Course Orders Ordered: ED Orders 10/12/22 07:40 Complete Blood Count AUTO DIFF Stat Comprehensive Metabolic Panel Stat Magnesium Stat Dextrose (D10w) 250 mls @ 999 mls/hr IV PRN PRN PRN Reason: Hypoglycemia Last Infusion: 10/12/22 09:06 Dose: 0 mls/hr Documented By: Admin: 10/12/22 08:51 Dose: 999 mls/hr Documented By: AT Discontinued Medications Sodium Chloride (Normal Saline 0.9%) 500 mls @ 1,000 mls/hr IV BOLUS ONE Stop: 10/12/22 08:28 Last Infusion: 10/12/22 08:35 Dose: 0 mls/hr Documented By: Admin: 10/12/22 08:05 Dose: 1,000 mls/hr Documented By: AT Dextrose (D10w) 250 mls @ 999 mls/hr IV PRN PRN PRN Reason: Hypoglycemia Vital Signs Vital signs: Vital Signs - 8 hr 10/12/22 07:27 10/12/22 07:30 10/12/22 07:30 Temperature 96.9 F L Pulse Rate 60 60 Respiratory Rate 18 17 Blood Pressure 109/49 L 103/47 L Pulse Oximetry 93 90 L Oxygen Delivery Method Nasal Cannula Nasal Cannula Oxygen Flow Rate 3 3 10/12/22 07:45 10/12/22 07:45 10/12/22 07:46 Temperature Pulse Rate 60 Respiratory Rate 15 Blood Pressure 103/51 L 92/46 L Pulse Oximetry 92 Oxygen Delivery Method Oxygen Flow Rate 10/12/22 07:46 10/12/22 07:47 10/12/22 07:47 Temperature Pulse Rate 60 60 Respiratory Rate 16 16 Blood Pressure 95/46 L Pulse Oximetry 91 91 Oxygen Delivery Method Oxygen Flow Rate 10/12/22 07:48 10/12/22 07:48 10/12/22 07:49 Temperature Pulse Rate 60 Respiratory Rate 15 Blood Pressure 88/44 L 86/51 L Pulse Oximetry 92 Oxygen Delivery Method Oxygen Flow Rate 10/12/22 07:49 10/12/22 07:50 10/12/22 07:50 Temperature Pulse Rate 60 60 Respiratory Rate 17 15 Blood Pressure 86/51 L Pulse Oximetry 91 Oxygen Delivery Method Oxygen Flow Rate 10/12/22 08:00 10/12/22 08:00 10/12/22 08:09 Temperature Pulse Rate 60 60 Respiratory Rate 14 16 Blood Pressure 86/50 L Pulse Oximetry 89 L 94 Oxygen Delivery Method Nasal Cannula Nasal Cannula Oxygen Flow Rate 3 3 10/12/22 08:10 10/12/22 08:10 10/12/22 08:20 Temperature Pulse Rate 60 Respiratory Rate 16 Blood Pressure 115/55 L 121/57 L Pulse Oximetry 94 Oxygen Delivery Method Oxygen Flow Rate 10/12/22 08:20 10/12/22 08:30 10/12/22 08:30 Temperature Pulse Rate 60 60 Respiratory Rate 18 15 Blood Pressure 115/57 L Pulse Oximetry 97 96 Oxygen Delivery Method Nasal Cannula Oxygen Flow Rate 10/12/22 08:40 10/12/22 08:40 10/12/22 08:52 Temperature Pulse Rate 60 Respiratory Rate 13 Blood Pressure 109/55 L 143/63 H Pulse Oximetry 91 Oxygen Delivery Method Oxygen Flow Rate 10/12/22 08:52 10/12/22 09:00 10/12/22 09:00 Temperature Pulse Rate 59 L 59 L Respiratory Rate 15 Blood Pressure 113/51 L Pulse Oximetry 96 96 Oxygen Delivery Method Oxygen Flow Rate 10/12/22 09:10 10/12/22 09:10 10/12/22 09:21 Temperature Pulse Rate 60 Respiratory Rate 15 Blood Pressure 97/70 147/60 H Pulse Oximetry 97 Oxygen Delivery Method Oxygen Flow Rate 10/12/22 09:21 10/12/22 09:30 10/12/22 09:30 Temperature Pulse Rate 60 60 Respiratory Rate 15 16 Blood Pressure 121/58 L Pulse Oximetry 97 99 Oxygen Delivery Method Oxygen Flow Rate 10/12/22 09:40 10/12/22 09:40 10/12/22 09:50 Temperature Pulse Rate 60 Respiratory Rate 16 Blood Pressure 118/57 L 130/58 L Pulse Oximetry 98 Oxygen Delivery Method Oxygen Flow Rate 10/12/22 09:50 10/12/22 10:00 10/12/22 10:00 Temperature Pulse Rate 60 60 Respiratory Rate 15 18 Blood Pressure 126/59 L Pulse Oximetry 98 96 Oxygen Delivery Method Oxygen Flow Rate 10/12/22 10:10 10/12/22 10:10 10/12/22 10:20 Temperature Pulse Rate 60 Respiratory Rate 14 Blood Pressure 116/57 L 104/51 L Pulse Oximetry 98 Oxygen Delivery Method Oxygen Flow Rate 10/12/22 10:20 10/12/22 10:30 10/12/22 10:30 Temperature Pulse Rate 60 60 Respiratory Rate 13 14 Blood Pressure 95/47 L Pulse Oximetry 97 95 Oxygen Delivery Method Oxygen Flow Rate 10/12/22 10:40 10/12/22 10:41 10/12/22 10:41 Temperature Pulse Rate 60 60 Respiratory Rate 13 14 Blood Pressure 103/53 L Pulse Oximetry 94 94 Oxygen Delivery Method Nasal Cannula Oxygen Flow Rate 2 Medical Decision Making Lab Data 10/12/22 07:40 10/12/22 07:40 Labs: Lab Results 10/12/22 10/12/22 10/12/22 Range/Units 07:40 07:40 07:40 WBC 9.4 (4.5-11.0) X10^3/uL RBC 3.40 L (4.0-5.2) X10^6/uL Hgb 11.7 L (12.0-16.0) g/dL Hct 34.6 L (36-46) % MCV 101.7 H (80-100) fL MCH 34.4 H (26-34) PG MCHC 33.8 (30-36) % RDW 13.9 (11.6-14.8) % Plt Count 249 (150-400) X10^3/uL Neut % (Auto) 79.7 H (50-75) % Lymph % (Auto) 8.7 L (25-40) % Prentiss % (Auto) 10.3 (3-14) % Eos % (Auto) 0.7 L (2-4) % Baso % (Auto) 0.6 (0-2) % Neut # (Auto) 7500 H (7648-5269) /uL Lymph # (Auto) 800 L (5181-8336) /uL Prentiss # (Auto) 1000 H (0-900) /uL Eos # (Auto) 100 (0-450) /uL Baso # (Auto) 100 (0-100) /uL Sodium 135 L (137-145) mmol/L Potassium 3.2 L (3.4-5.1) mmol/L Chloride 91 L (98-107) mmol/L Carbon Dioxide 24 (22-32) mmol/L BUN 77 H (7-17) mg/dL Creatinine 8.14 H* (0.52-1.04) mg/dL Estimated GFR 5 L (>60) mL/min BUN/Creatinine Ratio 9.5 (6-22) Glucose 109 (80-110) mg/dL Calcium 9.1 (8.4-10.2) mg/dL Magnesium 3.0 H (1.6-2.3) mg/dL Total Bilirubin 0.4 (0.2-1.3) mg/dL AST 18 (14-36) IU/L ALT 19 (<35) IU/L Alkaline Phosphatase 104 (38-126) U/L Total Protein 7.4 (6.3-8.2) g/dL Albumin 4.4 (3.5-5.0) g/dL Globulin 3.0 (1.7-4.1) g/dL Albumin/Globulin Ratio 1.5 (1.0-2.8) Point of Care Testing Glucose POC 128 Point of care testing: Point of Care Testing Glucose POC 128 MDM Narrative Medical decision making narrative: CC: 77-year-old female diabetic with accidental hypoglycemia Complicating co-morbidities: Age, diabetes, renal failure Data collected from: Patient Medical records reviewed: Prior notes reviewed in our EMR Differential considered, but not limited to: Accidental overdose versus other Exam documented above, pertinent findings include: Alert and oriented x3, heart rate regular, lungs clear, abdomen soft Lab Test results independently reviewed as above. Pertinent findings: Imaging studies independently reviewed: Treatments: Patient had a small fluid bolus and dextrose given. She is been monitored for a few hours and blood sugars remaining in the 120s. Patient feels at her baseline Discussion: 77-year-old female with hypoglycemia and weakness after accidentally taking 50 units of Humalog when she was trying to take Lantus. Initially her blood sugar was quite low, medics replaced her glucose and we followed up with another replacement. She is been in the 120s for some time and states she feels at her baseline. No further evaluation or workup needed. She is appropriate for discharge Disposition: see below, along with detailed discharge instructions that have been reviewed with patient as well as indications for ED re-evaluation and additional outpatient follow up Discharge Plan Departure Patient Disposition: Home Clinical Impression: Hypoglycemia Instructions: DI for Hypoglycemia Activity Restrictions/Additional Instructions: *You have been diagnosed with [hypoglycemia due to accidental medication error. As we discussed your history and physical exam are reassuring, labs are unremarkable and your response to therapies is as we would expect] *What to do: *Please continue to take your regular medications as directed. *Please follow up with your primary care provider in 2-3 days, call for an appointment. Let them know you were seen in the Emergency Department and that we ask that you be seen in follow up. We will electronically transmit a record of today's note if your PCP is in our system *Return to Emergency Department if you should have any new, worsening or conc erning symptoms, such as [fever greater than 101 F, shaking chills, worsening pain, persistent vomiting or other bothersome symptoms] Prescriptions: No Action gabapentin 100 MG capsule 300 mg PO 3XW Qty: 0 atorvastatin 20 mg Tablet 20 mg PO QPM docusate sodium 100 mg Capsule 100 mg PO DAILY lamotrigine 150 mg Tablet 100 mg PO DAILY omeprazole 40 mg Capsule,Delayed Release(Dr/Ec) 40 mg PO BID aspirin [Aspir-81] 81 mg Tablet,Delayed Release (Dr/Ec) 81 mg PO DAILY fluticasone propion-salmeterol [Advair Diskus] 250-50 mcg/dose blister with device 2 inh INHALATION PRN PRN (Reason: Shortness Of Breath Or Wheezing) ropinirole 1 mg tablet 1 mg PO TID gabapentin 100 mg capsule 200 mg PO 4XW midodrine 10 mg tablet 20 mg PO TID Patient Comments: TAKE 2 TABLETS BY MOUTH THREE TIMES DAILY insulin lispro protamin-lispro [Humalog Mix 75-25 KwikPen] 100 unit/mL (75-25) Insulin Pen 7 unit SUBCUT BEDTIME Patient Comments: Has not been taking for a while because maintaining adequate control lactulose [Enulose] 10 gram/15 mL solution 45 ml PO TID Lantus Solostar U-100 Insulin 100 unit/mL (3 mL) Insulin Pen See Rx Instructions .ROUTE .COMPLEX Patient Comments: AM sugars below 175, does not take. AM sugars 175-210 takes 5 units. AM sugars greater 210 takes 10 units Rx Instructions: AM sugars below 175, does not take. AM sugars 175-210 takes 5 units. AM sugars greater 210 takes 10 units sevelamer carbonate 800 mg tablet 1,600 mg PO TID Patient Comments: With Meals Veltassa 8.4 gram powder in packet 8.4 g PO DAILY Patient Comments: DISSOLVE 1 PACKET AND DRINK BY MOUTH DAILY Dialyvite 1 tab PO DAILY trazodone 150 mg tablet 150 mg PO BEDTIME Patient Comments: TAKE 1 TABLET BY MOUTH EVERY EVENING oxybutynin chloride 15 mg tablet extended release 24hr 15 mg PO DAILY Patient Comments: TAKE ONE TABLET BY MOUTH EVERY DAY citalopram 20 mg tablet 20 mg PO DAILY Patient Comments: TAKE ONE TABLET BY MOUTH EVERY DAY cranberry 2 dose PO DAILY Referrals: Karen Mustafa ARNP [Primary Care Provider] - Stand Alone Forms: Patient Portal/API
--- NOTE | 2022-10-12 07:46 | PC.NURSE ---
Patient has left upper arm fistula, reports dialysis Tuesday, , Tuesday. Last treatment yesterday. Reports she is anuric.
[2022-10-12 07:49] LABS: Add Manual Diff / Slide Review NO; Basophils Absolute Auto 100 /uL (0-100); Basophils Percent Auto 0.6 % (0-2); Eosinophils Absolute Auto 100 /uL (0-450); Eosinophils Percent Auto 0.7 % (2-4); Hematocrit 34.6 % (36-46); Hemoglobin 11.7 g/dL (12.0-16.0); Lymphocytes Absolute Auto 800 /uL (1100-4500); Lymphocytes Percent Auto 8.7 % (25-40); Mean Corpuscular HGB Conc 33.8 % (30-36); Mean Corpuscular Hemoglobin 34.4 PG (26-34); Mean Corpuscular Volume 101.7 fL (80-100); Monocytes Absolute Auto 1000 /uL (0-900); Monocytes Percent Auto 10.3 % (3-14); Neutrophils Absolute Auto 7500 /uL (1500-7000); Neutrophils Percent Auto 79.7 % (50-75); Platelet Count 249 X10^3/uL (150-400); Red Cell Distribution Width 13.9 % (11.6-14.8); White Blood Cell Count 9.4 X10^3/uL (4.5-11.0)
[2022-10-12 08:00] LABS: Alanine Aminotransferase 19 IU/L (<35); Albumin 4.4 g/dL (3.5-5.0); Albumin Globulin Ratio 1.5 (1.0-2.8); Alkaline Phosphatase 104 U/L (38-126); Aspartate Aminotransferase 18 IU/L (14-36); Bilirubin Total 0.4 mg/dL (0.2-1.3); Blood Urea Nitrogen 77 mg/dL (7-17); Calcium 9.1 mg/dL (8.4-10.2); Carbon Dioxide 24 mmol/L (22-32); Chloride 91 mmol/L (98-107); Glucose 109 mg/dL (80-110); HEMOLYSIS 15 (0-50); Potassium 3.2 mmol/L (3.4-5.1); Sodium 135 mmol/L (137-145); Total Protein 7.4 g/dL (6.3-8.2)
[2022-10-12] MEDS: SODIUM CHLORIDE 0.9% 500 ML 1000 ML IV (08:05)
[2022-10-12 08:07] LABS: BUN Creatinine Ratio 9.5 (6-22); Estimated Glomerular Filt Rate 5 mL/min (>60)
--- NOTE | 2022-10-12 08:09 | PC.NURSE ---
Patient opens eyes to verbal, clear and coherent speech, reports pain in back of her legs, legs repositioned, pt falls asleep mid conversation.
--- NOTE | 2022-10-12 08:22 | PC.NURSE ---
Coached pt through eating half a piece of toast and approximately 130ml of apple juice, pt drowsy and occasionally closing eyes, able to follow commands to wake up and chew/swallow. Pt tolerated.
[2022-10-12] MEDS: DEXTROSE 10 % IN WATER 250 ML 999 ML IV (08:51)
--- NOTE | 2022-10-12 08:56 | PC.NURSE ---
Updated daughter Deedee by phone with patient's consent.
--- NOTE | 2022-10-12 11:27 | PC.NURSE ---
Patient ate a yogurt. Called daughter for ride home, awaiting return call.
--- NOTE | 2022-10-12 11:52 | PC.NURSE ---
Patient daughter called and requests MANAGER PROCUREMENT to speak to pt concerning living alone and increased needs. States she can pick patient up in approximately an hour.
--- NOTE | 2022-10-12 12:25 | PC.NURSE ---
Patient consumed meal tray, awake and alert, able to hold conversation and not falling asleep.
--- NOTE | 2022-10-12 13:05 | PC.NURSE ---
Dtr called stating that she believed her mother may need urgent dialysis. Reviewed w/ Dr. Padilla who does not believe that is the case. Daughter updated and verbalized understanding. Encouraged dtr to have mother return if any increased symptoms.
== END 2022-10-12 13:30 | disposition home or self-care (01) ==
PROVIDERS: Emergency Provider Emergency Medicine; PCP Nurse Practitioner
DX: E11.649 Type 2 diabetes mellitus with hypoglycemia without coma (principal); Z79.4 Long term (current) use of insulin
CPT/HCPCS: 80053; 82962; 83735; 85025; 96374; 99284; 99285

== ENCOUNTER 2022-10-14 13:10 | Emergency (ER) | payer MEDICARE, SELFPAY ==
[2021-01-11 14:08] VITALS: BMI 47.7
[2022-10-14 13:19] VITALS: BP 135/63; PULSE 61; RESP 18; TEMP 36.5; O2SAT 95
--- NOTE | 2022-10-14 13:27 | PC.NURSE ---
EMS states that patient was on 5L NC upon their arrival to facility. Patient states she doesnt take oxygen, except for when she is receiving a dialysis treatment. Patient is on room air upon arrival and is satting at 95% room air. Denies shortness of breath.
--- NOTE | 2022-10-14 13:28 | ED.GENADULT ---
HPI - General Adult General Chief complaint: Weakness Stated complaint: Not feeling well Time Seen by Provider: 10/14/22 13:12 History of Present Illness HPI narrative: 77-year-old female nonsmoker with history of end-stage kidney disease requiring dialysis on Tuesdays and Saturdays presents by EMS because apparently she was a bit difficult to rouse briefly during her course of dialysis. She reports to of received a full run of her dialysis. She is not dizzy nor weak or lightheaded. She denies any chest pain or shortness of breath. She states she feels like she normally does and is very verbal about not wanting to be here and demands that we let her go now. She does not want any blood work or evaluation whatsoever. She is awake, alert and oriented and has the capacity to make this decision. Related Data Home Medications Medication Instructions Recorded Confirmed gabapentin 100 mg capsule 300 mg PO 3XW ##0 09/06/16 05/01/21 aspirin 81 mg tablet,delayed 81 mg PO DAILY 08/09/17 05/01/21 release (Aspir-) atorvastatin 20 mg tablet 20 mg PO QPM 08/09/17 05/01/21 docusate sodium 100 mg capsule 100 mg PO DAILY 08/09/17 05/01/21 lamotrigine 150 mg tablet 100 mg PO DAILY 08/09/17 05/01/21 omeprazole 40 mg capsule,delayed 40 mg PO BID 08/09/17 05/01/21 release citalopram 20 mg tablet 20 mg PO DAILY 04/18/18 05/01/21 cranberry 2 dose PO DAILY 04/18/18 05/01/21 oxybutynin chloride 15 mg 15 mg PO DAILY 04/18/18 05/01/21 tablet,extended release 24 hr Dialyvite 1 tab PO DAILY 11/19/20 05/01/21 fluticasone 250 mcg-salmeterol 50 2 inh inhalation PRN PRN Shortness 11/19/20 05/01/21 mcg/dose blistr powdr for Of Breath Or Wheezing inhalation (Advair Diskus) gabapentin 100 mg capsule 200 mg PO 4XW 11/19/20 05/01/21 insulin glargine 100 unit/mL (3 See Rx Instructions .Route .COMPLEX 11/19/20 05/01/21 mL) subcutaneous pen (Lantus Solostar U-100 Insulin) insulin lispro protamine-lispro 7 unit SUBCUT BEDTIME 11/19/20 05/01/21 100 unit/mL (75-25) subcutaneous pen (Humalog Mix 75-25 KwikPen) lactulose 10 gram/15 mL oral 45 ml PO TID 11/19/20 05/01/21 solution (Enulose) midodrine 10 mg tablet 20 mg PO TID 11/19/20 05/01/21 patiromer calcium sorbitex 8.4 8.4 g PO DAILY 11/19/20 05/01/21 gram oral powder packet (Veltassa) ropinirole 1 mg tablet 1 mg PO TID 11/19/20 05/01/21 sevelamer carbonate 800 mg tablet 1,600 mg PO TID 11/19/20 05/01/21 trazodone 150 mg tablet 150 mg PO BEDTIME 11/19/20 05/01/21 Allergies Allergy/AdvReac Type Severity Reaction Status Date / Time NSAIDS (Non-Steroidal AdvReac Severe CAUSED Verified 05/01/21 09:46 Anti-Inflamma KIDNEY [NSAIDS (NON-STEROIDAL DISEASE ANTI-INFLAMMA] oxycodone [From Percocet] AdvReac Severe Hallucinati Verified 09/21/22 15:27 ng Review of Systems Review of Systems Narrative: GENERAL: Denies chills, fatigue, malaise, fever, sweats. HEENT: Denies sinus pain, ear pain, sore throat, difficulty swallowing, dizziness. RESPIRATORY: Denies dyspnea, cough, wheezing, hemoptysis, sputum. CARDIOVASCULAR: Denies chest pain, palpitations, orthopnea, edema, GASTROINTESTINAL: Denies nausea, vomiting, abdominal pain, diarrhea, constipation, melena. : Denies dysuria, frequency, incontinence, hematuria, urinary retention. MUSCULOSKELETAL: denies weakness, joint pain, or bony pain SKIN: Denies rash, skin lesions, or other NEUROLOGIC: Denies weakness, headache, numbness, change in speech, confusion, seizures, incoordination. PSYCHIATRIC: No concerning psychosocial issues. 12 point review of systems is negative except for those stated above Patient History Medical History Bipolar 1 disorder CKD (chronic kidney disease) stage 4, GFR 15-29 ml/min Diabetes Dyslipidemia Hypertension Pacemaker Renal failure (ARF), acute on chronic Surgically constructed arteriovenous fistula Surgical History H/O: S/P cholecystectomy Social History household members: none Smoking Status: Never smoker alcohol intake: never Smoking Status: Never smoker alcohol intake frequency: 0-2 drinks per day Substance Use Type: does not use Exam Narrative Exam Narrative: GEN: AOx3 and in no obvious distress EYES: Pupils are equal, round, and reactive to light and accommodation. Extraoccular muscles are intact bilaterally. There is no subconjunctival hemorrhage or exudate. CHEST: Lungs are clear to auscultation bilaterally and free of wheezes, rales, or rhonchi. Heart rate is regular rhythm, there are no murmurs, clicks, rubs, or gallops. There is no chest wall tenderness. ABD: Abdomen is soft and nontender. There is no guarding or rebound. Bowel sounds are normal in all 4 quadrants. There is no mass or organomegaly. EXT: Full painless ROM of all extremities with no loss of sensation or strength. SKIN: Warm, pink, and dry. No erythema or rash Initial Vital Signs Initial Vital Signs: Vital Signs Temperature 97.7 F 10/14/22 13:19 Pulse Rate 61 10/14/22 13:19 Respiratory Rate 18 10/14/22 13:19 Blood Pressure 135/63 10/14/22 13:19 Pulse Oximetry 95 10/14/22 13:19 Oxygen Delivery Method Room Air 10/14/22 13:19 Course Vital Signs Vital signs: Vital Signs - 8 hr 10/14/22 13:19 Temperature 97.7 F Pulse Rate 61 Respiratory Rate 18 Blood Pressure 135/63 Pulse Oximetry 95 Oxygen Delivery Method Room Air Medical Decision Making MDM Narrative Medical decision making narrative: Patient had a brief episode of decreased responsiveness during dialysis with complete resolution of symptoms prior to her arrival. She has no complaints. She refuses any workup and demands to leave. She states she understands that we may be missing some significant underlying diagnosis without performing any sort of workup but she states she feels fine and wants to go home. She states she can make this decision and demands to leave. She is alert and oriented and has the capacity to make this decision. She understands that she may return at any point for any change of heart without fear repercussions. Discharge Plan Departure Patient Disposition: Home Clinical Impression: Feared complaint without diagnosis Activity Restrictions/Additional Instructions: *You have been diagnosed with [chronic kidney disease] *What to do: *Please continue to take your regular medications as directed. * I am glad your feeling much better by the time you arrived by EMS. You made it clear that your feeling well and do not want any further evaluation and do not want to be here, we respect your choice in her happy your feeling better. If you change your mind and would like evaluation we are happy to see you at any time. Prescriptions: No Action gabapentin 100 MG capsule 300 mg PO 3XW Qty: 0 atorvastatin 20 mg Tablet 20 mg PO QPM docusate sodium 100 mg Capsule 100 mg PO DAILY lamotrigine 150 mg Tablet 100 mg PO DAILY omeprazole 40 mg Capsule,Delayed Release(Dr/Ec) 40 mg PO BID aspirin [Aspir-81] 81 mg Tablet,Delayed Release (Dr/Ec) 81 mg PO DAILY fluticasone propion-salmeterol [Advair Diskus] 250-50 mcg/dose blister with device 2 inh INHALATION PRN PRN (Reason: Shortness Of Breath Or Wheezing) ropinirole 1 mg tablet 1 mg PO TID gabapentin 100 mg capsule 200 mg PO 4XW midodrine 10 mg tablet 20 mg PO TID Patient Comments: TAKE 2 TABLETS BY MOUTH THREE TIMES DAILY insulin lispro protamin-lispro [Humalog Mix 75-25 KwikPen] 100 unit/mL (75-25) Insulin Pen 7 unit SUBCUT BEDTIME Patient Comments: Has not been taking for a while because maintaining adequate control lactulose [Enulose] 10 gram/15 mL solution 45 ml PO TID Lantus Solostar U-100 Insulin 100 unit/mL (3 mL) Insulin Pen See Rx Instructions .ROUTE .COMPLEX Patient Comments: AM sugars below 175, does not take. AM sugars 175-210 takes 5 units. AM sugars greater 210 takes 10 units Rx Instructions: AM sugars below 175, does not take. AM sugars 175-210 takes 5 units. AM sugars greater 210 takes 10 units sevelamer carbonate 800 mg tablet 1,600 mg PO TID Patient Comments: With Meals Veltassa 8.4 gram powder in packet 8.4 g PO DAILY Patient Comments: DISSOLVE 1 PACKET AND DRINK BY MOUTH DAILY Dialyvite 1 tab PO DAILY trazodone 150 mg tablet 150 mg PO BEDTIME Patient Comments: TAKE 1 TABLET BY MOUTH EVERY EVENING oxybutynin chloride 15 mg tablet extended release 24hr 15 mg PO DAILY Patient Comments: TAKE ONE TABLET BY MOUTH EVERY DAY citalopram 20 mg tablet 20 mg PO DAILY Patient Comments: TAKE ONE TABLET BY MOUTH EVERY DAY cranberry 2 dose PO DAILY Referrals: Karen Mustfaa ARNP [Primary Care Provider] - Stand Alone Forms: Patient Portal/API
--- NOTE | 2022-10-14 13:44 | PC.NURSE ---
Patient refused to allow us to treat her today, stating she just feels crumby and wants to go home. Patient understands she can always return to the ER or call if she changes her mind and decides to seek medical care. Denies having further questions. Daughter picked her up outside the ER. Nurse and [employer] assisted patient into the vehicle.
== END 2022-10-14 13:36 | disposition home or self-care (01) ==
PROVIDERS: Emergency Provider Emergency Medicine; PCP Nurse Practitioner
DX: R53.1 Weakness (principal); N18.6 End stage renal disease; Z99.2 Dependence on renal dialysis; Z79.899 Other long term (current) drug therapy
CPT/HCPCS: 99281

== ENCOUNTER 2022-10-31 13:56 | Emergency (ER) | payer MEDICARE, SELFPAY ==
[2021-01-11 14:08] VITALS: BMI 47.7
[2022-10-31] VITALS (126 sets, daily range): BP systolic 74–135; BP diastolic 37–62; PULSE 63–106; RESP 14–40; TEMP 36.8; O2SAT 89–98; BMI 52.3
--- NOTE | 2022-10-31 14:13 | DI.RAD.S_ITS ---
PROCEDURE: XR CHEST 1V INDICATIONS: short of breath TECHNIQUE: One view of the chest was acquired. COMPARISON: Located Within [facility], [place], XR CHEST 1V, 09/21/2022, 15:40. Located Within [facility], [place], XR CHEST 1V, 01/13/2021, 8:26. FINDINGS: Surgical changes and devices: None. Lungs and pleura: Lungs are clear. No pleural effusions or pneumothorax. Mediastinum: Mediastinal contours appear normal. Heart size is normal. Bones and chest wall: No suspicious bony lesions. Overlying soft tissues appear unremarkable. IMPRESSION: No acute cardiopulmonary process. Dictated by: Evert Smiley M.D. on 10/31/2022 at 15:05 Approved by: Evert Smiley M.D. on 10/31/2022 at 15:05
[2022-10-31 14:40] LABS: Add Manual Diff / Slide Review NO; Basophils Absolute Auto 100 /uL (0-100); Basophils Percent Auto 0.6 % (0-2); Eosinophils Absolute Auto 0 /uL (0-450); Hematocrit 43.9 % (36-46); Hemoglobin 14.6 g/dL (12.0-16.0); Lymphocytes Absolute Auto 800 /uL (1100-4500); Lymphocytes Percent Auto 5.5 % (25-40); Mean Corpuscular HGB Conc 33.3 % (30-36); Mean Corpuscular Volume 102.1 fL (80-100); Monocytes Absolute Auto 800 /uL (0-900); Neutrophils Absolute Auto 13400 /uL (1500-7000); Neutrophils Percent Auto 88.9 % (50-75); Platelet Count 294 X10^3/uL (150-400); Red Cell Distribution Width 14.4 % (11.6-14.8); White Blood Cell Count 15.1 X10^3/uL (4.5-11.0)
[2022-10-31] MEDS: PANTOPRAZOLE 40 MG VIAL IV (14:52)
[2022-10-31 14:53] LABS: INR 1.1 (0.9-1.3); Prothrombin Time 12.5 SECONDS (10.1-12.7)
[2022-10-31 14:55] LABS: PTT Partial Thromboplastin Tim 28 SECONDS (26-36)
[2022-10-31 15:00] LABS: Alanine Aminotransferase 21 IU/L (<35); Albumin 5.1 g/dL (3.5-5.0); Albumin Globulin Ratio 1.2 (1.0-2.8); Alkaline Phosphatase 147 U/L (38-126); Aspartate Aminotransferase 21 IU/L (14-36); BUN Creatinine Ratio 6.9 (6-22); Bilirubin Total 0.9 mg/dL (0.2-1.3); Blood Urea Nitrogen 56 mg/dL (7-17); Calcium 9.7 mg/dL (8.4-10.2); Carbon Dioxide 22 mmol/L (22-32); Chloride 84 mmol/L (98-107); Creatine Kinase 33 U/L (30-135); Estimated Glomerular Filt Rate 5 mL/min (>60); Globulin 4.1 g/dL (1.7-4.1); Glucose 257 mg/dL (80-110); HEMOLYSIS < 15 (0-50); Lactate (Lactic Acid) 2.7 mmol/L (0.7-2.1); Lipase 27 U/L (23-300); Potassium 4.4 mmol/L (3.4-5.1); Sodium 135 mmol/L (137-145); Total Protein 9.2 g/dL (6.3-8.2)
[2022-10-31 15:08] LABS: NT-proBNP (BNP-Adult 18+) 4990 pg/mL (<450)
[2022-10-31 15:11] LABS: Troponin I 0.064 ng/mL (0.01-0.034)
[2022-10-31 16:32] LABS: Reflexed Lactate in 2 Hours Y
[2022-10-31 16:47] LABS: Lactate 2HR (Lactic Acid Rflx) 1.6 mmol/L (0.7-2.1)
--- NOTE | 2022-10-31 16:55 | ED.SOB ---
HPI - SOB/Dyspnea <Vee Merritt, DO - Last Filed: 11/01/22 15:42> General Chief Complaint: Shortness of Breath/Dyspnea Stated Complaint: sob Time Seen by Provider: 10/31/22 14:12 Source: patient and EMS Mode of arrival: EMS Limitations: altered mental status History of Present Illness HPI Narrative: Patient is a 77-year-old female history of chronic kidney disease on hemodialysis Tuesday received dialysis yesterday, coronary artery disease, CHF, diabetes, diabetic neuropathy, bipolar, depression, restless leg, presents today with increasing shortness of breath. Sounds as though it came on suddenly. This has happened to her previously. She is not typically on oxygen requiring 1-2 L. she denies any fever chills or cough. She does have some underlying dementia. She is also complaining of some right knee pain. She was transferred to [facility] the end of September. For shortness of breath. It was thought at that time that it was likely multifactorial from missing dialysis session volume overload pulmonary hypertension obesity hypoventilation syndrome. Related Data Home Medications Medication Instructions Recorded Confirmed gabapentin 100 mg capsule 300 mg PO 3XW ##0 09/06/16 05/01/21 aspirin 81 mg tablet,delayed 81 mg PO DAILY 08/09/17 05/01/21 release (Aspir-) atorvastatin 20 mg tablet 20 mg PO QPM 08/09/17 05/01/21 docusate sodium 100 mg capsule 100 mg PO DAILY 08/09/17 05/01/21 lamotrigine 150 mg tablet 100 mg PO DAILY 08/09/17 05/01/21 omeprazole 40 mg capsule,delayed 40 mg PO BID 08/09/17 05/01/21 release citalopram 20 mg tablet 20 mg PO DAILY 04/18/18 05/01/21 cranberry 2 dose PO DAILY 04/18/18 05/01/21 oxybutynin chloride 15 mg 15 mg PO DAILY 04/18/18 05/01/21 tablet,extended release 24 hr Dialyvite 1 tab PO DAILY 11/19/20 05/01/21 fluticasone 250 mcg-salmeterol 50 2 inh inhalation PRN PRN Shortness 11/19/20 05/01/21 mcg/dose blistr powdr for Of Breath Or Wheezing inhalation (Advair Diskus) gabapentin 100 mg capsule 200 mg PO 4XW 11/19/20 05/01/21 insulin glargine 100 unit/mL (3 See Rx Instructions .Route .COMPLEX 11/19/20 05/01/21 mL) subcutaneous pen (Lantus Solostar U-100 Insulin) insulin lispro protamine-lispro 7 unit SUBCUT BEDTIME 11/19/20 05/01/21 100 unit/mL (75-25) subcutaneous pen (Humalog Mix 75-25 KwikPen) lactulose 10 gram/15 mL oral 45 ml PO TID 11/19/20 05/01/21 solution (Enulose) midodrine 10 mg tablet 20 mg PO TID 11/19/20 05/01/21 patiromer calcium sorbitex 8.4 8.4 g PO DAILY 11/19/20 05/01/21 gram oral powder packet (Veltassa) ropinirole 1 mg tablet 1 mg PO TID 11/19/20 05/01/21 sevelamer carbonate 800 mg tablet 1,600 mg PO TID 11/19/20 05/01/21 trazodone 150 mg tablet 150 mg PO BEDTIME 11/19/20 05/01/21 Allergies Allergy/AdvReac Type Severity Reaction Status Date / Time NSAIDS (Non-Steroidal AdvReac Severe CAUSED Verified 05/01/21 09:46 Anti-Inflamma KIDNEY [NSAIDS (NON-STEROIDAL DISEASE ANTI-INFLAMMA] oxycodone [From Percocet] AdvReac Severe Hallucinati Verified 09/21/22 15:27 ng Review of Systems <Vee Bang DO - Last Filed: 11/01/22 15:42> Review of Systems ROS Unobtainable: All systems reviewed & are unremarkable except as noted in HPI and below Patient History <Vee Bang DO - Last Filed: 11/01/22 15:42> Medical History Bipolar 1 disorder CKD (chronic kidney disease) stage 4, GFR 15-29 ml/min Diabetes Dyslipidemia Hypertension Pacemaker Renal failure (ARF), acute on chronic Surgically constructed arteriovenous fistula Surgical History H/O: S/P cholecystectomy Social History household members: none Smoking Status: Never smoker alcohol intake: never Smoking Status: Never smoker alcohol intake frequency: 0-2 drinks per day Substance Use Type: does not use Exam <Vee Bang DO - Last Filed: 11/01/22 15:42> Initial Vital Signs Initial Vital Signs: Vital Signs Pulse Rate 106 H 10/31/22 14:12 Respiratory Rate 21 10/31/22 14:12 Pulse Oximetry 95 10/31/22 14:12 Oxygen Delivery Method Room Air 10/31/22 14:12 GENERAL: 77-year-old female morbidly obese in mild respiratory distress and in no acute distress. HEENT: Head atraumatic,EOMI, pupils reactive, face symmetric, moist mucous membranes CARDIOVASCULAR: Regular rate and rhythm without murmurs, rubs or gallops. RESPIRATORY: Decrease in breath sounds bilaterally mild respiratory distress ABDOMEN: Soft, nontender. Normoactive bowel sounds all 4 quadrants. No guarding or rebound. EXTREMITIES: Normal range of motion, no clubbing or edema. Neurovascularly intact Right knee no hip pain with internal external rotation mild contusion on right knee but able flex and extend distal pedal intact NEUROLOGICAL: Alert and oriented x2. SKIN: Chronic venous stasis <Anthony Padilla DO - Last Filed: 11/01/22 00:33> Initial Vital Signs Initial Vital Signs: Vital Signs Pulse Rate 106 H 10/31/22 14:12 Respiratory Rate 21 10/31/22 14:12 Pulse Oximetry 95 10/31/22 14:12 Oxygen Delivery Method Room Air 10/31/22 14:12 Course <Vee Bang DO - Last Filed: 11/01/22 15:42> Orders Ordered: Discontinued Medications Heparin Sodium (Porcine) (Heparin 5,000 Unit/Ml Vial) 5,000 unit IV NOW ONE Stop: 10/31/22 18:24 Last Admin: 10/31/22 18:39 Dose: 5,000 unit Documented By: AMEE Hydromorphone HCl (Hydromorphone 0.5 Mg Inj) 0.5 mg IV NOW ONE Stop: 10/31/22 17:29 Last Admin: 10/31/22 17:38 Dose: 0.5 mg Documented By: AMEE Heparin Sodium/Dextrose (Heparin Drip) 25,000 unit in 500 mls @ 20 mls/hr IV CONT JASON; Protocol Last Admin: 10/31/22 18:41 Dose: 1,000 units/hr, 20 mls/hr Documented By: RB Co-signed By: DI Pantoprazole Sodium (Pantoprazole 40 Mg Vial) 40 mg IV NOW ONE Stop: 10/31/22 14:14 Last Admin: 10/31/22 14:52 Dose: 40 mg Documented By: TONY Vital Signs Vital signs: Vital Signs - 8 hr 10/31/22 16:35 10/31/22 16:35 10/31/22 16:40 Pulse Rate 89 84 Respiratory Rate 23 21 Blood Pressure 100/54 L Pulse Oximetry 93 96 Oxygen Delivery Method Nasal Cannula Nasal Cannula Oxygen Flow Rate 3 3 10/31/22 16:41 10/31/22 16:41 10/31/22 16:45 Pulse Rate 85 Respiratory Rate 21 Blood Pressure 97/49 L 107/53 L Pulse Oximetry 96 Oxygen Delivery Method Nasal Cannula Oxygen Flow Rate 3 10/31/22 16:45 10/31/22 16:50 10/31/22 16:50 Pulse Rate 93 H 85 Respiratory Rate 24 31 H Blood Pressure 128/62 Pulse Oximetry 96 98 Oxygen Delivery Method Nasal Cannula Nasal Cannula Oxygen Flow Rate 3 3 10/31/22 16:55 10/31/22 16:56 10/31/22 16:56 Pulse Rate 75 78 Respiratory Rate 23 24 Blood Pressure 124/58 L Pulse Oximetry 96 96 Oxygen Delivery Method Nasal Cannula Nasal Cannula Oxygen Flow Rate 3 3 10/31/22 17:00 10/31/22 17:01 10/31/22 17:01 Pulse Rate 89 91 H Respiratory Rate 23 25 H Blood Pressure 114/56 L Pulse Oximetry 96 97 Oxygen Delivery Method Nasal Cannula Nasal Cannula Oxygen Flow Rate 3 3 10/31/22 17:05 10/31/22 17:05 10/31/22 17:10 Pulse Rate 87 Respiratory Rate 22 Blood Pressure 115/54 L 133/60 Pulse Oximetry 96 Oxygen Delivery Method Nasal Cannula Oxygen Flow Rate 3 10/31/22 17:10 10/31/22 17:15 10/31/22 17:15 Pulse Rate 89 88 Respiratory Rate 23 21 Blood Pressure 130/58 L Pulse Oximetry 96 97 Oxygen Delivery Method Nasal Cannula Nasal Cannula Oxygen Flow Rate 3 3 10/31/22 17:20 10/31/22 17:20 10/31/22 17:25 Pulse Rate 82 Respiratory Rate 27 H Blood Pressure 132/60 113/58 L Pulse Oximetry 96 Oxygen Delivery Method Oxygen Flow Rate 10/31/22 17:25 10/31/22 17:30 10/31/22 17:31 Pulse Rate 86 89 Respiratory Rate 21 27 H Blood Pressure 119/61 Pulse Oximetry 96 96 Oxygen Delivery Method Oxygen Flow Rate 10/31/22 17:31 10/31/22 17:35 10/31/22 17:36 Pulse Rate 84 94 H Respiratory Rate 26 H 23 Blood Pressure 114/52 L Pulse Oximetry 96 97 Oxygen Delivery Method Oxygen Flow Rate 10/31/22 17:36 10/31/22 17:40 10/31/22 17:40 Pulse Rate 97 H 92 H Respiratory Rate 24 24 Blood Pressure 116/57 L Pulse Oximetry 97 97 Oxygen Delivery Method Oxygen Flow Rate 10/31/22 17:45 10/31/22 17:46 10/31/22 17:46 Pulse Rate 89 86 Respiratory Rate 31 H 27 H Blood Pressure 106/48 L Pulse Oximetry 96 96 Oxygen Delivery Method Oxygen Flow Rate 10/31/22 17:50 10/31/22 17:50 10/31/22 17:55 Pulse Rate 85 Respiratory Rate 18 Blood Pressure 85/51 L 86/45 L Pulse Oximetry 97 Oxygen Delivery Method Oxygen Flow Rate 10/31/22 17:55 10/31/22 17:57 10/31/22 17:57 Pulse Rate 84 86 Respiratory Rate 20 24 Blood Pressure 74/42 L Pulse Oximetry 93 92 Oxygen Delivery Method Oxygen Flow Rate 10/31/22 18:00 10/31/22 18:00 10/31/22 18:03 Pulse Rate 79 Respiratory Rate 23 Blood Pressure 74/46 L 89/42 L Pulse Oximetry 92 Oxygen Delivery Method Oxygen Flow Rate 10/31/22 18:03 10/31/22 18:05 10/31/22 18:05 Pulse Rate 83 82 Respiratory Rate 21 14 Blood Pressure 84/46 L Pulse Oximetry 95 95 Oxygen Delivery Method Nasal Cannula Oxygen Flow Rate 10/31/22 18:10 10/31/22 18:10 10/31/22 18:15 Pulse Rate 69 Respiratory Rate 22 Blood Pressure 89/52 L 89/52 L Pulse Oximetry 94 Oxygen Delivery Method Nasal Cannula Oxygen Flow Rate 10/31/22 18:15 10/31/22 18:20 10/31/22 18:21 Pulse Rate 80 73 72 Respiratory Rate 24 25 H 27 H Blood Pressure Pulse Oximetry 93 94 94 Oxygen Delivery Method Nasal Cannula Nasal Cannula Nasal Cannula Oxygen Flow Rate 3 3 10/31/22 18:21 10/31/22 18:25 10/31/22 18:25 Pulse Rate 71 Respiratory Rate 21 Blood Pressure 105/56 L 101/53 L Pulse Oximetry 93 Oxygen Delivery Method Nasal Cannula Oxygen Flow Rate 3 10/31/22 18:30 10/31/22 18:30 10/31/22 18:35 Pulse Rate 70 Respiratory Rate 19 Blood Pressure 104/54 L 109/58 L Pulse Oximetry 93 Oxygen Delivery Method Nasal Cannula Oxygen Flow Rate 3 10/31/22 18:35 10/31/22 18:38 10/31/22 18:38 Pulse Rate 70 73 Respiratory Rate 25 H 26 H Blood Pressure 102/50 L Pulse Oximetry 95 94 Oxygen Delivery Method Nasal Cannula Nasal Cannula Oxygen Flow Rate 3 3 10/31/22 18:40 10/31/22 18:40 10/31/22 18:45 Pulse Rate 73 Respiratory Rate 30 H Blood Pressure 98/49 L 97/52 L Pulse Oximetry 94 Oxygen Delivery Method Nasal Cannula Oxygen Flow Rate 3 10/31/22 18:45 10/31/22 18:50 10/31/22 18:50 Pulse Rate 76 71 Respiratory Rate 23 22 Blood Pressure 85/48 L Pulse Oximetry 93 93 Oxygen Delivery Method Nasal Cannula Nasal Cannula Oxygen Flow Rate 3 3 10/31/22 18:55 10/31/22 18:55 10/31/22 19:00 Pulse Rate 70 70 Respiratory Rate 20 21 Blood Pressure 90/51 L Pulse Oximetry 94 95 Oxygen Delivery Method Nasal Cannula Oxygen Flow Rate 3 10/31/22 19:01 10/31/22 19:01 10/31/22 19:05 Pulse Rate 71 Respiratory Rate 25 H Blood Pressure 113/53 L 111/55 L Pulse Oximetry 95 Oxygen Delivery Method Oxygen Flow Rate 10/31/22 19:05 10/31/22 19:10 10/31/22 19:10 Pulse Rate 70 69 Respiratory Rate 23 32 H Blood Pressure 99/50 L Pulse Oximetry 96 95 Oxygen Delivery Method Oxygen Flow Rate 10/31/22 19:15 10/31/22 19:15 10/31/22 19:20 Pulse Rate 70 Respiratory Rate 29 H Blood Pressure 97/54 L 104/58 L Pulse Oximetry 96 Oxygen Delivery Method Oxygen Flow Rate 10/31/22 19:20 10/31/22 19:25 10/31/22 19:25 Pulse Rate 70 76 Respiratory Rate 28 H 20 Blood Pressure 111/56 L Pulse Oximetry 96 96 Oxygen Delivery Method Oxygen Flow Rate 10/31/22 19:30 10/31/22 19:30 10/31/22 19:35 Pulse Rate 82 Respiratory Rate 17 Blood Pressure 107/57 L 111/62 Pulse Oximetry 95 Oxygen Delivery Method Oxygen Flow Rate 10/31/22 19:35 10/31/22 19:40 10/31/22 19:40 Pulse Rate 95 H 76 Respiratory Rate 22 23 Blood Pressure 106/56 L Pulse Oximetry 94 94 Oxygen Delivery Method Oxygen Flow Rate 10/31/22 19:45 10/31/22 19:45 10/31/22 19:50 Pulse Rate 72 Respiratory Rate 24 Blood Pressure 96/55 L 107/56 L Pulse Oximetry 94 Oxygen Delivery Method Oxygen Flow Rate 10/31/22 19:50 10/31/22 19:55 10/31/22 19:56 Pulse Rate 85 71 Respiratory Rate 29 H 19 Blood Pressure 101/50 L Pulse Oximetry 95 93 Oxygen Delivery Method Oxygen Flow Rate 10/31/22 19:56 10/31/22 20:00 10/31/22 20:00 Pulse Rate 71 70 Respiratory Rate 19 23 Blood Pressure 97/50 L Pulse Oximetry 93 93 Oxygen Delivery Method Oxygen Flow Rate 10/31/22 20:05 10/31/22 20:05 10/31/22 20:10 Pulse Rate 69 69 Respiratory Rate 19 24 Blood Pressure 109/55 L Pulse Oximetry 94 94 Oxygen Delivery Method Oxygen Flow Rate 10/31/22 20:11 10/31/22 20:11 10/31/22 20:15 Pulse Rate 77 Respiratory Rate 26 H Blood Pressure 100/49 L 120/53 L Pulse Oximetry 95 Oxygen Delivery Method Oxygen Flow Rate 10/31/22 20:15 10/31/22 20:20 10/31/22 20:20 Pulse Rate 88 86 Respiratory Rate 25 H 23 Blood Pressure 104/49 L Pulse Oximetry 96 95 Oxygen Delivery Method Oxygen Flow Rate 10/31/22 20:25 10/31/22 20:25 10/31/22 20:26 Pulse Rate 68 68 Respiratory Rate 19 23 Blood Pressure 86/42 L Pulse Oximetry 94 94 Oxygen Delivery Method Oxygen Flow Rate 10/31/22 20:26 10/31/22 20:29 10/31/22 20:30 Pulse Rate 74 Respiratory Rate 40 H Blood Pressure 90/42 L 88/44 L Pulse Oximetry 95 Oxygen Delivery Method Oxygen Flow Rate 10/31/22 21:40 10/31/22 21:40 10/31/22 21:45 Pulse Rate 73 Respiratory Rate 29 H Blood Pressure 99/50 L 98/52 L Pulse Oximetry 95 Oxygen Delivery Method Oxygen Flow Rate 10/31/22 21:45 10/31/22 21:50 10/31/22 21:50 Pulse Rate 67 66 Respiratory Rate 24 19 Blood Pressure 99/50 L Pulse Oximetry 95 95 Oxygen Delivery Method Oxygen Flow Rate 10/31/22 21:55 10/31/22 21:55 10/31/22 22:00 Pulse Rate 78 Respiratory Rate 27 H Blood Pressure 96/50 L 93/52 L Pulse Oximetry 95 Oxygen Delivery Method Oxygen Flow Rate 10/31/22 22:00 10/31/22 22:05 10/31/22 22:05 Pulse Rate 66 66 Respiratory Rate 27 H 20 Blood Pressure 98/54 L Pulse Oximetry 95 95 Oxygen Delivery Method Oxygen Flow Rate 10/31/22 22:10 10/31/22 22:10 10/31/22 22:15 Pulse Rate 66 Respiratory Rate 21 Blood Pressure 96/52 L 98/51 L Pulse Oximetry 95 Oxygen Delivery Method Oxygen Flow Rate 10/31/22 22:15 10/31/22 22:20 10/31/22 22:20 Pulse Rate 66 67 Respiratory Rate 20 21 Blood Pressure 100/59 L Pulse Oximetry 95 96 Oxygen Delivery Method Oxygen Flow Rate 10/31/22 22:25 10/31/22 22:25 10/31/22 22:30 Pulse Rate 78 Respiratory Rate 24 Blood Pressure 87/53 L 95/54 L Pulse Oximetry 95 Oxygen Delivery Method Oxygen Flow Rate 10/31/22 22:30 10/31/22 22:35 10/31/22 22:35 Pulse Rate 71 71 Respiratory Rate 20 23 Blood Pressure 97/55 L Pulse Oximetry 96 95 Oxygen Delivery Method Oxygen Flow Rate 10/31/22 22:40 10/31/22 22:40 10/31/22 22:45 Pulse Rate 66 Respiratory Rate 25 H Blood Pressure 100/55 L 105/56 L Pulse Oximetry 95 Oxygen Delivery Method Oxygen Flow Rate 10/31/22 22:45 10/31/22 22:50 10/31/22 22:50 Pulse Rate 80 79 Respiratory Rate 20 20 Blood Pressure 105/54 L Pulse Oximetry 95 96 Oxygen Delivery Method Oxygen Flow Rate 10/31/22 22:55 10/31/22 22:55 10/31/22 23:00 Pulse Rate 79 Respiratory Rate 22 Blood Pressure 102/47 L 94/37 L Pulse Oximetry 95 Oxygen Delivery Method Oxygen Flow Rate 10/31/22 23:00 10/31/22 23:05 10/31/22 23:06 Pulse Rate 66 65 Respiratory Rate 20 27 H Blood Pressure 83/43 L Pulse Oximetry 95 94 Oxygen Delivery Method Oxygen Flow Rate 10/31/22 23:06 10/31/22 23:10 10/31/22 23:10 Pulse Rate 64 64 Respiratory Rate 21 19 Blood Pressure 84/48 L Pulse Oximetry 94 94 Oxygen Delivery Method Oxygen Flow Rate 10/31/22 23:15 10/31/22 23:15 10/31/22 23:20 Pulse Rate 64 63 Respiratory Rate 25 H 20 Blood Pressure 93/47 L Pulse Oximetry 95 94 Oxygen Delivery Method Oxygen Flow Rate 10/31/22 23:21 10/31/22 23:21 10/31/22 23:25 Pulse Rate 63 Respiratory Rate 19 Blood Pressure 102/48 L 105/52 L Pulse Oximetry 94 Oxygen Delivery Method Oxygen Flow Rate 10/31/22 23:25 10/31/22 23:30 10/31/22 23:30 Pulse Rate 64 64 Respiratory Rate 19 20 Blood Pressure 104/54 L Pulse Oximetry 95 95 Oxygen Delivery Method Oxygen Flow Rate 10/31/22 23:35 10/31/22 23:35 Pulse Rate 76 Respiratory Rate 21 Blood Pressure 102/52 L Pulse Oximetry Oxygen Delivery Method Oxygen Flow Rate <Anthony Padilla DO - Last Filed: 11/01/22 00:33> Orders Ordered: Discontinued Medications Heparin Sodium (Porcine) (Heparin 5,000 Unit/Ml Vial) 5,000 unit IV NOW ONE Stop: 10/31/22 18:24 Last Admin: 10/31/22 18:39 Dose: 5,000 unit Documented By: RB Hydromorphone HCl (Hydromorphone 0.5 Mg Inj) 0.5 mg IV NOW ONE Stop: 10/31/22 17:29 Last Admin: 10/31/22 17:38 Dose: 0.5 mg Documented By: RB Heparin Sodium/Dextrose (Heparin Drip) 25,000 unit in 500 mls @ 20 mls/hr IV CONT JASON; Protocol Last Admin: 10/31/22 18:41 Dose: 1,000 units/hr, 20 mls/hr Documented By: AMEE Co-signed By: DI Pantoprazole Sodium (Pantoprazole 40 Mg Vial) 40 mg IV NOW ONE Stop: 10/31/22 14:14 Last Admin: 10/31/22 14:52 Dose: 40 mg Documented By: TONY Vital Signs Vital signs: Vital Signs - 8 hr 10/31/22 16:35 10/31/22 16:35 10/31/22 16:40 Pulse Rate 89 84 Respiratory Rate 23 21 Blood Pressure 100/54 L Pulse Oximetry 93 96 Oxygen Delivery Method Nasal Cannula Nasal Cannula Oxygen Flow Rate 3 3 10/31/22 16:41 10/31/22 16:41 10/31/22 16:45 Pulse Rate 85 Respiratory Rate 21 Blood Pressure 97/49 L 107/53 L Pulse Oximetry 96 Oxygen Delivery Method Nasal Cannula Oxygen Flow Rate 3 10/31/22 16:45 10/31/22 16:50 10/31/22 16:50 Pulse Rate 93 H 85 Respiratory Rate 24 31 H Blood Pressure 128/62 Pulse Oximetry 96 98 Oxygen Delivery Method Nasal Cannula Nasal Cannula Oxygen Flow Rate 3 3 10/31/22 16:55 10/31/22 16:56 10/31/22 16:56 Pulse Rate 75 78 Respiratory Rate 23 24 Blood Pressure 124/58 L Pulse Oximetry 96 96 Oxygen Delivery Method Nasal Cannula Nasal Cannula Oxygen Flow Rate 3 3 10/31/22 17:00 10/31/22 17:01 10/31/22 17:01 Pulse Rate 89 91 H Respiratory Rate 23 25 H Blood Pressure 114/56 L Pulse Oximetry 96 97 Oxygen Delivery Method Nasal Cannula Nasal Cannula Oxygen Flow Rate 3 3 10/31/22 17:05 10/31/22 17:05 10/31/22 17:10 Pulse Rate 87 Respiratory Rate 22 Blood Pressure 115/54 L 133/60 Pulse Oximetry 96 Oxygen Delivery Method Nasal Cannula Oxygen Flow Rate 3 10/31/22 17:10 10/31/22 17:15 10/31/22 17:15 Pulse Rate 89 88 Respiratory Rate 23 21 Blood Pressure 130/58 L Pulse Oximetry 96 97 Oxygen Delivery Method Nasal Cannula Nasal Cannula Oxygen Flow Rate 3 3 10/31/22 17:20 10/31/22 17:20 10/31/22 17:25 Pulse Rate 82 Respiratory Rate 27 H Blood Pressure 132/60 113/58 L Pulse Oximetry 96 Oxygen Delivery Method Oxygen Flow Rate 10/31/22 17:25 10/31/22 17:30 10/31/22 17:31 Pulse Rate 86 89 Respiratory Rate 21 27 H Blood Pressure 119/61 Pulse Oximetry 96 96 Oxygen Delivery Method Oxygen Flow Rate 10/31/22 17:31 10/31/22 17:35 10/31/22 17:36 Pulse Rate 84 94 H Respiratory Rate 26 H 23 Blood Pressure 114/52 L Pulse Oximetry 96 97 Oxygen Delivery Method Oxygen Flow Rate 10/31/22 17:36 10/31/22 17:40 10/31/22 17:40 Pulse Rate 97 H 92 H Respiratory Rate 24 24 Blood Pressure 116/57 L Pulse Oximetry 97 97 Oxygen Delivery Method Oxygen Flow Rate 10/31/22 17:45 10/31/22 17:46 10/31/22 17:46 Pulse Rate 89 86 Respiratory Rate 31 H 27 H Blood Pressure 106/48 L Pulse Oximetry 96 96 Oxygen Delivery Method Oxygen Flow Rate 10/31/22 17:50 10/31/22 17:50 10/31/22 17:55 Pulse Rate 85 Respiratory Rate 18 Blood Pressure 85/51 L 86/45 L Pulse Oximetry 97 Oxygen Delivery Method Oxygen Flow Rate 10/31/22 17:55 10/31/22 17:57 10/31/22 17:57 Pulse Rate 84 86 Respiratory Rate 20 24 Blood Pressure 74/42 L Pulse Oximetry 93 92 Oxygen Delivery Method Oxygen Flow Rate 10/31/22 18:00 10/31/22 18:00 10/31/22 18:03 Pulse Rate 79 Respiratory Rate 23 Blood Pressure 74/46 L 89/42 L Pulse Oximetry 92 Oxygen Delivery Method Oxygen Flow Rate 10/31/22 18:03 10/31/22 18:05 10/31/22 18:05 Pulse Rate 83 82 Respiratory Rate 21 14 Blood Pressure 84/46 L Pulse Oximetry 95 95 Oxygen Delivery Method Nasal Cannula Oxygen Flow Rate 3 10/31/22 18:10 10/31/22 18:10 10/31/22 18:15 Pulse Rate 69 Respiratory Rate 22 Blood Pressure 89/52 L 89/52 L Pulse Oximetry 94 Oxygen Delivery Method Nasal Cannula Oxygen Flow Rate 3 10/31/22 18:15 10/31/22 18:20 10/31/22 18:21 Pulse Rate 80 73 72 Respiratory Rate 24 25 H 27 H Blood Pressure Pulse Oximetry 93 94 94 Oxygen Delivery Method Nasal Cannula Nasal Cannula Nasal Cannula Oxygen Flow Rate 3 3 10/31/22 18:21 10/31/22 18:25 10/31/22 18:25 Pulse Rate 71 Respiratory Rate 21 Blood Pressure 105/56 L 101/53 L Pulse Oximetry 93 Oxygen Delivery Method Nasal Cannula Oxygen Flow Rate 3 10/31/22 18:30 10/31/22 18:30 10/31/22 18:35 Pulse Rate 70 Respiratory Rate 19 Blood Pressure 104/54 L 109/58 L Pulse Oximetry 93 Oxygen Delivery Method Nasal Cannula Oxygen Flow Rate 3 10/31/22 18:35 10/31/22 18:38 10/31/22 18:38 Pulse Rate 70 73 Respiratory Rate 25 H 26 H Blood Pressure 102/50 L Pulse Oximetry 95 94 Oxygen Delivery Method Nasal Cannula Nasal Cannula Oxygen Flow Rate 3 3 10/31/22 18:40 10/31/22 18:40 10/31/22 18:45 Pulse Rate 73 Respiratory Rate 30 H Blood Pressure 98/49 L 97/52 L Pulse Oximetry 94 Oxygen Delivery Method Nasal Cannula Oxygen Flow Rate 3 10/31/22 18:45 10/31/22 18:50 10/31/22 18:50 Pulse Rate 76 71 Respiratory Rate 23 22 Blood Pressure 85/48 L Pulse Oximetry 93 93 Oxygen Delivery Method Nasal Cannula Nasal Cannula Oxygen Flow Rate 3 3 10/31/22 18:55 10/31/22 18:55 10/31/22 19:00 Pulse Rate 70 70 Respiratory Rate 20 21 Blood Pressure 90/51 L Pulse Oximetry 94 95 Oxygen Delivery Method Nasal Cannula Oxygen Flow Rate 3 10/31/22 19:01 10/31/22 19:01 10/31/22 19:05 Pulse Rate 71 Respiratory Rate 25 H Blood Pressure 113/53 L 111/55 L Pulse Oximetry 95 Oxygen Delivery Method Oxygen Flow Rate 10/31/22 19:05 10/31/22 19:10 10/31/22 19:10 Pulse Rate 70 69 Respiratory Rate 23 32 H Blood Pressure 99/50 L Pulse Oximetry 96 95 Oxygen Delivery Method Oxygen Flow Rate 10/31/22 19:15 10/31/22 19:15 10/31/22 19:20 Pulse Rate 70 Respiratory Rate 29 H Blood Pressure 97/54 L 104/58 L Pulse Oximetry 96 Oxygen Delivery Method Oxygen Flow Rate 10/31/22 19:20 10/31/22 19:25 10/31/22 19:25 Pulse Rate 70 76 Respiratory Rate 28 H 20 Blood Pressure 111/56 L Pulse Oximetry 96 96 Oxygen Delivery Method Oxygen Flow Rate 10/31/22 19:30 10/31/22 19:30 10/31/22 19:35 Pulse Rate 82 Respiratory Rate 17 Blood Pressure 107/57 L 111/62 Pulse Oximetry 95 Oxygen Delivery Method Oxygen Flow Rate 10/31/22 19:35 10/31/22 19:40 10/31/22 19:40 Pulse Rate 95 H 76 Respiratory Rate 22 23 Blood Pressure 106/56 L Pulse Oximetry 94 94 Oxygen Delivery Method Oxygen Flow Rate 10/31/22 19:45 10/31/22 19:45 10/31/22 19:50 Pulse Rate 72 Respiratory Rate 24 Blood Pressure 96/55 L 107/56 L Pulse Oximetry 94 Oxygen Delivery Method Oxygen Flow Rate 10/31/22 19:50 10/31/22 19:55 10/31/22 19:56 Pulse Rate 85 71 Respiratory Rate 29 H 19 Blood Pressure 101/50 L Pulse Oximetry 95 93 Oxygen Delivery Method Oxygen Flow Rate 10/31/22 19:56 10/31/22 20:00 10/31/22 20:00 Pulse Rate 71 70 Respiratory Rate 19 23 Blood Pressure 97/50 L Pulse Oximetry 93 93 Oxygen Delivery Method Oxygen Flow Rate 10/31/22 20:05 10/31/22 20:05 10/31/22 20:10 Pulse Rate 69 69 Respiratory Rate 19 24 Blood Pressure 109/55 L Pulse Oximetry 94 94 Oxygen Delivery Method Oxygen Flow Rate 10/31/22 20:11 10/31/22 20:11 10/31/22 20:15 Pulse Rate 77 Respiratory Rate 26 H Blood Pressure 100/49 L 120/53 L Pulse Oximetry 95 Oxygen Delivery Method Oxygen Flow Rate 10/31/22 20:15 10/31/22 20:20 10/31/22 20:20 Pulse Rate 88 86 Respiratory Rate 25 H 23 Blood Pressure 104/49 L Pulse Oximetry 96 95 Oxygen Delivery Method Oxygen Flow Rate 10/31/22 20:25 10/31/22 20:25 10/31/22 20:26 Pulse Rate 68 68 Respiratory Rate 19 23 Blood Pressure 86/42 L Pulse Oximetry 94 94 Oxygen Delivery Method Oxygen Flow Rate 10/31/22 20:26 10/31/22 20:29 10/31/22 20:30 Pulse Rate 74 Respiratory Rate 40 H Blood Pressure 90/42 L 88/44 L Pulse Oximetry 95 Oxygen Delivery Method Oxygen Flow Rate 10/31/22 21:40 10/31/22 21:40 10/31/22 21:45 Pulse Rate 73 Respiratory Rate 29 H Blood Pressure 99/50 L 98/52 L Pulse Oximetry 95 Oxygen Delivery Method Oxygen Flow Rate 10/31/22 21:45 10/31/22 21:50 10/31/22 21:50 Pulse Rate 67 66 Respiratory Rate 24 19 Blood Pressure 99/50 L Pulse Oximetry 95 95 Oxygen Delivery Method Oxygen Flow Rate 10/31/22 21:55 10/31/22 21:55 10/31/22 22:00 Pulse Rate 78 Respiratory Rate 27 H Blood Pressure 96/50 L 93/52 L Pulse Oximetry 95 Oxygen Delivery Method Oxygen Flow Rate 10/31/22 22:00 10/31/22 22:05 10/31/22 22:05 Pulse Rate 66 66 Respiratory Rate 27 H 20 Blood Pressure 98/54 L Pulse Oximetry 95 95 Oxygen Delivery Method Oxygen Flow Rate 10/31/22 22:10 10/31/22 22:10 10/31/22 22:15 Pulse Rate 66 Respiratory Rate 21 Blood Pressure 96/52 L 98/51 L Pulse Oximetry 95 Oxygen Delivery Method Oxygen Flow Rate 10/31/22 22:15 10/31/22 22:20 10/31/22 22:20 Pulse Rate 66 67 Respiratory Rate 20 21 Blood Pressure 100/59 L Pulse Oximetry 95 96 Oxygen Delivery Method Oxygen Flow Rate 10/31/22 22:25 10/31/22 22:25 10/31/22 22:30 Pulse Rate 78 Respiratory Rate 24 Blood Pressure 87/53 L 95/54 L Pulse Oximetry 95 Oxygen Delivery Method Oxygen Flow Rate 10/31/22 22:30 10/31/22 22:35 10/31/22 22:35 Pulse Rate 71 71 Respiratory Rate 20 23 Blood Pressure 97/55 L Pulse Oximetry 96 95 Oxygen Delivery Method Oxygen Flow Rate 10/31/22 22:40 10/31/22 22:40 10/31/22 22:45 Pulse Rate 66 Respiratory Rate 25 H Blood Pressure 100/55 L 105/56 L Pulse Oximetry 95 Oxygen Delivery Method Oxygen Flow Rate 10/31/22 22:45 10/31/22 22:50 10/31/22 22:50 Pulse Rate 80 79 Respiratory Rate 20 20 Blood Pressure 105/54 L Pulse Oximetry 95 96 Oxygen Delivery Method Oxygen Flow Rate 10/31/22 22:55 10/31/22 22:55 10/31/22 23:00 Pulse Rate 79 Respiratory Rate 22 Blood Pressure 102/47 L 94/37 L Pulse Oximetry 95 Oxygen Delivery Method Oxygen Flow Rate 10/31/22 23:00 10/31/22 23:05 10/31/22 23:06 Pulse Rate 66 65 Respiratory Rate 20 27 H Blood Pressure 83/43 L Pulse Oximetry 95 94 Oxygen Delivery Method Oxygen Flow Rate 10/31/22 23:06 10/31/22 23:10 10/31/22 23:10 Pulse Rate 64 64 Respiratory Rate 21 19 Blood Pressure 84/48 L Pulse Oximetry 94 94 Oxygen Delivery Method Oxygen Flow Rate 10/31/22 23:15 10/31/22 23:15 10/31/22 23:20 Pulse Rate 64 63 Respiratory Rate 25 H 20 Blood Pressure 93/47 L Pulse Oximetry 95 94 Oxygen Delivery Method Oxygen Flow Rate 10/31/22 23:21 10/31/22 23:21 10/31/22 23:25 Pulse Rate 63 Respiratory Rate 19 Blood Pressure 102/48 L 105/52 L Pulse Oximetry 94 Oxygen Delivery Method Oxygen Flow Rate 10/31/22 23:25 10/31/22 23:30 10/31/22 23:30 Pulse Rate 64 64 Respiratory Rate 19 20 Blood Pressure 104/54 L Pulse Oximetry 95 95 Oxygen Delivery Method Oxygen Flow Rate 10/31/22 23:35 10/31/22 23:35 Pulse Rate 76 Respiratory Rate 21 Blood Pressure 102/52 L Pulse Oximetry Oxygen Delivery Method Oxygen Flow Rate MDM - SOB/Dyspnea <Vee Bang, DO - Last Filed: 11/01/22 15:42> Lab Data 10/31/22 14:17 07/23/23 14:17 Labs: Lab Results 10/31/22 10/31/22 10/31/22 Range/Units 14:17 14:17 14:17 WBC 15.1 H (4.5-11.0) X10^3/uL RBC 4.30 (4.0-5.2) X10^6/uL Hgb 14.6 (12.0-16.0) g/dL Hct 43.9 (36-46) % MCV 102.1 H (80-100) fL MCH 34.0 (26-34) PG MCHC 33.3 (30-36) % RDW 14.4 (11.6-14.8) % Plt Count 294 (150-400) X10^3/uL Neut % (Auto) 88.9 H (50-75) % Lymph % (Auto) 5.5 L (25-40) % [place] % (Auto) 5.0 (3-14) % Eos % (Auto) 0.0 L (2-4) % Baso % (Auto) 0.6 (0-2) % Neut # (Auto) 77567 H (7038-0801) /uL Lymph # (Auto) 800 L (3258-6441) /uL [place] # (Auto) 800 (0-900) /uL Eos # (Auto) 0 (0-450) /uL Baso # (Auto) 100 (0-100) /uL PT 12.5 (10.1-12.7) SECONDS INR 1.1 (0.9-1.3) APTT 28 (26-36) SECONDS Sodium 135 L (137-145) mmol/L Potassium 4.4 (3.4-5.1) mmol/L Chloride 84 L (98-107) mmol/L Carbon Dioxide 22 (22-32) mmol/L BUN 56 H (7-17) mg/dL Creatinine 8.07 H* (0.52-1.04) mg/dL Estimated GFR 5 L (>60) mL/min BUN/Creatinine Ratio 6.9 (6-22) Glucose 257 H (80-110) mg/dL Lactate (0.7-2.1) mmol/L Calcium 9.7 (8.4-10.2) mg/dL Total Bilirubin 0.9 (0.2-1.3) mg/dL AST 21 (14-36) IU/L ALT 21 (<35) IU/L Alkaline Phosphatase 147 H (38-126) U/L Total Creatine Kinase 33 (30-135) U/L Troponin I 0.064 H (0.01-0.034) ng/mL NT-Pro-B Natriuret Pep (<450) pg/mL Total Protein 9.2 H (6.3-8.2) g/dL Albumin 5.1 H (3.5-5.0) g/dL Globulin 4.1 (1.7-4.1) g/dL Albumin/Globulin Ratio 1.2 (1.0-2.8) Lipase 27 (23-300) U/L Blood Type Antibody Screen 10/31/22 10/31/22 10/31/22 Range/Units 14:17 14:17 14:17 WBC (4.5-11.0) X10^3/uL RBC (4.0-5.2) X10^6/uL Hgb (12.0-16.0) g/dL Hct (36-46) % MCV (80-100) fL MCH (26-34) PG MCHC (30-36) % RDW (11.6-14.8) % Plt Count (150-400) X10^3/uL Neut % (Auto) (50-75) % Lymph % (Auto) (25-40) % [place] % (Auto) (3-14) % Eos % (Auto) (2-4) % Baso % (Auto) (0-2) % Neut # (Auto) (9303-9969) /uL Lymph # (Auto) (5000-2116) /uL [place] # (Auto) (0-900) /uL Eos # (Auto) (0-450) /uL Baso # (Auto) (0-100) /uL PT (10.1-12.7) SECONDS INR (0.9-1.3) APTT (26-36) SECONDS Sodium (137-145) mmol/L Potassium (3.4-5.1) mmol/L Chloride (98-107) mmol/L Carbon Dioxide (22-32) mmol/L BUN (7-17) mg/dL Creatinine (0.52-1.04) mg/dL Estimated GFR (>60) mL/min BUN/Creatinine Ratio (6-22) Glucose (80-110) mg/dL Lactate 2.7 H (0.7-2.1) mmol/L Calcium (8.4-10.2) mg/dL Total Bilirubin (0.2-1.3) mg/dL AST (14-36) IU/L ALT (<35) IU/L Alkaline Phosphatase (38-126) U/L Total Creatine Kinase (30-135) U/L Troponin I (0.01-0.034) ng/mL NT-Pro-B Natriuret Pep 4990 H (<450) pg/mL Total Protein (6.3-8.2) g/dL Albumin (3.5-5.0) g/dL Globulin (1.7-4.1) g/dL Albumin/Globulin Ratio (1.0-2.8) Lipase (23-300) U/L Blood Type A Positive Antibody Screen Negative 10/31/22 10/31/22 10/31/22 Range/Units 16:23 16:23 18:38 WBC (4.5-11.0) X10^3/uL RBC (4.0-5.2) X10^6/uL Hgb (12.0-16.0) g/dL Hct (36-46) % MCV (80-100) fL MCH (26-34) PG MCHC (30-36) % RDW (11.6-14.8) % Plt Count (150-400) X10^3/uL Neut % (Auto) (50-75) % Lymph % (Auto) (25-40) % [place] % (Auto) (3-14) % Eos % (Auto) (2-4) % Baso % (Auto) (0-2) % Neut # (Auto) (2333-6921) /uL Lymph # (Auto) (8689-6656) /uL [place] # (Auto) (0-900) /uL Eos # (Auto) (0-450) /uL Baso # (Auto) (0-100) /uL PT (10.1-12.7) SECONDS INR (0.9-1.3) APTT (26-36) SECONDS Sodium (137-145) mmol/L Potassium (3.4-5.1) mmol/L Chloride (98-107) mmol/L Carbon Dioxide (22-32) mmol/L BUN (7-17) mg/dL Creatinine (0.52-1.04) mg/dL Estimated GFR (>60) mL/min BUN/Creatinine Ratio (6-22) Glucose (80-110) mg/dL Lactate 1.6 (0.7-2.1) mmol/L Calcium (8.4-10.2) mg/dL Total Bilirubin (0.2-1.3) mg/dL AST (14-36) IU/L ALT (<35) IU/L Alkaline Phosphatase (38-126) U/L Total Creatine Kinase (30-135) U/L Troponin I 0.244 H* 0.753 H* (0.01-0.034) ng/mL NT-Pro-B Natriuret Pep (<450) pg/mL Total Protein (6.3-8.2) g/dL Albumin (3.5-5.0) g/dL Globulin (1.7-4.1) g/dL Albumin/Globulin Ratio (1.0-2.8) Lipase (23-300) U/L Blood Type Antibody Screen 11/01/22 Range/Units 01:09 WBC (4.5-11.0) X10^3/uL RBC (4.0-5.2) X10^6/uL Hgb (12.0-16.0) g/dL Hct (36-46) % MCV (80-100) fL MCH (26-34) PG MCHC (30-36) % RDW (11.6-14.8) % Plt Count (150-400) X10^3/uL Neut % (Auto) (50-75) % Lymph % (Auto) (25-40) % [place] % (Auto) (3-14) % Eos % (Auto) (2-4) % Baso % (Auto) (0-2) % Neut # (Auto) (8412-2362) /uL Lymph # (Auto) (0400-0492) /uL [place] # (Auto) (0-900) /uL Eos # (Auto) (0-450) /uL Baso # (Auto) (0-100) /uL PT (10.1-12.7) SECONDS INR (0.9-1.3) APTT 48 H D (26-36) SECONDS Sodium (137-145) mmol/L Potassium (3.4-5.1) mmol/L Chloride (98-107) mmol/L Carbon Dioxide (22-32) mmol/L BUN (7-17) mg/dL Creatinine (0.52-1.04) mg/dL Estimated GFR (>60) mL/min BUN/Creatinine Ratio (6-22) Glucose (80-110) mg/dL Lactate (0.7-2.1) mmol/L Calcium (8.4-10.2) mg/dL Total Bilirubin (0.2-1.3) mg/dL AST (14-36) IU/L ALT (<35) IU/L Alkaline Phosphatase (38-126) U/L Total Creatine Kinase (30-135) U/L Troponin I (0.01-0.034) ng/mL NT-Pro-B Natriuret Pep (<450) pg/mL Total Protein (6.3-8.2) g/dL Albumin (3.5-5.0) g/dL Globulin (1.7-4.1) g/dL Albumin/Globulin Ratio (1.0-2.8) Lipase (23-300) U/L Blood Type Antibody Screen Point of Care Testing Glucose POC 232 Imaging Data Chest x-ray: Radiologist's Impression: PROCEDURE:? XR CHEST 1V ? INDICATIONS:? short of breath ? TECHNIQUE:? One view of the chest was acquired.? ? COMPARISON:? [facility], , XR CHEST 1V, 09/21/2022, 15:40.? [facility], , XR CHEST 1V, 01/13/2021, 8:26. ? FINDINGS:? ? Surgical changes and devices:? None.? ? Lungs and pleura:? Lungs are clear.? No pleural effusions or pneumothorax.? ? Mediastinum:? Mediastinal contours appear normal.? Heart size is normal.? ? Bones and chest wall:? No suspicious bony lesions.? Overlying soft tissues appear unremarkable.? ? IMPRESSION:? No acute cardiopulmonary process. ? ? ? Dictated by: Evert Smiley M.D. on 10/31/2022 at 15:05 ?? ECG Data Interpretation: Sinus rhythm rate 98 CT interval 202 QRS 140 wide complex regular rhythm no significant ST changes similar to prior EKG 2. Sinus rhythm rate 83 irregular no changes from previous MDM Narrative Medical decision making narrative: Patient 77-year-old female presenting today with shortness of breath. She is a hemodialysis patient Tuesday she received dialysis yesterday. Initial concern was for possible fluid overload. He does not appear clinically wet. Blood pressure is on the lower end. She is not having any chest pain. EKG looks similar to previous. She was actually quite nauseous when she 1st arrived and vomited bile like substance. Did not appear to be coffee-ground or bright red blood. Hemoglobin is 14.6 hematocrit 43.9. She is mild 15. No evidence of infection. Potassium today is 4.4 her creatinine is baseline at 8.0. Initial troponin 0.064. Previously her troponin was negative in September this is an elevation from prior. Her repeat troponin is 0.244 which is considered positive. BNP today is 4990 previously 8900. Not clinically fluid overloaded chest x-ray is clear. Dr. Carrillo on-call cardiology updated patient's symptoms test results. She is able to look in 2020 she was transferred to [facility]. At that time she has an extremely high troponin she had an echocardiogram no catheterization was done patient was treated medically. She agrees that patient probably needs more of a workup today agrees with the heparin drip repeating echocardiogram. Transfer if needed. Unable to do dialysis here looking for bed placement. I have called and left a message with the daughter waiting to hear for call back. <Anthony Padilla, - Last Filed: 11/01/22 00:33> Lab Data Labs: Lab Results 10/31/22 10/31/22 10/31/22 Range/Units 14:17 14:17 14:17 WBC 15.1 H (4.5-11.0) X10^3/uL RBC 4.30 (4.0-5.2) X10^6/uL Hgb 14.6 (12.0-16.0) g/dL Hct 43.9 (36-46) % MCV 102.1 H (80-100) fL MCH 34.0 (26-34) PG MCHC 33.3 (30-36) % RDW 14.4 (11.6-14.8) % Plt Count 294 (150-400) X10^3/uL Neut % (Auto) 88.9 H (50-75) % Lymph % (Auto) 5.5 L (25-40) % [place] % (Auto) 5.0 (3-14) % Eos % (Auto) 0.0 L (2-4) % Baso % (Auto) 0.6 (0-2) % Neut # (Auto) 40112 H (8357-1193) /uL Lymph # (Auto) 800 L (0638-8422) /uL [place] # (Auto) 800 (0-900) /uL Eos # (Auto) 0 (0-450) /uL Baso # (Auto) 100 (0-100) /uL PT 12.5 (10.1-12.7) SECONDS INR 1.1 (0.9-1.3) APTT 28 (26-36) SECONDS Sodium 135 L (137-145) mmol/L Potassium 4.4 (3.4-5.1) mmol/L Chloride 84 L (98-107) mmol/L Carbon Dioxide 22 (22-32) mmol/L BUN 56 H (7-17) mg/dL Creatinine 8.07 H* (0.52-1.04) mg/dL Estimated GFR 5 L (>60) mL/min BUN/Creatinine Ratio 6.9 (6-22) Glucose 257 H (80-110) mg/dL Lactate (0.7-2.1) mmol/L Calcium 9.7 (8.4-10.2) mg/dL Total Bilirubin 0.9 (0.2-1.3) mg/dL AST 21 (14-36) IU/L ALT 21 (<35) IU/L Alkaline Phosphatase 147 H (38-126) U/L Total Creatine Kinase 33 (30-135) U/L Troponin I 0.064 H (0.01-0.034) ng/mL NT-Pro-B Natriuret Pep (<450) pg/mL Total Protein 9.2 H (6.3-8.2) g/dL Albumin 5.1 H (3.5-5.0) g/dL Globulin 4.1 (1.7-4.1) g/dL Albumin/Globulin Ratio 1.2 (1.0-2.8) Lipase 27 (23-300) U/L Blood Type Antibody Screen 10/31/22 10/31/22 10/31/22 Range/Units 14:17 14:17 14:17 WBC (4.5-11.0) X10^3/uL RBC (4.0-5.2) X10^6/uL Hgb (12.0-16.0) g/dL Hct (36-46) % MCV (80-100) fL MCH (26-34) PG MCHC (30-36) % RDW (11.6-14.8) % Plt Count (150-400) X10^3/uL Neut % (Auto) (50-75) % Lymph % (Auto) (25-40) % [place] % (Auto) (3-14) % Eos % (Auto) (2-4) % Baso % (Auto) (0-2) % Neut # (Auto) (3490-6136) /uL Lymph # (Auto) (1050-4780) /uL [place] # (Auto) (0-900) /uL Eos # (Auto) (0-450) /uL Baso # (Auto) (0-100) /uL PT (10.1-12.7) SECONDS INR (0.9-1.3) APTT (26-36) SECONDS Sodium (137-145) mmol/L Potassium (3.4-5.1) mmol/L Chloride (98-107) mmol/L Carbon Dioxide (22-32) mmol/L BUN (7-17) mg/dL Creatinine (0.52-1.04) mg/dL Estimated GFR (>60) mL/min BUN/Creatinine Ratio (6-22) Glucose (80-110) mg/dL Lactate 2.7 H (0.7-2.1) mmol/L Calcium (8.4-10.2) mg/dL Total Bilirubin (0.2-1.3) mg/dL AST (14-36) IU/L ALT (<35) IU/L Alkaline Phosphatase (38-126) U/L Total Creatine Kinase (30-135) U/L Troponin I (0.01-0.034) ng/mL NT-Pro-B Natriuret Pep 4990 H (<450) pg/mL Total Protein (6.3-8.2) g/dL Albumin (3.5-5.0) g/dL Globulin (1.7-4.1) g/dL Albumin/Globulin Ratio (1.0-2.8) Lipase (23-300) U/L Blood Type A Positive Antibody Screen Negative 10/31/22 10/31/22 10/31/22 Range/Units 16:23 16:23 18:38 WBC (4.5-11.0) X10^3/uL RBC (4.0-5.2) X10^6/uL Hgb (12.0-16.0) g/dL Hct (36-46) % MCV (80-100) fL MCH (26-34) PG MCHC (30-36) % RDW (11.6-14.8) % Plt Count (150-400) X10^3/uL Neut % (Auto) (50-75) % Lymph % (Auto) (25-40) % [place] % (Auto) (3-14) % Eos % (Auto) (2-4) % Baso % (Auto) (0-2) % Neut # (Auto) (0143-5270) /uL Lymph # (Auto) (4363-8548) /uL [place] # (Auto) (0-900) /uL Eos # (Auto) (0-450) /uL Baso # (Auto) (0-100) /uL PT (10.1-12.7) SECONDS INR (0.9-1.3) APTT (26-36) SECONDS Sodium (137-145) mmol/L Potassium (3.4-5.1) mmol/L Chloride (98-107) mmol/L Carbon Dioxide (22-32) mmol/L BUN (7-17) mg/dL Creatinine (0.52-1.04) mg/dL Estimated GFR (>60) mL/min BUN/Creatinine Ratio (6-22) Glucose (80-110) mg/dL Lactate 1.6 (0.7-2.1) mmol/L Calcium (8.4-10.2) mg/dL Total Bilirubin (0.2-1.3) mg/dL AST (14-36) IU/L ALT (<35) IU/L Alkaline Phosphatase (38-126) U/L Total Creatine Kinase (30-135) U/L Troponin I 0.244 H* 0.753 H* (0.01-0.034) ng/mL NT-Pro-B Natriuret Pep (<450) pg/mL Total Protein (6.3-8.2) g/dL Albumin (3.5-5.0) g/dL Globulin (1.7-4.1) g/dL Albumin/Globulin Ratio (1.0-2.8) Lipase (23-300) U/L Blood Type Antibody Screen 11/01/22 Range/Units 01:09 WBC (4.5-11.0) X10^3/uL RBC (4.0-5.2) X10^6/uL Hgb (12.0-16.0) g/dL Hct (36-46) % MCV (80-100) fL MCH (26-34) PG MCHC (30-36) % RDW (11.6-14.8) % Plt Count (150-400) X10^3/uL Neut % (Auto) (50-75) % Lymph % (Auto) (25-40) % [place] % (Auto) (3-14) % Eos % (Auto) (2-4) % Baso % (Auto) (0-2) % Neut # (Auto) (8091-1516) /uL Lymph # (Auto) (1607-9943) /uL [place] # (Auto) (0-900) /uL Eos # (Auto) (0-450) /uL Baso # (Auto) (0-100) /uL PT (10.1-12.7) SECONDS INR (0.9-1.3) APTT 48 H D (26-36) SECONDS Sodium (137-145) mmol/L Potassium (3.4-5.1) mmol/L Chloride (98-107) mmol/L Carbon Dioxide (22-32) mmol/L BUN (7-17) mg/dL Creatinine (0.52-1.04) mg/dL Estimated GFR (>60) mL/min BUN/Creatinine Ratio (6-22) Glucose (80-110) mg/dL Lactate (0.7-2.1) mmol/L Calcium (8.4-10.2) mg/dL Total Bilirubin (0.2-1.3) mg/dL AST (14-36) IU/L ALT (<35) IU/L Alkaline Phosphatase (38-126) U/L Total Creatine Kinase (30-135) U/L Troponin I (0.01-0.034) ng/mL NT-Pro-B Natriuret Pep (<450) pg/mL Total Protein (6.3-8.2) g/dL Albumin (3.5-5.0) g/dL Globulin (1.7-4.1) g/dL Albumin/Globulin Ratio (1.0-2.8) Lipase (23-300) U/L Blood Type Antibody Screen Point of Care Testing Glucose POC 232 MDM Narrative Medical decision making narrative: Patient 77-year-old female presenting today with shortness of breath. She is a hemodialysis patient Tuesday she received dialysis yesterday. Initial concern was for possible fluid overload. He does not appear clinically wet. Blood pressure is on the lower end. She is not having any chest pain. EKG looks similar to previous. She was actually quite nauseous when she 1st arrived and vomited bile like substance. Did not appear to be coffee-ground or bright red blood. Hemoglobin is 14.6 hematocrit 43.9. She is mild 15. No evidence of infection. Potassium today is 4.4 her creatinine is baseline at 8.0. Initial troponin 0.064. Previously her troponin was negative in September this is an elevation from prior. Her repeat troponin is 0.244 which is considered positive. BNP today is 4990 previously 8900. Not clinically fluid overloaded chest x-ray is clear. Dr. Carrillo on-call cardiology updated patient's symptoms test results. She is able to look in 2020 she was [facility] At that time she has an extremely high troponin she had an echocardiogram no catheterization was done patient was treated medically. She agrees that patient probably needs more of a workup today agrees with the heparin drip repeating echocardiogram. Transfer if needed. Unable to do dialysis here looking for bed placement. I have called and left a message with the daughter waiting to hear for call back. [1800] (Randy) Patient received in sign out from [Merritt]. I have reviewed the clinical course and performed an independent history and physical exam. Patient resting comfortably. Dr. Carrillo happy with plan. Call in to Nephrology Awaiting call back from Nephrology (Ashwin), also happy to have patient over Dr. Espinoza (hospitalist) happy to accept ALS transport called for [phone] arrival <Anthony Padilla, - Last Filed: 11/01/22 00:33> Critical Care Time Critical Care Time: Yes Total Critical Care Time: 30 Attestation: The high probability of a clinically significant, sudden or life threatening deterioration of the [CV] system(s) required my full and direct attention, intervention and personal management. The aggregate critical care time was [30] minutes. This time is in addition to time spent performing reported procedures but includes the following: [x] Data Review and interpretation [x] Patient assessment and monitoring of vital signs [x] Documentation [x] Medication orders and management Discharge Plan Departure Patient Disposition: [facility] Clinical Impression: Non-ST elevation [place] (NSTEMI) Prescriptions: No Action gabapentin 100 MG capsule 300 mg PO 3XW Qty: 0 atorvastatin 20 mg Tablet 20 mg PO QPM docusate sodium 100 mg Capsule 100 mg PO DAILY lamotrigine 150 mg Tablet 100 mg PO DAILY omeprazole 40 mg Capsule,Delayed Release(Dr/Ec) 40 mg PO BID aspirin [Aspir-81] 81 mg Tablet,Delayed Release (Dr/Ec) 81 mg PO DAILY fluticasone propion-salmeterol [Advair Diskus] 250-50 mcg/dose blister with device 2 inh INHALATION PRN PRN (Reason: Shortness Of Breath Or Wheezing) ropinirole 1 mg tablet 1 mg PO TID gabapentin 100 mg capsule 200 mg PO 4XW midodrine 10 mg tablet 20 mg PO TID Patient Comments: TAKE 2 TABLETS BY MOUTH THREE TIMES DAILY insulin lispro protamin-lispro [Humalog Mix 75-25 KwikPen] 100 unit/mL (75-25) Insulin Pen 7 unit SUBCUT BEDTIME Patient Comments: Has not been taking for a while because maintaining adequate control lactulose [Enulose] 10 gram/15 mL solution 45 ml PO TID Lantus Solostar U-100 Insulin 100 unit/mL (3 mL) Insulin Pen See Rx Instructions .ROUTE .COMPLEX Patient Comments: AM sugars below 175, does not take. AM sugars 175-210 takes 5 units. AM sugars greater 210 takes 10 units Rx Instructions: AM sugars below 175, does not take. AM sugars 175-210 takes 5 units. AM sugars greater 210 takes 10 units sevelamer carbonate 800 mg tablet 1,600 mg PO TID Patient Comments: With Meals V[place] 8.4 gram powder in packet 8.4 g PO DAILY Patient Comments: DISSOLVE 1 PACKET AND DRINK BY MOUTH DAILY Dialyvite 1 tab PO DAILY trazodone 150 mg tablet 150 mg PO BEDTIME Patient Comments: TAKE 1 TABLET BY MOUTH EVERY EVENING oxybutynin chloride 15 mg tablet extended release 24hr 15 mg PO DAILY Patient Comments: TAKE ONE TABLET BY MOUTH EVERY DAY citalopram 20 mg tablet 20 mg PO DAILY Patient Comments: TAKE ONE TABLET BY MOUTH EVERY DAY cranberry 2 dose PO DAILY Referrals: Karen Mustafa ARNP [Primary Care Provider] -
[2022-10-31 17:08] LABS: Troponin I 0.244 ng/mL (0.01-0.034)
[2022-10-31] MEDS: HYDROMORPHONE 0.5 MG INJ IV (17:38)
[2022-10-31] MEDS: HEPARIN 5,000 UNIT/ML VIAL 5000 UNIT IV (18:39)
[2022-10-31] MEDS: HEPARIN DRIP 25,000 UNIT/500 ML IV.SOLN 20 UNIT IV (18:41)
[2022-10-31 19:13] LABS: Troponin I 0.753 ng/mL (0.01-0.034)
[2022-11-01] VITALS (20 sets, daily range): BP systolic 84–131; BP diastolic 43–60; PULSE 64–82; RESP 18–30; O2SAT 94–97
[2022-11-01 01:25] LABS: PTT Partial Thromboplastin Tim 48 SECONDS (26-36)
--- NOTE | 2022-11-29 12:12 | PC.NURSE ---
late entry- patient was transported to another hospital with IV heparin infusing per the RN
== END 2022-11-01 01:57 | disposition short-term general hospital (02) ==
PROVIDERS: Emergency Medicine; Emergency Provider Emergency Medicine; PCP Nurse Practitioner
DX: I21.4 Non-ST elevation (NSTEMI) myocardial infarction (principal); R79.89 Other specified abnormal findings of blood chemistry; R11.2 Nausea with vomiting, unspecified; R77.8 Other specified abnormalities of plasma proteins
CPT/HCPCS: 36415; 71045; 80053; 82550; 82962; 83605; 83690; 83880; 84484; 85025; 85610; 85730; 86850; 86900; 86901; 87040; 93005; 96365; 96366; 96375; 99284; 99291; C9113; J1170; J1644

== ENCOUNTER 2022-11-05 20:19 | Emergency (ER) | payer MEDICARE, SELFPAY ==
[2021-01-11 14:08] VITALS: BMI 47.7
[2022-11-05] VITALS (20 sets, daily range): BP systolic 77–113; BP diastolic 35–51; PULSE 64–253; RESP 15–36; TEMP 36.3; O2SAT 80–98; BMI 47.7
--- NOTE | 2022-11-05 20:52 | DI.RAD.S_ITS ---
PROCEDURE: XR CHEST 1V INDICATIONS: weakness TECHNIQUE: One view of the chest was acquired. COMPARISON: [facility], CR, XR CHEST 1 VIEW, 11/01/2022, 4:38. [facility], CR, XR CHEST 1V, 10/31/2022, 14:12. FINDINGS: Surgical changes and devices: A pacer device is seen. The leads are seen in stable positions. Cholecystectomy clips are seen. Lungs and pleura: An incomplete inspiratory result is noted, causing a crowded appearance to the lung markings. No focal infiltrates are seen. No pneumothorax or significant pleural effusions are seen. Mediastinum: The cardiac contours are within normal limits. The aorta demonstrates calcification and tortuosity. Bones and chest wall: No suspicious bony lesions. Age-appropriate bony degenerative changes are seen. Overlying soft tissues appear unremarkable. IMPRESSION: Low lung volumes, without an acute abnormality seen. Dictated by: Ananda Maza M.D. on 11/05/2022 at 20:27 Approved by: Ananda Maza M.D. on 11/05/2022 at 20:28
[2022-11-05 20:59] LABS: Add Manual Diff / Slide Review NO; Basophils Absolute Auto 100 /uL (0-100); Basophils Percent Auto 1.1 % (0-2); Eosinophils Absolute Auto 100 /uL (0-450); Eosinophils Percent Auto 1.1 % (2-4); Hematocrit 36.5 % (36-46); Hemoglobin 12.2 g/dL (12.0-16.0); Lymphocytes Absolute Auto 1100 /uL (1100-4500); Lymphocytes Percent Auto 11.4 % (25-40); Mean Corpuscular HGB Conc 33.6 % (30-36); Mean Corpuscular Hemoglobin 34.3 PG (26-34); Mean Corpuscular Volume 102.2 fL (80-100); Monocytes Absolute Auto 1300 /uL (0-900); Monocytes Percent Auto 13.6 % (3-14); Neutrophils Absolute Auto 7100 /uL (1500-7000); Neutrophils Percent Auto 72.8 % (50-75); Platelet Count 248 X10^3/uL (150-400); Red Blood Cell Count 3.57 X10^6/uL (4.0-5.2); Red Cell Distribution Width 14.7 % (11.6-14.8); White Blood Cell Count 9.8 X10^3/uL (4.5-11.0)
[2022-11-05 21:04] LABS: INR 1.1 (0.9-1.3); Prothrombin Time 12.5 SECONDS (10.1-12.7)
[2022-11-05 21:10] LABS: Lactate (Lactic Acid) 1.7 mmol/L (0.7-2.1)
[2022-11-05 21:11] LABS: BUN Creatinine Ratio 7.7 (6-22); Blood Urea Nitrogen 50 mg/dL (7-17); Calcium 8.9 mg/dL (8.4-10.2); Carbon Dioxide 30 mmol/L (22-32); Chloride 87 mmol/L (98-107); Estimated Glomerular Filt Rate 6 mL/min (>60); Glucose 242 mg/dL (80-110); Potassium 3.9 mmol/L (3.4-5.1); Sodium 131 mmol/L (137-145)
[2022-11-05 21:13] LABS: HEMOLYSIS 51 (0-50)
[2022-11-05 21:21] LABS: NT-proBNP (BNP-Adult 18+) 18700 pg/mL (<450)
[2022-11-05 21:28] LABS: Procalcitonin 0.78 ng/mL (<0.5); Troponin I 0.754 ng/mL (0.01-0.034)
--- NOTE | 2022-11-05 21:48 | DI.CT.S_ITS ---
PROCEDURE: CT HEAD/BRAIN WO CON INDICATIONS: confused TECHNIQUE: Noncontrast 4.5 mm thick angled axial sections acquired from the foramen magnum to the vertex, with coronal and sagittal reformats. For radiation dose reduction, the following was used: automated exposure control, adjustment of mA and/or kV according to patient size. COMPARISON: [facility], CT, CT HEAD/BRAIN WO CON, 11/19/2020, 2:44. [facility], CT, CT HEAD/BRAIN WO CON, 07/03/2020, 16:08. [facility], CR, XR CHEST 1V, 11/05/2022, 20:53. [facility], CT, CT HEAD/BRAIN WO CON, 11/25/2020, 13:55. FINDINGS: Image quality: Excellent. CSF spaces: Basal cisterns are patent. No extra-axial fluid collections. The ventricles are symmetric in size and shape. Brain: No intracranial bleeds or masses. There is cerebral volume loss for age, with resultant ventricular and sulcal prominence. There are periventricular and deep white matter chronic small vessel ischemic changes. There is intracranial internal carotid artery atherosclerosis. Skull and face: Calvarium and visualized facial bones appear intact, without suspicious lesions. Incidental note is made of hyperostosis frontalis. This is not considered to be pathologic in a woman of this age. Sinuses: Visualized sinuses and mastoids are clear. IMPRESSION: Unremarkable noncontrast head CT for age. Dictated by: Ananda Maza M.D. on 11/05/2022 at 21:32 Approved by: Ananda Maza M.D. on 11/05/2022 at 21:33
--- NOTE | 2022-11-05 21:48 | ED_ITS ---
HPI - Altered Mental Status General Chief Complaint: Weakness Stated Complaint: hypotension Time Seen by Provider: 11/05/22 20:59 Source: EMS Mode of arrival: EMS Limitations: no limitations History of Present Illness HPI narrative: this is a 77-year-old female with history of chronic kidney disease on dialysis Tuesday, Tuesday, coronary artery disease, recent NSTEMI, CHF, diabetes, diabetic neuropathy, bipolar, depression, restless leg who presents with confusion and hypotension. Patient is a little bit off on her timing she states she had dialysis yesterday here in [place] afterwards she was picked up and told she needed to go to the emergency department and was told she had an NSTEMI. It does appear that she was transferred for an NSTEMI on the 31 of October. she had a wellness check today and EMS found her in her home she was confused but conversant. Patient states she felt really sweaty she is unsure if her house was hot, temperatures have been warmer here recently. She denies any chest pain but had some pressure earlier today, she felt short of breath, no nausea or vomiting no diarrhea she has chronic constipation and takes laxative. patient denies any urinary symptoms, she does not make any urine. She denies any new swelling in her extremities. She states she is been her normal weight of 278 lb. She states she does feel confused she is off on her day she states she is been off since she went in the hospital. She does think that she had her dialysis yesterday, yesterday was . She recognizes that she feels confused. No hallucinations. She feels somewhat improved here. She was hypotensive with EMS, had a 250 bolus in his 113 in the room on evaluation. She does note she takes midodrine to with her initiation of dialysis and then a 3rd part way through. She uses 2 L O2 during dialysis but not at home. She did use to have a CPAP but did not like it and had oxygen when she used her CPAP. Allergies include oxycodone and no NSAIDs secondary to kidney disease. No tobacco, occasional alcohol, no illicit. Related Data Home Medications Medication Instructions Recorded Confirmed gabapentin 100 mg capsule 300 mg PO 3XW ##0 09/06/16 05/01/21 aspirin 81 mg tablet,delayed 81 mg PO DAILY 08/09/17 05/01/21 release (Aspir-) atorvastatin 20 mg tablet 20 mg PO QPM 08/09/17 05/01/21 docusate sodium 100 mg capsule 100 mg PO DAILY 08/09/17 05/01/21 lamotrigine 150 mg tablet 100 mg PO DAILY 08/09/17 05/01/21 omeprazole 40 mg capsule,delayed 40 mg PO BID 08/09/17 05/01/21 release citalopram 20 mg tablet 20 mg PO DAILY 04/18/18 05/01/21 cranberry 2 dose PO DAILY 04/18/18 05/01/21 oxybutynin chloride 15 mg 15 mg PO DAILY 04/18/18 05/01/21 tablet,extended release 24 hr Dialyvite 1 tab PO DAILY 11/19/20 05/01/21 fluticasone 250 mcg-salmeterol 50 2 inh inhalation PRN PRN Shortness 11/19/20 05/01/21 mcg/dose blistr powdr for Of Breath Or Wheezing inhalation (Advair Diskus) gabapentin 100 mg capsule 200 mg PO 4XW 11/19/20 05/01/21 insulin glargine 100 unit/mL (3 See Rx Instructions .Route .COMPLEX 11/19/20 05/01/21 mL) subcutaneous pen (Lantus Solostar U-100 Insulin) insulin lispro protamine-lispro 7 unit SUBCUT BEDTIME 11/19/20 05/01/21 100 unit/mL (75-25) subcutaneous pen (Humalog Mix 75-25 KwikPen) lactulose 10 gram/15 mL oral 45 ml PO TID 11/19/20 05/01/21 solution (Enulose) midodrine 10 mg tablet 20 mg PO TID 11/19/20 05/01/21 patiromer calcium sorbitex 8.4 8.4 g PO DAILY 11/19/20 05/01/21 gram oral powder packet (Veltassa) ropinirole 1 mg tablet 1 mg PO TID 11/19/20 05/01/21 sevelamer carbonate 800 mg tablet 1,600 mg PO TID 11/19/20 05/01/21 trazodone 150 mg tablet 150 mg PO BEDTIME 11/19/20 05/01/21 Allergies Allergy/AdvReac Type Severity Reaction Status Date / Time NSAIDS (Non-Steroidal AdvReac Severe CAUSED Verified 05/01/21 09:46 Anti-Inflamma KIDNEY [NSAIDS (NON-STEROIDAL DISEASE ANTI-INFLAMMA] oxycodone [From Percocet] AdvReac Severe Hallucinati Verified 09/21/22 15:27 ng Review of Systems Review of Systems ROS Unobtainable: All systems reviewed & are unremarkable except as noted in HPI and below Patient History Medical History Bipolar 1 disorder CKD (chronic kidney disease) stage 4, GFR 15-29 ml/min Diabetes Dyslipidemia Hypertension Pacemaker Renal failure (ARF), acute on chronic Surgically constructed arteriovenous fistula Surgical History H/O: S/P cholecystectomy Social History household members: none Smoking Status: Never smoker alcohol intake: never Smoking Status: Never smoker alcohol intake frequency: 0-2 drinks per day Substance Use Type: does not use Exam Narrative Exam Narrative: GENERAL: Alert and oriented x three, Obese Female in mild distress, patient expresses confusion about dates but is able to give the rest of her history appropriately she does note the day of the week today. HEENT: Head normocephalic, atraumatic, EOMI, pupils reactive, face symmetric, moist mucous membranes NECK: Supple, full range of motion CARDIOVASCULAR: Regular rate and rhythm without murmurs, rubs or gallops. RESPIRATORY: Breath sounds equal bilaterally, no wheezes rales or rhonchi. ABDOMEN: Soft, nontender. Normoactive bowel sounds all 4 quadrants. No guarding or rebound, rigidity, no mass : No CVA tenderness EXTREMITIES: Normal range of motion, no clubbing or edema. Neurovascularly intact NEUROLOGICAL: Cranial nerves II through XII grossly intact. Moving all extremities SKIN: Warm, dry, no petechiae, no rashes or lesions. Initial Vital Signs Initial Vital Signs: Vital Signs Pulse Rate 253 H 11/05/22 20:33 Respiratory Rate 20 11/05/22 20:33 Pulse Oximetry 98 11/05/22 20:33 Course Orders Ordered: ED Orders 11/05/22 23:25 Trop I [Troponin I] Stat 11/06/22 01:31 EC echo doppler complete Stat Piperacillin Sod/Tazobactam (Sod 2.25 gm/ Sodium Chloride) 100 mls @ 200 mls/hr IV Q12HR JASON Last Infusion: 11/06/22 00:40 Dose: 0 mls/hr Documented By: Admin: 11/05/22 23:58 Dose: 200 mls/hr Documented By: NOREPINEPHRINE BITARTRATE/D5W (Levophed) 4 mg in 250 mls @ 47.287 mls/hr IV TITRATE JASON; Protocol Last Titration: 11/06/22 05:25 Dose: 0.02 mcg/kg/min, 9.457 mls/hr Documented By: Titration: 11/06/22 04:37 Dose: 0.03 mcg/kg/min, 14.186 mls/hr Documented By: Admin: 11/06/22 03:57 Dose: 0.02 mcg/kg/min, 9.457 mls/hr Documented By: Discontinued Medications Vancomycin HCl/Dextrose (Vancomycin) 1,500 mg in 300 mls @ 200 mls/hr IV NOW ONE Stop: 11/05/22 23:09 Last Infusion: 11/05/22 23:54 Dose: 0 mls/hr Documented By: Admin: 11/05/22 22:04 Dose: 200 mls/hr Documented By: ST Midodrine (Midodrine Hcl 5 Mg Tablet) 20 mg PO NOW ONE Stop: 11/06/22 00:05 Last Admin: 11/06/22 00:20 Dose: 20 mg Documented By: Sodium Chloride (Sodium Chloride 0.9% 500 Ml) 250 ml IV BOLUS ONE Stop: 11/05/22 23:24 Last Admin: 11/05/22 23:30 Dose: 250 ml Documented By: Sodium Chloride (Sodium Chloride 0.9 % 20 Ml Vial) 250 ml IV BOLUS ONE Stop: 11/06/22 01:03 Last Admin: 11/06/22 01:14 Dose: 250 ml Documented By: Sodium Chloride (Sodium Chloride 0.9% 500 Ml) 250 ml IV BOLUS ONE Stop: 11/06/22 01:41 Last Admin: 11/06/22 01:45 Dose: 250 ml Documented By: Vital Signs Vital signs: Vital Signs - 8 hr 11/05/22 23:00 11/05/22 23:00 11/05/22 23:15 Temperature Pulse Rate 67 Respiratory Rate 19 Blood Pressure 79/37 L 78/37 L Pulse Oximetry 98 Oxygen Delivery Method Nasal Cannula Oxygen Flow Rate 2 11/05/22 23:15 11/05/22 23:30 11/05/22 23:33 Temperature Pulse Rate 65 64 64 Respiratory Rate 18 15 18 Blood Pressure Pulse Oximetry 96 98 97 Oxygen Delivery Method Nasal Cannula Oxygen Flow Rate 2 11/05/22 23:33 11/05/22 23:45 11/05/22 23:45 Temperature Pulse Rate 64 Respiratory Rate 18 Blood Pressure 89/38 L 77/42 L Pulse Oximetry 98 Oxygen Delivery Method Oxygen Flow Rate 11/06/22 00:00 11/06/22 00:00 11/06/22 00:15 Temperature Pulse Rate 64 Respiratory Rate 18 Blood Pressure 75/38 L 76/37 L Pulse Oximetry 97 Oxygen Delivery Method Oxygen Flow Rate 11/06/22 00:15 11/06/22 00:30 11/06/22 00:30 Temperature Pulse Rate 60 63 Respiratory Rate 19 18 Blood Pressure 89/39 L Pulse Oximetry 96 96 Oxygen Delivery Method Oxygen Flow Rate 11/06/22 00:45 11/06/22 00:45 11/06/22 01:00 Temperature Pulse Rate 62 Respiratory Rate 19 Blood Pressure 73/43 L 74/34 L Pulse Oximetry 95 Oxygen Delivery Method Nasal Cannula Oxygen Flow Rate 2 11/06/22 01:00 11/06/22 01:15 11/06/22 01:15 Temperature Pulse Rate 62 61 Respiratory Rate 18 18 Blood Pressure 72/32 L Pulse Oximetry 96 96 Oxygen Delivery Method Oxygen Flow Rate 11/06/22 01:30 11/06/22 01:31 11/06/22 01:31 Temperature Pulse Rate 59 L 59 L Respiratory Rate 17 17 Blood Pressure 71/38 L Pulse Oximetry 95 96 Oxygen Delivery Method Oxygen Flow Rate 11/06/22 01:45 11/06/22 01:45 11/06/22 02:00 Temperature Pulse Rate 61 Respiratory Rate 18 Blood Pressure 79/45 L 82/48 L Pulse Oximetry 96 Oxygen Delivery Method Oxygen Flow Rate 11/06/22 02:00 11/06/22 02:15 11/06/22 02:15 Temperature Pulse Rate 61 60 Respiratory Rate 15 Blood Pressure 71/45 L Pulse Oximetry 97 98 Oxygen Delivery Method Nasal Cannula Oxygen Flow Rate 2 11/06/22 02:30 11/06/22 02:30 11/06/22 02:45 Temperature Pulse Rate 60 60 Respiratory Rate 22 Blood Pressure 80/48 L Pulse Oximetry 97 96 Oxygen Delivery Method Nasal Cannula Oxygen Flow Rate 2 11/06/22 02:49 11/06/22 03:00 11/06/22 03:00 Temperature Pulse Rate 60 60 Respiratory Rate 20 22 Blood Pressure 81/37 L Pulse Oximetry 94 96 Oxygen Delivery Method Nasal Cannula Oxygen Flow Rate 2 11/06/22 03:15 11/06/22 03:30 11/06/22 03:31 Temperature Pulse Rate 61 64 63 Respiratory Rate 23 19 20 Blood Pressure 80/42 L Pulse Oximetry 96 96 96 Oxygen Delivery Method Oxygen Flow Rate 11/06/22 03:31 11/06/22 03:45 11/06/22 04:00 Temperature Pulse Rate 61 64 Respiratory Rate 23 22 Blood Pressure 80/42 L Pulse Oximetry 97 95 Oxygen Delivery Method Nasal Cannula Oxygen Flow Rate 2 11/06/22 04:01 11/06/22 04:01 11/06/22 04:15 Temperature Pulse Rate 63 Respiratory Rate 22 Blood Pressure 86/53 L 71/46 L Pulse Oximetry 96 Oxygen Delivery Method Oxygen Flow Rate 11/06/22 04:30 11/06/22 04:36 11/06/22 04:36 Temperature Pulse Rate 60 63 Respiratory Rate 20 Blood Pressure 84/43 L 84/43 L Pulse Oximetry 96 95 Oxygen Delivery Method Oxygen Flow Rate 11/06/22 04:45 11/06/22 04:45 11/06/22 05:00 Temperature Pulse Rate 63 60 Respiratory Rate 20 Blood Pressure 82/47 L Pulse Oximetry 96 98 Oxygen Delivery Method Oxygen Flow Rate 11/06/22 05:01 11/06/22 05:03 11/06/22 05:05 Temperature Pulse Rate 60 61 62 Respiratory Rate 21 21 Blood Pressure Pulse Oximetry 97 97 95 Oxygen Delivery Method Oxygen Flow Rate 11/06/22 05:15 11/06/22 05:24 11/06/22 05:24 Temperature Pulse Rate 62 62 Respiratory Rate 18 Blood Pressure 112/56 L Pulse Oximetry 96 95 Oxygen Delivery Method Nasal Cannula Oxygen Flow Rate 2 11/06/22 05:30 11/06/22 05:30 11/06/22 05:45 Temperature Pulse Rate 62 62 Respiratory Rate 23 Blood Pressure 105/49 L Pulse Oximetry 95 96 Oxygen Delivery Method Oxygen Flow Rate 11/06/22 05:48 11/06/22 05:48 11/06/22 06:00 Temperature Pulse Rate 63 Respiratory Rate 23 Blood Pressure 94/47 L 98/49 L Pulse Oximetry 94 Oxygen Delivery Method Oxygen Flow Rate 11/06/22 06:00 11/06/22 06:15 11/06/22 06:15 Temperature Pulse Rate 62 63 Respiratory Rate 20 Blood Pressure 90/55 L Pulse Oximetry 96 95 Oxygen Delivery Method Nasal Cannula Oxygen Flow Rate 2 11/06/22 06:30 11/06/22 06:30 Temperature 97.9 F Pulse Rate 62 Respiratory Rate 20 Blood Pressure 96/52 L Pulse Oximetry 96 Oxygen Delivery Method Oxygen Flow Rate MDM - Altered Mental Status Lab Data 11/05/22 20:47 11/05/22 20:47 Labs: Lab Results 11/05/22 11/05/22 11/05/22 Range/Units 20:47 20:47 20:47 WBC 9.8 (4.5-11.0) X10^3/uL RBC 3.57 L (4.0-5.2) X10^6/uL Hgb 12.2 (12.0-16.0) g/dL Hct 36.5 (36-46) % MCV 102.2 H (80-100) fL MCH 34.3 H (26-34) PG MCHC 33.6 (30-36) % RDW 14.7 (11.6-14.8) % Plt Count 248 (150-400) X10^3/uL Neut % (Auto) 72.8 (50-75) % Lymph % (Auto) 11.4 L (25-40) % Brantley % (Auto) 13.6 (3-14) % Eos % (Auto) 1.1 L (2-4) % Baso % (Auto) 1.1 (0-2) % Neut # (Auto) 7100 H (3935-3092) /uL Lymph # (Auto) 1100 (2093-4415) /uL Brantley # (Auto) 1300 H (0-900) /uL Eos # (Auto) 100 (0-450) /uL Baso # (Auto) 100 (0-100) /uL PT 12.5 (10.1-12.7) SECONDS INR 1.1 (0.9-1.3) Sodium 131 L (137-145) mmol/L Potassium 3.9 (3.4-5.1) mmol/L Chloride 87 L (98-107) mmol/L Carbon Dioxide 30 (22-32) mmol/L BUN 50 H (7-17) mg/dL Creatinine 6.48 H (0.52-1.04) mg/dL Estimated GFR 6 L (>60) mL/min BUN/Creatinine Ratio 7.7 (6-22) Glucose 242 H (80-110) mg/dL Lactate (0.7-2.1) mmol/L Calcium 8.9 (8.4-10.2) mg/dL Troponin I 0.754 H* (0.01-0.034) ng/mL NT-Pro-B Natriuret Pep (<450) pg/mL Procalcitonin (<0.5) ng/mL 11/05/22 11/05/22 11/05/22 Range/Units 20:47 20:47 23:25 WBC (4.5-11.0) X10^3/uL RBC (4.0-5.2) X10^6/uL Hgb (12.0-16.0) g/dL Hct (36-46) % MCV (80-100) fL MCH (26-34) PG MCHC (30-36) % RDW (11.6-14.8) % Plt Count (150-400) X10^3/uL Neut % (Auto) (50-75) % Lymph % (Auto) (25-40) % Brantley % (Auto) (3-14) % Eos % (Auto) (2-4) % Baso % (Auto) (0-2) % Neut # (Auto) (6721-6534) /uL Lymph # (Auto) (5997-7991) /uL Brantley # (Auto) (0-900) /uL Eos # (Auto) (0-450) /uL Baso # (Auto) (0-100) /uL PT (10.1-12.7) SECONDS INR (0.9-1.3) Sodium (137-145) mmol/L Potassium (3.4-5.1) mmol/L Chloride (98-107) mmol/L Carbon Dioxide (22-32) mmol/L BUN (7-17) mg/dL Creatinine (0.52-1.04) mg/dL Estimated GFR (>60) mL/min BUN/Creatinine Ratio (6-22) Glucose (80-110) mg/dL Lactate 1.7 (0.7-2.1) mmol/L Calcium (8.4-10.2) mg/dL Troponin I 0.683 H* (0.01-0.034) ng/mL NT-Pro-B Natriuret Pep 12094 H (<450) pg/mL Procalcitonin 0.78 H (<0.5) ng/mL Point of Care Testing Glucose POC 96 ECG Data Attestation: I personally reviewed and interpreted this ECG as follows: Prior ECG tracings: available for review Interpretation: sinus rhythm rate of 70 NM 208 QRS of 124 and QTC of 516. Left axis deviation. Patient has prior from 10/31/2022 with no acute changes. MDM Narrative Medical decision making narrative: 77-year-old female with end-stage renal disease on dialysis presents feeling sweaty and hot, short of breath little bit of chest discomfort earlier today describes some confusion and being off since she is been discharged from the hospital. Patient hypotensive systolic reported 70, was 90s more consistently here she would a 250 bolus is 113 on evaluation. She does not make urine. Labs show hemoglobin of 12.5 white count 9.8 platelets appropriate at 2:48 a.m., procalcitonin is positive at 0.78, patient's creatinine is 6.48 consistent with prior sodium is 131 potassium 3 9 chloride 87 with a BUN of 50 glucose is 244. Troponin is positive at 0.754 but was 0.753 on the 31 [place] October[place] [address] it was 49,000 on the . SPoke with Dr. Crane, nephrology with patient's service. Recommends up to a 1 L bolus total can given 250-500 mL bolus. Agrees with plan for antibiotics, discussed no clear source he feels we do not need to pursue with additional CT imaging at this time agrees with plan to repeat troponin. Does recommend transfer with plan for dialysis tomorrow patient's regular schedule. We reviewed cultures are pending. did receive patient's discharge summary from [facility] she was discharged on 11/03/2022 did have an NSTEMI at that time was on heparin cardiology was going to take for stent but patient elected for medical management only was found to have persistent hypotension had her midodrine 20 mg 3 times daily restarted, she did have some hypoxic issues and was on nasal cannula and weaned off before discharge. Patient's midodrine was restarted as she is describing only taking it days she has dialysis which would have been and not today Tuesday also unclear if she attended dialysis. Patient had mild improvement to low 80s but not always consistent. Patient continues to be alert and conversant and does not feel that she is worsening. Spoke with hospitalist as well as safety admin assistant at [facility]. After discussion she is been running 80s to 90s systolic at their facility in on prior visits here typically runs 80-[address] After discussion [address] Dr[address] Hernandez, safety admin assistant at [facility] he recommends to start a very low dose of norepinephrine peripherally, they will accept patient for transfer evaluate her there and decide if they feel they need to continue pressors or not as patient is close to baseline of 80-90s systolic pressure. Plan for transfer to CCU and can set up transport. Called patients daughter at [phone] [place], left voicemail to call back. No answer. Patients daughter was present early in the evening but has since le ft. Updated patient on findings so far she is agreeable with current plan. Daughter called back, states patient was confused during her hospital stay recently at [facility] and never really seemed to go back to her baseline in terms of her mentation. She states at her dialysis the other day she was tachycardic and a low O2 was not responding well but when EMS showed up seemed to rally and vital signs were appropriate for EMS and so decision was made not to transfer. She does note patient is DNR/DNI but is open to some interventions. Daughter states she is DPOA and because of patient's confusion we would like to be involved in conversations about patient care. We discussed for her to expect phone calls from the service at [facility]. She is aware that patient will be plan to transfer down around 630 this morning. Patient pressures consistently in 90s systolic with norepi gtt, patient continues to be alert and talkative and states she feels improved from arrival last night. Critical Care Time Critical Care Time Critical Care Time: Yes Total Critical Care Time: 35 Attestation: The high probability of a clinically significant, sudden or life threatening deterioration of the [cardiac] system(s) required my full and direct attention, intervention and personal management. The aggregate critical care time was [] minutes. This time is in addition to time spent performing reported procedures but includes the following: [x] Data Review and interpretation [x] Patient assessment and monitoring of vital signs [x] Documentation [x] Medication orders and management Discharge Plan Departure Patient Disposition: [facility] Clinical Impression: Hypotension, Confusion, Elevated troponin Prescriptions: No Action gabapentin 100 MG capsule 300 mg PO 3XW Qty: 0 atorvastatin 20 mg Tablet 20 mg PO QPM docusate sodium 100 mg Capsule 100 mg PO DAILY lamotrigine 150 mg Tablet 100 mg PO DAILY omeprazole 40 mg Capsule,Delayed Release(Dr/Ec) 40 mg PO BID aspirin [Aspir-81] 81 mg Tablet,Delayed Release (Dr/Ec) 81 mg PO DAILY fluticasone propion-salmeterol [Advair Diskus] 250-50 mcg/dose blister with device 2 inh INHALATION PRN PRN (Reason: Shortness Of Breath Or Wheezing) ropinirole 1 mg tablet 1 mg PO TID gabapentin 100 mg capsule 200 mg PO 4XW midodrine 10 mg tablet 20 mg PO TID Patient Comments: TAKE 2 TABLETS BY MOUTH THREE TIMES DAILY insulin lispro protamin-lispro [Humalog Mix 75-25 KwikPen] 100 unit/mL (75-25) Insulin Pen 7 unit SUBCUT BEDTIME Patient Comments: Has not been taking for a while because maintaining adequate control lactulose [Enulose] 10 gram/15 mL solution 45 ml PO TID Lantus Solostar U-100 Insulin 100 unit/mL (3 mL) Insulin Pen See Rx Instructions .ROUTE .COMPLEX Patient Comments: AM sugars below 175, does not take. AM sugars 175-210 takes 5 units. AM sugars greater 210 takes 10 units Rx Instructions: AM sugars below 175, does not take. AM sugars 175-210 takes 5 units. AM sugars greater 210 takes 10 units sevelamer carbonate 800 mg tablet 1,600 mg PO TID Patient Comments: With Meals Veltassa 8.4 gram powder in packet 8.4 g PO DAILY Patient Comments: DISSOLVE 1 PACKET AND DRINK BY MOUTH DAILY Dialyvite 1 tab PO DAILY trazodone 150 mg tablet 150 mg PO BEDTIME Patient Comments: TAKE 1 TABLET BY MOUTH EVERY EVENING oxybutynin chloride 15 mg tablet extended release 24hr 15 mg PO DAILY Patient Comments: TAKE ONE TABLET BY MOUTH EVERY DAY citalopram 20 mg tablet 20 mg PO DAILY Patient Comments: TAKE ONE TABLET BY MOUTH EVERY DAY cranberry 2 dose PO DAILY Referrals: Karen Mustafa ARNP [Primary Care Provider] -
[2022-11-05] MEDS: VANCOMYCIN 1,500 MG/300 ML PIGGYBACK 200 MG IV (22:04)
--- NOTE | 2022-11-05 22:15 | PC.NURSE ---
Provider notified of BP
--- NOTE | 2022-11-05 22:50 | PC.NURSE ---
MD aware of BP. Pt denies acute dizziness, lightheadedness, nausea, pain, or other symptoms
--- NOTE | 2022-11-05 23:24 | PC.NURSE ---
Safe handoff report to MIGUEL ANGEL Denise
[2022-11-05] MEDS: SODIUM CHLORIDE 0.9% 500 ML 250 ML IV (23:30)
[2022-11-05 23:57] LABS: Troponin I 0.683 ng/mL (0.01-0.034)
[2022-11-05] MEDS: PIPERACILLIN/TAZO 2.25 GM in SODIUM CHLORIDE 0.9% 100 ML IV (23:58)
[2022-11-06] VITALS (37 sets, daily range): BP systolic 71–112; BP diastolic 32–56; PULSE 59–64; RESP 15–23; TEMP 36.6; O2SAT 94–98
[2022-11-06] MEDS: MIDODRINE HCL 5 MG TABLET 20 MG PO (00:20)
--- NOTE | 2022-11-06 00:59 | PC.NURSE ---
TENTER note: Attempting to transfer patient. Spoke to the following hospitals, with times, and responses. [facility]: [facility] place patient on waitlist. Maybe in the morning? Faxed over face sheet. [facility]: [facility]- [id number]. Will review. Faxed over chart. [facility]: [facility]- [phone]- Will review, faxed over a facesheet and pushed images. [facility]: [id number]- didn't catch the person's name. Asked for patient information, pushed images, faxed over a face sheet.
[2022-11-06] MEDS: SODIUM CHLORIDE 0.9 % 20 ML VIAL 250 ML IV (01:14)
[2022-11-06] MEDS: SODIUM CHLORIDE 0.9% 500 ML 250 ML IV (01:45)
[2022-11-06] MEDS: NOREPINEPHRINE BITARTRATE/D5W 4 MG/250 ML PLAST..BAG 9.457 MG IV (03:57)
== END 2022-11-06 06:45 | disposition short-term general hospital (02) ==
PROVIDERS: Emergency Provider Emergency Medicine; PCP Nurse Practitioner
DX: I95.9 Hypotension, unspecified (principal); R41.0 Disorientation, unspecified; R77.8 Other specified abnormalities of plasma proteins; R79.89 Other specified abnormal findings of blood chemistry
CPT/HCPCS: 36415; 70450; 71045; 80048; 82962; 83605; 83880; 84145; 84484; 85025; 85610; 87040; 93005; 96365; 96366; 96367; 99285; 99291; J2543

== ENCOUNTER 2022-11-29 15:35 | Inpatient (IN) | payer MEDICARE, SELFPAY ==
[2021-01-11 14:08] VITALS: BMI 47.7
[2022-11-29] VITALS (108 sets, daily range): BP systolic 81–188; BP diastolic 42–119; PULSE 59–205; RESP 20–53; TEMP 36.4–37.7; O2SAT 84–99
--- NOTE | 2022-11-29 15:38 | ED.FALL ---
HPI - Fall <Vee Daveyshonna, DO - Last Filed: 11/30/22 18:14> General Chief Complaint: Fall Stated Complaint: suspected fall Time Seen by Provider: 11/29/22 15:37 History of Present Illness HPI Narrative: Patient is a 77-year-old female history of chronic kidney disease on hemodialysis Tuesday, coronary artery disease, congestive heart failure, diabetes, diabetic neuropathy, bipolar, depression restless leg presents today with fall. [facility] and [facility]. [facility]. Apparently she was offered rehab but refused. Since being home she is not taken any medication she is missed her dialysis she is had increased confusion. She has previously missed dialysis gotten fluid overloaded required dialysis becoming hypoxic and hypotensive. Seems similar today. Daughter called EMS today she was found on the floor incontinent had been there for number of hours. She is not on anticoagulation but has multiple bruising all over her belly and her right arm. She has a very dry mouth she is not complaining of any pain. Related Data Home Medications Medication Instructions Recorded Confirmed gabapentin 100 mg capsule 100 mg PO QPM ##0 09/06/16 11/30/22 aspirin 81 mg tablet,delayed 81 mg PO DAILY 08/09/17 11/30/22 release (Aspir-) atorvastatin 20 mg tablet 40 mg PO QAM 08/09/17 11/30/22 lamotrigine 150 mg tablet 100 mg PO DAILY 08/09/17 11/30/22 omeprazole 40 mg capsule,delayed 40 mg PO DAILY 08/09/17 11/30/22 release citalopram 20 mg tablet 20 mg PO BEDTIME 04/18/18 11/30/22 fluticasone 250 mcg-salmeterol 50 2 inh inhalation PRN PRN Shortness 11/19/20 11/30/22 mcg/dose blistr powdr for Of Breath Or Wheezing inhalation (Advair Diskus) insulin glargine 100 unit/mL (3 3 unit SUBCUT Q12-24H 11/19/20 11/30/22 mL) subcutaneous pen (Lantus Solostar U-100 Insulin) insulin lispro protamine-lispro See Rx Instructions .Route .COMPLEX 11/19/20 11/30/22 100 unit/mL (75-25) subcutaneous pen (Humalog Mix 75-25 KwikPen) lactulose 10 gram/15 mL oral 45 ml PO PRN PRN Constipation 11/19/20 11/30/22 solution (Enulose) midodrine 10 mg tablet 20 mg PO TID 11/19/20 11/30/22 ropinirole 1 mg tablet 1 mg PO TID 11/19/20 11/30/22 sevelamer carbonate 800 mg tablet 1,600 mg PO TID 11/19/20 11/30/22 aripiprazole 5 mg tablet 5 mg PO DAILY 11/30/22 11/30/22 clopidogrel 75 mg tablet 75 mg PO DAILY 11/30/22 11/30/22 epoetin tom 3,000 unit/mL 3,000 unit SUBCUT 3XW 11/30/22 11/30/22 injection solution fluticasone propionate 50 1 spray intranasal DAILY 11/30/22 11/30/22 mcg/actuation nasal spray,suspension (Allergy Relief (fluticasone)) ipratropium 20 mcg-albuterol 100 1 puff inhalation QID 11/30/22 11/30/22 mcg/actuation mist for inhalation polyethylene glycol 3350 17 gram 17 g PO DAILY PRN Constipation 11/30/22 11/30/22 oral powder packet Allergies Allergy/AdvReac Type Severity Reaction Status Date / Time NSAIDS (Non-Steroidal AdvReac Severe CAUSED Verified 05/01/21 09:46 Anti-Inflamma KIDNEY [NSAIDS (NON-STEROIDAL DISEASE ANTI-INFLAMMA] oxycodone [From Percocet] AdvReac Severe Hallucinati Verified 09/21/22 15:27 ng Review of Systems <Vee De DO - Last Filed: 11/30/22 18:14> Review of Systems ROS Unobtainable: All systems reviewed & are unremarkable except as noted in HPI and below Patient History <Vee De DO - Last Filed: 11/30/22 18:14> Medical History Bipolar 1 disorder CKD (chronic kidney disease) stage 4, GFR 15-29 ml/min Diabetes Dyslipidemia Hypertension Pacemaker Renal failure (ARF), acute on chronic Surgically constructed arteriovenous fistula Surgical History H/O: S/P cholecystectomy Social History household members: none Smoking Status: Never smoker alcohol intake: never Smoking Status: Never smoker alcohol intake frequency: 0-2 drinks per day Substance Use Type: does not use Exam <Vee De DO - Last Filed: 11/30/22 18:14> Initial Vital Signs Initial Vital Signs: Vital Signs Pulse Rate 95 H 11/29/22 15:38 Pulse Oximetry 84 L 11/29/22 15:38 Oxygen Delivery Method Room Air 11/29/22 15:38 GENERAL: Alert 77-year-old female chronically ill OB HEENT: Head atraumatic,EOMI, pupils reactive, face symmetric, moist mucous membranes CARDIOVASCULAR: Regular rate and rhythm without murmurs, rubs or gallops. RESPIRATORY: Decreased breath sounds slightly coarse ABDOMEN: Soft, nontender. Normoactive bowel sounds all 4 quadrants. No guarding or rebound. EXTREMITIES: Normal range of motion, no clubbing or edema. Neurovascularly intact NEUROLOGICAL: Plant Cytologist strength equal bilaterally able to lift legs alert and oriented to person and SKIN: Subcutaneous bruising in abdomen some arm abrasions as well <Christian Acosta DO - Last Filed: 11/30/22 21:52> Initial Vital Signs Initial Vital Signs: Vital Signs Pulse Rate 95 H 11/29/22 15:38 Pulse Oximetry 84 L 11/29/22 15:38 Oxygen Delivery Method Room Air 11/29/22 15:38 Course <Vee De DO - Last Filed: 11/30/22 18:14> Orders Ordered: Haloperidol (Haloperidol 5 Mg/Ml Vial) 2 mg IV Q1HR PRN PRN Reason: Agitation Last Admin: 11/30/22 17:34 Dose: 2 mg Documented By: Lorazepam (Lorazepam 2 Mg/Ml Inj) 1 mg IV Q1HR PRN PRN Reason: Agitation/Anxiety Last Admin: 11/30/22 20:26 Dose: 1 mg Documented By: ROBY Morphine Sulfate (Morphine 4 Mg/Ml Inj) 2 mg IV Q1H PRN PRN Reason: Pain, Mild (1-3) Last Admin: 11/30/22 21:22 Dose: 2 mg Documented By: Admin: 11/30/22 18:39 Dose: 2 mg Documented By: Admin: 11/30/22 17:32 Dose: 2 mg Documented By: MS Ondansetron HCl (Ondansetron 4 Mg/2 Ml Inj) 4 mg IV Q8HR PRN PRN Reason: Nausea And Vomiting Scopolamine (Scopolamine 1 Patch) 1 patch TOP Q72H PRN PRN Reason: Secretions Discontinued Medications Sodium Chloride (Normal Saline 0.9%) 1,000 mls @ 1,000 mls/hr IV BOLUS ONE Stop: 11/29/22 17:28 Last Infusion: 11/29/22 16:55 Dose: 0 mls/hr Documented By: Infusion: 11/29/22 16:55 Dose: 0 mls/hr Documented By: Admin: 11/29/22 16:34 Dose: 1,000 mls/hr Documented By: RB Sodium Chloride (Normal Saline 0.9%) 1,000 mls @ 100 mls/hr IV CONT JASON Last Infusion: 11/30/22 04:06 Dose: 0 mls/hr Documented By: Admin: 11/29/22 18:13 Dose: 100 mls/hr Documented By: RB Vital Signs Vital signs: Vital Signs - 8 hr 11/30/22 14:42 11/30/22 13:55 11/30/22 14:00 Pulse Rate 83 73 70 Respiratory Rate 22 Blood Pressure Pulse Oximetry 97 95 96 Oxygen Delivery Method 11/30/22 14:01 11/30/22 14:01 11/30/22 14:05 Pulse Rate 71 73 Respiratory Rate Blood Pressure 139/69 Pulse Oximetry 96 97 Oxygen Delivery Method 11/30/22 14:10 11/30/22 14:15 11/30/22 14:20 Pulse Rate 73 70 70 Respiratory Rate Blood Pressure Pulse Oximetry 97 97 97 Oxygen Delivery Method 11/30/22 14:25 11/30/22 14:30 11/30/22 14:31 Pulse Rate 70 70 70 Respiratory Rate Blood Pressure Pulse Oximetry 97 97 97 Oxygen Delivery Method 11/30/22 14:31 11/30/22 14:35 11/30/22 14:40 Pulse Rate 70 71 Respiratory Rate Blood Pressure 134/60 Pulse Oximetry 97 97 Oxygen Delivery Method 11/30/22 14:45 11/30/22 14:50 11/30/22 14:55 Pulse Rate 70 70 70 Respiratory Rate Blood Pressure Pulse Oximetry 97 97 96 Oxygen Delivery Method 11/30/22 15:00 11/30/22 15:01 11/30/22 15:01 Pulse Rate 70 70 Respiratory Rate Blood Pressure 124/56 L Pulse Oximetry 97 96 Oxygen Delivery Method 11/30/22 15:05 11/30/22 15:10 11/30/22 15:15 Pulse Rate 73 84 73 Respiratory Rate Blood Pressure Pulse Oximetry 96 97 97 Oxygen Delivery Method 11/30/22 16:27 11/30/22 16:47 Pulse Rate 74 72 Respiratory Rate 16 20 Blood Pressure 124/57 L Pulse Oximetry 96 95 Oxygen Delivery Method High Flow Nasal Cannula <Christian Acosta, DO - Last Filed: 11/30/22 21:52> Orders Ordered: Haloperidol (Haloperidol 5 Mg/Ml Vial) 2 mg IV Q1HR PRN PRN Reason: Agitation Last Admin: 11/30/22 17:34 Dose: 2 mg Documented By: Lorazepam (Lorazepam 2 Mg/Ml Inj) 1 mg IV Q1HR PRN PRN Reason: Agitation/Anxiety Last Admin: 11/30/22 20:26 Dose: 1 mg Documented By: ROBY Morphine Sulfate (Morphine 4 Mg/Ml Inj) 2 mg IV Q1H PRN PRN Reason: Pain, Mild (1-3) Last Admin: 11/30/22 21:22 Dose: 2 mg Documented By: Admin: 11/30/22 18:39 Dose: 2 mg Documented By: Admin: 11/30/22 17:32 Dose: 2 mg Documented By: Ondansetron HCl (Ondansetron 4 Mg/2 Ml Inj) 4 mg IV Q8HR PRN PRN Reason: Nausea And Vomiting Scopolamine (Scopolamine 1 Patch) 1 patch TOP Q72H PRN PRN Reason: Secretions Discontinued Medications Sodium Chloride (Normal Saline 0.9%) 1,000 mls @ 1,000 mls/hr IV BOLUS ONE Stop: 11/29/22 17:28 Last Infusion: 11/29/22 16:55 Dose: 0 mls/hr Documented By: Infusion: 11/29/22 16:55 Dose: 0 mls/hr Documented By: Admin: 11/29/22 16:34 Dose: 1,000 mls/hr Documented By: RB Sodium Chloride (Normal Saline 0.9%) 1,000 mls @ 100 mls/hr IV CONT JASON Last Infusion: 11/30/22 04:06 Dose: 0 mls/hr Documented By: Admin: 11/29/22 18:13 Dose: 100 mls/hr Documented By: RB Vital Signs Vital signs: Vital Signs - 8 hr 11/30/22 14:42 11/30/22 13:55 11/30/22 14:00 Pulse Rate 83 73 70 Respiratory Rate 22 Blood Pressure Pulse Oximetry 97 95 96 Oxygen Delivery Method 11/30/22 14:01 11/30/22 14:01 11/30/22 14:05 Pulse Rate 71 73 Respiratory Rate Blood Pressure 139/69 Pulse Oximetry 96 97 Oxygen Delivery Method 11/30/22 14:10 11/30/22 14:15 11/30/22 14:20 Pulse Rate 73 70 70 Respiratory Rate Blood Pressure Pulse Oximetry 97 97 97 Oxygen Delivery Method 11/30/22 14:25 11/30/22 14:30 11/30/22 14:31 Pulse Rate 70 70 70 Respiratory Rate Blood Pressure Pulse Oximetry 97 97 97 Oxygen Delivery Method 11/30/22 14:31 11/30/22 14:35 11/30/22 14:40 Pulse Rate 70 71 Respiratory Rate Blood Pressure 134/60 Pulse Oximetry 97 97 Oxygen Delivery Method 11/30/22 14:45 11/30/22 14:50 11/30/22 14:55 Pulse Rate 70 70 70 Respiratory Rate Blood Pressure Pulse Oximetry 97 97 96 Oxygen Delivery Method 11/30/22 15:00 11/30/22 15:01 11/30/22 15:01 Pulse Rate 70 70 Respiratory Rate Blood Pressure 124/56 L Pulse Oximetry 97 96 Oxygen Delivery Method 11/30/22 15:05 11/30/22 15:10 11/30/22 15:15 Pulse Rate 73 84 73 Respiratory Rate Blood Pressure Pulse Oximetry 96 97 97 Oxygen Delivery Method 11/30/22 16:27 11/30/22 16:47 Pulse Rate 74 72 Respiratory Rate 16 20 Blood Pressure 124/57 L Pulse Oximetry 96 95 Oxygen Delivery Method High Flow Nasal Cannula MDM - Fall <Vee De, DO - Last Filed: 11/30/22 18:14> Lab Data 11/30/22 08:25 11/30/22 08:25 Labs: Lab Results 11/29/22 11/29/22 11/29/22 Range/Units 16:05 16:05 16:05 WBC (4.5-11.0) X10^3/uL RBC (4.0-5.2) X10^6/uL Hgb (12.0-16.0) g/dL Hct (36-46) % MCV (80-100) fL MCH (26-34) PG MCHC (30-36) % RDW (11.6-14.8) % Plt Count (150-400) X10^3/uL Neut % (Auto) (50-75) % Lymph % (Auto) (25-40) % [place] % (Auto) (3-14) % Eos % (Auto) (2-4) % Baso % (Auto) (0-2) % Neut # (Auto) (4031-1037) /uL Lymph # (Auto) (8943-4163) /uL [place] # (Auto) (0-900) /uL Eos # (Auto) (0-450) /uL Baso # (Auto) (0-100) /uL PT 12.0 (10.1-12.7) SECONDS INR 1.0 (0.9-1.3) APTT 27 (26-36) SECONDS Sodium (137-145) mmol/L Potassium (3.4-5.1) mmol/L Chloride (98-107) mmol/L Carbon Dioxide (22-32) mmol/L BUN (7-17) mg/dL Creatinine (0.52-1.04) mg/dL Estimated GFR (>60) mL/min BUN/Creatinine Ratio (6-22) Glucose (80-110) mg/dL Lactate 2.1 (0.7-2.1) mmol/L Calcium (8.4-10.2) mg/dL Total Bilirubin (0.2-1.3) mg/dL AST (14-36) IU/L ALT (<35) IU/L Alkaline Phosphatase (38-126) U/L Ammonia < 9 L (9-30) umol/L Total Creatine Kinase (30-135) U/L Troponin I (0.01-0.034) ng/mL NT-Pro-B Natriuret Pep (<450) pg/mL Total Protein (6.3-8.2) g/dL Albumin (3.5-5.0) g/dL Globulin (1.7-4.1) g/dL Albumin/Globulin Ratio (1.0-2.8) Lipase (23-300) U/L SARS-CoV-2 (PCR) (Negative) Influenza A (RT-PCR) (NEGATIVE) Influenza B (RT-PCR) (NEGATIVE) RSV (PCR) (Negative) 11/29/22 11/29/22 11/29/22 Range/Units 16:05 16:05 16:05 WBC 13.6 H (4.5-11.0) X10^3/uL RBC 3.31 L (4.0-5.2) X10^6/uL Hgb 11.1 L (12.0-16.0) g/dL Hct 34.0 L (36-46) % MCV 102.9 H (80-100) fL MCH 33.6 (26-34) PG MCHC 32.6 (30-36) % RDW 15.1 H (11.6-14.8) % Plt Count 389 (150-400) X10^3/uL Neut % (Auto) 88.4 H (50-75) % Lymph % (Auto) 4.4 L (25-40) % [place] % (Auto) 6.5 (3-14) % Eos % (Auto) 0.0 L (2-4) % Baso % (Auto) 0.7 (0-2) % Neut # (Auto) 78843 H (3606-8109) /uL Lymph # (Auto) 600 L (4710-4687) /uL [place] # (Auto) 900 (0-900) /uL Eos # (Auto) 0 (0-450) /uL Baso # (Auto) 100 (0-100) /uL PT (10.1-12.7) SECONDS INR (0.9-1.3) APTT (26-36) SECONDS Sodium 143 (137-145) mmol/L Potassium 4.0 (3.4-5.1) mmol/L Chloride 99 (98-107) mmol/L Carbon Dioxide 22 (22-32) mmol/L BUN 72 H (7-17) mg/dL Creatinine 10.1 H* (0.52-1.04) mg/dL Estimated GFR 4 L (>60) mL/min BUN/Creatinine Ratio 7.1 (6-22) Glucose 166 H (80-110) mg/dL Lactate (0.7-2.1) mmol/L Calcium 10.7 H (8.4-10.2) mg/dL Total Bilirubin 0.7 (0.2-1.3) mg/dL AST 143 H (14-36) IU/L ALT 41 H (<35) IU/L Alkaline Phosphatase 109 (38-126) U/L Ammonia (9-30) umol/L Total Creatine Kinase 4113 H (30-135) U/L Troponin I 0.026 (0.01-0.034) ng/mL NT-Pro-B Natriuret Pep 69756 H (<450) pg/mL Total Protein 7.3 (6.3-8.2) g/dL Albumin 4.2 (3.5-5.0) g/dL Globulin 3.1 (1.7-4.1) g/dL Albumin/Globulin Ratio 1.4 (1.0-2.8) Lipase 16 L (23-300) U/L SARS-CoV-2 (PCR) (Negative) Influenza A (RT-PCR) (NEGATIVE) Influenza B (RT-PCR) (NEGATIVE) RSV (PCR) (Negative) 11/29/22 11/30/22 11/30/22 Range/Units 18:52 08:25 08:25 WBC 11.4 H (4.5-11.0) X10^3/uL RBC 2.78 L (4.0-5.2) X10^6/uL Hgb 9.5 L (12.0-16.0) g/dL Hct 29.0 L (36-46) % MCV 104.4 H (80-100) fL MCH 34.0 (26-34) PG MCHC 32.6 (30-36) % RDW 14.9 H (11.6-14.8) % Plt Count 311 (150-400) X10^3/uL Neut % (Auto) 78.8 H (50-75) % Lymph % (Auto) 9.6 L (25-40) % [place] % (Auto) 10.4 (3-14) % Eos % (Auto) 0.5 L (2-4) % Baso % (Auto) 0.7 (0-2) % Neut # (Auto) 9000 H (6698-1318) /uL Lymph # (Auto) 1100 (2879-2184) /uL [place] # (Auto) 1200 H (0-900) /uL Eos # (Auto) 100 (0-450) /uL Baso # (Auto) 100 (0-100) /uL PT (10.1-12.7) SECONDS INR (0.9-1.3) APTT (26-36) SECONDS Sodium 145 (137-145) mmol/L Potassium 4.5 (3.4-5.1) mmol/L Chloride 105 (98-107) mmol/L Carbon Dioxide 22 (22-32) mmol/L BUN 77 H (7-17) mg/dL Creatinine 10.86 H* (0.52-1.04) mg/dL Estimated GFR 3 L (>60) mL/min BUN/Creatinine Ratio 7.1 (6-22) Glucose 130 H (80-110) mg/dL Lactate 1.2 (0.7-2.1) mmol/L Calcium 10.2 (8.4-10.2) mg/dL Total Bilirubin (0.2-1.3) mg/dL AST (14-36) IU/L ALT (<35) IU/L Alkaline Phosphatase (38-126) U/L Ammonia (9-30) umol/L Total Creatine Kinase 2314 H D (30-135) U/L Troponin I (0.01-0.034) ng/mL NT-Pro-B Natriuret Pep (<450) pg/mL Total Protein (6.3-8.2) g/dL Albumin (3.5-5.0) g/dL Globulin (1.7-4.1) g/dL Albumin/Globulin Ratio (1.0-2.8) Lipase (23-300) U/L SARS-CoV-2 (PCR) (Negative) Influenza A (RT-PCR) (NEGATIVE) Influenza B (RT-PCR) (NEGATIVE) RSV (PCR) (Negative) 11/30/22 Range/Units 11:50 WBC (4.5-11.0) X10^3/uL RBC (4.0-5.2) X10^6/uL Hgb (12.0-16.0) g/dL Hct (36-46) % MCV (80-100) fL MCH (26-34) PG MCHC (30-36) % RDW (11.6-14.8) % Plt Count (150-400) X10^3/uL Neut % (Auto) (50-75) % Lymph % (Auto) (25-40) % [place] % (Auto) (3-14) % Eos % (Auto) (2-4) % Baso % (Auto) (0-2) % Neut # (Auto) (5436-6597) /uL Lymph # (Auto) (7582-6603) /uL [place] # (Auto) (0-900) /uL Eos # (Auto) (0-450) /uL Baso # (Auto) (0-100) /uL PT (10.1-12.7) SECONDS INR (0.9-1.3) APTT (26-36) SECONDS Sodium (137-145) mmol/L Potassium (3.4-5.1) mmol/L Chloride (98-107) mmol/L Carbon Dioxide (22-32) mmol/L BUN (7-17) mg/dL Creatinine (0.52-1.04) mg/dL Estimated GFR (>60) mL/min BUN/Creatinine Ratio (6-22) Glucose (80-110) mg/dL Lactate (0.7-2.1) mmol/L Calcium (8.4-10.2) mg/dL Total Bilirubin (0.2-1.3) mg/dL AST (14-36) IU/L ALT (<35) IU/L Alkaline Phosphatase (38-126) U/L Ammonia (9-30) umol/L Total Creatine Kinase (30-135) U/L Troponin I (0.01-0.034) ng/mL NT-Pro-B Natriuret Pep (<450) pg/mL Total Protein (6.3-8.2) g/dL Albumin (3.5-5.0) g/dL Globulin (1.7-4.1) g/dL Albumin/Globulin Ratio (1.0-2.8) Lipase (23-300) U/L SARS-CoV-2 (PCR) Negative (Negative) Influenza A (RT-PCR) Flu a negative (NEGATIVE) Influenza B (RT-PCR) Flu b negative (NEGATIVE) RSV (PCR) Negative (Negative) Point of Care Testing Glucose POC [address] scan - head: Radiologist's Impression: PROCEDURE:? CT HEAD/BRAIN WO CON ? INDICATIONS:? found down ? TECHNIQUE:? Noncontrast 4.5 mm thick angled axial sections acquired from the foramen magnum to the vertex, with coronal and sagittal reformats.? For radiation dose reduction, the following was used:? automated exposure control, adjustment of mA and/or kV according to patient size.? ? COMPARISON:? [facility], CT, CT HEAD/BRAIN WO CON, 11/05/2022, 21:56. ? FINDINGS:? Image quality:? Excellent.? ? CSF spaces:? Basal cisterns are patent.? No extra-axial fluid collections.? Ventricles are normal in size and shape.? ? Brain:? No midline shift.? No intracranial masses or hemorrhage.? Al[place]-white matter interface is normal.? Moderate cerebral and cerebellar volume loss with multifocal white matter chronic ischemic change noted.? Atherosclerotic calcification noted associated with cavernous segments of both internal carotid arteries. ? Skull and face:? Calvarium and visualized facial bones are intact, without suspicious lesions.? Bilateral intraocular lens replacements noted. ? Sinuses:? Visualized sinuses and mastoids are clear.? ? IMPRESSION:? ? Atrophy and chronic ischemic change without acute hemorrhage or mass effect ? ? ? Approved by: Nawaf Chan M.D. on 11/29/2022 at 17:22? CT - cervical spine: Radiologist's Impression: PROCEDURE:? CT CERVICAL SPINE WO CON ? INDICATIONS:? found down ? TECHNIQUE:? Noncontrast 3 mm thick sections acquired from the skull base to the T4 level.? Sagittal and coronal reformats were then constructed.? For radiation dose reduction, the following was used:? automated exposure control, adjustment of mA and/or kV according to patient size.? ? COMPARISON:? [facility], CT, CT CERVICAL SPINE WO CON, 07/03/2020, 16:08. ? FINDINGS:? Image quality:? Excellent.? ? Bones:? No fractures or dislocations.? Visualized superior ribs are intact.? Disc space narrowing and hypertrophic facet joints in the mid to lower cervical spine associated with grade 1 anterior spondylolisthesis C4-5. ? At C3-4, central disc protrusion results in at least moderate central stenosis with indentation of the ventral cord.? At C5-6, hypertrophic uncovertebral joints results in severe right foraminal stenosis. ? Soft tissues:? Prevertebral soft tissues are normal in thickness.? No paravertebral hematomas.? No apical pneumothoraces.? ? ? IMPRESSION:? ? Multilevel degenerative disc disease and arthropathy without fracture or traumatic malalignment ? Approved by: Nawaf Chan M.D. on 11/29/2022 at 17:20? Chest x-ray: Radiologist's Impression: PROCEDURE:? XR CHEST 1V ? INDICATIONS:? chest pain ? TECHNIQUE:? One view of the chest was acquired.? ? COMPARISON:? [facility], CR, XR CHEST 1V, 11/05/2022, 20:53. ? FINDINGS:? ? Surgical changes and devices:? Dual lead right-sided transvenous pacemaker. ? Lungs and pleura:? Diffuse thickening of the interstitial markings in the perihilar and upper lobe regions.? No dense consolidations.? Possible right pleural effusion. ? Mediastinum:? Moderate cardiomegaly.? Diffusely prominent central venous structures.? Stable aortic contour. ? Bones and chest wall:? No suspicious bony lesions.? Overlying soft tissues appear unremarkable.? ? IMPRESSION:? ? 1. Cardiomegaly and findings central vascular and interstitial congestion.? Pneumonitis is less likely, but not excluded.? ? ? Dictated by: Marta Ibrahim M.D. on 11/29/2022 at 17:07 ? ? Approved by: Marta Ibrahim M.D. on 11/29/2022 at 17:08 ? ECG Data Interpretation: Artifact noted rate SC interval [address] elevations or changes MDM Narrative Medical decision making narrative: Patient 77-year-old female history of chronic kidney disease who has likely missed dialysis recently creatinine today is 10 higher than it was previously she appears to be fluid overloaded requiring small amount of oxygen x-ray looks fluid overloaded she is also in mild rhabdo with a CPK in the 4000. Discussed with her goals of care does not sound like she wants intubation or CPR last pulse form does show DNR with selective treatment. She is still wanting to continue dialysis. I spoken to her daughter on the phone who also is hesitant her full code. Patient's actually started hallucinating some which daughter reports she thinks she is not in her right mental state and has not been for a little while. There is no evidence of infection. She is subcutaneous hemorrhage likely from subcu heparin. No evidence of intracranial hemorrhage head CT and C-spine are negative. [facility]. Her potassium is stable no need for emergent dialysis but urgent dialysis for sure with volume overload. I did discuss with patient if she might want a central line and vasopressors answer was not clear. Patient signed out to Dr. Dave acosta: Patient has done well overnight. She continues to have frequent loose bowel movements that are formed but not diarrhea. She is not had any deterioration in her respiratory status. Nursing staff has been turning patient frequently because bedsores. Earlier in the morning she did refuse to have nursing staff clean her up or turn her. This was despite nursing explaining to her the importance of doing so. Care turned over to Dr. De for disposition. 11/30/22 Dr. de 8am-patient is a 77-year-old female seen evaluated by myself this morning. Today she is much more confused angry wanting people to get out of her room. Glucose 142. Morning blood work still pending. She remains on multiple this. I attempted calling the daughter left her message. She remains on high-flow for hypoxia. She frequently has episodes where she is fluid overloaded from missing dialysis. Daughter is DPOA, waiting for her call back. She reports hallucinating seeing people in the room and talking to people who are not there. Daughter at bedside patient is becoming more somnolent she stable. Blood work does show increase in potassium but no need for emergent dialysis. She is clearly overloaded. Discussion goals of care with daughter. At this time daughter would like to make her comfort measures only stop dialysis initiate hospice orders. Understands decreasing oxygen level as well. Chiquita social work in room 4 conversation. Patient currently appears comfortable. POLST form filled out Dr. Aj updated patient's symptoms test results will need to talk to family himself in regards to withdrawal of care. <Christian Acosta, DO - Last Filed: 11/30/22 21:52> Lab Data Labs: Lab Results 11/29/22 11/29/22 11/29/22 Range/Units 16:05 16:05 16:05 WBC (4.5-11.0) X10^3/uL RBC (4.0-5.2) X10^6/uL Hgb (12.0-16.0) g/dL Hct (36-46) % MCV (80-100) fL MCH (26-34) PG MCHC (30-36) % RDW (11.6-14.8) % Plt Count (150-400) X10^3/uL Neut % (Auto) (50-75) % Lymph % (Auto) (25-40) % [place] % (Auto) (3-14) % Eos % (Auto) (2-4) % Baso % (Auto) (0-2) % Neut # (Auto) (9353-6868) /uL Lymph # (Auto) (9428-7519) /uL [place] # (Auto) (0-900) /uL Eos # (Auto) (0-450) /uL Baso # (Auto) (0-100) /uL PT 12.0 (10.1-12.7) SECONDS INR 1.0 (0.9-1.3) APTT 27 (26-36) SECONDS Sodium (137-145) mmol/L Potassium (3.4-5.1) mmol/L Chloride (98-107) mmol/L Carbon Dioxide (22-32) mmol/L BUN (7-17) mg/dL Creatinine (0.52-1.04) mg/dL Estimated GFR (>60) mL/min BUN/Creatinine Ratio (6-22) Glucose (80-110) mg/dL Lactate 2.1 (0.7-2.1) mmol/L Calcium (8.4-10.2) mg/dL Total Bilirubin (0.2-1.3) mg/dL AST (14-36) IU/L ALT (<35) IU/L Alkaline Phosphatase (38-126) U/L Ammonia < 9 L (9-30) umol/L Total Creatine Kinase (30-135) U/L Troponin I (0.01-0.034) ng/mL NT-Pro-B Natriuret Pep (<450) pg/mL Total Protein (6.3-8.2) g/dL Albumin (3.5-5.0) g/dL Globulin (1.7-4.1) g/dL Albumin/Globulin Ratio (1.0-2.8) Lipase (23-300) U/L SARS-CoV-2 (PCR) (Negative) Influenza A (RT-PCR) (NEGATIVE) Influenza B (RT-PCR) (NEGATIVE) RSV (PCR) (Negative) 11/29/22 11/29/22 11/29/22 Range/Units 16:05 16:05 16:05 WBC 13.6 H (4.5-11.0) X10^3/uL RBC 3.31 L (4.0-5.2) X10^6/uL Hgb 11.1 L (12.0-16.0) g/dL Hct 34.0 L (36-46) % MCV 102.9 H (80-100) fL MCH 33.6 (26-34) PG MCHC 32.6 (30-36) % RDW 15.1 H (11.6-14.8) % Plt Count 389 (150-400) X10^3/uL Neut % (Auto) 88.4 H (50-75) % Lymph % (Auto) 4.4 L (25-40) % [place] % (Auto) 6.5 (3-14) % Eos % (Auto) 0.0 L (2-4) % Baso % (Auto) 0.7 (0-2) % Neut # (Auto) 27887 H (5510-2396) /uL Lymph # (Auto) 600 L (0916-1417) /uL [place] # (Auto) 900 (0-900) /uL Eos # (Auto) 0 (0-450) /uL Baso # (Auto) 100 (0-100) /uL PT (10.1-12.7) SECONDS INR (0.9-1.3) APTT (26-36) SECONDS Sodium 143 (137-145) mmol/L Potassium 4.0 (3.4-5.1) mmol/L Chloride 99 (98-107) mmol/L Carbon Dioxide 22 (22-32) mmol/L BUN 72 H (7-17) mg/dL Creatinine 10.1 H* (0.52-1.04) mg/dL Estimated GFR 4 L (>60) mL/min BUN/Creatinine Ratio 7.1 (6-22) Glucose 166 H (80-110) mg/dL Lactate (0.7-2.1) mmol/L Calcium 10.7 H (8.4-10.2) mg/dL Total Bilirubin 0.7 (0.2-1.3) mg/dL AST 143 H (14-36) IU/L ALT 41 H (<35) IU/L Alkaline Phosphatase 109 (38-126) U/L Ammonia (9-30) umol/L Total Creatine Kinase 4113 H (30-135) U/L Troponin I 0.026 (0.01-0.034) ng/mL NT-Pro-B Natriuret Pep 80856 H (<450) pg/mL Total Protein 7.3 (6.3-8.2) g/dL Albumin 4.2 (3.5-5.0) g/dL Globulin 3.1 (1.7-4.1) g/dL Albumin/Globulin Ratio 1.4 (1.0-2.8) Lipase 16 L (23-300) U/L SARS-CoV-2 (PCR) (Negative) Influenza A (RT-PCR) (NEGATIVE) Influenza B (RT-PCR) (NEGATIVE) RSV (PCR) (Negative) 11/29/22 11/30/22 11/30/22 Range/Units 18:52 08:25 08:25 WBC 11.4 H (4.5-11.0) X10^3/uL RBC 2.78 L (4.0-5.2) X10^6/uL Hgb 9.5 L (12.0-16.0) g/dL Hct 29.0 L (36-46) % MCV 104.4 H (80-100) fL MCH 34.0 (26-34) PG MCHC 32.6 (30-36) % RDW 14.9 H (11.6-14.8) % Plt Count 311 (150-400) X10^3/uL Neut % (Auto) 78.8 H (50-75) % Lymph % (Auto) 9.6 L (25-40) % [place] % (Auto) 10.4 (3-14) % Eos % (Auto) 0.5 L (2-4) % Baso % (Auto) 0.7 (0-2) % Neut # (Auto) 9000 H (4578-2497) /uL Lymph # (Auto) 1100 (7268-5199) /uL [place] # (Auto) 1200 H (0-900) /uL Eos # (Auto) 100 (0-450) /uL Baso # (Auto) 100 (0-100) /uL PT (10.1-12.7) SECONDS INR (0.9-1.3) APTT (26-36) SECONDS Sodium 145 (137-145) mmol/L Potassium 4.5 (3.4-5.1) mmol/L Chloride 105 (98-107) mmol/L Carbon Dioxide 22 (22-32) mmol/L BUN 77 H (7-17) mg/dL Creatinine 10.86 H* (0.52-1.04) mg/dL Estimated GFR 3 L (>60) mL/min BUN/Creatinine Ratio 7.1 (6-22) Glucose 130 H (80-110) mg/dL Lactate 1.2 (0.7-2.1) mmol/L Calcium 10.2 (8.4-10.2) mg/dL Total Bilirubin (0.2-1.3) mg/dL AST (14-36) IU/L ALT (<35) IU/L Alkaline Phosphatase (38-126) U/L Ammonia (9-30) umol/L Total Creatine Kinase 2314 H D (30-135) U/L Troponin I (0.01-0.034) ng/mL NT-Pro-B Natriuret Pep (<450) pg/mL Total Protein (6.3-8.2) g/dL Albumin (3.5-5.0) g/dL Globulin (1.7-4.1) g/dL Albumin/Globulin Ratio (1.0-2.8) Lipase (23-300) U/L SARS-CoV-2 (PCR) (Negative) Influenza A (RT-PCR) (NEGATIVE) Influenza B (RT-PCR) (NEGATIVE) RSV (PCR) (Negative) 11/30/22 Range/Units 11:50 WBC (4.5-11.0) X10^3/uL RBC (4.0-5.2) X10^6/uL Hgb (12.0-16.0) g/dL Hct (36-46) % MCV (80-100) fL MCH (26-34) PG MCHC (30-36) % RDW (11.6-14.8) % Plt Count (150-400) X10^3/uL Neut % (Auto) (50-75) % Lymph % (Auto) (25-40) % [place] % (Auto) (3-14) % Eos % (Auto) (2-4) % Baso % (Auto) (0-2) % Neut # (Auto) (9114-8853) /uL Lymph # (Auto) (6894-3879) /uL [place] # (Auto) (0-900) /uL Eos # (Auto) (0-450) /uL Baso # (Auto) (0-100) /uL PT (10.1-12.7) SECONDS INR (0.9-1.3) APTT (26-36) SECONDS Sodium (137-145) mmol/L Potassium (3.4-5.1) mmol/L Chloride (98-107) mmol/L Carbon Dioxide (22-32) mmol/L BUN (7-17) mg/dL Creatinine (0.52-1.04) mg/dL Estimated GFR (>60) mL/min BUN/Creatinine Ratio (6-22) Glucose (80-110) mg/dL Lactate (0.7-2.1) mmol/L Calcium (8.4-10.2) mg/dL Total Bilirubin (0.2-1.3) mg/dL AST (14-36) IU/L ALT (<35) IU/L Alkaline Phosphatase (38-126) U/L Ammonia (9-30) umol/L Total Creatine Kinase (30-135) U/L Troponin I (0.01-0.034) ng/mL NT-Pro-B Natriuret Pep (<450) pg/mL Total Protein (6.3-8.2) g/dL Albumin (3.5-5.0) g/dL Globulin (1.7-4.1) g/dL Albumin/Globulin Ratio (1.0-2.8) Lipase (23-300) U/L SARS-CoV-2 (PCR) Negative (Negative) Influenza A (RT-PCR) Flu a negative (NEGATIVE) Influenza B (RT-PCR) Flu b negative (NEGATIVE) RSV (PCR) Negative (Negative) Point of Care Testing Glucose POC 121 MDM Narrative Medical decision making narrative: Patient 77-year-old female history of chronic kidney disease who has likely missed dialysis recently creatinine today is 10 higher than it was previously she appears to be fluid overloaded requiring small amount of oxygen x-ray looks fluid overloaded she is also in mild rhabdo with a CPK in the 4000. Discussed with her goals of care does not sound like she wants intubation or CPR last pulse form does show DNR with selective treatment. She is still wanting to continue dialysis. I spoken to her daughter on the phone who also is hesitant her full code. Patient's actually started hallucinating some which daughter reports she thinks she is not in her right mental state and has not been for a little while. There is no evidence of infection. She is subcutaneous hemorrhage likely from subcu heparin. No evidence of intracranial hemorrhage head CT and C-spine are negative. [facility]. Her potassium is stable no need for emergent dialysis but urgent dialysis for sure with volume overload. I did discuss with patient if she might want a central line and vasopressors answer was not clear. Patient signed out to Dr. Dave acosta: Patient has done well overnight. She continues to have frequent loose bowel movements that are formed but not diarrhea. She is not had any deterioration in her respiratory status. Nursing staff has been turning patient frequently because bedsores. Earlier in the morning she did refuse to have nursing staff clean her up or turn her. This was despite nursing explaining to her the importance of doing so. Care turned over to Dr. De for disposition. Critical Care Time <Vee De, DO - Last Filed: 11/30/22 18:14> Critical Care Time Critical Care Time: Yes Total Critical Care Time: 60 Attestation: The high probability of a clinically significant, sudden or life threatening deterioration of the [cardiovascular] system(s) required my full and direct attention, intervention and personal management. The aggregate critical care time was 60 minutes. This time is in addition to time spent performing reported procedures but includes the following: [x] Data Review and interpretation [x] Patient assessment and monitoring of vital signs [x] Documentation [x] Medication orders and management Discharge Plan Departure Patient Disposition: Admitted as Observation Clinical Impression: End stage chronic kidney disease, Congestive heart failure Admit Date/Time: 11/30/22 16:56 Admit Provider: Jace Coles
--- NOTE | 2022-11-29 15:41 | DI.CT.S_ITS ---
PROCEDURE: CT HEAD/BRAIN WO CON INDICATIONS: found down TECHNIQUE: Noncontrast 4.5 mm thick angled axial sections acquired from the foramen magnum to the vertex, with coronal and sagittal reformats. For radiation dose reduction, the following was used: automated exposure control, adjustment of mA and/or kV according to patient size. COMPARISON: [facility], CT, CT HEAD/BRAIN WO CON, 11/05/2022, 21:56. FINDINGS: Image quality: Excellent. CSF spaces: Basal cisterns are patent. No extra-axial fluid collections. Ventricles are normal in size and shape. Brain: No midline shift. No intracranial masses or hemorrhage. Alford-white matter interface is normal. Moderate cerebral and cerebellar volume loss with multifocal white matter chronic ischemic change noted. Atherosclerotic calcification noted associated with cavernous segments of both internal carotid arteries. Skull and face: Calvarium and visualized facial bones are intact, without suspicious lesions. Bilateral intraocular lens replacements noted. Sinuses: Visualized sinuses and mastoids are clear. IMPRESSION: Atrophy and chronic ischemic change without acute hemorrhage or mass effect Approved by: Nawaf Chan M.D. on 11/29/2022 at 17:22
--- NOTE | 2022-11-29 15:41 | DI.CT.S_ITS ---
PROCEDURE: CT CERVICAL SPINE WO CON INDICATIONS: found down TECHNIQUE: Noncontrast 3 mm thick sections acquired from the skull base to the T4 level. Sagittal and coronal reformats were then constructed. For radiation dose reduction, the following was used: automated exposure control, adjustment of mA and/or kV according to patient size. COMPARISON: [facility], CT, CT CERVICAL SPINE WO CON, 07/03/2020, 16:08. FINDINGS: Image quality: Excellent. Bones: No fractures or dislocations. Visualized superior ribs are intact. Disc space narrowing and hypertrophic facet joints in the mid to lower cervical spine associated with grade 1 anterior spondylolisthesis C4-5. At C3-4, central disc protrusion results in at least moderate central stenosis with indentation of the ventral cord. At C5-6, hypertrophic uncovertebral joints results in severe right foraminal stenosis. Soft tissues: Prevertebral soft tissues are normal in thickness. No paravertebral hematomas. No apical pneumothoraces. IMPRESSION: Multilevel degenerative disc disease and arthropathy without fracture or traumatic malalignment Approved by: Nawaf Chan M.D. on 11/29/2022 at 17:20
--- NOTE | 2022-11-29 15:42 | DI.RAD.S_ITS ---
PROCEDURE: XR CHEST 1V INDICATIONS: chest pain TECHNIQUE: One view of the chest was acquired. COMPARISON: [facility], CR, XR CHEST 1V, 11/05/2022, 20:53. FINDINGS: Surgical changes and devices: Dual lead right-sided transvenous pacemaker. Lungs and pleura: Diffuse thickening of the interstitial markings in the perihilar and upper lobe regions. No dense consolidations. Possible right pleural effusion. Mediastinum: Moderate cardiomegaly. Diffusely prominent central venous structures. Stable aortic contour. Bones and chest wall: No suspicious bony lesions. Overlying soft tissues appear unremarkable. IMPRESSION: 1. Cardiomegaly and findings central vascular and interstitial congestion. Pneumonitis is less likely, but not excluded. Dictated by: Marta Ibrahim M.D. on 11/29/2022 at 17:07 Approved by: Marta Ibrahim M.D. on 11/29/2022 at 17:08
[2022-11-29 16:21] LABS: Add Manual Diff / Slide Review NO; Basophils Absolute Auto 100 /uL (0-100); Basophils Percent Auto 0.7 % (0-2); Eosinophils Absolute Auto 0 /uL (0-450); Hemoglobin 11.1 g/dL (12.0-16.0); Lymphocytes Absolute Auto 600 /uL (1100-4500); Lymphocytes Percent Auto 4.4 % (25-40); Mean Corpuscular HGB Conc 32.6 % (30-36); Mean Corpuscular Hemoglobin 33.6 PG (26-34); Mean Corpuscular Volume 102.9 fL (80-100); Monocytes Absolute Auto 900 /uL (0-900); Monocytes Percent Auto 6.5 % (3-14); Neutrophils Absolute Auto 12000 /uL (1500-7000); Neutrophils Percent Auto 88.4 % (50-75); Platelet Count 389 X10^3/uL (150-400); Red Blood Cell Count 3.31 X10^6/uL (4.0-5.2); Red Cell Distribution Width 15.1 % (11.6-14.8); White Blood Cell Count 13.6 X10^3/uL (4.5-11.0)
[2022-11-29 16:30] LABS: PTT Partial Thromboplastin Tim 27 SECONDS (26-36)
[2022-11-29 16:32] LABS: Ammonia (NH3) < 9 umol/L (9-30); Lactate (Lactic Acid) 2.1 mmol/L (0.7-2.1)
[2022-11-29 16:33] LABS: Alanine Aminotransferase 41 IU/L (<35); Albumin 4.2 g/dL (3.5-5.0); Albumin Globulin Ratio 1.4 (1.0-2.8); Alkaline Phosphatase 109 U/L (38-126); Aspartate Aminotransferase 143 IU/L (14-36); BUN Creatinine Ratio 7.1 (6-22); Bilirubin Total 0.7 mg/dL (0.2-1.3); Blood Urea Nitrogen 72 mg/dL (7-17); Calcium 10.7 mg/dL (8.4-10.2); Carbon Dioxide 22 mmol/L (22-32); Chloride 99 mmol/L (98-107); Estimated Glomerular Filt Rate 4 mL/min (>60); Globulin 3.1 g/dL (1.7-4.1); Glucose 166 mg/dL (80-110); Lipase 16 U/L (23-300); Sodium 143 mmol/L (137-145); Total Protein 7.3 g/dL (6.3-8.2)
[2022-11-29] MEDS: SODIUM CHLORIDE 0.9% 1,000 ML 1000 ML IV (16:34)
[2022-11-29 16:44] LABS: Troponin I 0.026 ng/mL (0.01-0.034)
[2022-11-29 16:54] LABS: Creatine Kinase 4113 U/L (30-135); HEMOLYSIS 25 (0-50)
--- NOTE | 2022-11-29 16:56 | PC.NURSE ---
Bolus infusion stopped per provider verbal order.
--- NOTE | 2022-11-29 17:46 | PC.NURSE ---
Purewick placed with page technician Dexter as witness. Patient denies having any pain at this time. Patient delmar care performed.
[2022-11-29 17:50] LABS: NT-proBNP (BNP-Adult 18+) 29500 pg/mL (<450)
--- NOTE | 2022-11-29 18:00 | PC.NURSE ---
REDUCTION FURNACE OPERATOR note: pt. has been seen at . This REDUCTION FURNACE OPERATOR contacted transfer center at and pt. is on waiting list.
[2022-11-29] MEDS: SODIUM CHLORIDE 0.9% 1,000 ML 100 ML IV (18:13)
[2022-11-29 18:19] LABS: Reflexed Lactate in 2 Hours Y
[2022-11-29 19:11] LABS: Lactate 2HR (Lactic Acid Rflx) 1.2 mmol/L (0.7-2.1)
--- NOTE | 2022-11-29 19:22 | PC.NURSE ---
Patient has 3.5cm long and 2.5 cm wide unstagable pressure ulcer. There is a unblancable center 1cm diamemter that is covered in eschkar. Patient remaining area has bleachable at the parameter but is slough between the eschkar.
--- NOTE | 2022-11-29 22:54 | PC.NURSE ---
Pt transferred from ED stretcher to inpatient hospital bed. Pt incontinent of urine and stool. Pt cleaned. Mepilex placed on coccyx wound. Pillow positioned under patient and in between legs. Pt currently right side lying. Remains on high flow NC 20L FiO2 80%.
[2022-11-30] VITALS (215 sets, daily range): BP systolic 107–182; BP diastolic 51–90; PULSE 70–178; RESP 16–44; TEMP 36.6–37.4; O2SAT 88–99; BMI 52.9
--- NOTE | 2022-11-30 05:57 | PC.NURSE ---
Attempted to repositioned patient and to check pt's incontinence status with PCT. Pt very hostile. Refusing to have this RN or PCT come near patient or touch her. Pt states, You won't do shit. Get out of my room! Multiple verbal attempts and light therapeutic touch attempted, with pt becoming more aggressive, physically pushing staff away. Unable to reason with patient at this time. Pt remains right side lying. Pt also removed gown, will not allow staff to place gown or bed sheet back on patient. Provider aware.
--- NOTE | 2022-11-30 06:27 | PC.NURSE ---
Attempted to reposition and check pt's incontinence status again with PCT. Pt continues to be hostile. Stating, Get out, and No you won't, I will shoot you!
--- NOTE | 2022-11-30 07:12 | PC.NURSE ---
pt is agitated and refused turning/repositioning and care by shouting, for olivia's sake get out of my room!
--- NOTE | 2022-11-30 08:34 | PC.NURSE ---
Pt repositioned, pt is confused this am. Pt persistently shouting get out! get out! get out! get out of my room! RN re-orienting pt, encouraging pt to eat breakfast. Pt allowed RN to draw blood from IV and to check blood sugar. Dr. Bang present at bedside st this time as well.
[2022-11-30 08:36] LABS: Add Manual Diff / Slide Review NO; Basophils Absolute Auto 100 /uL (0-100); Basophils Percent Auto 0.7 % (0-2); Eosinophils Absolute Auto 100 /uL (0-450); Eosinophils Percent Auto 0.5 % (2-4); Hemoglobin 9.5 g/dL (12.0-16.0); Lymphocytes Absolute Auto 1100 /uL (1100-4500); Lymphocytes Percent Auto 9.6 % (25-40); Mean Corpuscular HGB Conc 32.6 % (30-36); Mean Corpuscular Volume 104.4 fL (80-100); Monocytes Absolute Auto 1200 /uL (0-900); Monocytes Percent Auto 10.4 % (3-14); Neutrophils Absolute Auto 9000 /uL (1500-7000); Neutrophils Percent Auto 78.8 % (50-75); Platelet Count 311 X10^3/uL (150-400); Red Blood Cell Count 2.78 X10^6/uL (4.0-5.2); Red Cell Distribution Width 14.9 % (11.6-14.8); White Blood Cell Count 11.4 X10^3/uL (4.5-11.0)
--- NOTE | 2022-11-30 08:40 | PC.NURSE ---
Blood pressure reading low. Cuff on left lower leg due to limited sites to obtain pressure secondary to dialysis site. Informed patient of need to switch blood pressure to right upper arm. No, go away. Tough Shit Patient very resistant and not moving arm. Required multiple attempts to adjust arm to place blood pressure cuff.
[2022-11-30 08:47] LABS: BUN Creatinine Ratio 7.1 (6-22); Blood Urea Nitrogen 77 mg/dL (7-17); Calcium 10.2 mg/dL (8.4-10.2); Carbon Dioxide 22 mmol/L (22-32); Chloride 105 mmol/L (98-107); Estimated Glomerular Filt Rate 3 mL/min (>60); Glucose 130 mg/dL (80-110); HEMOLYSIS < 15 (0-50); Potassium 4.5 mmol/L (3.4-5.1); Sodium 145 mmol/L (137-145)
[2022-11-30 08:55] LABS: Creatine Kinase 2314 U/L (30-135)
--- NOTE | 2022-11-30 11:52 | PC.NURSE ---
Pt had a large BM. RNs explain to pt the importance of cleaning pt up. Pt states It's my poop! Leave it alone! RNs then further educated pt on importance of preventing infection and skin breakdown. 2 RNs and 2 techs then performed delmar care. RN applied dressing to coccyx, Pt has a large unstageable pressure wound on coccyx. RNs and techs then turned pt onto her right side. Pt was bladder scanned and was found to only have 2 cc in bladder. Warm blankets were provided. RN went to place blood pressure cuff on pt's arm and pt threatened RN If I get to kill you in my life time, I will RN then left room with call light in reach in bed in lowest position.
[2022-11-30 12:35] LABS: Influenza A - CEPHEID Flu A NEGATIVE (NEGATIVE); Influenza B - CEPHEID Flu B NEGATIVE (NEGATIVE); Respiratory Syncytial Virus Negative (Negative)
[2022-11-30 13:10] LABS: COVID-19 CEPHEID 4-PLEX PCR Negative (Negative)
--- NOTE | 2022-11-30 16:03 | CM.SWNOTE ---
ED RANGE CONSERVATIONIST Note Patient is 77 y/o female who presents to ED yesterday via EMS due to concern for GLF, patient had recent hospital stay at [facility] from 11/06/22-11/26/22 due to Acute hypoxemic respiratory failure, NSTEMI, ESRD on Dialysis and Hypotension. Patient was discharged to home upon d/c. It is reported that daughter was concerned for patient and called for a welfare check which led to patient's presentation to ED. 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 Patient has AARP and Medicare insurance. Patient has hx of ARF (typically has Dialysis on Tuesdays, and Saturdays) It is reported that patient has missed her recent dialysis appts. Per Hardik, patient was previously admitted at [facility] on 11/01/22 and [facility] on 09/22/22. Upon arrival to ED patient was DNR/DNI with selective treatment. Patient's DPOA is daughter Nasra. RANGE CONSERVATIONIST enters room with ED provider to meet with patient and family present is patient's DPOA daughter. Patient is currently on high flow oxygen and unable to contribute to this conversation at the moment. Daughter provides DPOA ppwk and updates patient's POLST form to DNR Comfort Measures only. It is reported that the preference for patient is comfort measures and hospice vs. ongoing dyalisis and transfer to higher level of care hospital. It is reported by daughter that patient has been struggling with ADLs and outpatient f/u since she has been in and out of hospitals for the last few months. Patient resides in [place]. ED provider seeks admission to this hospital for comfort care measures. RANGE CONSERVATIONIST discusses Hospice options with family, family denies preference for hospice agency. RANGE CONSERVATIONIST calls [facility] regarding new referral, it is reported that they can start services by Tuesday. RANGE CONSERVATIONIST faxes Hospice referral to [facility]. RANGE CONSERVATIONIST submits order for Hospice referral. RANGE CONSERVATIONIST provides [facility] referral to patient's daughter/DPOA. RANGE CONSERVATIONIST ensures DPOA ppwk and new POLST form is uploaded to EMR. Plan: Patient to be admitted to Acute care for comfort measures, patient will be taken off high flow oxygen. New referral for [facility] in place, f/u in regards to patient's POC. JAN Nguyen
--- NOTE | 2022-11-30 16:36 | P.EN_ITS ---
Event Note Date Patient Seen: 11/30/22 Time Patient Seen: 16:36 Event Note (Rapid Response, Code, or fall): 77 F with PMH of ESRD on HD T//, HTN, DM, ? CAD with PPM, ? CHF (normal EF 10/01) who presented to the ER after being found down. She was recently discharged from for volume overload in setting of probable missed HD per documentation review. She again presented with volume overload and had been pending transfer for hemodialysis and management of rhabdomyolysis but no bed h ad been found. ER called for admission as family reportedly wished to be comfort care. I am currently awaiting a call-back from patient's daughter to clarify goals of care after review of her case and presentation. As the etiology of her volume overload is likely volume overload from renal failure, she will not improve without HD. If not wishing to continue further dialysis her passing will be imminent. If daughter wishes to proceed without dialysis can admit here under comfort measures only, but I wish to discuss this with daughter directly prior to accepting for admission. I have called and left a message for the daughter and return contact info. Will continue to try and reach via phone throughout the evening as well.
--- NOTE | 2022-11-30 17:08 | P.HP_ITS ---
History of Present Illness History of Present Illness Date Patient Seen: 11/30/22 Time Patient Seen: 16:30 Chief complaint: suspected fall Narrative: 77 F with PMH of ESRD on HD //, HTN, DM, ? CAD with PPM, ? CHF (normal EF 10/01) who presented to the ER after being found down. She was recently discharged from for volume overload in setting of probable missed HD per documentation review. She again presented with volume overload and had been pending transfer for hemodialysis and management of rhabdomyolysis but no bed had been found. ER called for admission as family reportedly wished to be comfort care. I performed advanced care planning with the patient's DPOA (daughter) and discussed plan of care with patient's daughter as patient is not responding to verbal commands at this time in the emergency room. Her daughter did confirm that no further dialysis is wanted for treatment, and that she realizes this will lead to worsening respiratory distress and hypoxia and subsequent passing. They would like to slowly decrease oxygen with increasing m edications for pain and discomfort. Since arrival in the ER, she was doing well. Was ordered for IV fluids overnight. She is currently on high flow at 20 L per minute. [facility] Medical History Bipolar 1 disorder CKD (chronic kidney disease) stage 4, GFR 15-29 ml/min Diabetes Dyslipidemia Hypertension Pacemaker Renal failure (ARF), acute on chronic Surgically constructed arteriovenous fistula Surgical History H/O: S/P cholecystectomy Social History household members: none Smoking Status: Never smoker alcohol intake: never Meds Home Medications and Allergies Home Medications Medication Instructions Recorded Confirmed Type gabapentin 100 mg capsule 100 mg PO QPM ##0 09/06/16 11/30/22 History aspirin 81 mg tablet,delayed 81 mg PO DAILY 08/09/17 11/30/22 History release (Aspir-) atorvastatin 20 mg tablet 40 mg PO QAM 08/09/17 11/30/22 History lamotrigine 150 mg tablet 100 mg PO DAILY 08/09/17 11/30/22 History omeprazole 40 mg capsule,delayed 40 mg PO DAILY 08/09/17 11/30/22 History release citalopram 20 mg tablet 20 mg PO BEDTIME 04/18/18 11/30/22 History fluticasone 250 mcg-salmeterol 50 2 inh inhalation PRN PRN Shortness 11/19/20 11/30/22 History mcg/dose blistr powdr for Of Breath Or Wheezing inhalation (Advair Diskus) insulin glargine 100 unit/mL (3 3 unit SUBCUT Q12-24H 11/19/20 11/30/22 History mL) subcutaneous pen (Lantus Solostar U-100 Insulin) insulin lispro protamine-lispro See Rx Instructions .Route .COMPLEX 11/19/20 11/30/22 History 100 unit/mL (75-25) subcutaneous pen (Humalog Mix 75-25 KwikPen) lactulose 10 gram/15 mL oral 45 ml PO PRN PRN Constipation 11/19/20 11/30/22 History solution (Enulose) midodrine 10 mg tablet 20 mg PO TID 11/19/20 11/30/22 History ropinirole 1 mg tablet 1 mg PO TID 11/19/20 11/30/22 History sevelamer carbonate 800 mg tablet 1,600 mg PO TID 11/19/20 11/30/22 History aripiprazole 5 mg tablet 5 mg PO DAILY 11/30/22 11/30/22 History clopidogrel 75 mg tablet 75 mg PO DAILY 11/30/22 11/30/22 History epoetin tom 3,000 unit/mL 3,000 unit SUBCUT 3XW 11/30/22 11/30/22 History injection solution fluticasone propionate 50 1 spray intranasal DAILY 11/30/22 11/30/22 History mcg/actuation nasal spray,suspension (Allergy Relief (fluticasone)) ipratropium 20 mcg-albuterol 100 1 puff inhalation QID 11/30/22 11/30/22 History mcg/actuation mist for inhalation polyethylene glycol 3350 17 gram 17 g PO DAILY PRN Constipation 11/30/22 11/30/22 History oral powder packet Allergies Allergy/AdvReac Type Severity Reaction Status Date / Time NSAIDS (Non-Steroidal AdvReac Severe CAUSED Verified 05/01/21 09:46 Anti-Inflamma KIDNEY [NSAIDS (NON-STEROIDAL DISEASE ANTI-INFLAMMA] oxycodone [From Percocet] AdvReac Severe Hallucinati Verified 09/21/22 15:27 ng Review of Systems Review of Systems Narrative: Unable to perform given patient's current mental status. Exam Vital Signs (past 8 hours): - 11/30/22 09:13 11/30/22 09:10 11/30/22 09:15 Pulse Rate 86 79 74 Respiratory Rate 22 23 29 H Blood Pressure Pulse Oximetry 96 96 96 Oxygen Delivery Method 11/30/22 09:20 11/30/22 09:25 11/30/22 09:30 Pulse Rate 80 71 70 Respiratory Rate 21 20 20 Blood Pressure Pulse Oximetry 96 96 96 Oxygen Delivery Method 11/30/22 09:31 11/30/22 09:31 11/30/22 09:35 Pulse Rate 72 75 Respiratory Rate 21 22 Blood Pressure 136/62 Pulse Oximetry 96 96 Oxygen Delivery Method 11/30/22 09:40 11/30/22 09:45 11/30/22 09:50 Pulse Rate 73 73 75 Respiratory Rate 23 21 22 Blood Pressure Pulse Oximetry 96 96 97 Oxygen Delivery Method 11/30/22 09:55 11/30/22 10:00 11/30/22 10:01 Pulse Rate 72 74 Respiratory Rate 21 21 Blood Pressure 131/60 Pulse Oximetry 97 97 Oxygen Delivery Method 11/30/22 10:51 11/30/22 10:56 11/30/22 10:01 Pulse Rate 85 85 73 Respiratory Rate 30 H 30 H 22 Blood Pressure Pulse Oximetry 96 96 Oxygen Delivery Method 11/30/22 10:05 11/30/22 10:10 11/30/22 10:15 Pulse Rate 71 75 83 Respiratory Rate 22 24 24 Blood Pressure Pulse Oximetry 97 96 96 Oxygen Delivery Method 11/30/22 10:20 11/30/22 10:25 11/30/22 10:30 Pulse Rate 85 88 Respiratory Rate 23 23 Blood Pressure 141/65 H Pulse Oximetry 96 96 Oxygen Delivery Method 11/30/22 10:30 11/30/22 10:35 11/30/22 10:40 Pulse Rate 84 88 86 Respiratory Rate 21 21 18 Blood Pressure Pulse Oximetry 97 96 97 Oxygen Delivery Method 11/30/22 10:45 11/30/22 10:50 11/30/22 10:55 Pulse Rate 88 84 84 Respiratory Rate 22 20 21 Blood Pressure Pulse Oximetry 97 97 97 Oxygen Delivery Method 11/30/22 11:00 11/30/22 11:05 11/30/22 11:10 Pulse Rate 84 77 77 Respiratory Rate 19 20 20 Blood Pressure Pulse Oximetry 96 96 96 Oxygen Delivery Method 11/30/22 11:15 11/30/22 11:20 11/30/22 11:25 Pulse Rate 74 75 77 Respiratory Rate 21 21 21 Blood Pressure Pulse Oximetry 96 97 95 Oxygen Delivery Method 11/30/22 11:40 11/30/22 11:48 11/30/22 11:48 Pulse Rate 89 78 Respiratory Rate 27 H 30 H Blood Pressure 138/63 Pulse Oximetry 93 96 Oxygen Delivery Method 11/30/22 11:50 11/30/22 11:55 11/30/22 12:00 Pulse Rate 84 84 Respiratory Rate 23 19 Blood Pressure 134/60 Pulse Oximetry 96 98 Oxygen Delivery Method 11/30/22 12:05 11/30/22 12:10 11/30/22 12:15 Pulse Rate 83 72 85 Respiratory Rate 23 28 H 28 H Blood Pressure Pulse Oximetry 96 98 98 Oxygen Delivery Method 11/30/22 12:20 11/30/22 12:57 11/30/22 14:42 Pulse Rate 83 83 83 Respiratory Rate 34 H 22 22 Blood Pressure Pulse Oximetry 98 97 97 Oxygen Delivery Method 11/30/22 12:30 11/30/22 12:31 11/30/22 12:31 Pulse Rate 84 82 Respiratory Rate 26 H 31 H Blood Pressure 137/59 L Pulse Oximetry 98 98 Oxygen Delivery Method 11/30/22 12:35 11/30/22 12:40 11/30/22 12:45 Pulse Rate 78 84 84 Respiratory Rate 33 H 32 H 27 H Blood Pressure Pulse Oximetry 97 97 97 Oxygen Delivery Method 11/30/22 12:50 11/30/22 12:55 11/30/22 13:00 Pulse Rate 79 86 178 H Respiratory Rate 26 H 24 28 H Blood Pressure Pulse Oximetry 98 97 97 Oxygen Delivery Method 11/30/22 13:01 11/30/22 13:01 11/30/22 13:05 Pulse Rate 98 H 86 Respiratory Rate 27 H 25 H Blood Pressure 129/73 Pulse Oximetry 96 96 Oxygen Delivery Method 11/30/22 13:10 11/30/22 13:15 11/30/22 13:20 Pulse Rate 88 89 85 Respiratory Rate Blood Pressure Pulse Oximetry 95 95 93 Oxygen Delivery Method 11/30/22 13:25 11/30/22 13:30 11/30/22 13:35 Pulse Rate 86 86 75 Respiratory Rate 25 H Blood Pressure Pulse Oximetry 92 95 96 Oxygen Delivery Method 11/30/22 13:40 11/30/22 13:45 11/30/22 13:50 Pulse Rate 85 83 74 Respiratory Rate Blood Pressure Pulse Oximetry 93 90 L 94 Oxygen Delivery Method 11/30/22 13:55 11/30/22 14:00 11/30/22 14:01 Pulse Rate 73 70 71 Respiratory Rate Blood Pressure Pulse Oximetry 95 96 96 Oxygen Delivery Method 11/30/22 14:01 11/30/22 14:05 11/30/22 14:10 Pulse Rate 73 73 Respiratory Rate Blood Pressure 139/69 Pulse Oximetry 97 97 Oxygen Delivery Method 11/30/22 14:15 11/30/22 14:20 11/30/22 14:25 Pulse Rate 70 70 70 Respiratory Rate Blood Pressure Pulse Oximetry 97 97 97 Oxygen Delivery Method 11/30/22 14:30 11/30/22 14:31 11/30/22 14:31 Pulse Rate 70 70 Respiratory Rate Blood Pressure 134/60 Pulse Oximetry 97 97 Oxygen Delivery Method 11/30/22 14:35 11/30/22 14:40 11/30/22 14:45 Pulse Rate 70 71 70 Respiratory Rate Blood Pressure Pulse Oximetry 97 97 97 Oxygen Delivery Method 11/30/22 14:50 11/30/22 14:55 11/30/22 15:00 Pulse Rate 70 70 70 Respiratory Rate Blood Pressure Pulse Oximetry 97 96 97 Oxygen Delivery Method 11/30/22 15:01 11/30/22 15:01 11/30/22 15:05 Pulse Rate 70 73 Respiratory Rate Blood Pressure 124/56 L Pulse Oximetry 96 96 Oxygen Delivery Method 11/30/22 15:10 11/30/22 15:15 11/30/22 16:27 Pulse Rate 84 73 74 Respiratory Rate 16 Blood Pressure 124/57 L Pulse Oximetry 97 97 96 Oxygen Delivery Method High Flow Nasal Cannula 11/30/22 16:47 Pulse Rate 72 Respiratory Rate 20 Blood Pressure Pulse Oximetry 95 Oxygen Delivery Method Fraction of Inspired Oxygen 65 SaO2/FiO2 Ratio 144 Oxygen Delivery Method High Flow Nasal Cannula Oxygen Flow Rate 15 Narrative Exam Narrative: Gen: no acute distress, sonorous. Obese. Occasionally opens eyes to voice then falls asleep. Did not wake to sternal rub or pinching of her skin. CV: RRR no m/r/g Pulm: bilateral diffuse rales, poor air movement. Ext: trace bilateral LE edema Objective ECG Impression: Normal sinus rhythm Left axis deviation Nonspecific intraventricular block, stable from prior studies Minimal voltage criteria for LVH, may be normal variant ( [place] product ) T wave abnormality, but not consistent with acute ischemia as interpreted by me. Labs 11/30/22 08:25 11/30/22 08:25 Labs: Laboratory Results - last 24 hr 11/29/22 11/29/22 11/30/22 16:05 18:52 08:25 WBC 11.4 H RBC 2.78 L Hgb 9.5 L Hct 29.0 L MCV 104.4 H MCH 34.0 MCHC 32.6 RDW 14.9 H Plt Count 311 Neut % (Auto) 78.8 H Lymph % (Auto) 9.6 L Motley % (Auto) 10.4 Eos % (Auto) 0.5 L Baso % (Auto) 0.7 Neut # (Auto) 9000 H Lymph # (Auto) 1100 Motley # (Auto) 1200 H Eos # (Auto) 100 Baso # (Auto) 100 Sodium Potassium Chloride Carbon Dioxide BUN Creatinine Estimated GFR BUN/Creatinine Ratio Glucose Lactate 1.2 Calcium Total Creatine Kinase NT-Pro-B Natriuret Pep 41460 H SARS-CoV-2 (PCR) Influenza A (RT-PCR) Influenza B (RT-PCR) RSV (PCR) 11/30/22 11/30/22 08:25 11:50 WBC RBC Hgb Hct MCV MCH MCHC RDW Plt Count Neut % (Auto) Lymph % (Auto) [place] % (Auto) Eos % (Auto) Baso % (Auto) Neut # (Auto) Lymph # (Auto) Motley # (Auto) Eos # (Auto) Baso # (Auto) Sodium 145 Potassium 4.5 Chloride 105 Carbon Dioxide 22 BUN 77 H Creatinine 10.86 H* Estimated GFR 3 L BUN/Creatinine Ratio 7.1 Glucose 130 H Lactate Calcium 10.2 Total Creatine Kinase 2314 H D NT-Pro-B Natriuret Pep SARS-CoV-2 (PCR) Negative Influenza A (RT-PCR) Flu a negative Influenza B (RT-PCR) Flu b negative RSV (PCR) Negative Assessment & Plan Assessment & Plan narrative: 1. Acute respiratory failure with hypoxia due to volume overload from ESRD, with metabolic encephalopathy - likely worsening respiratory status from IV fluids given for rhabdomyolysis overnight. - Patient is not currently responding. Discussed with DPOA, patient's daughter, and no further HD is wanted. Discussed that ultimately respiratory failure and encephalopathy is due to volume overload from ESRD and patient's passing is imminent with no hemodialysis. - Family in agreement for plan to taper O2 after pain and anxiety medications are provided. - Patient's passing appears imminent. - morphine IV and ativan IV prn for pain / dyspnea / anxiety management. - decrease O2 with slow withdrawal of care after pain / anxiety medications provided. 2. Acute rhadbomyolysis. - improved on labs today. No further monitoring after goals of care discussions. 3. Advanced care planning. I have spent 18 minutes involved in the advanced care planning of this patient. Including discussions with patient's DPOA and coordination of care with the ER provider. Chronic conditions - HTN, IDDM, CAD with prior PPM for bradycardia, depression, recent NSTEMI, obesity with probable Obesity hypoventilation syndrome. - given patient's current mentation and goals of care, will hold home medications on admission. Code: DNR/DNI, comfort measures. Patient's daughter is DPOA. DVT: SCDs for comfort only, no chemical ppx. I have utilized all available immediate resources to obtain, update, or review the patient's current medications. Dispo: admit inpatient as patient's passing appears imminent. Likely to pass in a couple of hours. Additional history was obtained via discussion with the ER provider and patient's daughter. I have reviewed patient's EKG, extensively reviewed patient's prior discharge summaries from outside hospitals. Quality MIPS - Admit I confirm the patient?s Advance Care Plan is present, Code status is documented, Surrogate decision maker is in patient?s record [If Yes, STOP here]: Yes
[2022-11-30] MEDS: MORPHINE 4 MG/ML INJ 2 MG IV ×4 (17:32→23:32)
[2022-11-30] MEDS: HALOPERIDOL 5 MG/ML VIAL 2 MG IV (17:34)
--- NOTE | 2022-11-30 18:04 | PC.ADMIT ---
Addendum entered by Venecia Pichardo R.N. 11/30/22 18:45: per plan titrated O2 to 4L NC Original Note: [address] Admission Note: The patient,Manju Bergman,77 y/o, was given written information regarding hospital policies, unit procedures and contact persons. Patient's smoking status: Never smoker. Vital Signs - 8 hr 11/30/22 10:51 11/30/22 10:56 11/30/22 10:05 Pulse Rate 85 85 71 Respiratory Rate 30 H 30 H 22 Blood Pressure Pulse Oximetry 96 97 Oxygen Delivery Method 11/30/22 10:10 11/30/22 10:15 11/30/22 10:20 Pulse Rate 75 83 85 Respiratory Rate 24 24 23 Blood Pressure Pulse Oximetry 96 96 96 Oxygen Delivery Method 11/30/22 10:25 11/30/22 10:30 11/30/22 10:30 Pulse Rate 88 84 Respiratory Rate 23 21 Blood Pressure 141/65 H Pulse Oximetry 96 97 Oxygen Delivery Method 11/30/22 10:35 11/30/22 10:40 11/30/22 10:45 Pulse Rate 88 86 88 Respiratory Rate 21 18 22 Blood Pressure Pulse Oximetry 96 97 97 Oxygen Delivery Method 11/30/22 10:50 11/30/22 10:55 11/30/22 11:00 Pulse Rate 84 84 84 Respiratory Rate 20 21 19 Blood Pressure Pulse Oximetry 97 97 96 Oxygen Delivery Method 11/30/22 11:05 11/30/22 11:10 11/30/22 11:15 Pulse Rate 77 77 74 Respiratory Rate 20 20 21 Blood Pressure Pulse Oximetry 96 96 96 Oxygen Delivery Method 11/30/22 11:20 11/30/22 11:25 11/30/22 11:40 Pulse Rate 75 77 89 Respiratory Rate 21 21 27 H Blood Pressure Pulse Oximetry 97 95 93 Oxygen Delivery Method 11/30/22 11:48 11/30/22 11:48 11/30/22 11:50 Pulse Rate 78 84 Respiratory Rate 30 H 23 Blood Pressure 138/63 Pulse Oximetry 96 96 Oxygen Delivery Method 11/30/22 11:55 11/30/22 12:00 11/30/22 12:05 Pulse Rate 84 83 Respiratory Rate 19 23 Blood Pressure 134/60 Pulse Oximetry 98 96 Oxygen Delivery Method 11/30/22 12:10 11/30/22 12:15 11/30/22 12:20 Pulse Rate 72 85 83 Respiratory Rate 28 H 28 H 34 H Blood Pressure Pulse Oximetry 98 98 98 Oxygen Delivery Method 11/30/22 12:57 11/30/22 14:42 11/30/22 12:30 Pulse Rate 83 83 84 Respiratory Rate 22 22 26 H Blood Pressure Pulse Oximetry 97 97 98 Oxygen Delivery Method 11/30/22 12:31 11/30/22 12:31 11/30/22 12:35 Pulse Rate 82 78 Respiratory Rate 31 H 33 H Blood Pressure 137/59 L Pulse Oximetry 98 97 Oxygen Delivery Method 11/30/22 12:40 11/30/22 12:45 11/30/22 12:50 Pulse Rate 84 84 79 Respiratory Rate 32 H 27 H 26 H Blood Pressure Pulse Oximetry 97 97 98 Oxygen Delivery Method 11/30/22 12:55 11/30/22 13:00 11/30/22 13:01 Pulse Rate 86 178 H 98 H Respiratory Rate 24 28 H 27 H Blood Pressure Pulse Oximetry 97 97 96 Oxygen Delivery Method 11/30/22 13:01 11/30/22 13:05 11/30/22 13:10 Pulse Rate 86 88 Respiratory Rate 25 H Blood Pressure 129/73 Pulse Oximetry 96 95 Oxygen Delivery Method 11/30/22 13:15 11/30/22 13:20 11/30/22 13:25 Pulse Rate 89 85 86 Respiratory Rate 25 H Blood Pressure Pulse Oximetry 95 93 92 Oxygen Delivery Method 11/30/22 13:30 11/30/22 13:35 11/30/22 13:40 Pulse Rate 86 75 85 Respiratory Rate Blood Pressure Pulse Oximetry 95 96 93 Oxygen Delivery Method 11/30/22 13:45 11/30/22 13:50 11/30/22 13:55 Pulse Rate 83 74 73 Respiratory Rate Blood Pressure Pulse Oximetry 90 L 94 95 Oxygen Delivery Method 11/30/22 14:00 11/30/22 14:01 11/30/22 14:01 Pulse Rate 70 71 Respiratory Rate Blood Pressure 139/69 Pulse Oximetry 96 96 Oxygen Delivery Method 11/30/22 14:05 11/30/22 14:10 11/30/22 14:15 Pulse Rate 73 73 70 Respiratory Rate Blood Pressure Pulse Oximetry 97 97 97 Oxygen Delivery Method 11/30/22 14:20 11/30/22 14:25 11/30/22 14:30 Pulse Rate 70 70 70 Respiratory Rate Blood Pressure Pulse Oximetry 97 97 97 Oxygen Delivery Method 11/30/22 14:31 11/30/22 14:31 11/30/22 14:35 Pulse Rate 70 70 Respiratory Rate Blood Pressure 134/60 Pulse Oximetry 97 97 Oxygen Delivery Method 11/30/22 14:40 11/30/22 14:45 11/30/22 14:50 Pulse Rate 71 70 70 Respiratory Rate Blood Pressure Pulse Oximetry 97 97 97 Oxygen Delivery Method 11/30/22 14:55 11/30/22 15:00 11/30/22 15:01 Pulse Rate 70 70 Respiratory Rate Blood Pressure 124/56 L Pulse Oximetry 96 97 Oxygen Delivery Method 11/30/22 15:01 11/30/22 15:05 11/30/22 15:10 Pulse Rate 70 73 84 Respiratory Rate Blood Pressure Pulse Oximetry 96 96 97 Oxygen Delivery Method 11/30/22 15:15 11/30/22 16:27 11/30/22 16:47 Pulse Rate 73 74 72 Respiratory Rate 16 20 Blood Pressure 124/57 L Pulse Oximetry 97 96 95 Oxygen Delivery Method High Flow Nasal Cannula 11/30/22 17:25 Pulse Rate Respiratory Rate Blood Pressure 128/62 Pulse Oximetry Oxygen Delivery Method High Flow Nasal Cannula Pt brought to room in hospital bed from ED, pt refusing vitals, was placed on HHF and pt removed, place on 6L NC, administered Morphine and haldol for pain and agitation. Family at bedside, comfort care cart ordered for room, no further needs at this time, family will assist pt to use call light as needed.
[2022-11-30] MEDS: LORazepam 2 MG/ML INJ 1 MG IV (20:26)
--- NOTE | 2022-11-30 23:14 | PC.NURSE ---
2119: Pt had a moderate incontinent bowel movement. Morphine given for pain. delmar care and new alyven dressing applied to pressure injury on coccyx.
[2022-12-01] MEDS: LORazepam 2 MG/ML INJ 1 MG IV ×5 (00:49→15:54)
[2022-12-01] MEDS: MORPHINE 4 MG/ML INJ 2 MG IV ×4 (01:45→08:31)
[2022-12-01 08:00] VITALS: BP 132/33; PULSE 84; RESP 18; TEMP 37.1; O2SAT 87
[2022-12-01] MEDS: ONDANSETRON 4 MG/2 ML INJ IV (08:30)
--- NOTE | 2022-12-01 11:01 | CM.DANOTE ---
Addendum entered by DRAKE Lee 12/01/22 12:37: QUALITY WORKER spoke with Quyen ([phone]) at [facility] in [place]. Quyen reports they have some bed availability and would have to check if those had been allocated or not already but would be happy to look over referral. QUALITY WORKER updated Quyen verbally on patient. Quyen asked if patient was safe to transfer and QUALITY WORKER reported being unsure about that. Quyen reported she would call this author back with decision on referral. CM Tea Tree Farmer Joana kindly agreed to fax over clinicals to [facility]. YONATHAN Addendum entered by DRAKE Lee 12/01/22 12:10: Lexy denied referral at this time due to lack of appropriate bed/patient being so close to passing. Patient has a POLST in her red folder stating DNR status. CM team will continue to follow closely. YONATHAN Original Note: DCP Assessment Note: Patient is a 77yo female here following end stage chronic kidney disease and CHF. PCP Karen Mustafa Payer Medicare [facility] QUALITY WORKER reviewed EMR. Per hospitalist, patient likely imminent to pass. QUALITY WORKER received call from Tanisha ([phone]) at [facility] asking for updates. QUALITY WORKER updated her that patient is likely to pass at the hospital within the next day. Nursing staff reports family denied chaps at this time. Nursing staff reports patient was visited by APS worker but was unsure who made the referral or outcome. Potentially SW from [facility]/dialysis treatment made APS report for self neglect? QUALITY WORKER entered room and introduced self and role to family. Patient was accompanied at bedside with daughter/DPOA AlexandriaJyothiRosi ([phone]) and granddaughter Vernon. Daughter reports being unsure if they could care for her at home if she were to d/c from here on hospice. Daughter/gdrachnakerriter interested in comfort care treatment at [facility]. QUALITY WORKER called Lexy at [facility]. Lexy will look over referral and let this author know thoughts. September reports patient would need to meet inpatient status for 3 midnights prior to Medicare covering comfort care. QUALITY WORKER received call from Juan ([phone] ext [phone]), social services manager at [facility] dialysis asking for updates. QUALITY WORKER reported to her that patient is likely imminent. Juan reported that she had called APS for patient self neglect. Juan reports their is a history of strained family dynamic with patient and daughter and cites patient's bipolar 1 as reason, but that daughter has been above and beyond supportive throughout her time working with patient/family. Juan reports patient was d/c from [facility] to home via BLS after patient refused to go to SNF. Juan reports family told her patient was likely in her same chair from when BLS dropped her off to when EMS found her on the ground 11/30. Juan reports daughter told her that at [facility] in order to get her heart treatment she needed to sign a 30 day full code? Currently she is DNR at this time. DRAKE updated nursing staff on 30 day full code paperwork inquiry. Mathieu report they were unaware of a full code paperwork and all current available paperwork from [facility] reports DNR. Plan: patient likely to pass in hospital within the next day. If note, September from [facility] reviewing for end of life care. CM team will continue to follow closely. DRAKE Lee Discharge Planning/Care Management CM Discharge Assessment Start: 12/01/22 10:52 Freq: Status: Active Protocol: Document 12/01/22 10:52 (Rec: 12/01/22 11:01 [id number]) Discharge Planning Assessment Assigned Hvac R Instructor DRAKE Ramirez DPOA/Assigned Designee Name Nasra Tang (daughter) Contact Information [phone] Advance Directives? Yes: polst Advance Directives on File Yes History Provided By Patient,Family Member,Medical Record Prior Living Arrangements Apartment/Condo Household Members none Comment Prior to admission it sounds like she was driving herself. However has recently stopped driving to her dialysis appointments. Independent with ADL's No Is patient alert and oriented? No Needs Assistance With Bathing,Eating,Grooming,Meal Prep,Toileting,Managing Medications,Home Chores / Shopping Comment Dialysis treatment at [facility] Patient/Family Preference [facility] Comment Family may prefer SNF palliative care Discharge Plan Pt expected to in Hospital Referrals Initiated None needed,[facility] Additional Comment [facility] reviewing patient Has Agency SNF been contacted Yes Whiteboard Updated in Patient Room with Yes name and ext. # of Hvac R Instructor Review Status In Process Next Review Type Continued Stay Review
[2022-12-01] MEDS: MORPHINE 2 MG/ML INJ IV ×4 (11:18→15:48)
--- NOTE | 2022-12-01 11:24 | PC.NURSE ---
APS here, they have received a referral for patient. She was given pt's history, she requested the H&P, problem list. She went to see patient, paperwork left at bedside. Family had briefly left and when they returned they were made aware APS worker was here. Apparently pt had decided to go home instead of back to facility after dialysis, and the people from dialysis from there had made the call. The family was able to get pt to come to the hospital. She was then admitted. She is currently comfort care. Called Dr. Coles and notified APS is here. APS worker did not feel she needed to see MD. After seeing patient she had no further questions.
--- NOTE | 2022-12-01 13:22 | P.PN_ITS ---
Subjective Subjective Interval history: Patient appears comfortable. Not responsive. Exam Vital Signs (past 8 hours): - 12/01/22 08:00 12/01/22 07:50 Temperature 98.8 F Pulse Rate 84 Respiratory Rate 18 Blood Pressure 132/33 L Pulse Oximetry 87 L Oxygen Delivery Method Room Air Fraction of Inspired Oxygen 65 SaO2/FiO2 Ratio 144 Oxygen Delivery Method Room Air Oxygen Flow Rate 3 Narrative Exam Narrative: Gen: no acute distress, obese, not responsive but shallow respirations. Objective Labs 11/30/22 08:25 11/30/22 08:25 [facility] Medical History Bipolar 1 disorder CKD (chronic kidney disease) stage 4, GFR 15-29 ml/min Diabetes Dyslipidemia Hypertension Pacemaker Renal failure (ARF), acute on chronic Surgically constructed arteriovenous fistula Surgical History H/O: S/P cholecystectomy Social History household members: none Smoking Status: Never smoker alcohol intake: never Assessment & Plan Assessment & Plan narrative: 1. Acute respiratory failure with hypoxia due to volume overload from ESRD, with metabolic encephalopathy - likely worsening respiratory status from IV fluids given for rhabdomyolysis. - Patient is not currently responding. Discussed that ultimately respiratory failure and encephalopathy is due to volume overload from ESRD and patient's passing is imminent with no hemodialysis. - Now on 3L of O2, maintaining O2 saturations around upper 80s. - Patient's passing still appears imminent. - morphine IV and ativan IV prn for pain / dyspnea / anxiety management. 2. Acute rhadbomyolysis. - No further monitoring after goals of care discussions. 3. Advanced care planning. - possible transfer to hospice house if bed available and patient does not . Chronic conditions - HTN, IDDM, CAD with prior PPM for bradycardia, depression, recent NSTEMI, obesity with probable Obesity hypoventilation syndrome. - given patient's current mentation and goals of care, will continue to hold home medications on admission. Code: DNR/DNI, comfort measures. Patient's daughter is DPOA. DVT: SCDs for comfort only, no chemical ppx. Dispo: admit inpatient as patient's passing appears imminent. Possible transfer to hospice center if bed available and patient does not . Additional history was obtained via discussion with the ER provider and patient's daughter. I have reviewed patient's EKG, extensively reviewed patient's prior discharge summaries from outside hospitals.
--- NOTE | 2022-12-01 13:28 | CM.DPC ---
DCP Cont: Spoke to Quyen at [facility]. She was inquiring if patient is able to survive the transport. It is noted that patient is currently on 3 liters of oxygen, no longer on high flow. Confirmed with Dr. Coles, it is unknown if patient could pass during transport, but most likely is the timing of her expiring, not the transport. Let Quyen know this. She stated that they have beds, could change on a daily basis, but she will give the case to their provider to review. Gave her this [employer] number, since [employer] [facility], has left for the day. Joana is kindly faxing over the [employer], and DPOA paper work to them. Their fax number is: [phone]. Quyen also gave their direct number to call for referrals.Their direct phone number is: [phone]. Asked Quyen about room and board, if it is covered, since at longterm, it is known that Medicare covers the first 5 days if imminent. Quyen indicated that patient going to [facility] always start out as GIP, which is the highest level of care, if they are assessed when they arrive, and not in an acute care situation, then they are decreased in level of care, then, they would pay the daily rate of boarding. She stated that this patient is at GIP, so would not have a daily rate. Gave her additional information, per her request. P: DCP working on a back up plan, [facility] is reviewing, may be able to take her tomorrow. Tomorrow, contact with be Rashmi or Cami, since Quyen is off tomorrow, at the number listed in above note. Asha Patel, [employer]
[2022-12-01] MEDS: SCOPOLAMINE 1 PATCH TOP (13:37)
--- NOTE | 2022-12-01 16:05 | P.DN_ITS ---
Discharge Summary History of Illness Narrative: 77 F with PMH of ESRD on HD T//, HTN, DM, ? CAD with PPM, ? CHF (normal EF 10/01) who presented to the ER after being found down. She was recently discharg ed from for volume overload in setting of probable missed HD per documentation review. She again presented with volume overload and had been pending transfer for hemodialysis and management of rhabdomyolysis but no bed had been found. ER called for admission as family reportedly wished to be comf ort care. I performed advanced care planning with the patient's DPOA (daughter) and discussed plan of care with patient's daughter as patient is not responding to verbal commands at this time in the emergency room. Her daughter did confirm that no further dialysis is wanted for treatment, and that she realizes this will lead to worsening respiratory distress and hypoxia and subsequent passing. They would like to slowly decrease oxygen with increasing medications for pain and discomfort. Since arrival in the ER, she was doing well. Was ordered for IV fluids overnight. She is currently on high flow at 20 L per minute. Hospital Course Date of Admission: 11/30/22 16:56 Primary care provider: KEESHA Campbell Consults: 11/29/22 18:41 [place] to [facility] Stat Comment: discuss goals 11/30/22 16:59 Consult to Hospice Referral Stat Comment: 11/30/22 17:22 Consult to Discharge Planning Routine Comment: Discharge provider: Jace Coles DO Discharge Diagnosis: 1. Acute respiratory failure with hypoxia due to volume overload from ESRD, with metabolic encephalopathy 2. Acute rhadbomyolysis. 3. Advanced care planning. Chronic conditions - HTN, IDDM, CAD with prior PPM for bradycardia, depression, recent NSTEMI, obesity with probable Obesity hypoventilation syndrome. Hospital Course: 77 F with PMH of ESRD on HD T//, HTN, DM, ? CAD with PPM, ? CHF (normal EF 10/01) who presented to the ER after being found down. She was recently discharged from for volume overload in setting of probable missed HD per documentation review. She again presented with volume overload and had been pending transfer for hemodialysis and management of rhabdomyolysis but no bed had been found. ER called for admission as family reportedly wished to be comfort care. I performed advanced care planning with the patient's DPOA (daug hter) and discussed plan of care with patient's daughter as the patient was not responding to verbal commands. She was admitted under comfort measures with imminent passing. She was given morphine, haldol, ativan for comfort as needed by the staff at bedside. She passed peacefully at 16:01 on 12/01/2022. Objective Labs 11/30/22 08:25 11/30/22 08:25
--- NOTE | 2022-12-01 16:51 | PC.NURSE ---
1601-Went to check on patient and was found patient unresponsive. Upon further assessment there was absence of pulse, heart and breath sounds; confirmed with auscultation. MD, coordinator and daughter notified. Coordinator called [facility] the patient was picked up by [facility] personnel at 1649. Post mortem care done by RN and PCT prior to pickup.
== END 2022-12-01 16:01 | disposition expired | DRG 682 ==
LOC: ED 11-30 08:02 → AC 11-30 17:27
PROVIDERS: Admitting Provider Internal Medicine; Emergency Provider Emergency Medicine; PCP Nurse Practitioner; Referring Provider Emergency Medicine; Visit Provider Internal Medicine
DX: I12.0 Hypertensive chronic kidney disease with stage 5 chronic kidney disease or end stage renal disease (principal); G93.41 Metabolic encephalopathy; N18.6 End stage renal disease; J96.01 Acute respiratory failure with hypoxia; M62.82 Rhabdomyolysis; Z99.2 Dependence on renal dialysis; Z66 Do not resuscitate; Z95.0 Presence of cardiac pacemaker; Z51.5 Encounter for palliative care
CPT/HCPCS: 0241U; 70450; 71045; 72125; 80048; 80053; 82140; 82550; 82962; 83605; 83690; 83880; 84484; 85025; 85610; 85730; 93005; 99284; 99291; 99292; J1630; J2060; J2270; J2405